=== PATIENT | female | born 1940 | race Caucasian/White ===

== ENCOUNTER → 2017-03-27 12:12 | Outpatient (CLI) | payer MEDICARE, MEDICAID, SELFPAY ==
--- NOTE | 2017-03-27 12:36 | XR_ITS ---
XR tibia fibula RT 2V CLINICAL INDICATION: Pain following injury with leg swelling ITS.REASON: previous trash can dropped on it ORDERING PHYSICIAN: Franci Vergara PATIENT AGE: 76 years COMPARISON: None FINDINGS: No acute fracture or dislocation. There are mild osteoarthritic changes of the medial compartment and patellofemoral joint. There is some nonspecific soft tissue calcification about the knee and the anterior distal pretibial area probably related to phleboliths. No lytic process. No soft tissue gas or radiopaque foreign body. IMPRESSION: No acute finding. Nonspecific soft tissue calcifications and mild osteoarthritis of the knee
== END ==
PROVIDERS: PCP Nurse Practitioner Family; Visit Provider Nurse Practitioner Family
DX: R52 Pain, unspecified (principal)
CPT/HCPCS: 73590

== ENCOUNTER 2017-04-16 17:04 | Emergency (ER) | payer MEDICARE, MEDICAID, SELFPAY ==
[2017-04-16 17:05] VITALS: BP 142/114; PULSE 88; RESP 18; TEMP 37.1; O2SAT 94; BMI 85.9
--- NOTE | 2017-04-16 17:30 | XR_ITS ---
XR shoulder RT min 2V HISTORY: Right shoulder pain ITS.REASON: stretcher ORDERING PHYSICIAN: Deirdre Lyles MD PATIENT AGE: 76 years COMPARISON: None FINDINGS: There has been prior ORIF of right humerus with a long bone plate present stabilizing an old mid shaft humeral fracture. There are osteoarthritic changes of the glenohumeral joint. No acute fracture or dislocation. Study is limited technically. IMPRESSION: 1. Osteoarthritic change of the AC joint. 2. Prior ORIF right mid shaft humeral fracture
[2017-04-16 17:41] LABS: Basophils % 0.1 % (0.1-2.0); Hematocrit 37.6 % (37.0-47.0); Hemoglobin 12.2 g/dL (12.2-16.2); Lymphocytes % 5.5 K/mm3 (10-50); Mean Corpuscular HGB Conc 32.6 g/dL (31.8-35.4); Mean Corpuscular Volume 79.8 fl (81-99); Mean Platelet Volume 7.3 fl (7.4-10.4); Monocytes # 1.2 K/mm3 (0.1-1.0); Monocytes % 6.1 % (1.7-9.3); Neutrophils # 16.7 K/mm3 (1.8-7.8); Neutrophils % 88.3 % (37.0-80.0); Platelet Count 180 K/mm3 (142-424); Red Blood Count 4.71 M/mm3 (4.20-5.40); Red Cell Distribution Width 14.1 % (11.5-17.5); White Blood Count 18.9 K/mm3 (4.8-10.8)
[2017-04-16 17:44] LABS: MANUAL DIFFERENTIAL MANUAL DIFFERENTIAL (MANUAL DIFF)
--- NOTE | 2017-04-16 17:50 | HMH.EDNVD ---
ED Disposition Clinical Impression: Right middle lobe pneumonia, Hypokalemia Disposition: Home, Self-Care Condition on Discharge: Good Instructions: DI for Diarrhea and Traveler's Diarrhea -- Adult, DI for Diarrhea and Traveler's Diarrhea -- Child, DI for Nausea -- Adult, DI for Nausea -- Child Additional Instructions: 1- reassurance. 2- finish abx in the Ed. 3- start z pack tomorrow. 4- follow up with Mor in am 5- return if needed. Prescriptions: Azithromycin [Zithromax 250mg tab] 250 mg PO DIRECTED #6 tab Referrals: Franci Vergara APRN [Primary Care Provider] - - Critical Care Critical Care Time: No Attestation: On 04/16/17, the high probability of a clinically significant, sudden or life threatening deterioration of the following system(s) required my full and direct attention, intervention and personal management. The time I documented below is in addition to time spent performing reported procedures but includes the following listed in this critical care notation. Medical Decision Making - Medical Records Medical records reviewed: Yes: I reviewed the patient's medical records. Vital Signs: 04/16/17 17:05 Temperature 98.8 F Temperature Source Oral Pulse Rate [Right Radial] 88 Respiratory Rate 18 Blood Pressure [Right Arm] 142/114 Blood Pressure Mean [Right Arm] 123 Blood Pressure Source [Right Arm] Automatic Cuff Blood Pressure Position [Right Arm] Supine 02 Sat by Pulse Oximetry 94 L Oxygen Delivery Method Room Air - Lab Data Lab results reviewed: Yes: I reviewed the patient's lab results. Lab Results 04/16/17 17:15: WBC 18.9 H, RBC 4.71, Hgb 12.2, Hct 37.6, MCV 79.8 L, MCH 26.0 L, MCHC 32.6, RDW 14.1, Plt Count 180, MPV 7.3 L, Neut % (Auto) 88.3 H, Lymph % (Auto) 5.5 L, [place] % (Auto) 6.1, Eos % (Auto) 0.0 L, Baso % (Auto) 0.1, Neut # (Auto) 16.7 H, Lymph # (Auto) 1.0, [place] # (Auto) 1.2 H, Eos # (Auto) 0.0, Baso # (Auto) 0.0, Total Counted 100, Neutrophils % (Manual) 88 H, Lymphocytes % (Manual) 7 L, Monocytes % (Manual) 5, Platelet Estimate Normal, Stomatocytes 1+ 04/16/17 17:15: Sodium 137, Potassium 3.1 L, Chloride 99, Carbon Dioxide 30, Anion Gap 11.1, BUN 19 H, Creatinine 1.05 H, Estimated Creat Clear 37, Estimated GFR 51 L, Est GFR ( Amer) 61, Glucose 131 H, Calcium 10.1, Total Bilirubin 0.6, AST 20, ALT 24, Alkaline Phosphatase 66, Total Creatine Kinase 114, CK-MB (CK-2) 1.0, CK-MB (CK-2) Rel Index 0.9, Troponin I < 0.02, Total Protein 7.5, Albumin 3.4, Globulin 4.1 H, Albumin/Globulin Ratio 0.8 L 04/16/17 18:30: Lactic Acid 0.9 04/16/17 18:30: Lipase 103 04/16/17 18:40: Urine Color Yellow, Urine Appearance Clear, Urine pH 7.0, Ur Specific [place] 1.015, Urine Protein Negative, Urine Glucose (UA) Negative, Urine Ketones Negative, Urine Blood Trace-i, Urine Nitrate Negative, Urine Bilirubin Negative, Urine Urobilinogen 0.2, Ur Leukocyte Esterase Negative, Urine RBC Occasional, Urine WBC None, Ur Squamous Epith Cells 3-5, Urine Bacteria Trace 04/16/17 19:15: Influenza Type A Ag Negative, Influenza Type B Ag Negative Result diagrams: 04/16/17 17:15 04/16/17 17:15 Orders (Tests/Meds): ED MEDICATIONS Generic Name Dose Route Start Last Admin Trade Name Freq PRN Reason Stop Dose Admin Ceftriaxone Sodium 1 gm/ 50 mls @ 100 mls/hr 04/16/17 19:15 04/16/17 19:21 Sodium Chloride IV 04/30/17 19:14 100 mls/hr Q24H JESICA Administration Azithromycin 500 mg/ Sodium 250 mls @ 250 mls/hr 04/16/17 19:15 04/16/17 20:07 Chloride IV 04/30/17 19:14 250 mls/hr Q24H JESICA Administration Protocol Discontinued Medications Generic Name Dose Route Start Last Admin Trade Name Freq PRN Reason Stop Dose Admin Metronidazole 100 mls @ 100 mls/hr 04/16/17 18:30 Flagyl 500mg/100ml Ivpb IV 04/16/17 19:29 ONCE ONE Protocol Potassium Chloride 20 meq 04/16/17 19:04 04/16/17 20:10 Klor-Con 20meq Tablet PO 04/16/17 19:05 20 meq
--- NOTE | 2017-04-16 17:53 | ED_ITS ---
ED Disposition Clinical Impression: Right middle lobe pneumonia, Hypokalemia Disposition: Home, Self-Care Condition on Discharge: Good Instructions: DI for Diarrhea and Traveler's Diarrhea -- Adult, DI for Diarrhea and Traveler's Diarrhea -- Child, DI for Nausea -- Adult, DI for Nausea -- Child Additional Instructions: 1- reassurance. 2- finish abx in the Ed. 3- start z pack tomorrow. 4- follow up with Mor in am 5- return if needed. Prescriptions: Azithromycin [Zithromax 250mg tab] 250 mg PO DIRECTED #6 tab Referrals: Franci Vergara APRN [Primary Care Provider] - - Critical Care Critical Care Time: No Attestation: On 04/16/17, the high probability of a clinically significant, sudden or life threatening deterioration of the following system(s) required my full and direct attention, intervention and personal management. The time I documented below is in addition to time spent performing reported procedures but includes the following listed in this critical care notation. Medical Decision Making - Medical Records Medical records reviewed: Yes: I reviewed the patient's medical records. Vital Signs: 04/16/17 17:05 Temperature 98.8 F Temperature Source Oral Pulse Rate [Right Radial] 88 Respiratory Rate 18 Blood Pressure [Right Arm] 142/114 Blood Pressure Mean [Right Arm] 123 Blood Pressure Source [Right Arm] Automatic Cuff Blood Pressure Position [Right Arm] Supine 02 Sat by Pulse Oximetry 94 L Oxygen Delivery Method Room Air - Lab Data Lab results reviewed: Yes: I reviewed the patient's lab results. Lab Results 04/16/17 17:15: WBC 18.9 H, RBC 4.71, Hgb 12.2, Hct 37.6, MCV 79.8 L, MCH 26.0 L , MCHC 32.6, RDW 14.1, Plt Count 180, MPV 7.3 L, Neut % (Auto) 88.3 H, Lymph % ( Auto) 5.5 L, [place] % (Auto) 6.1, Eos % (Auto) 0.0 L, Baso % (Auto) 0.1, Neut # ( Auto) 16.7 H, Lymph # (Auto) 1.0, [place] # (Auto) 1.2 H, Eos # (Auto) 0.0, Baso # (Auto) 0.0, Total Counted 100, Neutrophils % (Manual) 88 H, Lymphocytes % ( Manual) 7 L, Monocytes % (Manual) 5, Platelet Estimate Normal, Stomatocytes 1+ 04/16/17 17:15: Sodium 137, Potassium 3.1 L, Chloride 99, Carbon Dioxide 30, Anion Gap 11.1, BUN 19 H, Creatinine 1.05 H, Estimated Creat Clear 37, Estimated GFR 51 L, Est GFR ( Amer) 61, Glucose 131 H, Calcium 10.1, Total Bilirubin 0.6, AST 20, ALT 24, Alkaline Phosphatase 66, Total Creatine Kinase 114, CK-MB (CK-2) 1.0, CK-MB (CK-2) Rel Index 0.9, Troponin I < 0.02, Total Protein 7.5, Albumin 3.4, Globulin 4.1 H, Albumin/Globulin Ratio 0.8 L 04/16/17 18:30: Lactic Acid 0.9 04/16/17 18:30: Lipase 103 04/16/17 18:40: Urine Color Yellow, Urine Appearance Clear, Urine pH 7.0, Ur Specific [place] 1.015, Urine Protein Negative, Urine Glucose (UA) Negative, Urine Ketones Negative, Urine Blood Trace-i, Urine Nitrate Negative, Urine Bilirubin Negative, Urine Urobilinogen 0.2, Ur Leukocyte Esterase Negative, Urine RBC Occasional, Urine WBC None, Ur Squamous Epith Cells 3-5, Urine Bacteria Trace 04/16/17 19:15: Influenza Type A Ag Negative, Influenza Type B Ag Negative Result diagrams: 04/16/17 17:15 04/16/17 17:15 Orders (Tests/Meds): ED MEDICATIONS Generic Name Dose Route Start Last Admin Trade Name Freq PRN Reason Stop Dose Admin Ceftriaxone Sodium 1 gm/ 50 mls @ 100 mls/hr 04/16/17 19:15 04/16/17 19:21 Sodium Chloride IV 04/30/17 19:14 100 mls/hr Q24H JESICA Administration Az
--- NOTE | 2017-04-16 17:54 | CT_ITS ---
CT abdomen pelvis wo con CLINICAL INDICATION: ITS.REASON: vomiting and elevated wbcs ORDERING PHYSICIAN: Deirdre Lyles MD PATIENT AGE: 76 years COMPARISON: None TECHNIQUE: Axial images obtained with sagittal and coronal reformats. PROCEDURE: Oral Contrast: None IV Contrast: None . FINDINGS: There is consolidation in the right middle lobe consistent with pneumonia. There is some thickening in the proximal aspect of the right middle lobe bronchi possibly inflammatory. Follow-up recommended to confirm resolution. There are coronary artery calcifications. Small hiatal hernia noted. Prior cholecystectomy. No ductal dilatation. Liver has an unremarkable appearance. There is mild splenomegaly at 15 cm. The adrenal glands and pancreas have an unremarkable unenhanced CT appearance. No renal or ureteral calculi. Minimal stranding perinephric renal fat nonspecific. Unremarkable appendix. No evidence of appendicitis. There is diverticulosis of the sigmoid colon. No evidence of diverticulitis. No intestinal obstruction or free air Lumbar scoliosis convex left with degenerative disc disease. IMPRESSION: 1. Right middle lobe pneumonia with mild proximal bronchial thickening. Follow-up recommended to confirm resolution 2. Coronary artery disease. 3. Mild splenomegaly
--- NOTE | 2017-04-16 17:54 | XR_ITS ---
XR chest AP HISTORY: ITS.REASON: elevated wbcs ORDERING PHYSICIAN: Deirdre Lyles MD PATIENT AGE: 76 years COMPARISON: 08/03/2016 FINDINGS: The cardiomediastinal silhouette and pulmonary vascularity are within normal limits. The lungs are clear without infiltrates, suspicious nodules, or pleural effusions. Bone plate noted over the right humerus.. IMPRESSION: No acute finding
[2017-04-16 18:06] LABS: Alanine Aminotransferase 24 U/L (12-78); Albumin Level 3.4 gm/dL (3.4-5.0); Albumin/Globulin Ratio 0.8 (1.1-1.8); Alkaline Phosphatase 66 U/L (46-116); Anion Gap 11.1 mEq/L (5-15); Aspartate Amino Transferase 20 U/L (15-37); Bilirubin,Total 0.6 mg/dL (0.2-1.0); Blood Urea Nitrogen 19 mg/dL (7-18); CKMB Relative Index 0.9 U/L (0-4.0); Calcium 10.1 mg/dL (8.5-10.1); Carbon Dioxide 30 mmol/L (21.0-32.0); Chloride 99 mmol/L (98-107); Creatine Kinase 114 U/L (26-192); Creatinine Clearance Estimated 37 mL/min (0-300); Creatinine,Serum 1.05 mg/dL (0.55-1.02); Estimated Glomerular Filt Rate 51 ml/min (>60); GFR (African American) 61 ML/MIN (>60); Globulin 4.1 gm/dl (1.3-3.2); Glucose 131 mg/dL (74-106); Potassium 3.1 mmoL/L (3.5-5.1); Sodium 137 mmol/L (136-145); Total Protein,Serum 7.5 gm/dL (6.4-8.2); Troponin I < 0.02 ng/ml (0.00-0.06)
[2017-04-16 18:43] LABS: Lymphocytes % 7 % (10-50); Monocytes % 5 % (2-9); Neutrophils % 88 % (42-76); Total Cells Counted 100
[2017-04-16 18:44] LABS: Platelet Estimate Normal; Stomatocytes 1+
[2017-04-16 18:44] LABS: Microscopic, Urine URINE MICROSCOPIC (MICROSCOPIC)
[2017-04-16 18:51] LABS: Lipase 103 u/L (73-393)
[2017-04-16 18:53] LABS: Appearance,Urine CLEAR (Clear); Bilirubin,Urine Negative (Negative); Blood, Urine TRACE-I (Negative); Color,Urine YELLOW (Yellow); Glucose,Urine (UA) Negative (Negative); Ketones,Urine Negative (Negative); Leukocyte Esterase,Urine Negative (Negative); Nitrate,Urine Negative (Negative); Protein,Urine Negative (Negative); Specific Gravity, Urine 1.015 (1.005-1.030); Urobilinogen,Urine 0.2 EU/dl (0.2)
[2017-04-16 18:59] LABS: Lactic Acid 0.9 mmol/L (0.4-2.0)
[2017-04-16 19:07] LABS: Bacteria,Urine Trace /lpf; RBC,Urine Occasional #/hpf (0-3)
[2017-04-16 21:38] VITALS: BP 180/76; PULSE 86; RESP 20; TEMP 36.9
== END 2017-04-16 21:38 | disposition home or self-care (01) ==
PROVIDERS: Emergency Provider Emergency Medicine; Family Provider Emergency Medicine; PCP Nurse Practitioner Family
DX: J18.9 Pneumonia, unspecified organism (principal); E87.6 Hypokalemia; K21.9 Gastro-esophageal reflux disease without esophagitis; I25.10 Atherosclerotic heart disease of native coronary artery without angina pectoris; E78.5 Hyperlipidemia, unspecified; I10 Essential (primary) hypertension; J45.909 Unspecified asthma, uncomplicated; Z79.899 Other long term (current) drug therapy; Z88.0 Allergy status to penicillin; Z88.1 Allergy status to other antibiotic agents; Z88.6 Allergy status to analgesic agent
CPT/HCPCS: 36415; 71045; 73030; 74176; 80053; 81001; 82550; 82553; 83605; 83690; 84484; 85007; 85025; 87040; 87275; 87276; 93005; 96365; 96366; 96367; 99282; J0456

== ENCOUNTER → 2017-06-10 06:29 | Outpatient (CLI) | payer MEDICARE, MEDICAID, SELFPAY ==
--- NOTE | 2017-06-10 06:31 | CA_ITS ---
PROCEDURE: 2-D M-mode and color Doppler study INDICATIONS FOR THE TEST: Chest pain X COPDX Heart Murmur Tobacco Smoking Palpitations FatigueX Syncope Edema HypertensionXDiabetes Mellitus Rheumatic Fever SOB DOEXObesityXHyperlipidemia Family History HD Additional History PATIENT INFORMATION HEIGHT: 63 WEIGHT:199 GENDER: Female B/P:152/78 2-D/M-MODE INTERPRETATION: 2-D MEASUREMENTS OBSERVED VALUES IN CMS Right Ventricular Dimension (RVDd) 2.2 Interventricular Septum (Thickness)(IVsd) 1.0 Left Ventricular Internal Dimensions(LVIDd) 5.6 Left Ventricular Posterior Wall (Thickness)(LVPWd) 1.2 Aortic Root 3.2 Aortic Cusp Separation 2.0 Left Atrial Dimensions (LAD) 3.7 2D 1. Left atrium is qualitatively moderately enlarged, left ventricle is normal size, there is mild concentric left ventricular hypertrophy present, visually estimated ejection fraction 55% with no obvious regional wall motion abnormality. 2. The right atrium and right ventricle are mildly enlarged with normal contractility. 3. The aortic valve is minimally thickened and fibrosed. 4. The mitral and tricuspid valve leaflets are minimally thickened. 5. The pulmonic valve is poorly visualized. 6. No significant pericardial effusion noted. DOPPLER INTERROGATION: Doppler interrogation of the aortic, mitral and tricuspid presence of mild mitral and tricuspid regurgitation, calculated right ventricular systolic pressure is 60 mmHg consistent with moderate pulmonary hypertension, grade 1 diastolic dysfunction seen with tissue Doppler evidence of raised left atrial pressure. CONCLUSION: 1. Moderately enlarged left atrium, normal left ventricular size, mild concentric left ventricular hypertrophy, visually estimated ejection fraction 55% with no obvious regional wall motion abnormality, grade 1 diastolic dysfunction seen with tissue Doppler evidence of raised left atrial pressure. 2. Mildly enlarged right ventricle with normal contractility. 3. Mild mitral and tricuspid regurgitation, calculated right ventricular systolic pressure is 60 mmHg consistent with moderate pulmonary hypertension. 4. No significant pericardial effusion noted.
--- NOTE | 2017-06-10 06:31 | NM_ITS ---
CARDIOLITE SPECT MYOCARDIAL PERFUSION SCAN, REST AND STRESS: EXERCISE STRESS [facility] REVIEW QGS EF AND WALL MOTION EVALUATION: QPS - PERFUSION EVALUATION HISTORY: Chest pain, SOB, HTN DOSE: 10.16 mCi technetium 99m mibi intravenously at rest followed by 32.8 mCi technetium 99m mibi following the intravenous ministration of 0.4 mg of Lexiscan. Resting blood pressure is 176/86. Stress blood pressure 172/87. FINDINGS: Ejection fraction is calculated to be 76%. Stress images reveal decreased activity in the anterior wall while rest images reveal uniform myocardial activity. Gated images calculated ejection fraction of 76% with normal wall motion IMPRESSION: Reversible ischemia in the anterior wall with normal ejection fraction normal wall motion. This is a high risk abnormal stress test
--- NOTE | 2017-06-10 07:39 | HMH.ITSHM ---
AZITHROMYCIN GABAPENTIN TRAMADOL VENTOLIN OXYBUTNIN RANITIDINE HCTZ LEVOTHYROXIN ISOSORB SERTRALINE LISINOPRIL METOPROL
== END ==
PROVIDERS: Family Provider Emergency Medicine; PCP Nurse Practitioner Family; Visit Provider Internal Medicine
DX: I25.118 Atherosclerotic heart disease of native coronary artery with other forms of angina pectoris (principal)
CPT/HCPCS: 78452; 93017; 93306; A9502; J2785

== ENCOUNTER → 2017-06-11 15:47 | Outpatient (POV) | payer MEDICARE, MEDICAID, SELFPAY ==
--- NOTE | 2017-06-11 16:03 | XR_ITS ---
XR chest 2V HISTORY: ITS.REASON: PNEUMONIA ORDERING PHYSICIAN: Edmond Landers MD PATIENT AGE: 76 years COMPARISON: 04/16/2017 FINDINGS: The cardiomediastinal silhouette and pulmonary vascularity are within normal limits. The lungs are clear without infiltrates, suspicious nodules, or pleural effusions. Minimal atelectatic or fibrotic changes are present in the left lung base. There is a calcified granuloma in the right lower lobe. There are degenerative changes in the thoracic spine with mild wedging involving what appears to represent T12 similar to previous CT scan of 01/21/2017 with degenerative changes in the upper lumbar spine. Bone plate is present of the right proximal humerus IMPRESSION: No acute finding
== END ==
PROVIDERS: Family Provider Emergency Medicine; PCP Nurse Practitioner Family; Visit Provider Internal Medicine
DX: J18.9 Pneumonia, unspecified organism (principal)
CPT/HCPCS: 71046

== ENCOUNTER → 2017-07-03 16:23 | Outpatient (REF) | payer MEDICARE, MEDICAID, SELFPAY ==
[2017-07-03 20:54] LABS: Amphetamine/Metha Screen,Urine Negative ng/mL (<1000); Barbiturates Screen,Urine Negative ng/mL (<200); Benzodiazepines Screen,Urine Negative ng/mL (200); Cannabinoid Screen,Urine Negative ng/mL (<50); Cocaine Screen,Urine Negative ng/g (<300); Methadone Screen,Urine Negative ng/mL (<300); Opiate Screen,Urine Negative ng/mL (<300); Phencyclidine Screen,Urine Negative ng/mL (<25)
== END ==
LOC: LAB 16:23
PROVIDERS: Visit Provider Nurse Practitioner Family
DX: Z79.899 Other long term (current) drug therapy (principal); M54.9 Dorsalgia, unspecified
CPT/HCPCS: 80305

== ENCOUNTER → 2017-07-25 11:58 | Outpatient (CLI) | payer MEDICARE, MEDICAID, SELFPAY ==
[2017-07-25 13:19] LABS: Alanine Aminotransferase 20 U/L (12-78); Albumin Level 3.6 gm/dL (3.4-5.0); Alkaline Phosphatase 70 U/L (46-116); Anion Gap 11.8 mEq/L (5-15); Aspartate Amino Transferase 22 U/L (15-37); Bilirubin,Total 0.2 mg/dL (0.2-1.0); Blood Urea Nitrogen 34 mg/dL (7-18); Calcium 10.8 mg/dL (8.5-10.1); Carbon Dioxide 29 mmol/L (21.0-32.0); Chloride 101 mmol/L (98-107); Creatinine,Serum 1.23 mg/dL (0.55-1.02); Estimated Glomerular Filt Rate 42 ml/min (>60); GFR (African American) 51 ML/MIN (>60); Globulin 3.5 gm/dl (1.3-3.2); Glucose 86 mg/dL (74-106); Potassium 3.8 mmoL/L (3.5-5.1); Sodium 138 mmol/L (136-145); Total Protein,Serum 7.1 gm/dL (6.4-8.2)
[2017-07-26 20:14] LABS: Vitamin D 25 Hydroxy 42.1 ng/mL (30.0-100.0)
== END ==
PROVIDERS: Family Provider Emergency Medicine; PCP Nurse Practitioner Family; Visit Provider Nurse Practitioner Family
DX: I25.10 Atherosclerotic heart disease of native coronary artery without angina pectoris (principal); R53.83 Other fatigue
CPT/HCPCS: 36415; 80053; 82652

== ENCOUNTER → 2017-10-30 11:04 | Outpatient (REF) | payer MEDICARE, MEDICAID, SELFPAY ==
[2017-10-30 14:17] LABS: Amphetamine/Metha Screen,Urine Negative ng/mL (<1000); Barbiturates Screen,Urine Negative ng/mL (<200); Benzodiazepines Screen,Urine Negative ng/mL (<200); Cannabinoid Screen,Urine Negative ng/mL (<50); Cocaine Screen,Urine Negative ng/mL (<300); Methadone Screen,Urine Negative ng/mL (<300); Opiate Screen,Urine Negative ng/mL (<300); Phencyclidine Screen,Urine Negative ng/mL (<25)
== END ==
LOC: LAB 11:04
PROVIDERS: Visit Provider Nurse Practitioner Family
DX: M54.5 Low back pain (principal)
CPT/HCPCS: 80305

== ENCOUNTER → 2017-11-12 08:41 | Outpatient (CLI) | payer MEDICARE, MEDICAID, SELFPAY ==
--- NOTE | 2017-11-12 08:45 | MM_ITS ---
MM Dig screening mamm BI w/CAD ORDERING PHYSICIAN : Franci Vergara PATIENT AGE: 76 years GENDER: Female COMPARISON: Multiple previous studies including November 2016 & 2015 and September bilateral mammogram. Right mammogram May 2016 INDICATION: ITS.REASON: screening no hormones. No new complaints. Noncontributory family hx Previous benign excisional biopsy left &. Right breast:. Biopsy scar 6:00 right breast and 2:30 position left breast TECHNIQUE: Standard CC and MLO images were obtained. R2 CAD reviewed. Additional CC nipple profile and right nipple profile view FINDINGS: Minimal residual fibroglandular elements both breasts.. No new suspicious findings. No dominant mass nor suspicious calcifications. Prior films are very helpful and demonstrates stable moderate asymmetry of the remaining minimal heterogeneous. Residual fibroglandular elements. RIGHT BREAST:No significant new findings. Follow-up in one year Small area of minimal asymmetric density at the medial inferior right breast appear stable since last year and some other previous studies LEFT BREAST:. Stable. Follow-up in one year The heterogeneous pattern appears stable with no significant new findings IMPRESSION: Stable bilateral mammogram. No new areas of significant concern. Heterogeneous mild asymmetric breast bilaterally Follow-up in one year recommended BI-RADS Category: 2 Benign Finding(s) RECOMMENDED FOLLOW-UP: 1YR 1 YEAR FOLLOW-UP (A letter has been sent to the patient regarding results of the study.)
== END ==
PROVIDERS: Family Provider Emergency Medicine; PCP Nurse Practitioner Family; Visit Provider Nurse Practitioner Family
DX: Z12.31 Encounter for screening mammogram for malignant neoplasm of breast (principal)
CPT/HCPCS: 77067

== ENCOUNTER → 2017-12-18 10:33 | Outpatient (CLI) | payer MEDICARE, MEDICAID, SELFPAY ==
[2017-12-18 12:25] LABS: Anion Gap 10.7 mEq/L (5-15); Blood Urea Nitrogen 23 mg/dL (7-18); Calcium 10.2 mg/dL (8.5-10.1); Carbon Dioxide 31 mmol/L (21.0-32.0); Chloride 97 mmol/L (98-107); Creatinine,Serum 1.13 mg/dL (0.55-1.02); Estimated Glomerular Filt Rate 46 ml/min (>60); GFR (African American) 56 ML/MIN (>60); Glucose 89 mg/dL (74-106); Potassium 3.7 mmoL/L (3.5-5.1); Sodium 135 mmol/L (136-145)
== END ==
PROVIDERS: PCP Nurse Practitioner Family; Visit Provider Physician Assistant
DX: E78.2 Mixed hyperlipidemia (principal); E87.6 Hypokalemia; I11.9 Hypertensive heart disease without heart failure; I25.10 Atherosclerotic heart disease of native coronary artery without angina pectoris; J44.9 Chronic obstructive pulmonary disease, unspecified; R06.09 Other forms of dyspnea; R07.89 Other chest pain; R26.81 Unsteadiness on feet; Z74.09 Other reduced mobility
CPT/HCPCS: 36415; 80048

== ENCOUNTER → 2017-12-20 10:22 | Outpatient (REF) | payer MEDICARE, MEDICAID, SELFPAY ==
[2017-12-20 14:32] LABS: Amphetamine/Metha Screen,Urine Negative ng/mL (<1000); Barbiturates Screen,Urine Negative ng/mL (<200); Benzodiazepines Screen,Urine Positive ng/mL (<200); Cannabinoid Screen,Urine Negative ng/mL (<50); Cocaine Screen,Urine Negative ng/mL (<300); Methadone Screen,Urine Negative ng/mL (<300); Opiate Screen,Urine Negative ng/mL (<300); Phencyclidine Screen,Urine Negative ng/mL (<25)
[2017-12-20 14:53] LABS: Alanine Aminotransferase 20 U/L (12-78); Albumin Level 3.7 gm/dL (3.4-5.0); Albumin/Globulin Ratio 1.1 (1.1-1.8); Alkaline Phosphatase 73 U/L (46-116); Anion Gap 13.3 mEq/L (5-15); Aspartate Amino Transferase 20 U/L (15-37); Bilirubin,Total 0.3 mg/dL (0.2-1.0); Blood Urea Nitrogen 26 mg/dL (7-18); Calcium 10.3 mg/dL (8.5-10.1); Carbon Dioxide 28 mmol/L (21.0-32.0); Chloride 100 mmol/L (98-107); Chol/HDL Ratio 3.1 (1-3.5); Cholesterol 170 mg/dL (140-200); Creatinine,Serum 1.25 mg/dL (0.55-1.02); Estimated Glomerular Filt Rate 41 ml/min (>60); Free T4 (Free Thyroxine) 1.01 ng/dl (0.76-1.46); GFR (African American) 50 ML/MIN (>60); Globulin 3.3 gm/dl (1.3-3.2); Glucose 93 mg/dL (74-106); HDL Cholesterol 55 mg/dL (29-89); LDL Cholesterol 93 mg/dL (0-130); Potassium 4.3 mmoL/L (3.5-5.1); Sodium 137 mmol/L (136-145); Thyroid Stimulating Hormone 2.11 uIU/ml (0.358-3.740); Triglycerides 111 mg/dL (30-200); VLDL Cholesterol 22 mg/dL (0-40)
[2017-12-20 14:59] LABS: Basophils % 0.4 % (0.1-2.0); Eosinophils # 0.3 K/mm3 (0.0-0.4); Eosinophils % 4.4 % (0.1-12.0); Hematocrit 34.8 % (37.0-47.0); Hemoglobin 11.8 g/dL (12.2-16.2); Lymphocytes # 1.6 K/mm3 (0.7-4.5); Lymphocytes % 21.2 K/mm3 (10-50); Mean Corpuscular HGB Conc 33.7 g/dL (31.8-35.4); Mean Corpuscular Hemoglobin 27.7 pg (27.0-31.2); Mean Corpuscular Volume 82.2 fl (81-99); Mean Platelet Volume 7.7 fl (7.4-10.4); Monocytes # 0.6 K/mm3 (0.1-1.0); Monocytes % 7.7 % (1.7-9.3); Neutrophils # 4.9 K/mm3 (1.8-7.8); Neutrophils % 66.3 % (37.0-80.0); Platelet Count 243 K/mm3 (142-424); Red Blood Count 4.24 M/mm3 (4.20-5.40); Red Cell Distribution Width 14.2 % (11.5-17.5); White Blood Count 7.4 K/mm3 (4.8-10.8)
[2017-12-21 10:22] LABS: Vitamin D 25 Hydroxy 33.6 ng/mL (30.0-100.0)
== END ==
LOC: LAB 10:22
PROVIDERS: PCP Nurse Practitioner Family; Visit Provider Nurse Practitioner Family
DX: I10 Essential (primary) hypertension (principal); R53.83 Other fatigue; Z79.899 Other long term (current) drug therapy; E03.9 Hypothyroidism, unspecified
CPT/HCPCS: 80053; 80061; 80305; 82652; 84439; 84443; 85025

== ENCOUNTER → 2018-03-12 17:10 | Outpatient (CLI) | payer MEDICARE, MEDICAID, SELFPAY ==
--- NOTE | 2018-03-12 17:18 | XR_ITS ---
XR wrist RT min 3V HISTORY wrist pain ITS.REASON: pain ORDERING PHYSICIAN: Franci Vergara PATIENT AGE: 77 years Comparison: None FINDINGS: No fracture or dislocation. No lytic or blastic change. There is normal mineralization.. There are mild osteoarthritic changes of the first metacarpal carpal joint IMPRESSION: No acute finding. 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
--- NOTE | 2018-03-12 17:18 | XR_ITS ---
XR forearm RT 2V HISTORY: Right forearm and wrist pain ITS.REASON: pain ORDERING PHYSICIAN: Franci eVrgara PATIENT AGE: 77 years FINDINGS: No fracture or dislocation. Bone plate is present along the anterior aspect of the mid shaft of the humerus. IMPRESSION: Negative right forearm
== END ==
PROVIDERS: PCP Emergency Medicine; Visit Provider Nurse Practitioner Family
DX: M79.632 Pain in left forearm (principal)
CPT/HCPCS: 73090; 73110

== ENCOUNTER → 2018-05-26 09:39 | Outpatient (CLI) | payer MEDICARE, MEDICAID, SELFPAY ==
[2018-05-26 10:35] VITALS: PULSE 80; PULSE 87
== END ==
PROVIDERS: PCP Emergency Medicine; Visit Provider Internal Medicine
DX: R06.09 Other forms of dyspnea (principal)
CPT/HCPCS: 94060; 94640; 94727; 94729

== ENCOUNTER → 2018-06-10 14:50 | Outpatient (POV) | payer MEDICARE, MEDICAID, SELFPAY | PROVIDERS: Visit Provider Internal Medicine | DX: Z00.00 Encounter for general adult medical examination without abnormal findings (principal) ==

== ENCOUNTER → 2018-06-18 10:41 | Outpatient (CLI) | payer MEDICARE, MEDICAID, SELFPAY ==
--- NOTE | 2018-06-18 10:42 | FL_ITS ---
FL barium swallow modified: 06/18/2018 10:42 AM CLINICAL HISTORY: Dysphagia ORDERING PHYSICIAN: Franci Vergara APRN PATIENT AGE: 77 years Comparison: None TECHNIQUE: Patient administered varying consistencies of barium contrast, while viewed in lateral position under real-time fluoroscopy with cine recording. FLUOROSCOPY TIME: 2 minutes and 16 seconds The study was performed in conjunction with speech pathologist. Please see that report & recommendations. FINDINGS: Patient was given varying consistencies of barium. There was minimal penetration with thin liquids IMPRESSION: Minimal penetration with thin liquids otherwise Unremarkable modified barium swallow Please see speech pathologist report and recommendations.
--- NOTE | 2018-06-18 11:50 | HMH.SLMBS2 ---
Speech & Language Evaluation Speech/Language Mod Barium Swallow Start: 06/18/18 11:40 Freq: once Status: Complete Protocol: Document 06/18/18 11:40 MARCO AKYUNG (Rec: 06/18/18 11:50 COLLEEN [id number]) [facility] [place] Recommendations Diet Dietary Recommendations Mechanical Soft Ground Meats Thin Liquids Comment Thin liquids with head turn to left. Treatment/Strategies Strategy/Precaution Recommend Turn Head Left Referrals/Other Recommended Referrals ENT Consult Other Recommendations Ms. Corral reports sensation of food getting stuck in throat. Recommend follow up with ENT to assess pharengeal area. Mod Barium Swallow Impressions Summary and Impressions Oral Phase Impression Minimal Impairment Oral Phase Summary Only upper dentures. Pharyngeal Phase Impression Mild Impairment Pharyngeal Phase Summary Penetration with thin and nectar liquids without head turn strtategy. Speech/Language MBS Assessment/Goals/Plan Assessment Date of Evaluation: 06/18/18 Evaluation Type Initial Certification Assessment/Problems Pt. reports feeling of food getting stuck in thoat and getting strangled on liquids . Does Patient Qualify for Service No Qualify/Failure Comment Patient able to follow directions and comply with compensatory strategy to prevent aspiration and penetration with head turn to left. Pt. 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 Recommendations PHYSICIAN CERTIFICATION: The specified therapy services are required, authorized, and reviewed every 30 days. Diet Recommendations Dysphagia Mechanical Soft Liquid Type Recommendations Normal/Thin SL Swallow Guidelines High aspiration risk Dysphagia Swallow Precautions/Strategies Turn Head Left Plan Pt/Guardian verbally ack understanding Yes of dx/prognosis/goals Pt/Guardian verbally ack understanding Yes of/consent to tx prog G -code Required Yes G-CODES ST Current Status [id number] ST Current Status Modifier CI-At least 1% but less than 20% impaired, limited or restricted ST Goal Status [id number] ST Goal Status Modifier CI-At least 1% but less than 20% impaired, limited or
== END ==
PROVIDERS: PCP Nurse Practitioner Family; Visit Provider Nurse Practitioner Family
DX: R13.10 Dysphagia, unspecified (principal)
CPT/HCPCS: 70371; 92611

== ENCOUNTER → 2018-06-20 13:26 | Outpatient (CLI) | payer MEDICARE, MEDICAID, SELFPAY ==
[2018-06-20 13:44] LABS: Basophils % 0.8 % (0.1-2.0); Eosinophils # 0.4 K/mm3 (0.0-0.4); Eosinophils % 7.8 % (0.1-12.0); Hematocrit 35.7 % (37.0-47.0); Hemoglobin 11.8 g/dL (12.2-16.2); Lymphocytes # 1.3 K/mm3 (0.7-4.5); Mean Corpuscular HGB Conc 32.9 g/dL (31.8-35.4); Mean Corpuscular Hemoglobin 26.7 pg (27.0-31.2); Mean Corpuscular Volume 81.2 fl (81-99); Mean Platelet Volume 7.4 fl (7.4-10.4); Monocytes # 0.4 K/mm3 (0.1-1.0); Monocytes % 7.5 % (1.7-9.3); Neutrophils # 3.4 K/mm3 (1.8-7.8); Neutrophils % 61.1 % (37.0-80.0); Platelet Count 212 K/mm3 (142-424); White Blood Count 5.6 K/mm3 (4.8-10.8)
[2018-06-20 14:40] LABS: Alanine Aminotransferase 21 U/L (12-78); Albumin Level 3.7 gm/dL (3.4-5.0); Albumin/Globulin Ratio 1.2 (1.1-1.8); Alkaline Phosphatase 66 U/L (46-116); Aspartate Amino Transferase 19 U/L (15-37); Bilirubin,Total 0.2 mg/dL (0.2-1.0); Blood Urea Nitrogen 27 mg/dL (7-18); Calcium 10.1 mg/dL (8.5-10.1); Carbon Dioxide 29 mmol/L (21.0-32.0); Chloride 104 mmol/L (98-107); Chol/HDL Ratio 3.7 (1-3.5); Cholesterol 172 mg/dL (140-200); Creatinine,Serum 1.22 mg/dL (0.55-1.02); Estimated Glomerular Filt Rate 43 ml/min (>60); GFR (African American) 51 ML/MIN (>60); Globulin 3.1 gm/dl (1.3-3.2); Glucose 96 mg/dL (74-106); HDL Cholesterol 46 mg/dL (29-89); LDL Cholesterol 106 mg/dL (0-130); Sodium 139 mmol/L (136-145); T4 (Thyroxine) 8.8 ug/dl (4.7-13.3); Thyroid Stimulating Hormone 2.45 uIU/ml (0.358-3.740); Total Protein,Serum 6.8 gm/dL (6.4-8.2); Triglycerides 102 mg/dL (30-200); VLDL Cholesterol 20 mg/dL (0-40)
[2018-06-21 19:09] LABS: Vitamin D 25 Hydroxy 34.6 ng/mL (30.0-100.0)
== END ==
PROVIDERS: Visit Provider Nurse Practitioner Family
DX: I25.10 Atherosclerotic heart disease of native coronary artery without angina pectoris (principal); R53.1 Weakness; E66.9 Obesity, unspecified
CPT/HCPCS: 80053; 80061; 82652; 84436; 84443; 85025

== ENCOUNTER → 2018-06-24 12:04 | Outpatient (POV) | payer MEDICARE, MEDICAID, SELFPAY | PROVIDERS: Visit Provider Dermatology | DX: Z00.00 Encounter for general adult medical examination without abnormal findings (principal) ==

== ENCOUNTER → 2018-07-29 09:53 | Outpatient (CLI) | payer MEDICARE, MEDICAID, SELFPAY ==
--- NOTE | 2018-07-29 09:54 | CA_ITS ---
PROCEDURE: 2-D M-mode and color Doppler study INDICATIONS FOR THE TEST: Chest pain+ COPD+ Heart Murmur Tobacco SmokingEX Palpitations Fatigue+ Syncope Edema+ Hypertension+Diabetes Mellitus Rheumatic Fever SOB+PATEL+Obesity+Hyperlipidemia+ Family History HD Additional History CAD, GERD PATIENT INFORMATION HEIGHT: 63 WEIGHT: 198 GENDER: Female B/P: 119/51 2-D/M-MODE INTERPRETATION: 2-D MEASUREMENTS OBSERVED VALUES IN CMS Right Ventricular Dimension (RVDd) 2.7 Interventricular Septum (Thickness)(IVsd) 0.9 Left Ventricular Internal Dimensions(LVIDd) 5.1 Left Ventricular Posterior Wall (Thickness)(LVPWd) 0.9 Aortic Root 2.8 Aortic Cusp Separation 1.8 Left Atrial Dimensions (LAD) 3.6 2D 1. Left atrium is mildly enlarged, left ventricle is normal size, mild concentric left ventricular hypertrophy, visually estimated ejection fraction 55% with no regional wall motion abnormality. 2. The right atrium and right ventricle are mildly enlarged with normal contractility. 3. The aortic valve is thickened and calcified leaflet continue to display good mobility. 4. The mitral and tricuspid valve is minimally thickened and calcified. 5. The pulmonic valve is poorly present. 6. No significant pericardial effusion noted. DOPPLER INTERROGATION: Doppler interrogation of the aortic, mitral and tricuspid valvular presence of mild aortic, mild mitral and tricuspid regurgitation, tricuspid regurgitation jet velocity is inadequate for calculation of the right ventricular systolic pressure, grade 1 diastolic function seen with tissue Doppler evidence of raised left atrial pressure. CONCLUSION: 1. Mild biatrial enlargement, normal left ventricular size, mild concentric left ventricular hypertrophy, visually estimated ejection fraction 55% with no regional wall motion abnormality. Grade 1 diastolic dysfunction seen without tissue Doppler evidence of raised left atrial pressure. 2. Mildly enlarged right ventricle with normal contractility. 3. Mild aortic, mild mitral and tricuspid regurgitation. 4. No significant pericardial effusion noted.
== END ==
PROVIDERS: PCP Nurse Practitioner Family; Visit Provider Urology
DX: I25.10 Atherosclerotic heart disease of native coronary artery without angina pectoris (principal); R06.02 Shortness of breath
CPT/HCPCS: 93306

== ENCOUNTER 2018-08-08 11:02 | Emergency (ER) | payer MEDICARE, MEDICAID, SELFPAY ==
[2018-08-08] VITALS (8 sets, daily range): BP systolic 132–158; BP diastolic 45–89; PULSE 65–84; RESP 18; TEMP 36.6–36.7; O2SAT 91–99; BMI 35.2
--- NOTE | 2018-08-08 11:08 | XR_ITS ---
XR chest 2V HISTORY: ITS.REASON: chest pain ORDERING PHYSICIAN: Davonte Han MD PATIENT AGE: 77 years COMPARISON: PA and lateral chest 06/11/2017 FINDINGS: The cardiomediastinal silhouette and pulmonary vascularity are within normal limits. The lungs are clear without infiltrates, suspicious nodules, or pleural effusions. There is a stable partially calcified pulmonary nodule right lower lobe No acute bony abnormalities. There is orthopedic hardware right humeral neck partially visualized at the lateral edge of the [id number] IMPRESSION: Negative chest, no acute finding
--- NOTE | 2018-08-08 11:18 | HMH.EDGENADL ---
ED Disposition Clinical Impression: Dyspnea, Sensation of chest tightness Disposition: Home, Self-Care Condition on Discharge: Good Instructions: DI for Shortness of Breath Prescriptions: Furosemide [Lasix 20mg tab] 20 mg PO DAILY 30 Days #30 tab Referrals: Franci Vergara APRN [Primary Care Provider] - Time of Disposition: 14:42 - Critical Care Critical Care Time: No Attestation: On , the high probability of a clinically significant, sudden or life threatening deterioration of the following system(s) required my full and direct attention, intervention and personal management. The time I documented below is in addition to time spent performing reported procedures but includes the following listed in this critical care notation. Medical Decision Making - Medical Records Medical records reviewed: Yes: I reviewed the patient's medical records. - Rafa Inquiry Pt receiving controlled substance: No Rafa was queried for this patient: No Vital Signs: 08/08/18 11:03 08/08/18 11:07 08/08/18 11:48 Temperature 98.1 F 98.1 F 97.8 F Temperature Source Oral Oral Oral Pulse Rate [Left Radial] 84 80 Pulse Rate [Left] 79 Respiratory Rate 18 18 18 Blood Pressure [Left Arm] 144/89 H 158/78 H 143/50 H Blood Pressure Mean [Left Arm] 107 104 81 Blood Pressure Source [Left Arm] Automatic Cuff Automatic Cuff Blood Pressure Position [Left Arm] Sitting Supine Supine 02 Sat by Pulse Oximetry 97 98 96 Oxygen Delivery Method Room Air Room Air Room Air 08/08/18 12:41 08/08/18 13:45 08/08/18 14:19 Temperature Temperature Source Pulse Rate [Left Radial] 65 69 76 Pulse Rate [Left] Respiratory Rate 18 Blood Pressure [Left Arm] 132/46 L 136/67 144/69 H Blood Pressure Mean [Left Arm] 74 90 94 Blood Pressure Source [Left Arm] Automatic Cuff Blood Pressure Position [Left Arm] Supine 02 Sat by Pulse Oximetry 98 98 95 Oxygen Delivery Method Room Air - Lab Data Lab results reviewed: Yes: I reviewed the patient's lab results. Lab Results 08/08/18 11:11: WBC 6.0, RBC 4.33, Hgb 11.6 L, Hct 35.9 L, MCV 82.9, MCH 26.7 L, MCHC 32.2, RDW 14.3, Plt Count 196, MPV 7.7, Neut % (Auto) 61.5, Lymph % (Auto) 25.5, [place] % (Auto) 5.5, Eos % (Auto) 6.4, Baso % (Auto) 1.0, Neut # (Auto) 3.7, Lymph # (Auto) 1.5, [place] # (Auto) 0.3, Eos # (Auto) 0.4, Baso # (Auto) 0.1 08/08/18 11:11: Troponin I < 0.02 08/08/18 11:11: Sodium 139, Potassium 3.4 L, Chloride 102, Carbon Dioxide 26, Anion Gap 14.4, BUN 31 H, Creatinine 1.43 H, Estimated Creat Clear 45, Estimated GFR 35 L, Est GFR ( Amer) 43 L, Glucose 94, Calcium 10.1 08/08/18 11:11: B-Natriuretic Peptide 115 H Result diagrams: 08/08/18 11:11 08/08/18 11:11 General Adult HPI - General Stated complaint: chest pain x1 month Time Seen by Provider: 08/08/18 11:18 Mode of Arrival: Wheelchair Source of Information: Patient Limitations: No Limitations - History of Present Illness HPI narrative: one month of chest pressure, saw Dr. Montes less than two weeks ago. no changes to meds. relates to orthopnea. negative [facility] less than two years ago - Related Data Home Medications Medication Instructions Recorded Confirmed Cholecalciferol (Vitamin D3) 1,000 unit PO QDAY 04/16/17 08/08/18 [Vitamin D3 1,000 Unit Cap] meclizine 25 mg tablet 25 mg PO QDAY PRN tab 07/16/18 08/08/18 Previous Rx's Medication Instructions Recorded albuterol sulfate HFA 90 1 puff INHALATION Q4H #18 g 11/01/17 mcg/actuation aerosol inhaler lidocaine 5 % topical cream 1 applic TOPICAL ONCE #15 g 03/12/18 nystatin 100,000 unit/mL oral 1 ml PO TID 5 Days #15 ml 06/05/18 suspension sertraline 50 mg tablet 50 mg PO QDAY #90 tab 06/12/18 triamterene 37.5 1 cap PO QAM #90 cap 06/12/18 mg-hydrochlorothiazide 25 mg capsule aspirin 81 mg tablet,delayed 81 mg PO QDAY #90 tab 06/20/18 release furosemide 20 mg tablet 20 mg PO DAILY #90 tab 06/20/18 isosorbide mononitrate ER 3
[2018-08-08 11:21] LABS: Basophils # 0.1 K/mm3 (0-0.2); Eosinophils # 0.4 K/mm3 (0.0-0.4); Eosinophils % 6.4 % (0.1-12.0); Hematocrit 35.9 % (37.0-47.0); Hemoglobin 11.6 g/dL (12.2-16.2); Lymphocytes # 1.5 K/mm3 (0.7-4.5); Lymphocytes % 25.5 % (10-50); Mean Corpuscular HGB Conc 32.2 g/dL (31.8-35.4); Mean Corpuscular Hemoglobin 26.7 pg (27.0-31.2); Mean Corpuscular Volume 82.9 fl (81-99); Mean Platelet Volume 7.7 fl (7.4-10.4); Monocytes # 0.3 K/mm3 (0.1-1.0); Monocytes % 5.5 % (1.7-9.3); Neutrophils # 3.7 K/mm3 (1.8-7.8); Neutrophils % 61.5 % (37.0-80.0); Platelet Count 196 K/mm3 (142-424); Red Blood Count 4.33 M/mm3 (4.20-5.40); Red Cell Distribution Width 14.3 % (11.5-17.5)
--- NOTE | 2018-08-08 11:21 | ED_ITS ---
ED Disposition Clinical Impression: Dyspnea, Sensation of chest tightness Disposition: Home, Self-Care Condition on Discharge: Good Instructions: DI for Shortness of Breath Prescriptions: Furosemide [Lasix 20mg tab] 20 mg PO DAILY 30 Days #30 tab Referrals: Franci Vergara APRN [Primary Care Provider] - Time of Disposition: 14:42 - Critical Care Critical Care Time: No Attestation: On , the high probability of a clinically significant, sudden or life threatening deterioration of the following system(s) required my full and direct attention, intervention and personal management. The time I documented below is in addition to time spent performing reported procedures but includes the following listed in this critical care notation. Medical Decision Making - Medical Records Medical records reviewed: Yes: I reviewed the patient's medical records. - Rafa Inquiry Pt receiving controlled substance: No Rafa was queried for this patient: No Vital Signs: 08/08/18 11:03 08/08/18 11:07 08/08/18 11:48 Temperature 98.1 F 98.1 F 97.8 F Temperature Source Oral Oral Oral Pulse Rate [Left Radial] 84 80 Pulse Rate [Left] 79 Respiratory Rate 18 18 18 Blood Pressure [Left Arm] 144/89 H 158/78 H 143/50 H Blood Pressure Mean [Left Arm] 107 104 81 Blood Pressure Source [Left Arm] Automatic Cuff Automatic Cuff Blood Pressure Position [Left Arm] Sitting Supine Supine 02 Sat by Pulse Oximetry 97 98 96 Oxygen Delivery Method Room Air Room Air Room Air 08/08/18 12:41 08/08/18 13:45 08/08/18 14:19 Temperature Temperature Source Pulse Rate [Left Radial] 65 69 76 Pulse Rate [Left] Respiratory Rate 18 Blood Pressure [Left Arm] 132/46 L 136/67 144/69 H Blood Pressure Mean [Left Arm] 74 90 94 Blood Pressure Source [Left Arm] Automatic Cuff Blood Pressure Position [Left Arm] Supine 02 Sat by Pulse Oximetry 98 98 95 Oxygen Delivery Method Room Air - Lab Data Lab results reviewed: Yes: I reviewed the patient's lab results. Lab Results 08/08/18 11:11: WBC 6.0, RBC 4.33, Hgb 11.6 L, Hct 35.9 L, MCV 82.9, MCH 26.7 L, MCHC 32.2, RDW 14.3, Plt Count 196, MPV 7.7, Neut % (Auto) 61.5, Lymph % (Auto) 25.5, [place] % (Auto) 5.5, Eos % (Auto) 6.4, Baso % (Auto) 1.0, Neut # (Auto) 3.7, Lymph # (Auto) 1.5, [place] # (Auto) 0.3, Eos # (Auto) 0.4, Baso # (Auto) 0.1 08/08/18 11:11: Troponin I < 0.02 08/08/18 11:11: Sodium 139, Potassium 3.4 L, Chloride 102, Carbon Dioxide 26, Anion Gap 14.4, BUN 31 H, Creatinine 1.43 H, Estimated Creat Clear 45, Estimated GFR 35 L, Est GFR ( Amer) 43 L, Glucose 94, Calcium 10.1 08/08/18 11:11: B-Natriuretic Peptide 115 H Result diagrams: 08/08/18 11:11 08/08/18 11:11 General Adult HPI - General Stated complaint: chest pain x1 month Time Seen by Provider: 08/08/18 11:18 Mode of Arrival: Wheelchair Source of Information: Patient Limitations: No Limitations - History of Present Illness HPI narrative: one month of chest pressure, saw Dr. Montes less than two weeks ago. no changes to meds. relates to orthopnea. negative [facility] less than two years ago - Related Data Home Medications Medic
[2018-08-08 11:33] LABS: Anion Gap 14.4 mEq/L (5-15); Blood Urea Nitrogen 31 mg/dL (7-18); Calcium 10.1 mg/dL (8.5-10.1); Carbon Dioxide 26 mmol/L (21.0-32.0); Chloride 102 mmol/L (98-107); Creatinine Clearance Estimated 45 mL/min (50-200); Creatinine,Serum 1.43 mg/dL (0.55-1.02); Estimated Glomerular Filt Rate 35 ml/min (>60); GFR (African American) 43 ML/MIN (>60); Glucose 94 mg/dL (74-106); Potassium 3.4 mmoL/L (3.5-5.1); Sodium 139 mmol/L (136-145)
[2018-08-08 11:41] LABS: Troponin I < 0.02 ng/ml (0.00-0.06)
== END 2018-08-08 15:24 | disposition home or self-care (01) ==
PROVIDERS: Emergency Provider Emergency Medicine; PCP Nurse Practitioner Family
DX: R06.09 Other forms of dyspnea (principal); R07.89 Other chest pain; I10 Essential (primary) hypertension; I25.10 Atherosclerotic heart disease of native coronary artery without angina pectoris; K21.9 Gastro-esophageal reflux disease without esophagitis; E78.5 Hyperlipidemia, unspecified; Z87.891 Personal history of nicotine dependence; Z79.899 Other long term (current) drug therapy; Z88.0 Allergy status to penicillin; Z88.5 Allergy status to narcotic agent
CPT/HCPCS: 71046; 80048; 83880; 84484; 85025; 93005; 96374; 99284

== ENCOUNTER → 2018-08-26 10:55 | Outpatient (CLI) | payer MEDICARE, MEDICAID, SELFPAY ==
--- NOTE | 2018-08-26 | CT_ITS ---
CT chest wo con HISTORY: ITS.REASON: DYSPHONIA ORDERING PHYSICIAN: Stephanie Muir MD PATIENT AGE: 77 years COMPARISON: None Technique: Axial images obtained. Sagittal, and coronal reformatted images are also generated and reviewed. All CT scans at the facility use one or more dose reduction, viz: automated exposure control, ma/kV adjustment per patient size (including targeted exams where dose is matched to indication, i.e. head), or iterative reconstruction technique. FINDINGS: Airway structures are patent without pleural effusion or pneumothorax. There is a posterior linear strand of increased density in the posterior right upper lobe. There are small curvilinear stable densities also in the right lower lobe adjacent to the major fissure. There is a benign right lower lobe calcified granuloma. There is a 2 mm noncalcified nodule in the right middle lobe which is stable suggesting benign granuloma. There are aortic and coronary artery calcified plaques. Heart size is normal. There is a stable 2 cm ill-defined soft tissue density in the superior anterior mediastinum just anterior to the ascending aorta. Hilar areas are unremarkable. There is a partially visualized 2 cm hypodense left renal cortical lesion, not entirely visualized although possible cyst. There are clips in the gallbladder fossa. IMPRESSION: No acute process. Areas of mild scarring in the posterior right upper lobe and right lower lobe adjacent to the major fissure. No masses in the aortic/pulmonic window. Nonspecific soft tissue density adjacent to the anterior margin of the ascending aorta. This could be nonspecific focal fibrosis. This is probably not abnormal adenopathy. Nonspecific partially visualized left renal lesion, possible cyst.
--- NOTE | 2018-08-26 | CT_ITS ---
CT soft tissue neck wo con INDICATION: Dysphonia and cough. ORDERING PHYSICIAN: Stephanie Muir MD PATIENT AGE: 77 years COMPARISON: None TECHNIQUE: Axial images are obtained without contrast. Sagittal and coronal reformatted images are reviewed as well. All CT scans at the facility use one or more dose reduction, viz: automated exposure control, ma/kV adjustment per patient size (including targeted exams where dose is matched to indication, i.e. head), or iterative reconstruction technique. FINDINGS: Decelerate glands and oral cavity structures as well as palatine tonsils are normal. There is no abnormal adenopathy. Epiglottis is normal. Specifically the larynx is symmetric and normal. There is no secondary signs to suggest paralysis of the vocal cords. Some portions of the distal common carotid arteries are retropharyngeal in location and there are calcified plaques at the carotid bifurcation areas bilaterally. Airway structures are patent. There are several levels of facet hypertrophy throughout the cervical spine. There is severe chronic appearing degenerative disc disease at C6-7. IMPRESSION: No acute process. Laryngeal area appears unremarkable. Calcific atherosclerotic vascular disease. Degenerative changes in the cervical spine as discussed above.
[2018-08-26 11:19] LABS: Blood Urea Nitrogen 31 mg/dL (7-18); Creatinine,Serum 1.51 mg/dL (0.55-1.02); Estimated Glomerular Filt Rate 33 ml/min (>60); GFR (African American) 40 ML/MIN (>60)
== END ==
PROVIDERS: Visit Provider Otolaryngology
DX: R49.0 Dysphonia (principal); J38.01 Paralysis of vocal cords and larynx, unilateral
CPT/HCPCS: 36415; 70490; 71250; 82565; 84520

== ENCOUNTER → 2018-11-17 09:37 | Outpatient (CLI) | payer MEDICARE, MEDICAID, SELFPAY ==
--- NOTE | 2018-11-17 09:38 | MM_ITS ---
PROCEDURE: MM DIG SCREENING MAMM BI W/CAD Patient Age:78Y CLINICAL INDICATION: screening 78-year-old. No hormones but no new complaints. Previous bilateral benign breast biopsies-stereotactic and excisional biopsies have been performed in past COMPARISON: A a DMDXUR DIG MAMM-DX UNI-RT W/CAD from 05/10/2016 [facility]B DIG MAMM-SCREEN TATUM W/CAD from 11/06/2016 [facility] MM Dig screening mamm BI w/CAD from 11/12/2017 TECHNIQUE: Standard CC and MLO images were obtained. R2 CAD reviewed. Additional nipple profile CC views bilateral FINDINGS: Mild/Moderate residual fibroglandular elements. Stable minimal asymmetry with no new areas of significant concern. No dominant or suspicious mass either breast... No suspicious calcifications but scattered benign-appearing calcifications noted. Bilateral follow-up 1 year recommended IMPRESSION: Stable mammogram no significant change since previous studies Routine follow-up recommended BI-RAD Category: 1 Negative FOLLOW-UP: 1YR 1 Year Follow-up (A letter has been sent to the patient regarding results of the study.) Dictated by: Modesto Shah MD 11/17/2018 10:46 Electronically signed by Modesto Shah MD in [place] 11/17/2018 10:46
== END ==
PROVIDERS: PCP Nurse Practitioner Family; Visit Provider Nurse Practitioner Family
DX: Z12.31 Encounter for screening mammogram for malignant neoplasm of breast (principal)
CPT/HCPCS: 77067

== ENCOUNTER → 2018-12-03 13:31 | Outpatient (CLI) | payer MEDICARE, MEDICAID, SELFPAY ==
[2018-12-03 14:52] LABS: Basophils % 0.5 % (0.1-2.0); Eosinophils # 0.2 K/mm3 (0.0-0.4); Eosinophils % 2.9 % (0.1-12.0); Hematocrit 38.6 % (37.0-47.0); Hemoglobin 12.1 g/dL (12.2-16.2); Lymphocytes # 2.1 K/mm3 (0.7-4.5); Lymphocytes % 25.6 % (10-50); Mean Corpuscular HGB Conc 31.3 g/dL (31.8-35.4); Mean Corpuscular Hemoglobin 25.9 pg (27.0-31.2); Mean Corpuscular Volume 82.9 fl (81-99); Mean Platelet Volume 7.6 fl (7.4-10.4); Monocytes # 0.6 K/mm3 (0.1-1.0); Monocytes % 7.3 % (1.7-9.3); Neutrophils # 5.2 K/mm3 (1.8-7.8); Neutrophils % 63.7 % (37.0-80.0); Platelet Count 238 K/mm3 (142-424); Red Blood Count 4.66 M/mm3 (4.20-5.40); Red Cell Distribution Width 14.9 % (11.5-17.5); White Blood Count 8.1 K/mm3 (4.8-10.8)
[2018-12-03 15:30] LABS: Alanine Aminotransferase 18 U/L (12-78); Albumin Level 4.1 gm/dL (3.4-5.0); Albumin/Globulin Ratio 1.2 (1.1-1.8); Alkaline Phosphatase 69 U/L (46-116); Anion Gap 13.4 mEq/L (5-15); Aspartate Amino Transferase 27 U/L (15-37); Bilirubin,Total 0.3 mg/dL (0.2-1.0); Blood Urea Nitrogen 47 mg/dL (7-18); Calcium 9.6 mg/dL (8.5-10.1); Carbon Dioxide 28 mmol/L (21.0-32.0); Chloride 99 mmol/L (98-107); Cholesterol 182 mg/dL (140-200); Creatinine,Serum 1.62 mg/dL (0.55-1.02); Estimated Glomerular Filt Rate 31 ml/min (>60); GFR (African American) 37 ML/MIN (>60); Globulin 3.3 gm/dl (1.3-3.2); Glucose 74 mg/dL (74-106); HDL Cholesterol 60 mg/dL (29-89); LDL Cholesterol 103 mg/dL (0-130); Potassium 3.4 mmoL/L (3.5-5.1); Sodium 137 mmol/L (136-145); T4 (Thyroxine) 9.6 ug/dl (4.7-13.3); Thyroid Stimulating Hormone 1.44 uIU/ml (0.358-3.740); Total Protein,Serum 7.4 gm/dL (6.4-8.2); Triglycerides 95 mg/dL (30-200); VLDL Cholesterol 19 mg/dL (0-40)
[2018-12-05 17:11] LABS: Vitamin D 25 Hydroxy 38.5 ng/mL (30.0-100.0)
== END ==
PROVIDERS: Visit Provider Nurse Practitioner Family
DX: R06.00 Dyspnea, unspecified (principal); R53.83 Other fatigue; I11.9 Hypertensive heart disease without heart failure; R07.89 Other chest pain
CPT/HCPCS: 80053; 80061; 82652; 84436; 84443; 85025

== ENCOUNTER → 2019-02-09 16:24 | Outpatient (CLI) | payer MEDICARE, MEDICAID, SELFPAY ==
[2019-02-09 16:28] LABS: Microscopic, Urine URINE MICROSCOPIC (MICROSCOPIC)
[2019-02-09 16:45] LABS: Basophils % 0.5 % (0.1-2.0); Eosinophils # 0.1 K/mm3 (0.0-0.4); Eosinophils % 1.3 % (0.1-12.0); Hematocrit 37.4 % (37.0-47.0); Hemoglobin 11.9 g/dL (12.2-16.2); Lymphocytes # 1.8 K/mm3 (0.7-4.5); Lymphocytes % 18.6 % (10-50); Mean Corpuscular Hemoglobin 26.7 pg (27.0-31.2); Mean Corpuscular Volume 83.4 fl (81-99); Monocytes # 0.8 K/mm3 (0.1-1.0); Monocytes % 7.8 % (1.7-9.3); Neutrophils # 6.9 K/mm3 (1.8-7.8); Neutrophils % 71.9 % (37.0-80.0); Platelet Count 233 K/mm3 (142-424); Red Blood Count 4.48 M/mm3 (4.20-5.40); Red Cell Distribution Width 14.1 % (11.5-17.5); White Blood Count 9.6 K/mm3 (4.8-10.8)
[2019-02-09 17:05] LABS: Appearance,Urine CLEAR (Clear); Bilirubin,Urine Negative (Negative); Blood, Urine Negative (Negative); Color,Urine YELLOW (Yellow); Glucose,Urine (UA) Negative (Negative); Ketones,Urine Negative (Negative); Leukocyte Esterase,Urine Negative (Negative); Nitrate,Urine Negative (Negative); PH,Urine 6.5 (5.0-8.5); Protein,Urine Negative (Negative); Specific Gravity, Urine <= 1.005 (1.005-1.030); Urobilinogen,Urine 0.2 EU/dl (0.2)
[2019-02-09 17:16] LABS: Bacteria,Urine Trace /lpf; WBC,Urine Occasional #/hpf (0-3)
[2019-02-09 18:27] LABS: Creatinine,Urine Random 54 mg/dL (20-320); Total Protein,Urine Random 7.4 mg/dL (0.0-11.9)
[2019-02-09 19:11] LABS: Albumin Level 3.5 gm/dL (3.4-5.0); Anion Gap 12.3 mEq/L (5-15); Blood Urea Nitrogen 35 mg/dL (7-18); Carbon Dioxide 29 mmol/L (21.0-32.0); Chloride 101 mmol/L (98-107); Creatinine,Serum 1.44 mg/dL (0.55-1.02); Estimated Glomerular Filt Rate 35 ml/min (>60); GFR (African American) 42 ML/MIN (>60); Glucose 82 mg/dL (74-106); Phosphorous 2.4 mg/dL (2.4-4.9); Potassium 3.3 mmoL/L (3.5-5.1); Sodium 139 mmol/L (136-145)
[2019-02-11 15:30] LABS: Parathyroid Hormone Intact 126 pg/mL (15-65); Vitamin D 25 Hydroxy 34.8 ng/mL (30.0-100.0)
== END ==
PROVIDERS: Visit Provider Internal Medicine Nephrology
DX: N18.3 Chronic kidney disease, stage 3 (moderate) (principal)
CPT/HCPCS: 36415; 80069; 81001; 82570; 82652; 83970; 84155; 85025

== ENCOUNTER → 2019-02-18 12:59 | Outpatient (POV) | payer MEDICARE, MEDICAID, SELFPAY | PROVIDERS: Visit Provider Internal Medicine Nephrology | DX: Z00.00 Encounter for general adult medical examination without abnormal findings (principal) ==

== ENCOUNTER → 2019-04-08 13:43 | Outpatient (CLI) | payer MEDICARE, MEDICAID, SELFPAY ==
[2019-04-08 14:06] LABS: Alanine Aminotransferase 17 U/L (12-78); Albumin Level 3.6 gm/dL (3.4-5.0); Albumin/Globulin Ratio 1.2 (1.1-1.8); Alkaline Phosphatase 58 U/L (46-116); Anion Gap 10.9 mEq/L (5-15); Aspartate Amino Transferase 19 U/L (15-37); Bilirubin,Total 0.3 mg/dL (0.2-1.0); Blood Urea Nitrogen 24 mg/dL (7-18); Calcium 9.9 mg/dL (8.5-10.1); Carbon Dioxide 29 mmol/L (21.0-32.0); Chloride 106 mmol/L (98-107); Creatinine,Serum 1.21 mg/dL (0.55-1.02); Estimated Glomerular Filt Rate 43 ml/min (>60); GFR (African American) 52 ML/MIN (>60); Globulin 2.9 gm/dl (1.3-3.2); Glucose 90 mg/dL (74-106); Potassium 3.9 mmoL/L (3.5-5.1); Sodium 142 mmol/L (136-145); Total Protein,Serum 6.5 gm/dL (6.4-8.2)
[2019-04-08 14:51] LABS: Basophils # 0.1 K/mm3 (0-0.2); Basophils % 0.9 % (0.1-2.0); Eosinophils # 0.4 K/mm3 (0.0-0.4); Eosinophils % 7.1 % (0.1-12.0); Hematocrit 34.9 % (37.0-47.0); Hemoglobin 11.3 g/dL (12.2-16.2); Lymphocytes # 1.5 K/mm3 (0.7-4.5); Mean Corpuscular HGB Conc 32.2 g/dL (31.8-35.4); Mean Corpuscular Hemoglobin 26.3 pg (27.0-31.2); Mean Corpuscular Volume 81.5 fl (81-99); Mean Platelet Volume 8.1 fl (7.4-10.4); Monocytes # 0.4 K/mm3 (0.1-1.0); Monocytes % 7.2 % (1.7-9.3); Neutrophils # 3.7 K/mm3 (1.8-7.8); Neutrophils % 60.8 % (37.0-80.0); Platelet Count 205 K/mm3 (142-424); Red Blood Count 4.29 M/mm3 (4.20-5.40); Red Cell Distribution Width 14.1 % (11.5-17.5); White Blood Count 6.2 K/mm3 (4.8-10.8)
== END ==
PROVIDERS: Visit Provider Nurse Practitioner Family
DX: I10 Essential (primary) hypertension (principal); R06.00 Dyspnea, unspecified
CPT/HCPCS: 80053; 85025

== ENCOUNTER → 2019-08-28 10:48 | Outpatient (CLI) | payer MEDICARE, MEDICAID, SELFPAY ==
--- NOTE | 2019-08-28 10:52 | XR_ITS ---
PROCEDURE: XR DEXA AXIAL SKELETON CLINICAL HISTORY: POST MENOPAUSAL The at thet COMPARISON: No exams were available for comparison FINDINGS: The right hip BMD is 0.717 with a t-score of -1.2. The [place] BMD is 0.518 with a t-sore of -3.0. The Lumbar spine BMD is 0.956 with a t-score of -0.8. IMPRESSION: This patient is considered osteoporotic according to the World Health Organization criteria. Fracture risk is high. Treatment is advised. Based on these results of follow-up exam is recommended in 1 year Dictated by: Crow Cohen MD 08/31/2019 22:04 Electronically signed by Crow Cohen MD in [place] 09/01/2019 07:55
[2019-08-28 12:08] LABS: Albumin Level 3.8 g/dl (3.5-5.0); Chloride 100 mmol/L (98-107); Potassium 3.7 mmoL/L (3.5-5.1); Sodium 138 mmol/L (136-145)
[2019-08-28 12:10] LABS: Blood Urea Nitrogen 22 mg/dl (7-17); Estimated Glomerular Filt Rate 43 ml/min (>60); GFR (African American) 52 ML/MIN (>60)
[2019-08-28 12:11] LABS: Anion Gap 9.7 mEq/L (5-15); Carbon Dioxide 32 mmol/L (22.0-30.0); Glucose 96 mg/dl (74-100)
[2019-09-01 06:51] LABS: Osteocalcin 36.5 ng/mL (.)
[2019-09-01 06:52] LABS: Tandem-R Ostase 12.1 ug/L (.)
[2019-09-02 04:45] LABS: N-Telopeptide Cross-linked 38.9 nmol BCE/L (6.2-19.0)
== END ==
PROVIDERS: PCP Nurse Practitioner Family; Visit Provider Internal Medicine Nephrology
DX: Z00.00 Encounter for general adult medical examination without abnormal findings (principal); Z78.0 Asymptomatic menopausal state; M85.89 Other specified disorders of bone density and structure, multiple sites
CPT/HCPCS: 36415; 77080; 80069; 82523; 83937; 84080

== ENCOUNTER → 2019-10-01 17:01 | Outpatient (CLI) | payer MEDICARE, MEDICAID, SELFPAY ==
[2019-10-01 17:44] LABS: Basophils % 0.6 % (0.1-2.0); Eosinophils # 0.3 K/mm3 (0.0-0.4); Hematocrit 32.7 % (37.0-47.0); Hemoglobin 11.4 g/dL (12.2-16.2); Lymphocytes # 1.8 K/mm3 (0.7-4.5); Lymphocytes % 26.9 % (10-50); Mean Corpuscular Hemoglobin 27.6 pg (27.0-31.2); Mean Corpuscular Volume 78.8 fl (81-99); Monocytes # 0.4 K/mm3 (0.1-1.0); Monocytes % 6.5 % (1.7-9.3); Neutrophils % 60.9 % (37.0-80.0); Platelet Count 219 K/mm3 (142-424); Red Blood Count 4.15 M/mm3 (4.20-5.40); Red Cell Distribution Width 14.3 % (11.5-17.5); White Blood Count 6.6 K/mm3 (4.8-10.8)
[2019-10-01 18:03] LABS: Alanine Aminotransferase 15 U/L (12-78); Albumin/Globulin Ratio 1.4 (1.1-1.8); Alkaline Phosphatase 72 U/L (38-126); Aspartate Amino Transferase 34 U/L (14-36); Bilirubin,Total 0.3 mg/dl (0.2-1.3); Blood Urea Nitrogen 26 mg/dl (7-17); Calcium 9.6 mg/dl (8.4-10.2); Carbon Dioxide 27 mmol/L (22.0-30.0); Chloride 95 mmol/L (98-107); Estimated Glomerular Filt Rate 48 ml/min (>60); GFR (African American) 58 ML/MIN (>60); Globulin 2.8 g/dL (1.3-3.2); Glucose 92 mg/dl (74-100); HDL Cholesterol 59 mg/dl (40-60); Sodium 132 mmol/L (136-145); Total Protein,Serum 6.8 g/dl (6.3-8.2)
[2019-10-01 18:16] LABS: Direct LDL Cholesterol 98.89 mg/dL (100-129)
[2019-10-01 18:21] LABS: T4 (Thyroxine) 8.8 ug/dl (5.53-11.0)
[2019-10-01 18:34] LABS: Thyroid Stimulating Hormone 3.49 uIU/mL (0.465-4.68)
[2019-10-01 18:51] LABS: Chol/HDL Ratio 2.8 (1-3.5); Cholesterol 168 mg/dl (140-200); Triglycerides 111 mg/dl (30-150); VLDL Cholesterol 22 mg/dL (0-40)
== END ==
PROVIDERS: Visit Provider Nurse Practitioner Family
DX: J44.9 Chronic obstructive pulmonary disease, unspecified (principal); R06.00 Dyspnea, unspecified; R53.83 Other fatigue; R07.89 Other chest pain
CPT/HCPCS: 80053; 80061; 84436; 84443; 85025

== ENCOUNTER → 2019-10-09 15:17 | Outpatient (CLI) | payer MEDICARE, MEDICAID, SELFPAY ==
[2019-10-09 16:38] LABS: Chloride 98 mmol/L (98-107); Potassium 3.7 mmoL/L (3.5-5.1); Sodium 135 mmol/L (136-145)
[2019-10-09 16:41] LABS: Blood Urea Nitrogen 23 mg/dl (7-17); Estimated Glomerular Filt Rate 39 ml/min (>60); GFR (African American) 48 ML/MIN (>60)
[2019-10-09 16:42] LABS: Anion Gap 12.7 mEq/L (5-15); Carbon Dioxide 28 mmol/L (22.0-30.0); Glucose 92 mg/dl (74-100)
== END ==
PROVIDERS: Visit Provider Nurse Practitioner Family
DX: E87.1 Hypo-osmolality and hyponatremia (principal)
CPT/HCPCS: 36415; 80048

== ENCOUNTER 2019-11-04 18:08 | Emergency (ER) | payer MEDICARE, MEDICAID, SELFPAY ==
[2019-11-04 18:24] VITALS: BP 177/63; PULSE 75; RESP 20; TEMP 36.4; O2SAT 98; BMI 34.0
--- NOTE | 2019-11-04 18:26 | HMH.EDGENADL ---
ED Disposition Clinical Impression: Lightheadedness, Hypercalcemia Vomiting Qualifiers: Vomiting type: unspecified Vomiting Intractability: non-intractable Nausea presence: with nausea Qualified Code(s): R11.2 - Nausea with vomiting, unspecified Disposition: Home, Self-Care Condition on Discharge: Good Instructions: DI for Hypokalemia, DI for Hypercalcemia, DI for Nausea -- Adult, DI for Vomiting -- Adult, DI for Dizziness-Nonvertigo Additional Instructions: Follow-up with your primary care doctor for recheck of your potassium and calcium. Zofran as needed for nausea. Return to the emergency department for severe nausea or vomiting, abdominal pain or chest pain, severe dizziness or fainting. Prescriptions: Ondansetron [Zofran 4mg ODT] 4 mg PO TIDP PRN #6 tab.rapdis PRN Reason: Nausea And Vomiting Transmission Status: Received by [facility] Referrals: Franci Vergara APRN [Primary Care Provider] - - Critical Care Critical Care Time: No Attestation: On 11/04/19, the high probability of a clinically significant, sudden or life threatening deterioration of the following system(s) required my full and direct attention, intervention and personal management. The time I documented below is in addition to time spent performing reported procedures but includes the following listed in this critical care notation. Medical Decision Making - Medical Records Medical records reviewed: Yes: I reviewed the patient's medical records. - Rafa Inquiry Pt receiving controlled substance: No Vital Signs: 11/04/19 18:24 11/04/19 19:00 Temperature 97.5 F L Temperature Source Oral Pulse Rate [Right Radial] 75 78 Respiratory Rate 20 18 Blood Pressure [Right Arm] 177/63 H 164/69 H Blood Pressure Mean [Right Arm] 101 100 Blood Pressure Source [Right Arm] Automatic Cuff Blood Pressure Position [Right Arm] Supine 02 Sat by Pulse Oximetry 98 99 Oxygen Delivery Method Room Air Room Air - Lab Data Lab results reviewed: Yes: I reviewed the patient's lab results. Lab Results 11/04/19 18:25: Urine Color Yellow, Urine Appearance Clear, Urine pH 5.5, Ur Specific [place] 1.020, Urine Protein Negative, Urine Glucose (UA) Negative, Urine Ketones Negative, Urine Blood Negative, Urine Nitrate Negative, Urine Bilirubin Negative, Urine Urobilinogen 0.2, Ur Leukocyte Esterase Negative, Urine WBC Occasional, Ur Squamous Epith Cells Occasional, Urine Bacteria Trace 11/04/19 18:30: WBC 8.3, RBC 4.47, Hgb 12.1 L, Hct 35.9 L, MCV 80.3 L, MCH 27.0, MCHC 33.6, RDW 14.5, Plt Count 225, MPV 7.6, Neut % (Auto) 76.4, Lymph % (Auto) 14.6, [place] % (Auto) 5.2, Eos % (Auto) 3.1, Baso % (Auto) 0.6, Neut # (Auto) 6.4, Lymph # (Auto) 1.2, [place] # (Auto) 0.4, Eos # (Auto) 0.3, Baso # (Auto) 0.1 11/04/19 18:30: Sodium 139, Potassium 3.1 L, Chloride 100, Carbon Dioxide 27, Anion Gap 15.1 H, BUN 28 H, Creatinine 1.30 H, Estimated Creat Clear 47, Estimated GFR 39 L, Est GFR ( Amer) 48 L, Glucose 118 H, Calcium 11.0 H, Total Bilirubin 0.4, AST 37 H, ALT 18, Alkaline Phosphatase 53, Total Protein 7.6, Albumin 4.3, Globulin 3.3 H, Albumin/Globulin Ratio 1.3, Amylase 85, Lipase 248 11/04/19 18:30: Troponin I < 0.01 Result diagrams: 11/04/19 18:30 11/04/19 18:30 Orders (Tests/Meds): ED MEDICATIONS Discontinued Medications Generic Name Dose Route Start Last Admin Trade Name Igorq PRN Reason Stop Dose Admin Ondansetron HCl 4 mg 11/04/19 19:23 11/04/19 19:35 Zofran 4mg/2ml Vial IV 11/04/19 19:24 4 mg ONCE ONE Administration Potassium Chloride 40 meq 11/04/19 19:18 11/04/19 19:35 Klor-Con 20meq Tablet PO 11/04/19 19:19 40 meq ONCE ONE Administration Sodium Chloride 500 ml 11/04/19 19:26 11/04/19 19:35 Sod Chlor 0.9% 1000ml Bag IV 11/04/19 19:27 500 ml BOLUS ONE Administration ORDERS Category Date Time Status Troponin I Q3H Lab 11/04/19 21:45 Ordered Troponin I Q3H Lab 11/05/19 00:45 Ordered
[2019-11-04 18:34] LABS: Microscopic, Urine URINE MICROSCOPIC (MICROSCOPIC)
[2019-11-04 18:36] LABS: Appearance,Urine CLEAR (Clear); Bilirubin,Urine Negative (Negative); Blood, Urine Negative (Negative); Color,Urine YELLOW (Yellow); Glucose,Urine (UA) Negative (Negative); Ketones,Urine Negative (Negative); Leukocyte Esterase,Urine Negative (Negative); Nitrate,Urine Negative (Negative); PH,Urine 5.5 (5.0-8.5); Protein,Urine Negative (Negative); Urobilinogen,Urine 0.2 EU/dl (0.2)
[2019-11-04 18:40] LABS: Basophils # 0.1 K/mm3 (0-0.2); Basophils % 0.6 % (0.1-2.0); Eosinophils # 0.3 K/mm3 (0.0-0.4); Eosinophils % 3.1 % (0.1-12.0); Hematocrit 35.9 % (37.0-47.0); Hemoglobin 12.1 g/dL (12.2-16.2); Lymphocytes # 1.2 K/mm3 (0.7-4.5); Lymphocytes % 14.6 % (10-50); Mean Corpuscular HGB Conc 33.6 g/dL (31.8-35.4); Mean Corpuscular Volume 80.3 fl (81-99); Mean Platelet Volume 7.6 fl (7.4-10.4); Monocytes # 0.4 K/mm3 (0.1-1.0); Monocytes % 5.2 % (1.7-9.3); Neutrophils # 6.4 K/mm3 (1.8-7.8); Neutrophils % 76.4 % (37.0-80.0); Platelet Count 225 K/mm3 (142-424); Red Blood Count 4.47 M/mm3 (4.20-5.40); Red Cell Distribution Width 14.5 % (11.5-17.5); White Blood Count 8.3 K/mm3 (4.8-10.8)
[2019-11-04 18:46] LABS: Chloride 100 mmol/L (98-107)
[2019-11-04 18:47] LABS: Potassium 3.1 mmoL/L (3.5-5.1); Sodium 139 mmol/L (136-145)
[2019-11-04 18:50] LABS: Alanine Aminotransferase 18 U/L (12-78); Albumin Level 4.3 g/dl (3.5-5.0); Albumin/Globulin Ratio 1.3 (1.1-1.8); Alkaline Phosphatase 53 U/L (38-126); Amylase 85 U/L (30-110); Anion Gap 15.1 mEq/L (5-15); Aspartate Amino Transferase 37 U/L (14-36); Bilirubin,Total 0.4 mg/dl (0.2-1.3); Blood Urea Nitrogen 28 mg/dl (7-17); Carbon Dioxide 27 mmol/L (22.0-30.0); Creatinine Clearance Estimated 47 mL/min (50-200); Estimated Glomerular Filt Rate 39 ml/min (>60); GFR (African American) 48 ML/MIN (>60); Globulin 3.3 g/dL (1.3-3.2); Glucose 118 mg/dl (74-100); Lipase 248 U/L (23-300); Total Protein,Serum 7.6 g/dl (6.3-8.2)
--- NOTE | 2019-11-04 18:58 | ECG_ITS ---
APPROVED REPORT Exam: Resting ECG HR:72 bpm ECG Measurements Heart Rate 72 AXES OK 132 P 40 QRSd 102 QRS -35 QT 424 T 59 QTc 464 <Conclusion> Normal sinus rhythm Left axis deviation ST abnormality, possible digitalis effect Abnormal ECG Electronically signed by : Kishan Treviño, 11/06/2019 06:36:04
[2019-11-04 19:00] VITALS: BP 164/69; PULSE 78; RESP 18; O2SAT 99
[2019-11-04 19:13] LABS: Troponin I < 0.01 ng/ml (0.00-0.034)
[2019-11-04 19:25] LABS: Bacteria,Urine Trace /lpf; Squamous Epithelial Cell,Urine Occasional #/hpf (0-5); WBC,Urine Occasional #/hpf (0-3)
[2019-11-04 20:06] VITALS: BP 166/79; PULSE 68; RESP 18; TEMP 36.6; O2SAT 97
== END 2019-11-04 20:06 | disposition home or self-care (01) ==
PROVIDERS: Emergency Provider Emergency Medicine; PCP Nurse Practitioner Family
DX: R42 Dizziness and giddiness (principal); E83.52 Hypercalcemia; I10 Essential (primary) hypertension; J44.9 Chronic obstructive pulmonary disease, unspecified; K21.9 Gastro-esophageal reflux disease without esophagitis; I25.10 Atherosclerotic heart disease of native coronary artery without angina pectoris; E78.5 Hyperlipidemia, unspecified; Z79.899 Other long term (current) drug therapy; Z88.0 Allergy status to penicillin; Z88.1 Allergy status to other antibiotic agents; Z87.891 Personal history of nicotine dependence; Z90.49 Acquired absence of other specified parts of digestive tract; Z90.79 Acquired absence of other genital organ(s)
CPT/HCPCS: 80053; 81001; 82150; 83690; 84484; 85025; 93005; 96365; 96375; 99283; J2405

== ENCOUNTER → 2019-11-10 11:29 | Outpatient (CLI) | payer MEDICARE, MEDICAID, SELFPAY ==
[2019-11-10 14:01] LABS: Anion Gap 15.1 mEq/L (5-15); Blood Urea Nitrogen 32 mg/dl (7-17); Calcium 10.6 mg/dl (8.4-10.2); Carbon Dioxide 29 mmol/L (22.0-30.0); Chloride 96 mmol/L (98-107); Estimated Glomerular Filt Rate 39 ml/min (>60); GFR (African American) 48 ML/MIN (>60); Glucose 98 mg/dl (74-100); Potassium 4.1 mmoL/L (3.5-5.1); Sodium 136 mmol/L (136-145)
== END ==
PROVIDERS: Visit Provider Nurse Practitioner Family
DX: E78.5 Hyperlipidemia, unspecified (principal); I10 Essential (primary) hypertension; I11.9 Hypertensive heart disease without heart failure; I25.10 Atherosclerotic heart disease of native coronary artery without angina pectoris
CPT/HCPCS: 36415; 80048

== ENCOUNTER → 2019-11-12 23:00 | Outpatient (CLI) | payer MEDICARE, MEDICAID, SELFPAY ==
[2019-11-17 10:35] LABS: Occult Blood,Stool Negative (Negative)
== END ==
PROVIDERS: Visit Provider Nurse Practitioner Family
DX: R11.0 Nausea (principal)
CPT/HCPCS: 82272; G0328

== ENCOUNTER → 2019-11-13 10:07 | Outpatient (CLI) | payer MEDICARE, MEDICAID, SELFPAY ==
--- NOTE | 2019-11-13 10:08 | CA_ITS ---
APPROVED REPORT EXAM: Comprehensive 2D, Doppler, and color-flow Echocardiogram Hardware Engineering Manager: Sissy Pierre RT(R) Ht: 5 ft 3 in Wt: 191lbs BSA: 1.90 BP: 110/68 mmHg Indications: COPD, ex smoker, HTN, SOB, hyperlipidemia, CAD 2D Dimensions LVOT 1.70 cm (M/F) 1.5-2.5 M-Mode Dimensions RVDd 1.86 cm (0.9-2.6) LVDd 3.34 cm (3.5-5.7) LVDs 2.50 cm (3.5-5.7) IVSd 1.14 cm (0.6-1.1) PWd 0.99 cm (0.6-1.1) EF (Teich) 50.90% FS 25.10% EDV (Teich) 45.40 mL ESV (Teich) 22.30 mL LV Diastology E/A Ratio 0.86 Mitral Valve MV A Velocity 99.00 (40-130 cm/s) Left Ventricle Left atrium is mildly enlarged, left ventricle is normal size, visually estimated ejection fraction 55% with no regional wall motion abnormality. Grade 1 diastolic dysfunction seen without tissue Doppler evidence of raise left atrial pressure. Right Ventricle Right atrium and right ventricular normal size and contractility. Aortic Valve Aortic valve is thickened and calcified without aortic stenosis, there is mild aortic insufficiency. Mitral Valve Mitral valve has mild mitral annular calcification, leaflets are minimally thickened, there is no mitral stenosis, there is mild mitral regurgitation. Tricuspid Valve Tricuspid valve is grossly normal, there is mild tricuspid regurgitation. Tricuspid regurgitation jet velocity is inadequate for calculation of the right ventricular systolic pressure. Pulmonic Valve Pulmonic valve is poorly visualized. Great Vessels Aortic root is normal size. Pericardium No significant pericardial effusion noted. Conclusion 1. Mildly enlarged left atrium, normal left ventricular size, mild concentric left ventricular hypertrophy, visually estimated ejection fraction 55% with no regional wall motion abnormality, grade 1 diastolic dysfunction seen without tissue Doppler evidence of raise left atrial pressure. 2. Mild aortic, mild mitral and tricuspid regurgitation. 3. No significant pericardial effusion noted. Electronically signed by : Ochoa Davis, 11/13/2019 14:00:37
== END ==
PROVIDERS: PCP Nurse Practitioner Family; Visit Provider Nurse Practitioner Family
DX: E78.5 Hyperlipidemia, unspecified (principal); I11.9 Hypertensive heart disease without heart failure; I25.10 Atherosclerotic heart disease of native coronary artery without angina pectoris
CPT/HCPCS: 93306

== ENCOUNTER → 2019-11-16 13:54 | Outpatient (CLI) | payer MEDICARE, MEDICAID, SELFPAY | PROVIDERS: Visit Provider Nurse Practitioner Family | DX: R11.0 Nausea (principal) ==

== ENCOUNTER → 2019-11-20 08:50 | Outpatient (CLI) | payer MEDICARE, MEDICAID, SELFPAY ==
--- NOTE | 2019-11-20 08:51 | MM_ITS ---
PROCEDURE: MM DIG SCREENING MAMM BI W/CAD Referring Doctor: Franci Vergara Patient Age:79Y CLINICAL INDICATION: screening 79-year-old female with previous stereotactic biopsy both breast per patient history. COMPARISON: MG DIG MAMMO BILAT SCREENING from 06/04/2013 MG MAMMO SCREENING DIGITAL BILAT from 09/02/2014 MG DMSB DIG MAMM-SCREEN TATUM from 11/04/2015 MG [facility] DIG MAMM-DX UNI-RT W/CAD from 05/10/2016 MG DMSB DIG MAMM-SCREEN TATUM W/CAD from 11/06/2016 MG [facility] MM Dig screening mamm BI w/CAD from 11/12/2017 MG MM DIG SCREENING MAMM BI W/CAD from 11/17/2018 TECHNIQUE: Standard CC and MLO images were obtained. R2 CAD reviewed. Bilateral digital breast tomosynthesis included. Additional MLO view left breast included The FINDINGS: [id number] residual fibroglandular elements with mild asymmetry similar to multiple previous studies no new dominant or suspicious mass; with no new suspicious calcifications. Vascular calcifications and benign calcifications again noted most evident left breast The patient reports previous bilateral stereotactic biopsies but I do not see metallic marker clips from such. Right breast:. No new areas of significant concern. Small stable area 12 o'clock position appears to be fibroglandular elements-appearing unchanged since 2015, 2016 and 2017 mammograms. Also this area appears to dissipates on today's tomosynthesis view thus thick and be followed Left breast no new areas of significant concern Asymmetric areas of density at left breast appear stable since studies dating back to 2016 and 2014 IMPRESSION: Stable mammogram. Stable mild asymmetry No new areas of significant concern Routine follow-up recommended BI-RAD Category: 2 Benign Finding(s) FOLLOW-UP: 1YR 1 Year Follow-up (A letter has been sent to the patient regarding results of the study.) Dictated by: Modesto Shah MD 12/01/2019 11:11 Modesto Shah MD in [place] 12/01/2019 11:11
== END ==
PROVIDERS: PCP Nurse Practitioner Family; Visit Provider Nurse Practitioner Family
DX: Z12.31 Encounter for screening mammogram for malignant neoplasm of breast (principal)
CPT/HCPCS: 77063; 77067

== ENCOUNTER 2019-11-30 16:52 | Emergency (ER) | payer MEDICARE, MEDICAID, SELFPAY ==
[2019-11-30 16:53] VITALS: BP 175/77; PULSE 81; RESP 18; TEMP 37.1; O2SAT 91; BMI 34.9
--- NOTE | 2019-11-30 16:56 | HMH.EDGENADL ---
ED Disposition Clinical Impression: Shoulder pain, right Qualifiers: Chronicity: acute Qualified Code(s): M25.511 - Pain in right shoulder Disposition: Home, Self-Care Condition on Discharge: Good Instructions: DI for Shoulder Pain Additional Instructions: Follow-up with your primary care provider in 2 to 3 days for reevaluation. Prescriptions: methylPREDNISolone [Medrol] 4 mg PO DIRECTED #21 pack Prescription Printed - Critical Care Critical Care Time: No Attestation: On , the high probability of a clinically significant, sudden or life threatening deterioration of the following system(s) required my full and direct attention, intervention and personal management. The time I documented below is in addition to time spent performing reported procedures but includes the following listed in this critical care notation. Medical Decision Making - Medical Records Medical records reviewed: Yes: I reviewed the patient's medical records. - Rafa Inquiry Pt receiving controlled substance: No Vital Signs: 11/30/19 16:53 11/30/19 17:39 Temperature 98.7 F Temperature Source Oral Pulse Rate [Radial] 81 78 Respiratory Rate 18 Blood Pressure [Right Arm] 175/77 H 196/85 H Blood Pressure Mean [Right Arm] 109 122 Blood Pressure Source [Right Arm] Automatic Cuff Automatic Cuff Blood Pressure Position [Right Arm] Sitting Sitting 02 Sat by Pulse Oximetry 91 L 93 L Oxygen Delivery Method Room Air Room Air Orders (Tests/Meds): ED MEDICATIONS Discontinued Medications Generic Name Dose Route Start Last Admin Trade Name Freq PRN Reason Stop Dose Admin Ketorolac Tromethamine 60 mg 11/30/19 17:38 Toradol 60mg/2ml Vial IM 11/30/19 17:39 ONCE ONE ORDERS Category Date Time Status Shoulder XR right miminum 2 views [XR shoulder RT min Exams 11/30/19 17:12 Taken 2V] Stat - Radiology Data #1 Image(s): Shoulder Image Reviewed: Yes I reviewed the patient's radiology image No acute fracture or dislocation. Previous humerus ORIF appears intact with no hardware failure. Medical Decision Narrative: X-ray reveals no acute fracture or dislocation. Arthritis present. Previous ORIF of the humerus is intact. Patient is generally debilitated and I suspect arthritic pain given her history of similar in other locations of her body, primarily the neck. She is tender to palpation and tender with range of motion of the shoulder, but is afebrile with no deformity, erythema or warmth about the shoulder and I have low suspicion for septic arthritis. She does not exhibit signs consistent with ACS. Given Toradol injection here and discharged home to follow-up outpatient with primary care provider for further management. General Adult HPI - General Chief complaint: PAIN Stated complaint: Pain Time Seen by Provider: 11/30/19 16:56 Mode of Arrival: Ambulatory Source of Information: Medical Record Limitations: No Limitations - History of Present Illness HPI narrative: This is an 79-year-old female with a past medical history significant for hypertension, hyperlipidemia, coronary artery disease, COPD who presents to the emergency department for evaluation of right shoulder pain that radiates down around the right upper rib cage to the right breast. Pain is worse with movement to where she does not even want to brush her hair. She cannot take anti-inflammatory such as ibuprofen because of upset stomach, has been trying Tylenol with no relief of symptoms. 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 No fever, shortness of breath, falls, trauma or recent increases in muscle strain. - Related Data Home Medications Medication Instructions Recorded Confirmed meclizine 25 mg tablet 25 mg PO QDAY PRN tab 07/16/18 11/24/19 alendronate 70 mg tablet mg PO QWEEK tab 10/01/19 11/24/19 fluticas
--- NOTE | 2019-11-30 17:12 | XR_ITS ---
PROCEDURE: XR SHOULDER RT MIN 2V CLINICAL INDICATION: pain, arthritis COMPARISON: CR SHOULDCMRT XR shoulder RT min 2V from 04/16/2017 FINDINGS: There osteoarthritic changes at the acromioclavicular joint and glenohumeral joint. Bone plate is present at the proximal humerus. There is an old fracture of the proximal humerus. No acute glenohumeral abnormality. Other findings:None. IMPRESSION: Mild osteoarthritic changes of the AC joint and glenohumeral joint. Prior ORIF of the humerus, no acute finding Dictated by: Crow Cohen MD 11/30/2019 17:53 Crow Cohen MD in [place] 11/30/2019 17:53
[2019-11-30 17:39] VITALS: BP 196/85; PULSE 78; O2SAT 93
[2019-11-30 17:55] VITALS: BP 196/85; PULSE 73; RESP 17; TEMP 37.1; O2SAT 93
== END 2019-11-30 17:56 | disposition home or self-care (01) ==
PROVIDERS: Emergency Provider Emergency Medicine; PCP Nurse Practitioner Family
DX: M25.511 Pain in right shoulder (principal); I10 Essential (primary) hypertension; E78.5 Hyperlipidemia, unspecified; I25.10 Atherosclerotic heart disease of native coronary artery without angina pectoris; J44.9 Chronic obstructive pulmonary disease, unspecified; K21.9 Gastro-esophageal reflux disease without esophagitis; E03.9 Hypothyroidism, unspecified; Z79.899 Other long term (current) drug therapy; Z87.891 Personal history of nicotine dependence; Z88.0 Allergy status to penicillin; Z90.79 Acquired absence of other genital organ(s); Z90.49 Acquired absence of other specified parts of digestive tract
CPT/HCPCS: 73030; 96372; 99282

== ENCOUNTER 2019-12-11 14:15 | Emergency (ER) | payer MEDICARE, MEDICAID, SELFPAY ==
[2019-12-11 14:16] VITALS: BP 173/66; PULSE 92; RESP 20; TEMP 36.6; O2SAT 90; BMI 32.8
--- NOTE | 2019-12-11 14:31 | HMH.EDGENADL ---
ED Disposition Clinical Impression: Hypokalemia Osteoarthritis cervical spine Qualifiers: Spinal osteoarthritis complication: unspecified spinal osteoarthritis Qualified Code(s): M47.812 - Spondylosis without myelopathy or radiculopathy, cervical region Disposition: Home, Self-Care Condition on Discharge: Fair Instructions: DI for Neck Pain Additional Instructions: Potassium as prescribed. Medrol Dosepak as prescribed. Tylenol for pain. Follow-up in the office next week with Franci for recheck of your potassium and recheck of your neck. Prescriptions: Potassium Chloride [K-Tab ER 20 mEq] 20 meq PO DAILY #7 tab Transmission Status: Sent to [facility] methylPREDNISolone [Medrol 4mg tab] 4 mg PO DIRECTED #21 tab Transmission Status: Sent to [facility] Referrals: Franci Vergara APRN [Primary Care Provider] - - Critical Care Critical Care Time: No Attestation: On , the high probability of a clinically significant, sudden or life threatening deterioration of the following system(s) required my full and direct attention, intervention and personal management. The time I documented below is in addition to time spent performing reported procedures but includes the following listed in this critical care notation. Medical Decision Making - Medical Records Medical records reviewed: Yes: I reviewed the patient's medical records. - Arfa Inquiry Pt receiving controlled substance: No Vital Signs: 12/11/19 14:16 Temperature 98 F Temperature Source Oral Pulse Rate [Radial] 92 H Respiratory Rate 20 Blood Pressure [Right Arm] 173/66 H Blood Pressure Mean [Right Arm] 101 Blood Pressure Position [Right Arm] Sitting 02 Sat by Pulse Oximetry 90 L Oxygen Delivery Method Room Air - Lab Data Lab results reviewed: Yes: I reviewed the patient's lab results. Lab Results 12/11/19 14:49: Sodium 139, Potassium 2.9 L*, Chloride 101, Carbon Dioxide 30, Anion Gap 10.9, BUN 11, Creatinine 0.90, Estimated Creat Clear 60, Estimated GFR 60, Est GFR ( Amer) 73, Glucose 135 H, Calcium 10.1, Total Bilirubin 0.7, AST 30, ALT 15, Alkaline Phosphatase 63, Total Protein 7.6, Albumin 4.3, Globulin 3.3 H, Albumin/Globulin Ratio 1.3 12/11/19 15:39: WBC 10.3, RBC 4.38, Hgb 11.5 L, Hct 35.9 L, MCV 81.8, MCH 26.2 L, MCHC 32.0, RDW 14.4, Plt Count 219, MPV 7.1 L, Neut % (Auto) 84.5 H, Lymph % (Auto) 8.1 L, [place] % (Auto) 6.2, Eos % (Auto) 1.0, Baso % (Auto) 0.2, Neut # (Auto) 8.7 H, Lymph # (Auto) 0.8, [place] # (Auto) 0.6, Eos # (Auto) 0.1, Baso # (Auto) 0.0 Result diagrams: 12/11/19 15:39 12/11/19 14:49 Orders (Tests/Meds): ED MEDICATIONS Discontinued Medications Generic Name Dose Route Start Last Admin Trade Name Freq PRN Reason Stop Dose Admin Ketorolac Tromethamine 15 mg 12/11/19 15:28 12/11/19 15:34 Ketorolac 30mg/Ml Vial IV 12/11/19 15:29 15 mg ONCE ONE Administration Methylprednisolone Sodium Succinate 80 mg 12/11/19 15:28 12/11/19 15:33 Methylprednisolone Sod Succ 125mg Vial IV 12/11/19 15:29 80 mg ONCE ONE Administration Potassium Chloride 40 meq 12/11/19 15:28 12/11/19 15:34 Potassium Chloride 20meq Tab PO 12/11/19 15:29 40 meq ONCE ONE Administration - CT Data CT Scan: Head, C-Spine Time Received: 15:[address] Reviewed: Yes: I have viewed the radiologist's interpretation Findings Narrative: PROCEDURE: CT HEAD/BRAIN WO CON CLINICAL INDICATION: pain Right-sided pain COMPARISON: CT HDWO CT HEAD W/O CONTRAST from 01/09/2016 TECHNIQUE: Axial images obtained. All CT scans at the facility use one or more dose reduction, viz: automated exposure control, ma/kV adjustment per patient size (including targeted exams where dose is matched to indication, i.e. head), or iterative reconstruction technique. FINDINGS: No midline shift, mass effect, intracranial hemorrhage, hydrocephalus, or extra-axial fluid collection is evident. T
--- NOTE | 2019-12-11 14:33 | CT_ITS ---
PROCEDURE: CT HEAD/BRAIN WO CON CLINICAL INDICATION: pain Right-sided pain COMPARISON: CT HDWO CT HEAD W/O CONTRAST from 01/09/2016 TECHNIQUE: Axial images obtained. All CT scans at the facility use one or more dose reduction, viz: automated exposure control, ma/kV adjustment per patient size (including targeted exams where dose is matched to indication, i.e. head), or iterative reconstruction technique. FINDINGS: No midline shift, mass effect, intracranial hemorrhage, hydrocephalus, or extra-axial fluid collection is evident. There is generalized atrophy with hypoattenuation of the periventricular white matter consistent with microangiopathic changes. The calvarium has an unremarkable appearance. No mastoid effusion. No sinus air-fluid level. IMPRESSION: No acute intracranial finding Dictated by: Crow Cohen MD 12/11/2019 15:35 Crow Cohen MD in [facility] 12/11/2019 15:35
--- NOTE | 2019-12-11 14:34 | CT_ITS ---
PROCEDURE: CT CERVICAL SPINE WO CON CLINICAL INDICATION: pain Neck pain COMPARISON: CT NECKWO CT soft tissue neck wo con from 08/26/2018 TECHNIQUE: Axial images obtained with sagittal and coronal reformats. All CT scans at the facility use one or more dose reduction, viz: automated exposure control, ma/kV adjustment per patient size (including targeted exams where dose is matched to indication, i.e. head), or iterative reconstruction technique. Axial spiral CT scanning performed of the cervical spine beginning at the base of the skull and continuing to the upper T-spine. 3-D multiplanar reconstruction with 3-D manipulation of volumetric data set in image rendering was completed by the radiologist and/or technologist with the supervision of the radiologist on independent workstation. FINDINGS: There is normal alignment. No acute fracture or dislocation is evident. No lytic or blastic change. There is mild degenerative disc disease at C6-C7 with sclerosis of the endplates similar to the previous exam. The patient's head is rotated toward the left. There is cervical curvature convex left. Multilevel facet arthritic changes are present. There is mild foraminal narrowing on the left at C6-C7. There is some scarring noted in the right apex. IMPRESSION: Cervical curvature convex left with multilevel cervical spondylosis as detailed above. Dictated by: Crow Cohen MD 12/11/2019 15:51 Crow Cohen MD in [facility] 12/11/2019 15:51
[2019-12-11 15:08] LABS: Chloride 101 mmol/L (98-107); Sodium 139 mmol/L (136-145)
[2019-12-11 15:10] LABS: Alanine Aminotransferase 15 U/L (12-78); Aspartate Amino Transferase 30 U/L (14-36); Blood Urea Nitrogen 11 mg/dl (7-17); Creatinine Clearance Estimated 60 mL/min (50-200); Estimated Glomerular Filt Rate 60 ml/min (>60); GFR (African American) 73 ML/MIN (>60)
[2019-12-11 15:11] LABS: Albumin Level 4.3 g/dl (3.5-5.0); Albumin/Globulin Ratio 1.3 (1.1-1.8); Alkaline Phosphatase 63 U/L (38-126); Anion Gap 10.9 mEq/L (5-15); Bilirubin,Total 0.7 mg/dl (0.2-1.3); Calcium 10.1 mg/dl (8.4-10.2); Carbon Dioxide 30 mmol/L (22.0-30.0); Globulin 3.3 g/dL (1.3-3.2); Glucose 135 mg/dl (74-100); Total Protein,Serum 7.6 g/dl (6.3-8.2)
[2019-12-11 15:20] LABS: Potassium 2.9 mmoL/L (3.5-5.1)
[2019-12-11 15:44] LABS: Basophils % 0.2 % (0.1-2.0); Eosinophils # 0.1 K/mm3 (0.0-0.4); Hematocrit 35.9 % (37.0-47.0); Hemoglobin 11.5 g/dL (12.2-16.2); Lymphocytes # 0.8 K/mm3 (0.7-4.5); Lymphocytes % 8.1 % (10-50); Mean Corpuscular Hemoglobin 26.2 pg (27.0-31.2); Mean Corpuscular Volume 81.8 fl (81-99); Mean Platelet Volume 7.1 fl (7.4-10.4); Monocytes # 0.6 K/mm3 (0.1-1.0); Monocytes % 6.2 % (1.7-9.3); Neutrophils # 8.7 K/mm3 (1.8-7.8); Neutrophils % 84.5 % (37.0-80.0); Platelet Count 219 K/mm3 (142-424); Red Blood Count 4.38 M/mm3 (4.20-5.40); Red Cell Distribution Width 14.4 % (11.5-17.5); White Blood Count 10.3 K/mm3 (4.8-10.8)
[2019-12-11 16:33] VITALS: BP 120/65; PULSE 78; RESP 18; TEMP 36.6; O2SAT 98
== END 2019-12-11 16:35 | disposition home or self-care (01) ==
PROVIDERS: Emergency Provider Emergency Medicine; PCP Nurse Practitioner Family
DX: M47.812 Spondylosis without myelopathy or radiculopathy, cervical region (principal); E87.6 Hypokalemia; K21.9 Gastro-esophageal reflux disease without esophagitis; J44.9 Chronic obstructive pulmonary disease, unspecified; I25.10 Atherosclerotic heart disease of native coronary artery without angina pectoris; E78.5 Hyperlipidemia, unspecified; I10 Essential (primary) hypertension; Z87.891 Personal history of nicotine dependence; Z79.899 Other long term (current) drug therapy; Z88.0 Allergy status to penicillin; Z88.1 Allergy status to other antibiotic agents; Z90.49 Acquired absence of other specified parts of digestive tract; Z90.79 Acquired absence of other genital organ(s)
CPT/HCPCS: 70450; 72125; 80053; 85025; 96374; 96375; 99283

== ENCOUNTER → 2019-12-30 09:09 | Outpatient (CLI) | payer MEDICARE, MEDICAID, SELFPAY ==
[2019-12-30 10:08] LABS: Basophils % 0.7 % (0.1-2.0); Eosinophils # 0.3 K/mm3 (0.0-0.4); Eosinophils % 4.8 % (0.1-12.0); Hematocrit 35.7 % (37.0-47.0); Hemoglobin 11.5 g/dL (12.2-16.2); Lymphocytes # 1.2 K/mm3 (0.7-4.5); Lymphocytes % 18.3 % (10-50); Mean Corpuscular HGB Conc 32.1 g/dL (31.8-35.4); Mean Corpuscular Hemoglobin 25.8 pg (27.0-31.2); Mean Corpuscular Volume 80.3 fl (81-99); Mean Platelet Volume 7.5 fl (7.4-10.4); Monocytes # 0.5 K/mm3 (0.1-1.0); Monocytes % 7.3 % (1.7-9.3); Neutrophils # 4.4 K/mm3 (1.8-7.8); Neutrophils % 68.9 % (37.0-80.0); Platelet Count 178 K/mm3 (142-424); Red Blood Count 4.45 M/mm3 (4.20-5.40); Red Cell Distribution Width 14.7 % (11.5-17.5); White Blood Count 6.3 K/mm3 (4.8-10.8)
[2019-12-30 11:22] LABS: 25-OH Vitamin D, Total 33.9 ng/mL (30-100)
[2019-12-30 14:53] LABS: Chloride 104 mmol/L (98-107); Potassium 3.2 mmoL/L (3.5-5.1); Sodium 141 mmol/L (136-145)
[2019-12-30 14:54] LABS: Albumin Level 3.6 g/dl (3.5-5.0)
[2019-12-30 14:56] LABS: Anion Gap 10.2 mEq/L (5-15); Blood Urea Nitrogen 14 mg/dl (7-17); Carbon Dioxide 30 mmol/L (22.0-30.0); Estimated Glomerular Filt Rate 53 ml/min (>60); GFR (African American) 64 ML/MIN (>60)
[2019-12-30 14:57] LABS: Glucose 97 mg/dl (74-100); Phosphorous 2.7 mg/dl (2.5-4.5)
[2020-01-02 17:46] LABS: Tandem-R Ostase 10.3 ug/L (.)
== END ==
PROVIDERS: Visit Provider Internal Medicine Nephrology
DX: N18.30 Chronic kidney disease, stage 3 unspecified (principal)
CPT/HCPCS: 36415; 80069; 82306; 84080; 85025

== ENCOUNTER → 2020-01-04 09:08 | Outpatient (POV) | payer MEDICARE, MEDICAID, SELFPAY | PROVIDERS: Visit Provider Internal Medicine Nephrology | DX: Z00.00 Encounter for general adult medical examination without abnormal findings (principal) ==

== ENCOUNTER → 2020-01-11 09:54 | Outpatient (CLI) | payer MEDICARE, MEDICAID, SELFPAY ==
--- NOTE | 2020-01-11 10:06 | XR_ITS ---
PROCEDURE: XR SHOULDER RT MIN 2V CLINICAL INDICATION: Rt shoulder pain COMPARISON: CR SHOULDCMRT XR shoulder RT min 2V from 04/16/2017 CR XR SHOULDER RT MIN 2V from 11/30/2019 FINDINGS: No fracture or dislocation. No lytic or blastic change. There is normal mineralization. There are mild osteoarthritic changes of the AC joint and glenohumeral joint. A bone plate is present along the proximal humerus anteriorly. Other findings:None. IMPRESSION: Mild osteoarthritis Dictated by: Crow Cohen MD 01/11/2020 11:41 Crow Cohen MD in [facility] 01/11/2020 11:41
== END ==
PROVIDERS: PCP Nurse Practitioner Family; Visit Provider Orthopaedic Surgery
DX: M25.511 Pain in right shoulder (principal)
CPT/HCPCS: 73030

== ENCOUNTER → 2020-02-22 08:59 | Outpatient (CLI) | payer MEDICARE, MEDICAID, SELFPAY ==
--- NOTE | 2020-02-22 09:04 | XR_ITS ---
PROCEDURE: XR WRIST LT MIN 3V CLINICAL INDICATION: Lt wrist pain Left wrist pain and swelling COMPARISON: CR WRISTCMRT XR wrist RT min 3V from 03/12/2018 FINDINGS: There are osteoarthritic changes at 1st metacarpal-carpal joint. There is mild chondrocalcinosis of the triangular fibrocartilage. No acute fracture or dislocation. No lytic or blastic change. IMPRESSION: Mild osteoarthritis at the 1st metacarpal-carpal joint. Chondrocalcinosis of the triangular fibrocartilage Dictated by: Crow Cohen MD 02/22/2020 10:12 Crow Cohen MD in [facility] 02/22/2020 10:12
== END ==
PROVIDERS: PCP Nurse Practitioner Family; Visit Provider Orthopaedic Surgery
DX: M25.432 Effusion, left wrist (principal)
CPT/HCPCS: 73110

== ENCOUNTER 2020-02-22 09:58 | Outpatient (RCR) | payer MEDICARE, MEDICAID, SELFPAY | END 2020-02-22 10:47 | disposition home or self-care (01) | LOC: OT 09:58 | PROVIDERS: Visit Provider Orthopaedic Surgery | DX: S60.212A Contusion of left wrist, initial encounter (principal) | CPT/HCPCS: 97760 ==

== ENCOUNTER → 2020-03-30 10:16 | Outpatient (CLI) | payer MEDICARE, MEDICAID, SELFPAY ==
[2020-03-30 12:10] VITALS: PULSE 83; PULSE 88
== END ==
PROVIDERS: PCP Nurse Practitioner Family; Visit Provider Internal Medicine Pulmonary Disease
DX: R06.00 Dyspnea, unspecified (principal); I11.9 Hypertensive heart disease without heart failure
CPT/HCPCS: 94060; 94618; 94640; 94727; 94729

== ENCOUNTER → 2020-04-01 17:31 | Outpatient (CLI) | payer MEDICARE, MEDICAID, SELFPAY | PROVIDERS: Visit Provider Nurse Practitioner Family | DX: R35.0 Frequency of micturition (principal) | CPT/HCPCS: 87086; 87088; 87186 ==

== ENCOUNTER 2020-04-18 13:25 | Emergency (ER) | payer MEDICARE, MEDICAID, SELFPAY ==
--- NOTE | 2020-04-18 13:30 | HMH.EDPSYCH ---
ED Disposition Clinical Impression: Hallucinations Disposition: Home, Self-Care Condition on Discharge: Good Referrals: Franci Vergara APRN [Primary Care Provider] - 3 days Time of Disposition: 18:46 - Critical Care Critical Care Time: No Attestation: On 04/18/20, the high probability of a clinically significant, sudden or life threatening deterioration of the following system(s) required my full and direct attention, intervention and personal management. The time I documented below is in addition to time spent performing reported procedures but includes the following listed in this critical care notation. Medical Decision Making - Rafa Inquiry Pt receiving controlled substance: No Vital Signs: 04/18/20 13:41 04/18/20 14:44 04/18/20 15:00 Temperature 98.2 F Temperature Source Oral Pulse Rate [Left Radial] 78 78 87 Respiratory Rate 18 Blood Pressure [Left Arm] 162/76 H 174/94 H 168/84 H Blood Pressure Mean [Left Arm] 104 120 112 Blood Pressure Source [Left Arm] Automatic Cuff Automatic Cuff Blood Pressure Position [Left Arm] Sitting Sitting 02 Sat by Pulse Oximetry 98 96 96 Oxygen Delivery Method Room Air Room Air Room Air 04/18/20 18:30 Temperature Temperature Source Pulse Rate [Left Radial] 83 Respiratory Rate 18 Blood Pressure [Left Arm] 176/71 H Blood Pressure Mean [Left Arm] 106 Blood Pressure Source [Left Arm] Blood Pressure Position [Left Arm] 02 Sat by Pulse Oximetry 94 L Oxygen Delivery Method Room Air - Lab Data Lab results reviewed: Yes: I reviewed the patient's lab results. Lab Results 04/18/20 14:22: WBC 9.0, RBC 5.02, Hgb 12.5, Hct 38.6, MCV 77.0 L, MCH 24.9 L, MCHC 32.4, RDW 15.3, Plt Count 193, MPV 7.8, Neut % (Auto) 67.7, Lymph % (Auto) 24.1, [place] % (Auto) 5.9, Eos % (Auto) 1.7, Baso % (Auto) 0.6, Neut # (Auto) 6.1, Lymph # (Auto) 2.2, [place] # (Auto) 0.5, Eos # (Auto) 0.2, Baso # (Auto) 0.1 04/18/20 14:22: Sodium 137, Potassium 2.7 L*, Chloride 99, Carbon Dioxide 31 H, Anion Gap 9.7, BUN 15, Creatinine 1.40 H, Estimated Creat Clear 12, Estimated GFR 36 L, Est GFR ( Amer) 44 L, Glucose 103 H, Calcium 10.5 H, Total Bilirubin 0.4, AST 32, ALT 15, Alkaline Phosphatase 73, Total Protein 7.6, Albumin 4.2, Globulin 3.4 H, Albumin/Globulin Ratio 1.2, Salicylates < 1.0 L, Acetaminophen < 10 L 04/18/20 16:46: Urine Color Yellow, Urine Appearance Clear, Urine pH 7.0, Ur Specific [place] 1.020, Urine Protein Trace, Urine Glucose (UA) Negative, Urine Ketones Negative, Urine Blood Negative, Urine Nitrate Negative, Urine Bilirubin Negative, Urine Urobilinogen 0.2, Ur Leukocyte Esterase Trace, Urine WBC 3-5, Ur Squamous Epith Cells 5-10, Urine Bacteria 1+ 04/18/20 16:46: Urine Opiates Screen Negative, Urine Methadone Screen Negative, Ur Barbituates Screen Negative, Ur Phencyclidine Scrn Negative, Ur Amphetamines Screen Negative, U Benzodiazepines Scrn Negative, Urine Cocaine Screen Negative, U Marijuana (THC) Screen Negative Result diagrams: 04/18/20 14:22 04/18/20 14:22 Orders (Tests/Meds): ED MEDICATIONS Discontinued Medications Generic Name Dose Route Start Last Admin Trade Name Freq PRN Reason Stop Dose Admin Potassium Chloride 40 meq 04/18/20 16:06 04/18/20 17:35 Potassium Chloride 20meq/15ml Udc PO 04/18/20 16:07 Not Given ONCE ONE Potassium Chloride 40 meq 04/18/20 16:16 04/18/20 16:17 Potassium Chloride 20meq Tab PO 04/18/20 16:17 40 meq ONCE ONE Administration ORDERS Category Date Time Status CT head/brain wo con Stat Cat Scan 04/18/20 17:28 Taken - CT Data CT Scan: Head Time Received: 18:[address] Reviewed: Yes: I have reviewed the patient's CT results Preliminary Findings: Normal/NAD Medical Decision Narrative: 79yo F evaluated for hallucinations. Patient is in no acute distress on initial evaluation. CBC, CMP, urinalysis, CT of the head have been ordered. Patient is able to tell me the month, year, who her family is, h
[2020-04-18 13:41] VITALS: BP 162/76; PULSE 78; RESP 18; TEMP 36.8; O2SAT 98; BMI 46.2
[2020-04-18 14:44] VITALS: BP 174/94; PULSE 78; O2SAT 96
[2020-04-18 14:50] LABS: Chloride 99 mmol/L (98-107)
[2020-04-18 14:51] LABS: Sodium 137 mmol/L (136-145)
[2020-04-18 14:53] LABS: Blood Urea Nitrogen 15 mg/dl (7-17); Creatinine Clearance Estimated 12 mL/min (50-200); Estimated Glomerular Filt Rate 36 ml/min (>60); GFR (African American) 44 ML/MIN (>60)
[2020-04-18 14:54] LABS: Alanine Aminotransferase 15 U/L (12-78); Albumin Level 4.2 g/dl (3.5-5.0); Albumin/Globulin Ratio 1.2 (1.1-1.8); Alkaline Phosphatase 73 U/L (38-126); Anion Gap 9.7 mEq/L (5-15); Aspartate Amino Transferase 32 U/L (14-36); Bilirubin,Total 0.4 mg/dl (0.2-1.3); Calcium 10.5 mg/dl (8.4-10.2); Carbon Dioxide 31 mmol/L (22.0-30.0); Globulin 3.4 g/dL (1.3-3.2); Glucose 103 mg/dl (74-100); Total Protein,Serum 7.6 g/dl (6.3-8.2)
[2020-04-18 14:57] LABS: Acetaminophen < 10 ug/ml (10-30); Basophils # 0.1 K/mm3 (0-0.2); Basophils % 0.6 % (0.1-2.0); Eosinophils # 0.2 K/mm3 (0.0-0.4); Eosinophils % 1.7 % (0.1-12.0); Hematocrit 38.6 % (37.0-47.0); Hemoglobin 12.5 g/dL (12.2-16.2); Lymphocytes # 2.2 K/mm3 (0.7-4.5); Lymphocytes % 24.1 % (10-50); Mean Corpuscular HGB Conc 32.4 g/dL (31.8-35.4); Mean Corpuscular Hemoglobin 24.9 pg (27.0-31.2); Mean Platelet Volume 7.8 fl (7.4-10.4); Monocytes # 0.5 K/mm3 (0.1-1.0); Monocytes % 5.9 % (1.7-9.3); Neutrophils # 6.1 K/mm3 (1.8-7.8); Neutrophils % 67.7 % (37.0-80.0); Platelet Count 193 K/mm3 (142-424); Potassium 2.7 mmoL/L (3.5-5.1); Red Blood Count 5.02 M/mm3 (4.20-5.40); Red Cell Distribution Width 15.3 % (11.5-17.5); Salicylate < 1.0 mg/dL (2.0-20.0)
[2020-04-18 15:00] VITALS: BP 168/84; PULSE 87; O2SAT 96
[2020-04-18 16:54] LABS: Microscopic, Urine URINE MICROSCOPIC (MICROSCOPIC)
[2020-04-18 16:56] LABS: Appearance,Urine CLEAR (Clear); Bilirubin,Urine Negative (Negative); Blood, Urine Negative (Negative); Color,Urine YELLOW (Yellow); Glucose,Urine (UA) Negative (Negative); Ketones,Urine Negative (Negative); Leukocyte Esterase,Urine TRACE (Negative); Nitrate,Urine Negative (Negative); Protein,Urine TRACE (Negative); Urobilinogen,Urine 0.2 EU/dl (0.2)
[2020-04-18 17:07] LABS: Amphetamine/Metha Screen,Urine Negative ng/ml (<1000); Benzodiazepines Screen,Urine Negative ng/ml (<200)
[2020-04-18 17:08] LABS: Barbiturates Screen,Urine Negative ng/ml (<200); Cannabinoid Screen,Urine Negative ng/ml (<50)
[2020-04-18 17:09] LABS: Cocaine Screen,Urine Negative ng/ml (<300)
[2020-04-18 17:10] LABS: Methadone Screen,Urine Negative ng/ml (<300); Opiate Screen,Urine Negative ng/ml (<300)
[2020-04-18 17:11] LABS: Phencyclidine Screen,Urine Negative ng/ml (<25)
--- NOTE | 2020-04-18 17:15 | PC.NURSE ---
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
--- NOTE | 2020-04-18 17:28 | CT_ITS ---
PROCEDURE: CT HEAD/BRAIN WO CON CLINICAL INDICATION: ams COMPARISON: CT CT HEAD/BRAIN WO CON from 12/11/2019 TECHNIQUE: Axial images obtained. All CT scans at the facility use one or more dose reduction, viz: automated exposure control, ma/kV adjustment per patient size (including targeted exams where dose is matched to indication, i.e. head), or iterative reconstruction technique. FINDINGS: No midline shift, mass effect, intracranial hemorrhage, hydrocephalus, or extra-axial fluid collection is evident. The basilar cisterns are mildly prominent. The sylvian fissures and cortical sulci are prominent. There are diffuse periventricular hypodensities consistent with chronic ischemic white matter changes. The calvarium has an unremarkable appearance except for mild hyperostosis frontalis interna. No mastoid effusion. No sinus air-fluid level. IMPRESSION: Findings of moderate cortical atrophy unchanged from the previous study 12/11/2019, no acute intracranial pathology noted Dictated by: Dr. Orlando Whitten MD 04/19/2020 08:27 Dr. Orlando Whitten MD in [place] 04/19/2020 08:27
[2020-04-18 17:43] LABS: Bacteria,Urine 1+ /lpf
[2020-04-18 18:30] VITALS: BP 176/71; PULSE 83; RESP 18; O2SAT 94
[2020-04-18 18:59] VITALS: BP 117/85; PULSE 88; RESP 15; TEMP 36.6; O2SAT 98
== END 2020-04-18 19:02 | disposition home or self-care (01) ==
PROVIDERS: Emergency Provider Family Medicine; PCP Nurse Practitioner Family
DX: R44.1 Visual hallucinations (principal); F03.90 Unspecified dementia, unspecified severity, without behavioral disturbance, psychotic disturbance, mood disturbance, and anxiety; J44.9 Chronic obstructive pulmonary disease, unspecified; I25.10 Atherosclerotic heart disease of native coronary artery without angina pectoris; K21.9 Gastro-esophageal reflux disease without esophagitis; E78.5 Hyperlipidemia, unspecified; I10 Essential (primary) hypertension; E03.9 Hypothyroidism, unspecified; N28.9 Disorder of kidney and ureter, unspecified; Z87.891 Personal history of nicotine dependence; Z79.899 Other long term (current) drug therapy; Z88.0 Allergy status to penicillin; Z88.1 Allergy status to other antibiotic agents; Z88.5 Allergy status to narcotic agent
CPT/HCPCS: 70450; 80053; 80305; 80329; 81001; 85025; 99283

== ENCOUNTER → 2020-04-22 16:17 | Outpatient (CLI) | payer MEDICARE, MEDICAID, SELFPAY | PROVIDERS: Visit Provider Nurse Practitioner Family | DX: N28.9 Disorder of kidney and ureter, unspecified (principal); R44.3 Hallucinations, unspecified | CPT/HCPCS: 87086 ==

== ENCOUNTER → 2020-04-25 17:05 | Outpatient (CLI) | payer MEDICARE, MEDICAID, SELFPAY ==
[2020-04-25 19:14] LABS: Thyroid Stimulating Hormone 1.21 uIU/mL (0.465-4.68)
[2020-04-25 19:32] LABS: Vitamin B12 600 pg/mL (239-931)
[2020-04-25 19:54] LABS: Folate 8.29 ng/mL
== END ==
PROVIDERS: Visit Provider Specialist
DX: R41.3 Other amnesia (principal)
CPT/HCPCS: 36415; 82607; 82746; 84443

== ENCOUNTER → 2020-06-16 18:25 | Outpatient (CLI) | payer MEDICARE, MEDICAID, SELFPAY ==
[2020-06-16 18:45] LABS: Basophils % 0.6 % (0.1-2.0); Eosinophils # 0.2 K/mm3 (0.0-0.4); Eosinophils % 2.7 % (0.1-12.0); Hematocrit 37.7 % (37.0-47.0); Hemoglobin 12.1 g/dL (12.2-16.2); Lymphocytes # 1.7 K/mm3 (0.7-4.5); Lymphocytes % 23.8 % (10-50); Mean Corpuscular HGB Conc 32.1 g/dL (31.8-35.4); Mean Corpuscular Hemoglobin 25.5 pg (27.0-31.2); Mean Corpuscular Volume 79.6 fl (81-99); Mean Platelet Volume 7.6 fl (7.4-10.4); Monocytes # 0.5 K/mm3 (0.1-1.0); Monocytes % 6.7 % (1.7-9.3); Neutrophils # 4.6 K/mm3 (1.8-7.8); Neutrophils % 66.1 % (37.0-80.0); Platelet Count 219 K/mm3 (142-424); Red Blood Count 4.74 M/mm3 (4.20-5.40)
[2020-06-16 19:48] LABS: Chloride 103 mmol/L (98-107); Potassium 3.8 mmoL/L (3.5-5.1); Sodium 139 mmol/L (136-145)
[2020-06-16 19:50] LABS: Blood Urea Nitrogen 16 mg/dl (7-17); Estimated Glomerular Filt Rate 53 ml/min (>60); GFR (African American) 64 ML/MIN (>60)
[2020-06-16 19:51] LABS: Alanine Aminotransferase 12 U/L (12-78); Albumin/Globulin Ratio 1.5 (1.1-1.8); Alkaline Phosphatase 73 U/L (38-126); Aspartate Amino Transferase 28 U/L (14-36); Bilirubin,Total 0.4 mg/dl (0.2-1.3); Carbon Dioxide 29 mmol/L (22.0-30.0); Globulin 2.7 g/dL (1.3-3.2); Glucose 95 mg/dl (74-100); Total Protein,Serum 6.7 g/dl (6.3-8.2)
[2020-06-16 19:52] LABS: Calcium 10.6 mg/dl (8.4-10.2)
== END ==
PROVIDERS: Visit Provider Nurse Practitioner Family
DX: R44.3 Hallucinations, unspecified; R53.83 Other fatigue; E55.9 Vitamin D deficiency, unspecified
CPT/HCPCS: 80053; 82306; 85025

== ENCOUNTER 2020-10-04 09:57 | Outpatient (RCR) | payer MEDICARE, MEDICAID, SELFPAY ==
--- NOTE | 2020-10-04 11:14 | HMH.SLDYSPHA ---
Speech & Language Evaluation Speech/Language Dysphagia Evaluation Start: 10/04/20 11:03 Freq: ONCE Status: Active Protocol: Document 10/04/20 11:03 ZEE (Rec: 10/04/20 11:14 ZEE [id number]) Dysphagia Assess/Goals/Plan Assessment Date of Evaluation: 10/04/20 Evaluation Type Initial Certification Assessment/Problems Dysphagia Does Patient Qualify for Service Yes Qualify/Failure Comment Patient requires a modified barium swallow to rule out silent aspiration. Goals will be made based off those results. Recommendations PHYSICIAN CERTIFICATION: The specified therapy services are required, authorized, and reviewed every 30 days. Diet Recommendations Mechanical Soft Liquid Type Recommendations Normal/Thin Dysphagia Swallow Precautions/Strategies Sitting Upright (90 deg),Small Bites and Sips,Alternate Liquids/Solids Plan Pt/Guardian verbally ack understanding Yes of dx/prognosis/goals G -code Required No General Information General Current Food Consistancy Dysphagia Mechanical Soft, Ground Meats,Thin Liquids Dentition Upper Only Oxygen Status Room Air Facial Symmetry Symmetrical Patient Orientation Person,Place,Time Ability to Follow Directions Excellent Communication Ability No Impairment Dysphagia:Food Presentation Evaluation Food Type Pureed,Mechanical Soft,Regular ,Liquid,Pudding Normal/Thin Liquid Response Clears throat Dysphagia Evaluation Regular Food Difficulty chewing,Unable to Behavior Response form bolus Dysphagia Evaluation Summary Staci Corral, an 79 year old female, was sent to Speech Therapy for dysphagia. She reports food and drinks goes down so far then rolls around . She reports that she had a hole in one of the tubes in the past. She has lost 60 lbs and her dentures no longer fit . She was given the following consistencies: thins via straw and open cup, pudding, pureed , mechanical soft, and regular . She did exhibit throat clearing with initial bolus of thin liquids via straw and
== END 2020-10-04 09:59 | disposition home or self-care (01) ==
LOC: ST 09:57
PROVIDERS: PCP Nurse Practitioner Family; Visit Provider Nurse Practitioner Family
DX: R13.10 Dysphagia, unspecified (principal)
CPT/HCPCS: 92610

== ENCOUNTER → 2020-10-31 10:45 | Outpatient (CLI) | payer MEDICARE, MEDICAID, SELFPAY ==
--- NOTE | 2020-10-31 10:45 | FL_ITS ---
PROCEDURE: FL BARIUM SWALLOW MODIFIED CLINICAL INDICATION: dysphagia COMPARISON: No exams were available for comparison TECHNIQUE: Patient administered varying consistencies of barium contrast, while viewed in lateral position under real-time fluoroscopy with cine recording. FLUOROSCOPY TIME:3 minutes and 9 seconds The study was performed in conjunction with speech pathologist. Please see that report & recommendations. FINDINGS: Patient was given varying consistencies of barium. There was some difficulty in bolus formation. No aspiration or penetration is evident. No significant residual. IMPRESSION: Some difficulty in bolus formation otherwise negative modified barium swallow. Please see speech pathologist report and recommendations. Dictated by: Crow Cohen MD 11/01/2020 17:52 Crow Cohen MD in [place] 11/01/2020 17:52
--- NOTE | 2020-10-31 11:51 | HMH.SLMBS2 ---
Speech & Language Evaluation Speech/Language Mod Barium Swallow Start: 10/31/20 11:43 Freq: once Status: Complete Protocol: Document 10/31/20 11:43 ZEE (Rec: 10/31/20 11:51 ZEE [id number]) General Information General Current Food Consistancy Regular,Thin Liquids Dentition Upper Only Oxygen Status Room Air Facial Symmetry Symmetrical Patient Orientation Person,Place Ability to Follow Directions Excellent Communication Ability No Impairment MBS Recommendations Diet Dietary Recommendations Dysphagia Mechanical Soft, Ground Meats,Thin Liquids Treatment/Strategies Strategy/Precaution Recommend Sitting Upright (90 deg),Small Bites and Sips,Alternate Liquids/Solids Referrals/Other Recommended Referrals GI Consult Mod Barium Swallow Impressions Summary and Impressions Oral Phase Impression Minimal Impairment Oral Phase Summary Ms. Corral was given the following consistencies: thins via straw and open cup, pudding, pureed, mechanical soft, regular, and pill with thin wash. She did exhibit minimal impairments with regular characterized by diffiuclty masticating regular consistency due to lack of dentition and ill fitting dentures. Pharyngeal Phase Impression Mild Impairment Pharyngeal Phase Summary Ms. Corral did exhibit penetration into the laryngeal vestibule with thin liquids via straw and open cup. She did have a natural partial chin tuck when drinking thin liquids. It is recommended that she have a GI consult to determine cause of slowing of bolus resulting in esophageal residue with pudding, pureed, mechanical soft, and regular consistencies. Speech/Language MBS Assessment/Goals/Plan Assessment Date of Evaluation: 10/31/20 Evaluation Type Initial Certification Assessment/Problems Dysphagia Does Patient Qualify for Service Yes Qualify/Failure Comment Ms. Corral would benefit from speech therapy to address the penetration int
== END ==
PROVIDERS: PCP Nurse Practitioner Family; Visit Provider Nurse Practitioner Family
DX: R13.10 Dysphagia, unspecified (principal)
CPT/HCPCS: 70371; 92611

== ENCOUNTER 2020-11-09 15:20 | Emergency (ER) | payer MEDICARE, MEDICAID, SELFPAY ==
[2020-11-09 15:21] VITALS: BP 127/79; PULSE 79; RESP 18; TEMP 36.8; O2SAT 97; BMI 28.9
--- NOTE | 2020-11-09 15:27 | HMH.EDFALL ---
ED Disposition Clinical Impression: Hypokalemia Contusion of forehead Qualifiers: Encounter type: initial encounter Qualified Code(s): S00.83XA - Contusion of other part of head, initial encounter Traumatic hematoma of lower back Qualifiers: Encounter type: initial encounter Qualified Code(s): S30.0XXA - Contusion of lower back and pelvis, initial encounter Disposition: Home, Self-Care Condition on Discharge: Fair Instructions: How to Prevent Falls, DI for Hypokalemia Additional Instructions: Please follow-up with your primary care doctor in the next few days to have your potassium checked again. If it is low again, you need to talk to your doctor about figuring out why your potassium keeps dropping. Return to the emergency department immediately if you feel weak or worse in any way. Referrals: Annabelle Cannon PA [Primary Care Provider] - - Critical Care Critical Care Time: No Attestation: On , the high probability of a clinically significant, sudden or life threatening deterioration of the following system(s) required my full and direct attention, intervention and personal management. The time I documented below is in addition to time spent performing reported procedures but includes the following listed in this critical care notation. Medical Decision Making - Medical Records Medical records reviewed: Yes: I reviewed the patient's medical records. - Rafa Inquiry Pt receiving controlled substance: No Vital Signs: 11/09/20 15:21 Temperature 98.3 F Temperature Source Oral Pulse Rate [Right Radial] 79 Respiratory Rate 18 Blood Pressure [Right Arm] 127/79 Blood Pressure Mean [Right Arm] 95 Blood Pressure Source [Right Arm] Automatic Cuff Blood Pressure Position [Right Arm] Sitting 02 Sat by Pulse Oximetry 97 Oxygen Delivery Method Room Air - Lab Data Lab Results 11/09/20 15:33: Urine Color Yellow, Urine Appearance Clear, Urine pH 6.5, Ur Specific [place] 1.010, Urine Protein Negative, Urine Glucose (UA) Negative, Urine Ketones Negative, Urine Blood Trace-i, Urine Nitrate Positive, Urine Bilirubin Negative, Urine Urobilinogen 0.2, Ur Leukocyte Esterase 2+ A, Urine RBC Occasional, Urine WBC 3-5, Ur Squamous Epith Cells None, Urine Bacteria None 11/09/20 16:45: WBC 7.9, RBC 4.34, Hgb 11.5 L, Hct 34.9 L, MCV 80.5 L, MCH 26.6 L, MCHC 33.0, RDW 15.5, Plt Count 240, MPV 8.3, Neut % (Auto) 64.3, Lymph % (Auto) 27.5, [place] % (Auto) 5.6, Eos % (Auto) 2.1, Baso % (Auto) 0.5, Neut # (Auto) 5.1, Lymph # (Auto) 2.2, [place] # (Auto) 0.4, Eos # (Auto) 0.2, Baso # (Auto) 0.0 11/09/20 16:45: Sodium 138, Potassium 2.6 L*, Chloride 104, Carbon Dioxide 25, BUN 13, Creatinine 1.00, Estimated Creat Clear 44, Estimated GFR 53 L, Est GFR ( Amer) 64, Glucose 84, Calcium 9.6, Total Bilirubin 0.3, AST 43 H, ALT 22, Alkaline Phosphatase 75, Total Protein 6.8, Albumin 3.6, Globulin 3.2, Albumin/Globulin Ratio 1.1 Result diagrams: 11/09/20 16:45 11/09/20 16:45 Orders (Tests/Meds): ED MEDICATIONS Discontinued Medications Generic Name Dose Route Start Last Admin Trade Name Freq PRN Reason Stop Dose Admin Potassium Chloride 60 meq 11/09/20 17:06 11/09/20 17:09 Potassium Chloride 20meq Tab PO 11/09/20 17:07 60 meq ONCE ONE Administration ORDERS Category Date Time Status Comprehensive Metabolic Panel Stat Lab 11/09/20 16:45 Results Urine Culture Stat Micro 11/09/20 15:33 Received - CT Data CT Scan: Head Time Received: 16:[address] Reviewed: Yes: I have viewed the radiologist's interpretation Medical Decision Narrative: Work-up in the emergency department today did not reveal any serious injuries. However, the patient's work-up for causes of fall revealed that the patient is hypokalemic with a potassium of 2.6. She was given oral potassium supplements in the emergency department and will be discharged home with instructions to follow-up with her primary care physician to work-up the c
--- NOTE | 2020-11-09 15:31 | CT_ITS ---
PROCEDURE: CT HEAD/BRAIN WO CON CLINICAL INDICATION: head injury COMPARISON: CT CT HEAD/BRAIN WO CON from 04/18/2020 TECHNIQUE: Axial images obtained. All CT scans at the facility use one or more dose reduction, viz: automated exposure control, ma/kV adjustment per patient size (including targeted exams where dose is matched to indication, i.e. head), or iterative reconstruction technique. FINDINGS: No midline shift, mass effect, intracranial hemorrhage, hydrocephalus, or extra-axial fluid collection is evident. There is generalized atrophy with hypoattenuation of the periventricular white matter consistent with microangiopathic changes. The calvarium has an unremarkable appearance. No mastoid effusion. No sinus air-fluid level. IMPRESSION: No acute intracranial finding Dictated by: Crow Cohen MD 11/09/2020 16:22 Crow Cohen MD in [place] 11/09/2020 16:22
[2020-11-09 15:42] LABS: Microscopic, Urine URINE MICROSCOPIC (MICROSCOPIC)
[2020-11-09 15:46] LABS: Appearance,Urine CLEAR (Clear); Bilirubin,Urine Negative (Negative); Blood, Urine TRACE-I (Negative); Color,Urine YELLOW (Yellow); Glucose,Urine (UA) Negative (Negative); Ketones,Urine Negative (Negative); Leukocyte Esterase,Urine 2+ (Negative); Nitrate,Urine POSITIVE (Negative); PH,Urine 6.5 (5.0-8.5); Protein,Urine Negative (Negative); Urobilinogen,Urine 0.2 EU/dl (0.2)
--- NOTE | 2020-11-09 15:47 | PC.NURSE ---
Notified Rad of CT
[2020-11-09 15:56] LABS: RBC,Urine Occasional #/hpf (0-3)
--- NOTE | 2020-11-09 16:17 | PC.NURSE ---
Pt returned to ED
[2020-11-09 16:59] LABS: Basophils % 0.5 % (0.1-2.0); Eosinophils # 0.2 K/mm3 (0.0-0.4); Eosinophils % 2.1 % (0.1-12.0); Hematocrit 34.9 % (37.0-47.0); Hemoglobin 11.5 g/dL (12.2-16.2); Lymphocytes # 2.2 K/mm3 (0.7-4.5); Lymphocytes % 27.5 % (10-50); Mean Corpuscular Hemoglobin 26.6 pg (27.0-31.2); Mean Corpuscular Volume 80.5 fl (81-99); Mean Platelet Volume 8.3 fl (7.4-10.4); Monocytes # 0.4 K/mm3 (0.1-1.0); Monocytes % 5.6 % (1.7-9.3); Neutrophils # 5.1 K/mm3 (1.8-7.8); Neutrophils % 64.3 % (37.0-80.0); Platelet Count 240 K/mm3 (142-424); Red Blood Count 4.34 M/mm3 (4.20-5.40); Red Cell Distribution Width 15.5 % (11.5-17.5); White Blood Count 7.9 K/mm3 (4.8-10.8)
[2020-11-09 17:01] LABS: Chloride 104 mmol/L (98-107); Sodium 138 mmol/L (136-145)
[2020-11-09 17:03] LABS: Blood Urea Nitrogen 13 mg/dl (7-17); Creatinine Clearance Estimated 44 mL/min (50-200); Estimated Glomerular Filt Rate 53 ml/min (>60); GFR (African American) 64 ML/MIN (>60)
[2020-11-09 17:04] LABS: Alanine Aminotransferase 22 U/L (12-78); Albumin Level 3.6 g/dl (3.5-5.0); Albumin/Globulin Ratio 1.1 (1.1-1.8); Alkaline Phosphatase 75 U/L (38-126); Aspartate Amino Transferase 43 U/L (14-36); Bilirubin,Total 0.3 mg/dl (0.2-1.3); Calcium 9.6 mg/dl (8.4-10.2); Carbon Dioxide 25 mmol/L (22.0-30.0); Globulin 3.2 g/dL (1.3-3.2); Glucose 84 mg/dl (74-100); Potassium 2.6 mmoL/L (3.5-5.1); Total Protein,Serum 6.8 g/dl (6.3-8.2)
[2020-11-09 17:18] LABS: Anion Gap 11.6 mEq/L (5-15)
[2020-11-09 17:52] VITALS: BP 129/76; PULSE 83; RESP 18; TEMP 36.9; O2SAT 97
== END 2020-11-09 17:55 | disposition home or self-care (01) ==
PROVIDERS: Emergency Provider Emergency Medicine; PCP Physician Assistant
DX: S00.83XA Contusion of other part of head, initial encounter (principal); S30.0XXA Contusion of lower back and pelvis, initial encounter; W01.0XXA Fall on same level from slipping, tripping and stumbling without subsequent striking against object, initial encounter; Y92.019 Unspecified place in single-family (private) house as the place of occurrence of the external cause; I25.10 Atherosclerotic heart disease of native coronary artery without angina pectoris; I10 Essential (primary) hypertension; E78.5 Hyperlipidemia, unspecified; K21.9 Gastro-esophageal reflux disease without esophagitis; J44.9 Chronic obstructive pulmonary disease, unspecified; Z87.891 Personal history of nicotine dependence; Z79.899 Other long term (current) drug therapy
CPT/HCPCS: 70450; 80053; 81001; 85025; 87086; 87088; 87186; 99282

== ENCOUNTER → 2020-11-16 14:02 | Outpatient (CLI) | payer MEDICARE, MEDICAID, SELFPAY | PROVIDERS: Visit Provider Nurse Practitioner Family | DX: N28.9 Disorder of kidney and ureter, unspecified (principal); R42 Dizziness and giddiness | CPT/HCPCS: 87086; 87088; 87186 ==

== ENCOUNTER → 2020-11-21 09:30 | Outpatient (CLI) | payer MEDICARE, MEDICAID, SELFPAY ==
--- NOTE | 2020-11-21 09:31 | MM_ITS ---
PROCEDURE: MM DIG SCREENING MAMM BI W/CAD Digital Breast Tomosynthesis Included CLINICAL INDICATION: screening The exam was performed with the patient in wheelchair, positioning was very limited. There have been previous biopsies on each breast for benign disease. COMPARISON: MG SCBI MM Dig screening mamm BI w/CAD from 11/12/2017 MG MM DIG SCREENING MAMM BI W/CAD from 11/17/2018 MG MM DIG SCREENING MAMM BI W/CAD from 11/20/2019 TECHNIQUE: Standard CC and MLO images and 3D Tomosynthesis was obtained. R2 CAD reviewed. FINDINGS: Moderate scattered fibroglandular densities are seen throughout both breast. Moderate arterial calcification noted bilaterally. There are scattered benign-appearing microcalcifications in each breast. CAD markings were reviewed in the all appear to be secondary to arterial calcification. Density central portion right breast best seen on the CC projection. This was present previously but may have increased in size slightly. Recommend the patient return for spot compression views and ultrasound if this proves to be a true lesion. There are no suspicious microcalcifications. IMPRESSION: Moderate breast density with possible developing asymmetric density right breast BI-RAD Category: 0 Need Additional Imaging Evaluation FOLLOW-UP: IMM Immediate Follow-up Recommended (A letter has been sent to the patient regarding results of the study.) Dictated by: Dr. Orlando Whitten MD 12/08/2020 07:58 Dr. Orlando Whitten MD in [place] 12/08/2020 07:58
== END ==
PROVIDERS: PCP Nurse Practitioner Family; Visit Provider Nurse Practitioner Family
DX: Z12.31 Encounter for screening mammogram for malignant neoplasm of breast (principal)
CPT/HCPCS: 77063; 77067

== ENCOUNTER → 2020-12-27 13:36 | Outpatient (CLI) | payer MEDICARE, MEDICAID, SELFPAY ==
--- NOTE | 2020-12-27 13:37 | US_ITS ---
PROCEDURE: MM DIG MAMM DX UNILAT RT CAD Digital Breast Tomosynthesis Included The CLINICAL INDICATION: abn mamm COMPARISON: MG DMSB DIG MAMM-SCREEN TATUM from 11/04/2015 MG DMSB DIG MAMM-SCREEN TATUM W/CAD from 11/06/2016 MG SCBI MM Dig screening mamm BI w/CAD from 11/12/2017 MG MM DIG SCREENING MAMM BI W/CAD from 11/17/2018 MG MM DIG SCREENING MAMM BI W/CAD from 11/20/2019 MG MM DIG SCREENING MAMM BI W/CAD from 11/21/2020 US US BREAST RT COMPLETE from 12/27/2020 TECHNIQUE: Standard CC and MLO images and 3D Tomosynthesis was obtained. R2 CAD reviewed. FINDINGS: Asymmetric density in the right paracentral aspect of the right breast best seen on the CC view does appear to compress out at least partially. Probably not significantly changed compared to multiple previous exams not readily identified on the MLO view. Right breast ultrasound: At 12 o'clock near the nipple there is a 5 x 2 x 4 mm hypoechoic area possibly due to a complicated cyst and may correspond to the area of mammographic abnormality. This is wider than tall and well-circumscribed. No other significant anomalies are evident. IMPRESSION: Asymmetric density lateral paracentral aspect of the right breast may correspond to a complicated cyst probably benign. Recommend six-month mammographic and sonographic follow-up. BI-RAD Category: 3 Probably Benign Finding Short Term Follow-Up FOLLOW-UP: 6M 6 Month Follow-up (A letter has been sent to the patient regarding results of the study.) 5 Dictated by: Crow Cohen MD 01/05/2021 13:02 Crow Cohen MD in [place] 01/05/2021 13:02
== END ==
PROVIDERS: PCP Nurse Practitioner Family; Visit Provider Nurse Practitioner Family
DX: R92.8 Other abnormal and inconclusive findings on diagnostic imaging of breast (principal)
CPT/HCPCS: 76641; 77061; 77065; G0279

== ENCOUNTER 2020-12-27 14:53 | Emergency (ER) | payer MEDICARE, MEDICAID, SELFPAY ==
[2020-12-27 14:54] VITALS: BP 109/62; PULSE 83; RESP 20; TEMP 36.3; O2SAT 99; BMI 26.9
--- NOTE | 2020-12-27 15:36 | XR_ITS ---
PROCEDURE INFORMATION: Exam: XR Right Hand Exam date and time: 12/27/2020 3:36 PM Age: 80 years old Clinical indication: Injury or trauma; Fall; Blunt trauma (contusions or hematomas); Hand; Right; Injury date: 12/27/20 TECHNIQUE: Imaging protocol: XR Right hand. Views: 3 or more views. COMPARISON: CR HANDR3 HAND-RT 3 VIEWS* 09/07/2015 5:01 PM FINDINGS: Bones/joints: Osteopenia. Bones appear diffusely demineralized. No definite fracture or dislocation. Arthritis at the 1st carpal-metacarpal joint at the base of thumb has significantly progressed compared with 09/07/2015, with joint narrowing, periarticular spurs and sclerosis. Milder arthritic changes of the interphalangeal joint of the thumb and interphalangeal joints of the other digits. No lytic lesions or erosive changes. Possible faint chondrocalcinosis within the triangular fibrocartilage disc suggested on series 1, though not well seen on the other images. Soft tissues: Soft tissue swelling, prominent along the dorsum of the wrist and hand. No radiopaque foreign bodies. IMPRESSION: 1. No definite fracture or dislocation. 2. Osteopenia, slightly limiting the study. 3. Arthritic changes as above; arthritis has significantly progressed in the base of thumb compared with 09/07/2015. 4. Soft tissue swelling, correlate for sprain or contusion.
--- NOTE | 2020-12-27 15:36 | XR_ITS ---
PROCEDURE INFORMATION: Exam: XR Right Wrist Exam date and time: 12/27/2020 3:36 PM Age: 80 years old Clinical indication: Injury or trauma; Fall; Blunt trauma (contusions or hematomas); Wrist; Right TECHNIQUE: Imaging protocol: XR Right wrist. Views: 3 or more views. COMPARISON: CR WRISTCMRT XR wrist RT min 3V 03/12/2018 5:19 PM FINDINGS: Bones/joints: Osteopenia, bones appear diffusely demineralized. No definite fracture or dislocation. A chronic deformity of the distal pole of the scaphoid bone, unchanged compared with 03/12/2018. Prominent arthritis at the base of thumb at the 1st carpal-metacarpal joint, with periarticular spurs, sclerosis and joint narrowing which has worsened in the interval. Milder arthritis in the 1st MCP joint and IP joint of the thumb. Oblique series 1 shows possible faint chondrocalcinosis in the triangular fibrocartilage disc. No lytic lesions or erosive changes. Soft tissues: Prominent soft tissue swelling at the dorsum of wrist.No radiopaque foreign bodies seen. IMPRESSION: 1. No definite fracture or dislocation. 2. Osteopenia, slightly limiting the study. 3. Degenerative/arthritic changes as detailed above, greatest at the 1st carpal-metacarpal joint. 4. Prominent soft tissue swelling at the dorsum of the wrist, correlate for sprain or contusion.
--- NOTE | 2020-12-27 15:45 | HMH.EDUTC ---
[facility] [place] Disposition Clinical Impression: Hand contusion Qualifiers: Encounter type: initial encounter Laterality: right Qualified Code(s): S60.221A - Contusion of right hand, initial encounter Wrist sprain Qualifiers: Encounter type: initial encounter Laterality: right Qualified Code(s): S63.501A - Unspecified sprain of right wrist, initial encounter URI (upper respiratory infection) Qualifiers: URI type: unspecified URI Qualified Code(s): J06.9 - Acute upper respiratory infection, unspecified Disposition: Home, Self-Care Condition on Discharge: Good Instructions: Sinusitis, DI for Sinusitis, How To Perform RICE (Rest, Ice, Compress, Elevate) Additional Instructions: *RICE, Rest the extremity, Ice 15-20 minutes 3-4 times daily, Compress- wear the brad wrap as discussed as much as possible to help reduce swelling and pain, Elevate the extremity when at rest *Brad wrap is for support and help control swelling, use it except in the shower. Be sure that is not to tight but not to loose either *Elevate when resting *Ibuprofen every 6-8 hours as needed for pain an inflammation. If need something more can take Tylenol in between doses of Ibuprofen to help Immediately follow up with your family doctor for new or worsening of symptoms, or no noticeable improvement over the next 3-5 days Take antibiotic as prescribed Prescriptions: Azithromycin [Z-Yrn 250mg Tab] 250 mg PO DIRECTED #6 tab Transmission Status: Received by [facility] Referrals: Franci Vergara APRN [Primary Care Provider] - As needed Time of Disposition: 16:29 Medical Decision Making - Rafa Inquiry Pt receiving controlled substance: No Rafa was queried for this patient: No Vital Signs: 12/27/20 14:54 12/27/20 16:46 Temperature 97.3 F L 97.3 F L Temperature Source Oral Pulse Rate 83 Pulse Rate [Left Radial] 83 Respiratory Rate 20 20 Blood Pressure 109/62 L Blood Pressure [Right Arm] 109/62 L Blood Pressure Mean [Right Arm] 77 Blood Pressure Source [Right Arm] Automatic Cuff Blood Pressure Position [Right Arm] Sitting 02 Sat by Pulse Oximetry 99 Oxygen Delivery Method Room Air Room Air - Radiology Data #1 Image(s): Hand Image Reviewed: Yes I reviewed the patient's radiology image w/the ED provider Preliminary Findings: No Fracture Seen #2 Image(s): Wrist Image Reviewed: Yes I reviewed the patient's radiology image w/the ED provider Preliminary Findings: No Fracture Seen Medical Decision Narrative: Daughter states she has taken azithromycin in the past without any complications or reactions medication discussed with pharmacy [facility] [place] HPI - General Stated complaint: right hand pain Time Seen by Provider: 12/27/20 15:45 Mode of Arrival: Ambulatory Source of Information: Patient Limitations: No Limitations Description of Symptoms (Recalled from Triage Doc. by RN): c/o right hand by getting up 2 days ago HEENT Symptoms (Recalled from RN notes): No Resp Symptoms (Recalled from RN notes): No Skin Symptoms (Recalled from RN notes): No MS Symptoms (Recalled from RN notes): Yes Functional Status (Recalled from RN notes): na - History of Present Illness Provider Complaint: Patient states that she was getting up from chair about 2 days ago when she hurt her right hand States that since she has been having pain, swelling and bruising to her hand and wrist and pain when she moves it so today she came in to get it checked States that she has also been having sore throat and sinus pressure for over a week and wanted to get that checked too - Related Data Home Medications Medication Instructions Recorded Confirmed lovastatin 20 mg tablet 20 mg PO DAILY tab 08/30/20 12/01/20 metoprolol succinate 25 mg 25 mg PO DAILY 08/30/20 12/01/20 tablet,extended release 24 hr oxybutynin chloride 5 mg tablet 5 mg PO DAILY tab 08/30/20 12/01/20 quetiapine 25 mg tablet mg PO BID tab 09/21/20 12/01/20 melatonin 3 mg capsule See R
[2020-12-27 16:46] VITALS: BP 109/62; PULSE 83; RESP 20; TEMP 36.3; O2SAT 99
== END 2020-12-27 16:49 | disposition home or self-care (01) ==
PROVIDERS: Emergency Provider Nurse Practitioner; PCP Nurse Practitioner Family
DX: S60.221A Contusion of right hand, initial encounter (principal); S63.501A Unspecified sprain of right wrist, initial encounter; R92.8 Other abnormal and inconclusive findings on diagnostic imaging of breast; X50.0XXA Overexertion from strenuous movement or load, initial encounter; Y92.019 Unspecified place in single-family (private) house as the place of occurrence of the external cause; J06.9 Acute upper respiratory infection, unspecified; I25.10 Atherosclerotic heart disease of native coronary artery without angina pectoris; K21.9 Gastro-esophageal reflux disease without esophagitis; E78.5 Hyperlipidemia, unspecified; I10 Essential (primary) hypertension; Z87.891 Personal history of nicotine dependence
CPT/HCPCS: G0463; 73110; 73130; 76641; 77061; 77065; 99202; G0279

== ENCOUNTER 2021-02-07 11:19 | Emergency (ER) | payer MEDICARE, MEDICAID, SELFPAY ==
--- NOTE | 2021-02-07 11:50 | XR_ITS ---
PROCEDURE: XR SHOULDER RT MIN 2V XR humerus right minimum two views CLINICAL INDICATION: PAIN COMPARISON: CR SHOULDCMRT XR shoulder RT min 2V from 04/16/2017 CR XR SHOULDER RT MIN 2V from 11/30/2019 CR XR SHOULDER RT MIN 2V from 01/11/2020 CR XR HUMERUS RT from 02/07/2021 FINDINGS: No fracture or dislocation. No lytic or blastic change. There is normal mineralization. There are osteoarthritic changes at the acromioclavicular joint and glenohumeral joint. Bone plate is present along the proximal to distal aspect of the right humerus stabilizing an old humeral fracture in the proximal to mid 1/3 of the humerus. No acute fracture or dislocation is evident. No acute finding. Other findings:None. IMPRESSION: S/p ORIF old proximal humeral shaft fracture. No acute finding. Dictated by: Crow Cohen MD 02/07/2021 12:32 Crow Cohen MD in [place] 02/07/2021 12:32
--- NOTE | 2021-02-07 12:05 | XR_ITS ---
PROCEDURE: XR HAND RT MIN 3V CLINICAL INDICATION: PAIN COMPARISON: CR HANDR3 HAND-RT 3 VIEWS from 09/07/2015 CR XR HAND RT MIN 3V from 12/27/2020 FINDINGS: No fracture or dislocation. No lytic or blastic change. There is normal mineralization. Mild osteoarthritic changes are present at the 1st carpal metacarpal junction and the 1st PIP joint and radiocarpal joint. Other findings:None. IMPRESSION: Mild osteoarthritis otherwise negative Dictated by: Crow Cohen MD 02/07/2021 12:33 Crow Cohen MD in [place] 02/07/2021 12:33
[2021-02-07 12:38] VITALS: BP 139/63; PULSE 72; RESP 19; TEMP 36.8; O2SAT 98; BMI 25.7
--- NOTE | 2021-02-07 12:55 | HMH.EDUTC ---
[facility] [place] Disposition Clinical Impression: Muscle pain Disposition: Home, Self-Care Condition on Discharge: Good Instructions: DI for Muscle Spasm Additional Instructions: *Ibuprofen alvina 6 hours with meal as needed for pain/inflammation if uou can take Ibuprofen *Not additional anti-inflammatory like motrin, aleve, advil with the above amount of ibuprofen. You can still take Tylenol every 4 hours as needed if you need something else for pain *Ice 20 minutes every 2 hours for the first 48 hours after the initial injury followed by moist heat every 20 minutes 3-4 times a day to affected area Over the counter Muscle rubs like Biofreeze or Bengay may help with muscle tightness *Keep this area active, no movement leads to more stiffness, However take it easy and avoid heavy lifting pushing or pulling *Follow up with you family doctor if no improvement for further treatment Return if needed Straight to ER if any life threatening symptoms Referrals: Franci Vergara APRN [Primary Care Provider] - As needed Time of Disposition: 13:05 Medical Decision Making - Rafa Inquiry Pt receiving controlled substance: No Rafa was queried for this patient: No Vital Signs: 02/07/21 12:38 02/07/21 13:05 Temperature 98.3 F 98.3 F Temperature Source Oral Pulse Rate 72 Pulse Rate [Left] 72 Respiratory Rate 19 19 Blood Pressure 139/63 Blood Pressure [Right Arm] 139/63 Blood Pressure Mean [Right Arm] 88 02 Sat by Pulse Oximetry 98 - Radiology Data #1 Image(s): Shoulder Image Reviewed: Yes I have reviewed radiologist's interpretation S/p ORIF old proximal humeral shaft fracture. No acute finding. #2 Image(s): Humerus Image Reviewed: Yes I have reviewed radiologist's interpretation IMPRESSION: S/p ORIF old proximal humeral shaft fracture. No acute finding. #3 Image(s): Hand Image Reviewed: Yes I have reviewed radiologist's interpretation Mild osteoarthritis otherwise negative [facility] [place] HPI - General Stated complaint: rt shoulder pain Time Seen by Provider: 02/07/21 12:55 Mode of Arrival: Ambulatory Source of Information: Patient Limitations: No Limitations Description of Symptoms (Recalled from Triage Doc. by RN): pt c/o R should, R hand and neck pain x4 days. no injury HEENT Symptoms (Recalled from RN notes): No Resp Symptoms (Recalled from RN notes): No Skin Symptoms (Recalled from RN notes): No MS Symptoms (Recalled from RN notes): Yes (R shoulder/hand and neck pain) Functional Status (Recalled from RN notes): wnl - History of Present Illness Provider Complaint: Patient states that she was trying to move herself over in the chair and thinks she pulled something States that she has been having pain in her right shoulder area and right hand for 4 days States that feels tight like her muscle is sore States that today she was still having pain an hurt certain ways she turns her head so they brought her in Denies known injury and denies falling - Related Data Home Medications Medication Instructions Recorded Confirmed metoprolol succinate 25 mg 25 mg PO DAILY 08/30/20 02/07/21 tablet,extended release 24 hr oxybutynin chloride 5 mg tablet 5 mg PO DAILY tab 08/30/20 02/07/21 melatonin 3 mg capsule See Rx Instructions PO HS PRN 10/24/20 02/07/21 Previous Rx's Medication Instructions Recorded polyethylene glycol 3350 17 gram 17 g PO QDAY PRN #120 each 12/03/18 oral powder packet meclizine 25 mg tablet 25 mg PO QDAY PRN #14 tab 01/22/20 aspirin 81 mg tablet,delayed 81 mg PO QDAY #90 tab 07/14/20 release ipratropium 0.5 mg-albuterol 3 mg 3 ml INHALATION Q6H PRN #90 ml 08/08/20 (2.5 mg base)/3 mL nebulization soln isosorbide mononitrate 30 mg See Rx Instructions .ROUTE 09/08/20 tablet,extended release 24 hr .COMPLEX #90 tab levothyroxine 75 mcg tablet 75 mcg PO DAILY #90 tab 12/06/20 sertraline 50 mg tablet See Rx Instructions .ROUTE 12/19/20 .COMPLEX #90 tab risperidone 0.2
[2021-02-07 13:05] VITALS: BP 139/63; PULSE 72; RESP 19; TEMP 36.8
== END 2021-02-07 13:14 | disposition home or self-care (01) ==
PROVIDERS: Emergency Provider Nurse Practitioner; PCP Nurse Practitioner Family
DX: M79.18 Myalgia, other site (principal); M25.511 Pain in right shoulder; M79.641 Pain in right hand; M54.2 Cervicalgia; J44.9 Chronic obstructive pulmonary disease, unspecified; I25.10 Atherosclerotic heart disease of native coronary artery without angina pectoris; K21.9 Gastro-esophageal reflux disease without esophagitis; Z87.891 Personal history of nicotine dependence; Z88.0 Allergy status to penicillin; Z88.1 Allergy status to other antibiotic agents; Z88.5 Allergy status to narcotic agent
CPT/HCPCS: G0463; 73030; 73060; 73130; 99202

== ENCOUNTER → 2021-02-27 13:43 | Outpatient (CLI) | payer MEDICARE, MEDICAID, SELFPAY | PROVIDERS: Visit Provider Nurse Practitioner Family | DX: N39.0 Urinary tract infection, site not specified (principal); B96.20 Unspecified Escherichia coli [E. coli] as the cause of diseases classified elsewhere; B96.1 Klebsiella pneumoniae [K. pneumoniae] as the cause of diseases classified elsewhere | CPT/HCPCS: 87086; 87088; 87186 ==

== ENCOUNTER → 2021-03-21 10:13 | Outpatient (CLI) | payer MEDICARE, MEDICAID, SELFPAY ==
--- NOTE | 2021-03-21 10:15 | CA_ITS ---
APPROVED REPORT EXAM: Comprehensive 2D, Doppler, and color-flow Echocardiogram Master Esthetician: DANYELLE Canales, RVS Ht: 4 ft 10 in Wt: 127lbs BSA: 1.50 BP: 150/67 mmHg Indications: CAD, Diastolic dysfunction, CAD, Afib, SOA, COPD, HTN, HLD 2D Dimensions Aortic Root 2.92 cm LA Volume 58.80 mL Left Atrium 3.24 cm LA Volume Index 39.20 mL/m2 (M/F) 16-34 LVOT 1.75 cm (M/F) 1.5-2.5 M-Mode Dimensions RVDd 3.01 cm (0.9-2.6) LA Diam 3.62 cm (1.9-4.0) LVDd 4.33 cm (3.5-5.7) Ao Diam 3.01 cm (2.0-3.7) LVDs 2.33 cm (3.5-5.7) IVSd 1.22 cm (0.6-1.1) PWd 1.00 cm (0.6-1.1) EF (Teich) 77.80% EPSs 0.43 cm FS 46.20% EDV (Teich) 84.40 mL TAPSE 1.64 (<1.7) ESV (Teich) 18.70 mL LV Diastology E Decel Time 257.00 (160-240 msec) E/A Ratio 0.90 MED E' 6.50 (< 7 cm/sec) MED A' 8.70 cm/s E'/MED E' Ratio 10.29 (>14) LAT E' 8.40 (<10 cm/sec) LAT A' 6.80 cm/s E/LAT E' Ratio 7.96 (>14) Aortic Valve LVOT Max 101.00 (70-110 cm/s) LVOT VTI 21.05 cm AoV Peak Matthew. 114.00 (50-130 cm/s) AI PHT 571.00 ms AO Peak GR. 5.20 mmHg AO Mean GR. 2.60 (<5 mmHg) AO VTI 22.86 (18-25 cm) TENA (VTI) 2.21 (2.5-4.5 cm2) Mitral Valve MV A Velocity 74.00 (40-130 cm/s) E/A Ratio 0.90 MV Decel. Time 257.00 (160-240 ms) Pulmonary Valve PV Peak Velocity 86.00 (50-150 cm/s) Tricuspid Valve TR P. Velocity 248.00 cm/s RAP Estimate 10.00 mmHg RVSP 34.60 mmHg Left Ventricle Left atrium is mildly enlarged, left ventricle is normal size, mild concentric left ventricular hypertrophy, visually estimated ejection fraction of 55% with no regional wall motion abnormality, diastolic parameters are inconclusive. Right Ventricle Right atrium and right ventricle are mildly enlarged with normal contractility. Aortic Valve Aortic valve is minimally thickened and calcified without Doppler evidence of aortic stenosis or aortic insufficiency. Mitral Valve Mitral valve leaflets are minimally thickened, there is mild mitral regurgitation Tricuspid Valve Tricuspid valve grossly normal, there is mild tricuspid regurgitation, tricuspid regurgitation jet velocity is inadequate for calculation of the right ventricular systolic pressure. Pulmonic Valve Pulmonic valve is poorly visualized. Great Vessels Aortic root is normal size. Inferior vena cava is poorly visualized. Pericardium No significant pericardial effusion noted. Conclusion 1. Mild biatrial enlargement, normal left ventricular size, mild concentric left ventricular hypertrophy, visually estimated ejection fraction 55% with no regional wall motion abnormality, diastolic parameters are inconclusive. 2. Mildly enlarged right ventricle with normal contractility. 3. Mild mitral and tricuspid regurgitation. 4. No significant pericardial effusion noted. 5. Inferior vena cava is poorly visualized. Electronically signed by : Ochoa Davis MD 03/21/2021 19:55:17
== END ==
PROVIDERS: PCP Nurse Practitioner Family; Visit Provider Urology
DX: E78.5 Hyperlipidemia, unspecified (principal); F03.90 Unspecified dementia, unspecified severity, without behavioral disturbance, psychotic disturbance, mood disturbance, and anxiety; I11.9 Hypertensive heart disease without heart failure; I25.10 Atherosclerotic heart disease of native coronary artery without angina pectoris; J44.9 Chronic obstructive pulmonary disease, unspecified; R42 Dizziness and giddiness; Z74.09 Other reduced mobility
CPT/HCPCS: 93306

== ENCOUNTER → 2021-04-14 17:07 | Outpatient (CLI) | payer MEDICARE, MEDICAID, SELFPAY ==
[2021-04-14 13:29] LABS: Basophils % 0.4 % (0.1-2.0); Eosinophils # 0.1 K/mm3 (0.0-0.4); Hematocrit 31.4 % (37.0-47.0); Hemoglobin 10.2 g/dL (12.2-16.2); Lymphocytes # 1.2 K/mm3 (0.7-4.5); Lymphocytes % 14.8 % (10-50); Mean Corpuscular HGB Conc 32.3 g/dL (31.8-35.4); Mean Corpuscular Hemoglobin 26.7 pg (27.0-31.2); Mean Corpuscular Volume 82.6 fl (81-99); Mean Platelet Volume 7.9 fl (7.4-10.4); Monocytes # 0.4 K/mm3 (0.1-1.0); Monocytes % 4.6 % (1.7-9.3); Neutrophils # 6.4 K/mm3 (1.8-7.8); Neutrophils % 79.1 % (37.0-80.0); Platelet Count 245 K/mm3 (142-424); Red Cell Distribution Width 15.3 % (11.5-17.5); White Blood Count 8.1 K/mm3 (4.8-10.8)
[2021-04-14 14:16] LABS: Alanine Aminotransferase 15 U/L (12-78); Albumin Level 2.6 g/dl (3.5-5.0); Albumin/Globulin Ratio 0.9 (1.1-1.8); Alkaline Phosphatase 94 U/L (38-126); Anion Gap 8.3 mEq/L (5-15); Aspartate Amino Transferase 27 U/L (14-36); Bilirubin,Total 0.5 mg/dl (0.2-1.3); Blood Urea Nitrogen 15 mg/dl (7-17); Calcium 7.7 mg/dl (8.4-10.2); Carbon Dioxide 29 mmol/L (22.0-30.0); Chloride 101 mmol/L (98-107); Chol/HDL Ratio 2.5 (1-3.5); Cholesterol 91 mg/dl (140-200); Estimated Glomerular Filt Rate 60 ml/min (>60); GFR (African American) 73 ML/MIN (>60); Globulin 2.8 g/dL (1.3-3.2); Glucose 85 mg/dl (74-100); HDL Cholesterol 37 mg/dl (40-60); Sodium 136 mmol/L (136-145); Total Protein,Serum 5.4 g/dl (6.3-8.2); Triglycerides 89 mg/dl (30-150); VLDL Cholesterol 18 mg/dL (0-40)
[2021-04-14 14:27] LABS: Direct LDL Cholesterol 40.95 mg/dL (100-129)
[2021-04-14 14:33] LABS: T4 (Thyroxine) 6.9 ug/dl (5.53-11.0)
[2021-04-14 14:47] LABS: Thyroid Stimulating Hormone 9.68 uIU/mL (0.465-4.68)
[2021-04-14 14:57] LABS: Potassium 2.3 mmoL/L (3.5-5.1)
== END ==
PROVIDERS: Visit Provider Nurse Practitioner Family
DX: S00.83XA Contusion of other part of head, initial encounter (principal); M79.10 Myalgia, unspecified site; I25.10 Atherosclerotic heart disease of native coronary artery without angina pectoris; I11.9 Hypertensive heart disease without heart failure; J44.9 Chronic obstructive pulmonary disease, unspecified
CPT/HCPCS: 80053; 80061; 84436; 84443; 85025

== ENCOUNTER 2021-04-17 18:37 | Emergency (ER) | payer MEDICARE, MEDICAID, SELFPAY ==
[2021-04-17 19:15] VITALS: BP 115/72; PULSE 62; RESP 19; TEMP 36.6; O2SAT 98; BMI 24.4
--- NOTE | 2021-04-17 19:49 | HMH.EDUTC ---
[facility] [place] Clinical Impression: Skin tear Disposition: Home, Self-Care Condition on Discharge: Good Instructions: DI for Laceration Repair-Skin Glue, Azithromycin Additional Instructions: Do not scrub area and allow dermabond to wear off Watch for signs of infection such as redness, drainage warmth and if seen follow up with your Family Doctor immediately Return if needed Taken antibiotics as prescribed Prescriptions: Azithromycin [Z-Yrn 250mg Tab] 250 mg PO DIRECTED #6 tab Transmission Status: Pending to [facility] Referrals: Franci Vergara APRN [Primary Care Provider] - As needed Time of Disposition: 20:23 Medical Decision Making - Rafa Inquiry Pt receiving controlled substance: No Rafa was queried for this patient: No Vital Signs: 04/17/21 19:15 Temperature 97.8 F Temperature Source Oral Pulse Rate [Right Brachial] 62 Respiratory Rate 19 Blood Pressure [Right Arm] 115/72 Blood Pressure Mean [Right Arm] 86 Blood Pressure Source [Right Arm] Automatic Cuff Blood Pressure Position [Right Arm] Sitting 02 Sat by Pulse Oximetry 98 Oxygen Delivery Method Room Air Medical Decision Narrative: skin tear on right forearm cleaned well and skin place back and secured in place with dermabond patient allergic to PCN and cephaloporins but family States that she can take azithromcyin without complication Medication discussed with pharmacy [facility] [place] HPI - General Stated complaint: skin torn on R arm Time Seen by Provider: 04/17/21 19:50 Mode of Arrival: Ambulatory Source of Information: Relative Limitations: No Limitations Description of Symptoms (Recalled from Triage Doc. by RN): FAMILY REPORTS SKIN TEAR TO RIGHT FOREARM THAT OCCURED TODAY DURING TRANSFER FROM CHAIR HEENT Symptoms (Recalled from RN notes): No Resp Symptoms (Recalled from RN notes): No Skin Symptoms (Recalled from RN notes): Yes MS Symptoms (Recalled from RN notes): No Functional Status (Recalled from RN notes): WNL - History of Present Illness Provider Complaint: Daughter states that they was helping patient up in the chair when her right forearm rubbed against the side of her chair and caused skin tear to her right forearm States that they was unable to to get it to stop bleeding and thought it may need to be closed - Related Data Home Medications Medication Instructions Recorded Confirmed metoprolol succinate 25 mg 25 mg PO DAILY 08/30/20 04/14/21 tablet,extended release 24 hr oxybutynin chloride 5 mg tablet 5 mg PO DAILY tab 08/30/20 04/14/21 melatonin 3 mg capsule See Rx Instructions PO HS PRN 10/24/20 04/14/21 Previous Rx's Medication Instructions Recorded polyethylene glycol 3350 17 gram 17 g PO QDAY PRN #120 each 12/03/18 oral powder packet meclizine 25 mg tablet 25 mg PO QDAY PRN #14 tab 01/22/20 aspirin 81 mg tablet,delayed 81 mg PO QDAY #90 tab 07/14/20 release ipratropium 0.5 mg-albuterol 3 mg 3 ml INHALATION Q6H PRN #90 ml 08/08/20 (2.5 mg base)/3 mL nebulization soln albuterol sulfate 90 mcg/actuation 1 puff INHALATION Q4H #18 g 01/03/21 aerosol inhaler budesonide-formoterol HFA 160 2 puff INHALATION BID #10.2 g 01/03/21 mcg-4.5 mcg/actuation aerosol inhaler lovastatin 20 mg tablet See Rx Instructions .ROUTE 01/30/21 .COMPLEX #90 tab omeprazole 20 mg capsule,delayed See Rx Instructions .ROUTE 03/08/21 release .COMPLEX #30 cap isosorbide mononitrate 30 mg See Rx Instructions .ROUTE 03/27/21 tablet,extended release 24 hr .COMPLEX #90 tab sertraline 50 mg tablet See Rx Instructions .ROUTE 03/27/21 .COMPLEX #90 tab risperidone 0.5 mg tablet 0.5 mg PO BID #60 tab 03/30/21 potassium chloride 20 mEq 20 meq PO DAILY #14 tab 04/14/21 tablet,extended release(part/cryst) tramadol 50 mg tablet 50 mg PO BID PRN #60 tab 04/14/21 Azithromycin [Z-Yrn 250mg Tab] 250 mg PO DIRECTED #6 tab 04/17/21 levothyroxine 88 mcg tablet 88 mcg PO DAILY #30 tab 04/17/21 Allergies Aller
[2021-04-17 20:28] VITALS: BP 115/72; PULSE 62; RESP 19; TEMP 36.6; O2SAT 98
== END 2021-04-17 20:29 | disposition home or self-care (01) ==
PROVIDERS: Emergency Provider Nurse Practitioner; PCP Nurse Practitioner Family
DX: S51.811A Laceration without foreign body of right forearm, initial encounter (principal); W22.03XA Walked into furniture, initial encounter; Y92.129 Unspecified place in nursing home as the place of occurrence of the external cause; J44.9 Chronic obstructive pulmonary disease, unspecified; I25.10 Atherosclerotic heart disease of native coronary artery without angina pectoris; E03.9 Hypothyroidism, unspecified; I10 Essential (primary) hypertension; E78.5 Hyperlipidemia, unspecified; K21.9 Gastro-esophageal reflux disease without esophagitis; Z87.891 Personal history of nicotine dependence
CPT/HCPCS: 12001; G0463; 99202

== ENCOUNTER → 2021-04-24 16:00 | Outpatient (CLI) | payer MEDICARE, MEDICAID, SELFPAY ==
[2021-04-24 19:52] LABS: Potassium 2.5 mmoL/L (3.5-5.1)
== END ==
PROVIDERS: Visit Provider Nurse Practitioner Family
DX: Z86.39 Personal history of other endocrine, nutritional and metabolic disease (principal)
CPT/HCPCS: 84132

== ENCOUNTER → 2021-05-11 14:00 | Outpatient (CLI) | payer MEDICARE, MEDICAID, SELFPAY ==
--- NOTE | 2021-05-11 14:01 | CT_ITS ---
FINAL REPORT TECHNIQUE: Axial images were obtained from the lung apex to the mid abdomen by computed tomography. Coronal reformatted images were obtained. This study was performed with techniques to keep radiation doses as low as reasonably achievable, (ALARA). Individualized dose reduction techniques using automated exposure control or adjustment of mA and/or kV according to the patient''s size were employed. CLINICAL HISTORY: coughing up blood COMPARISON: August 26, 2018 FINDINGS: There is no axillary adenopathy. There is no hilar or mediastinal adenopathy. Heart size is normal. There are moderate coronary artery calcifications. There is a small pericardial effusion. There are small bilateral pleural effusions greatest on the left. Limited images of the upper abdomen reveals postoperative changes from cholecystectomy. There is mild biliary ductal dilatation which is likely due to post cholecystectomy change. There are 2 low-attenuation masses in the kidneys which cannot be accurately characterized without contrast but could represent cysts. On the lung window images there is mild emphysema. There is mild scarring. There is a stable 2 mm right upper lobe nodule seen on image 23. There several calcified granulomas in the right lung. There is left lung base atelectasis. There is a wedge-shaped opacity in the right lung apex which is slightly larger measuring 13 mm and was previously measured at 10 mm. The bone window images demonstrate postoperative changes in the right humerus. IMPRESSION: Worsening focal opacity at the posterior right lung apex of uncertain etiology. Could be further evaluated with follow-up chest CT in 3 months or possibly PET-CT. Small bilateral pleural effusions. Mild left lung base atelectasis. Reviewed, Interpreted and Dictated by Matt Sanchez III, MD Transcribed by Hannah Motta Authenticated by Matt Sanchez III, MD on 05/11/2021 03:22:[address] [facility]
== END ==
PROVIDERS: PCP Nurse Practitioner Family; Visit Provider Nurse Practitioner Family
DX: R04.2 Hemoptysis (principal)
CPT/HCPCS: 71250

== ENCOUNTER → 2021-07-10 13:37 | Outpatient (CLI) | payer MEDICARE, MEDICAID, SELFPAY ==
--- NOTE | 2021-07-10 13:37 | MM_ITS ---
PROCEDURE INFORMATION: Exam: US Right Breast, Complete MG Right Diagnostic Breast Tomosynthesis Exam date and time: 07/10/2021 2:21 PM Age: 80 years old Clinical indication: Six-month follow-up for probably benign asymmetry in the right breast felt to correspond to a 0.5 cm complicated cyst at 12 o'clock, from 12/27/2020. TECHNIQUE: Imaging protocol: Complete ultrasound of all four quadrants of the Right breast and the retroareolar regions, including ultrasound of the axilla when performed. Right Diagnostic tomosynthesis and 2D mammography including computer-aided detection (CAD) when performed. Unilateral or bilateral exam. COMPARISON: 1. MG MM DIG MAMM DX UNILAT RT CAD 12/27/2020 2:00 PM 2. US BREAST RT COMPLETE 12/27/2020 2:16 PM 3. MG MM DIG SCREENING MAMM BI W/CAD 11/21/2020 9:34 AM 4. MG MM DIG SCREENING MAMM BI W/CAD 11/20/2019 9:28 AM 5. MG MM DIG SCREENING MAMM BI W/CAD 11/17/2018 10:10 AM FINDINGS: MAMMOGRAPHY: Limited spot compression in the central right breast, shows stable minimal asymmetry along the nipple line in the anterior 3rd and scattered punctate calcifications. No suspicious asymmetry, mass, architectural distortion. No suspicious calcifications. ULTRASOUND: Right sonography, all 4 quadrants, retroareolar and axilla, demonstrates, at 12 o'clock, near the nipple, an at oval hypoechoic mass, likely mildly complicated cyst measuring 0.5 by 0.5 x 0.2 cm, which measured 0.5 x 0.2 x 0.4 cm on 12/27/2020. No other cystic or solid masses demonstrated. Sonographically unremarkable right axillary lymph node. IMPRESSION: Stable mammographic appearance in the retroareolar region and stable 0.5 cm probable mildly complicated cyst at 12 o'clock, since 12/27/2020. Suggest continued six-month follow-up with targeted right breast ultrasound, when the patient returns for bilateral mammogram in December 2021, unless otherwise clinically indicated. ASSESSMENT: BI-RADS Category 3: Probably benign
== END ==
PROVIDERS: PCP Nurse Practitioner Family; Visit Provider Nurse Practitioner Family
DX: R92.8 Other abnormal and inconclusive findings on diagnostic imaging of breast (principal)
CPT/HCPCS: 76641; 77061; 77065; G0279

== ENCOUNTER → 2021-08-15 16:15 | Outpatient (CLI) | payer MEDICARE, MEDICAID, SELFPAY | PROVIDERS: Visit Provider Urology | DX: N39.0 Urinary tract infection, site not specified (principal); B96.20 Unspecified Escherichia coli [E. coli] as the cause of diseases classified elsewhere | CPT/HCPCS: 87086; 87088; 87186 ==

== ENCOUNTER → 2021-08-28 11:53 | Outpatient (CLI) | payer MEDICARE, MEDICAID, SELFPAY ==
--- NOTE | 2021-08-28 | CA_ITS ---
APPROVED REPORT Exam: Pharmacologic Technologist: Sirena Thorne Ht: 4 ft 10 in Wt: 110 lbs BSA: 1.41 m2 HR: 77 bpm BP: 169/80 mmHg Medical History Medications: Omeprazole,,,,, Levothyroxine,,,,, Metoprolol,,,,, Lovastatin,,,,, Asa,,,,, Duoneb,,,,, SyMBICORT,,,,, Albuterol,,,,, Tramadol,,,,, MiraLAX,,,,, Meclizine,,,,, MeLATONIN,,,,, Stress Test Details Test: LEXISCAN HR Resting HR: 72 bpm Max Heart Rate (APMHR): 138.950808 bpm Max HR Achieved: 111 bpm Target HR (85% APMHR): 117.126439 bpm % of APMHR: 80.43 Recovery HR: 95 bpm BP Resting BP: 169.0/80.0 mmHg Max BP: 180.0/89.0 mmHg Recovery BP: 172.0/80.0 mmHg ECG Resting ECG: Normal sinus rhythm Clinical Exercise duration: 04:06 min Highest Stage Achieved: Exercise capacity: 1.0 METs Stress ECG Conclusion Symptoms: Shortness of air, chest pain, nausea Arrhythmias/Ectopy: Occasional PAC ST-T Changes: <1.5 mm Test Summary REST . . . . . . . Sitting REST 09:58 . . 72 . 169/ 80 . . Stage 1 01:00 . . 91 . . . . Stage 2 01:00 . . 111 . 142/ 81 . . Stage 3 01:00 . . 109 . 166/ 85 . . Stage 4 01:00 . . 107 . 172/ 84 . . Stage 4 01:06 . . 106 . 172/ 84 . Stop exercise at 04:06 RECOVERY 01:00 . . 108 . . . . RECOVERY 02:00 . . 100 . 180/ 89 . . RECOVERY 02:36 . . 95 . 172/ 80 . . Electronically signed by : Ochoa Davis MD 08/28/2021 17:19:41
--- NOTE | 2021-08-28 11:54 | NM_ITS ---
APPROVED REPORT Exam: Nuclear Stress Test Indication: short of breath..fatigue Patient Location: Outpatient Stress Tech: Sirena HEREDIA Tech:Rayne Bourne BRAYANTalia RT(R)(N) Ht: 4 ft 10 in Wt: 110 lbs Bra Size: 44c HR: 72 bpm BP: 169/80 mmHg BSA: 1.41 m2 TID: 1.09 BMI: 22.9 History: short of breath..fatigue Procedure: Patient received a 0.4 mg of intravenous Lexiscan, resting heart rate 72 bpm, resting blood pressure 169/80 mmHg, with Lexiscan maximum heart rate achived was 111 bpm which is Less than 85 % of the maximum predicted heart rate and blood pressure was 180/89 mmHg. With Lexiscan, patient denied any complaint of chest pain. patient is unable to lay on her belly for the prone images Electrocardiogram Resting electrocardiogram shows sinus rhythm, with Lexiscan less than 1.[address] segment depression noted from the baseline EKG. The EKG portion of the Lexiscan is nondiagnostic. Cardiac Stress and Resting SPECT Images: Cardiac Stress and Resting SPECT images were obtained using technetium 99m Myoview 29.6 mCi stress and 10.23 mCi at rest. Gated SPECT for analysis of segmental wall motion and calculation of the ejection fraction also done. Cardiac stress and rest SPECT images show mild fixed defect in the inferior wall with normal contractility on gated SPECT is likely secondary to soft tissue attenuation, no reversible ischemia seen, computer derived ejection fraction is 54% with no regional wall motion abnormality, right ventricle is normal size and contractility. Conclusion: 1. The EKG portion of the Lexiscan is nondiagnostic. 2. No scintigraphic evidence of reversible ischemia seen, computer derived ejection fraction 54% with no regional wall motion abnormality, right ventricle is normal size and contractility. 3. Likely normal Lexiscan Myoview study. Electronically signed by : Ochoa Davis MD 08/28/2021 17:29:47
--- NOTE | 2021-08-28 12:57 | CA_ITS ---
FINAL REPORT TECHNIQUE: Color Doppler, duplex Doppler and dalton scale sonography of the bilateral neck arterial vasculature was performed. Velocities were measured in the carotid arteries. Stenosis evaluation based on the validated velocity criteria. CLINICAL HISTORY: carotid artery stenosis FINDINGS: The peak systolic velocity of the right common carotid artery is 47 cm/s. The peak systolic velocity of the right internal carotid artery is 57 cm/s and end diastolic velocity 17 cm/s. A mild amount of plaque is present. The right external carotid artery is patent. The right vertebral artery is patent with antegrade flow. The peak systolic velocity of the left common carotid artery is 55 cm/s. The peak systolic velocity of the left internal carotid artery is 51 cm/s and end diastolic velocity 12 cm/s. A mild amount of plaque is present. The left external carotid artery is patent.The left vertebral artery is patent with antegrade flow. IMPRESSION: Less than 50% bilateral carotid stenoses. Bilateral patent vertebral arteries with antegrade flow. If indicated, CTA or MRA could further evaluate. Reviewed, Interpreted and Dictated by Matt Sanchez III, MD Transcribed by Catia Morales Authenticated and [facility]
--- NOTE | 2021-08-28 14:01 | HMH.ITSHM ---
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 []TRAMADOL SERTRALINE RISPERIDONE POTASSIUM OXYBUTYNIN OMEPRAZOLE METOPROLOL MELATONIN MECLIZINE LOVASTATIN LEVOTHYROXINE ISOSORBIDE IPRATROPIUM BUDESONIDE ASA ALBUTEROL
== END ==
PROVIDERS: PCP Family Medicine; Visit Provider Nurse Practitioner Family
DX: E78.2 Mixed hyperlipidemia (principal); I11.9 Hypertensive heart disease without heart failure; I25.10 Atherosclerotic heart disease of native coronary artery without angina pectoris; I65.23 Occlusion and stenosis of bilateral carotid arteries; J44.9 Chronic obstructive pulmonary disease, unspecified; R06.09 Other forms of dyspnea; R07.89 Other chest pain; R42 Dizziness and giddiness; Z74.09 Other reduced mobility
CPT/HCPCS: 78452; 93017; 93880; A9502; J2785

== ENCOUNTER → 2021-09-20 09:52 | Outpatient (CLI) | payer MEDICARE, MEDICAID, SELFPAY ==
--- NOTE | 2021-09-20 09:58 | XR_ITS ---
FINAL REPORT CLINICAL HISTORY: left chest wall abnormality COMPARISON: CT of the chest dated May 11, 2021 FINDINGS: TWO-VIEW CHEST Two views of the chest were obtained. The heart size and pulmonary vascularity are within normal limits. The mediastinum is normal. No acute pulmonary abnormality is identified. There is a small left pleural effusion or pleural thickening. There is no pneumothorax. There are postoperative changes of the right humerus. IMPRESSION: No active cardiopulmonary disease. Reviewed, Interpreted and Dictated by Matt Sanchez III, MD Transcribed by Hannah Motta Authenticated and [facility]
== END ==
PROVIDERS: PCP Family Medicine; Visit Provider Family Medicine
DX: R21 Rash and other nonspecific skin eruption (principal)
CPT/HCPCS: 71046

== ENCOUNTER 2021-09-25 16:45 | Outpatient (RCR) | payer MEDICARE, MEDICAID, SELFPAY ==
--- NOTE | 2021-09-25 17:32 | HMH.PTOPWND ---
Rehab Outpt Wound Evaluation Rehab OP Wound Evaluation Start: 09/25/21 17:18 Freq: Status: Active Protocol: Document 09/25/21 17:18 PWIDALIA (Rec: 09/25/21 17:31 PWIDALIA [id number]) Electronically Signed By Silverio Bailey, BETHEL 09/25/21 17:18 Subjective/History History History This is the initial Physical Therapy wound evaluation for Xuan Croral. Pt is an 80 y/ o female referred to wound clinic for pressure ulcer on sacrum/coccyx. Pt's daughter reports sore has been there for months, and they have been treating it at home. Pt is feeble and frail and does not ambulate at home much. Pt is mostly sitting during the day and is incontinent. Subjective Subjective Therapist encourage as much pressure relieving as possible , and giving significant education to pt and daughter in ways to assist w/ pressure relief. Wound Eval Wound Sacrum Wound Type Pressure Ulcer Is This a Chronic Wound Yes Wound Staging Stage I Query Text:Stage I - Unbroken, red skin, no blanching. Stage II - Skin broken, superficial skin loss involving epidermis alone or also dermis. Partial loss of skin layers. Stage III - Pressure area involves epidermis, dermis and subcutaneous tissue, full thickness skin loss. Stage IV - Pressure area involves epidermis, subcutaneous tissue, bone and other supportive tissue. Full thickness skin loss with extensive destruction of underlying tissue and structures. Wound Length (cm) 3.0 Wound Width (cm) 2.0 Wound Bed Appearance Beefy Red Wound Margins Description Indistinct Surrounding Tissue Appearance [place],Bright Red Primary Dressing Absorbant Pad Comment [facility] for padding Dressing Change Date 09/25/21 Wound Problems/Impairments Impairments Problems/Impairmments Impaired Walking,Wound Care Needs Prognosis Rehab Potential Poor Comment Poor due to pt's decreased mobility and mostly seated posisionin
== END 2021-09-25 16:50 | disposition home or self-care (01) ==
LOC: PT 16:45
PROVIDERS: PCP Family Medicine; Visit Provider Family Medicine
DX: L89.151 Pressure ulcer of sacral region, stage 1 (principal)
CPT/HCPCS: 97162

== ENCOUNTER 2021-10-18 16:30 | Outpatient (RCR) | payer MEDICARE, MEDICAID, SELFPAY | END 2021-10-18 16:35 | disposition home or self-care (01) | LOC: PT 16:30 | PROVIDERS: PCP Family Medicine; Visit Provider Student in an Organized Health Care Education/Training Program | DX: R42 Dizziness and giddiness (principal) | CPT/HCPCS: 97110; 97112; 97163; 97164; 97530 ==

== ENCOUNTER → 2021-11-09 18:05 | Outpatient (CLI) | payer MEDICARE, MEDICAID, SELFPAY ==
[2021-11-09 17:03] LABS: Basophils % 0.9 % (0.1-2.0); Eosinophils # 0.1 K/mm3 (0.0-0.4); Eosinophils % 2.8 % (0.1-12.0); Hematocrit 34.3 % (37.0-47.0); Hemoglobin 11.3 g/dL (12.2-16.2); Lymphocytes # 1.6 K/mm3 (0.7-4.5); Mean Corpuscular Hemoglobin 30.6 pg (27.0-31.2); Mean Corpuscular Volume 92.5 fl (81-99); Mean Platelet Volume 8.9 fl (7.4-10.4); Monocytes # 0.3 K/mm3 (0.1-1.0); Neutrophils # 2.8 K/mm3 (1.8-7.8); Neutrophils % 57.4 % (37.0-80.0); Platelet Count 156 K/mm3 (142-424); Red Cell Distribution Width 14.4 % (11.5-17.5); White Blood Count 4.8 K/mm3 (4.8-10.8)
[2021-11-09 17:34] LABS: Alanine Aminotransferase 16 U/L (12-78); Albumin Level 3.2 g/dl (3.5-5.0); Albumin/Globulin Ratio 1.2 (1.1-1.8); Alkaline Phosphatase 69 U/L (38-126); Anion Gap 6.2 mEq/L (5-15); Aspartate Amino Transferase 28 U/L (14-36); Blood Urea Nitrogen 15 mg/dl (7-17); Calcium 9.4 mg/dl (8.4-10.2); Carbon Dioxide 29 mmol/L (22.0-30.0); Chloride 110 mmol/L (98-107); Estimated Glomerular Filt Rate 60 ml/min (>60); GFR (African American) 73 ML/MIN (>60); Globulin 2.7 g/dL (1.3-3.2); Glucose 76 mg/dl (74-100); Potassium 4.2 mmoL/L (3.5-5.1); Sodium 141 mmol/L (136-145); Total Protein,Serum 5.9 g/dl (6.3-8.2)
[2021-11-09 17:35] LABS: Bilirubin,Total < 0.1 mg/dl (0.2-1.3)
[2021-11-09 18:05] LABS: Thyroid Stimulating Hormone 0.94 uIU/mL (0.465-4.68)
== END ==
PROVIDERS: PCP Family Medicine; Visit Provider Family Medicine
DX: E83.52 Hypercalcemia (principal); R06.09 Other forms of dyspnea; J44.9 Chronic obstructive pulmonary disease, unspecified
CPT/HCPCS: 80053; 84443; 85025

== ENCOUNTER → 2021-12-04 09:51 | Outpatient (CLI) | payer MEDICARE, MEDICAID, SELFPAY ==
--- NOTE | 2021-12-04 09:51 | MM_ITS ---
PROCEDURE INFORMATION: Exam: MG Bilateral Screening 3D Mammography Exam date and time: 12/04/2021 10:09 AM Age: 81 years old Clinical indication: Screening examination TECHNIQUE: Imaging protocol: Bilateral Screening tomosynthesis and 2D mammography including computer-aided detection (CAD) when performed. COMPARISON: 1. MG MM DIG MAMM DX UNILAT RT CAD 07/10/2021 1:48 PM 2. MG MM DIG MAMM DX UNILAT RT CAD 12/27/2020 2:00 PM FINDINGS: MAMMOGRAPHY: Breast composition: There are scattered areas of fibroglandular density. Mass: None. Architectural distortion: None. Calcifications: No suspicious calcifications. Asymmetric density: None. Skin thickening: None. Axillary adenopathy: None. IMPRESSION: No mammographic evidence of malignancy. Annual screening is recommended unless otherwise clinically indicated. ASSESSMENT: BI-RADS Category 1: Negative
== END ==
PROVIDERS: PCP Family Medicine; Visit Provider Family Medicine
DX: Z12.31 Encounter for screening mammogram for malignant neoplasm of breast (principal)
CPT/HCPCS: 77063; 77067

== ENCOUNTER 2021-12-19 16:00 | Outpatient (RCR) | payer MEDICARE, MEDICAID, SELFPAY | END 2021-12-19 16:05 | disposition home or self-care (01) | LOC: PT 16:00 | PROVIDERS: PCP Family Medicine; Visit Provider Family Medicine | DX: S81.801A Unspecified open wound, right lower leg, initial encounter (principal) | CPT/HCPCS: 97162; 97597 ==

== ENCOUNTER 2022-01-10 14:01 | Emergency (ER) | payer MEDICARE, MEDICAID, SELFPAY ==
--- NOTE | 2022-01-10 15:02 | EXP.UTC ---
Discharge Plan Disposition Patient Disposition: Home, Self-Care Condition: Good Prescriptions Prescriptions: No Action melatonin 3 mg capsule See Rx Instructions PO HS PRN Rx Instructions: 10MG PO at bedtime nightly PRN; aspirin 81 mg tablet,delayed release (DR/EC) 81 mg PO QDAY Qty: 90 0RF albuterol sulfate 90 mcg/actuation HFA aerosol inhaler 1 puff INHALATION Q4H Qty: 18 2RF budesonide-formoterol [Symbicort] 160-4.5 mcg/actuation HFA aerosol inhaler 2 puff INHALATION BID 90 Days Qty: 10.2 3RF acetaminophen-codeine 300-30 mg tablet 1 tab PO TID PRN (Reason: pain) Qty: 90 3RF clotrimazole [Lotrimin AF (clotrimazole)] 1 % cream 1 applic TP BID 28 Days Qty: 45 0RF sertraline 50 mg tablet See Rx Instructions .ROUTE .COMPLEX Qty: 90 1RF Dose Instruction: TAKE 1 TABLET BY MOUTH EVERY DAY Rx Instructions: TAKE 1 TABLET BY MOUTH EVERY DAY risperidone [Risperdal] 0.5 mg tablet 0.5 mg PO BID 90 Days Qty: 180 0RF omeprazole 20 mg capsule,delayed release(DR/EC) See Rx Instructions .ROUTE .COMPLEX Qty: 30 1RF Dose Instruction: TAKE 1 CAPSULE BY MOUTH EVERY DAY Rx Instructions: TAKE 1 CAPSULE BY MOUTH EVERY DAY polyethylene glycol 3350 [Miralax] 17 gram powder in packet 17 g PO QDAY PRN (Reason: constipation) Qty: 120 0RF oxybutynin chloride 5 mg tablet 5 mg PO DAILY ipratropium-albuterol 0.5 mg-3 mg(2.5 mg base)/3 mL solution for nebulization 3 ml INHALATION Q6H PRN (Reason: shortness of breath or wheezing) Qty: 90 6RF potassium chloride 20 mEq tablet,ER particles/crystals 20 meq PO DAILY Qty: 14 0RF celecoxib 200 mg capsule 200 mg PO DAILY meclizine 25 mg tablet 25 mg PO QDAY PRN (Reason: vertigo) Qty: 14 0RF lovastatin 20 mg tablet See Rx Instructions .ROUTE .COMPLEX Qty: 90 1RF Dose Instruction: TAKE 1 TABLET BY MOUTH DAILY Rx Instructions: TAKE 1 TABLET BY MOUTH DAILY metoprolol tartrate 50 mg tablet 50 mg PO BID Qty: 60 5RF isosorbide mononitrate 30 mg tablet extended release 24 hr See Rx Instructions .ROUTE .COMPLEX Qty: 90 2RF Dose Instruction: TAKE 1 TABLET BY MOUTH DAILY Rx Instructions: TAKE 1 TABLET BY MOUTH DAILY levothyroxine 88 mcg tablet See Rx Instructions .ROUTE .COMPLEX Qty: 30 10RF Dose Instruction: TAKE 1 TABLET BY MOUTH ONCE DAILY Rx Instructions: TAKE 1 TABLET BY MOUTH ONCE DAILY mupirocin 2 % ointment 1 applic topical TID Qty: 22 0RF Referrals Follow up/Referrals: Jose R Reinoso MD [Primary Care Provider] - See instructions Activity Restrictions/Add. Instructions Additional Instructions/Restrictions: Rest the extremity, Wear the praful wrap for compression, Elevate the extremity as tolerated while you are resting. Follow up with your physician tomorrow as scheduled. Follow up with your regular doctor. GO TO THE ER FOR ANY WORSENING SYMPTOMS Clinical Impressions Clinical Impression: Effusion of left knee, Left knee pain Instructions Patient Instructions: DI for Knee Effusion Discharge ED Provider: Edmond Vasquez [facility] General Stated complaint: LT knee inflammation no accident Time Seen by Provider: 01/10/22 15:02 History of Present Illness Provider Complaint: She comes in today for left knee swelling and pain. She states that she is unable to walk on her left leg due to her knee pain. She denies any injury. She has an appointment with orthopedics tomorrow for the knee, but she came in today to see if there was anything that could be done to help her pain. Related Data Home Medications Medication Instructions Recorded Confirmed oxybutynin chloride 5 mg tablet 5 mg PO DAILY 08/30/20 01/04/22 melatonin 3 mg capsule See Rx Instructions PO HS PRN 10/24/20 01/04/22 celecoxib 200 mg capsule 200 mg PO DAILY 08/30/21 01/04/22 Previous Rx's Medication Instructions Recorded polyethylene
--- NOTE | 2022-01-10 15:07 | XR_ITS ---
FINAL REPORT CLINICAL HISTORY: Pt hit Lt knee x days ago, swelling w pain @ medial epicondyle FINDINGS: LEFT KNEE Two views of the left knee were obtained. There is no acute fracture or dislocation. There are advanced changes of osteoarthritis at the lateral compartment joint space. There are osteophytes at the lateral joint margin and prominent osteophytes along the undersurface of the patella. A large joint effusion is seen. IMPRESSION: No acute bony abnormality. Findings consistent with advanced osteoarthritis in the lateral compartment and patellofemoral joint. Reviewed, Interpreted and Dictated by Fabrizio Garcia MD Transcribed by Hannah Motta Authenticated and [facility]
[2022-01-10 15:15] VITALS: BP 198/80; PULSE 82; RESP 18; TEMP 37; O2SAT 95; BMI 25.4
[2022-01-10 16:26] VITALS: BP 172/74; PULSE 82; RESP 18; TEMP 37
== END 2022-01-10 16:44 | disposition home or self-care (01) ==
PROVIDERS: Emergency Provider Nurse Practitioner Family; PCP Family Medicine
DX: M25.562 Pain in left knee (principal); M25.462 Effusion, left knee
CPT/HCPCS: 73562; 99212; G0463

== ENCOUNTER 2022-07-01 03:00 | Emergency (ER) | payer MEDICARE, MEDICAID, SELFPAY ==
[2022-07-01 03:01] VITALS: BP 210/100; PULSE 70; RESP 20; TEMP 36.6; O2SAT 96; BMI 26.7
--- NOTE | 2022-07-01 03:22 | HMH.EDGENADL ---
Discharge Plan Disposition Patient Disposition: Home, Self-Care Condition: Good Chief Complaint: Headache Prescriptions Prescriptions: No Action melatonin 3 mg capsule See Rx Instructions PO HS PRN Rx Instructions: 10MG PO at bedtime nightly PRN; clotrimazole [Lotrimin AF (clotrimazole)] 1 % cream 1 applic TP BID 28 Days Qty: 45 0RF metoprolol tartrate 50 mg tablet 50 mg PO BID Qty: 60 5RF omeprazole 20 mg capsule,delayed release(DR/EC) See Rx Instructions .ROUTE .COMPLEX Qty: 90 1RF Dose Instruction: TAKE 1 CAPSULE BY MOUTH EVERY DAY Rx Instructions: TAKE 1 CAPSULE BY MOUTH EVERY DAY risperidone [Risperdal] 0.5 mg tablet 0.5 mg PO BID 90 Days Qty: 180 0RF polyethylene glycol 3350 [Miralax] 17 gram powder in packet 17 g PO QDAY PRN (Reason: constipation) Qty: 120 0RF potassium chloride 20 mEq tablet,ER particles/crystals 20 meq PO DAILY Qty: 14 0RF albuterol sulfate 90 mcg/actuation HFA aerosol inhaler 2 inh inhalation Q6H PRN (Reason: shortness of breath or wheezing) 90 Days Qty: 8.5 1RF budesonide-formoterol [Symbicort] 160-4.5 mcg/actuation HFA aerosol inhaler 2 puff INHALATION BID 90 Days Qty: 10.2 3RF ipratropium-albuterol 0.5 mg-3 mg(2.5 mg base)/3 mL solution for nebulization 3 ml INHALATION Q6H PRN (Reason: shortness of breath or wheezing) Qty: 90 6RF acetaminophen-codeine 300-30 mg tablet 1 tab PO TID PRN (Reason: pain) Qty: 90 3RF aspirin 81 mg tablet,delayed release (DR/EC) 81 mg PO QDAY Qty: 90 0RF celecoxib 200 mg capsule 200 mg PO DAILY Qty: 90 3RF isosorbide mononitrate 30 mg tablet extended release 24 hr See Rx Instructions .ROUTE .COMPLEX Qty: 90 2RF Dose Instruction: TAKE 1 TABLET BY MOUTH DAILY Rx Instructions: TAKE 1 TABLET BY MOUTH DAILY levothyroxine 88 mcg tablet See Rx Instructions .ROUTE .COMPLEX Qty: 90 3RF Dose Instruction: TAKE 1 TABLET BY MOUTH ONCE DAILY Rx Instructions: TAKE 1 TABLET BY MOUTH ONCE DAILY lovastatin 20 mg tablet See Rx Instructions .ROUTE .COMPLEX Qty: 90 1RF Dose Instruction: TAKE 1 TABLET BY MOUTH DAILY Rx Instructions: TAKE 1 TABLET BY MOUTH DAILY oxybutynin chloride 5 mg tablet 5 mg PO DAILY Qty: 90 3RF sertraline 50 mg tablet See Rx Instructions .ROUTE .COMPLEX Qty: 90 1RF Dose Instruction: TAKE 1 TABLET BY MOUTH EVERY DAY Rx Instructions: TAKE 1 TABLET BY MOUTH EVERY DAY meclizine 25 mg tablet 25 mg PO QDAY PRN (Reason: vertigo) Qty: 14 0RF mupirocin 2 % ointment 1 applic topical TID Qty: 22 0RF Referrals Follow up/Referrals: Jose R Reinoso MD [Primary Care Provider] - See instructions Clinical Impressions Clinical Impression: Hypertensive urgency Discharge ED Provider: Pedro Fischer General Adult HPI General Chief complaint: Headache Stated complaint: Fluxuating BP; headache Time Seen by Provider: 07/01/22 03:02 Mode of Arrival: Ambulatory Source of Information: Patient and Relative Limitations: No Limitations History of Present Illness HPI narrative: 81yo F presents to the ER with complaint of fluctuating blood pressures, headache, nausea and vomiting. Denies chest pain or shortness of breath. Denies history of heart attack or stroke. Takes baby aspirin today. 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 No recent illness or fever. No pain at this time Related Data Home Medications Medication Instructions Recorded Confirmed melatonin 3 mg capsule See Rx Instructions PO HS PRN 10/24/20 05/03/22 Previous Rx's Medication Instructions Recorded polyethylene glycol 3350 17 gram 17 g PO QDAY PRN constipation #120 12/03/18 oral powder packet (Miralax) ea meclizine 25 mg tablet 25 mg PO QDAY PRN vertigo #14 tabs 01/22/20 potassium chloride 20 mEq 20 meq PO DAILY #14 tabs 04/14/21 tablet,extended release
--- NOTE | 2022-07-01 03:25 | ECG_ITS ---
APPROVED REPORT Exam: Resting ECG HR:68 bpm ECG Measurements Heart Rate 68 AXES AL 185 P 60 QRSd 104 QRS -45 QT 409 T 56 QTc 426 Conclusion SINUS RHYTHM LEFT ANTERIOR FASCICULAR BLOCK [QRS AXIS <= -45, QR IN I, RS IN II] ABNORMAL ECG UNCONFIRMED REPORT Electronically signed by : Kishan Treviño MD 07/01/2022 13:32:00
--- NOTE | 2022-07-01 03:25 | XR_ITS ---
PROCEDURE INFORMATION: Exam: XR Chest Exam date and time: 07/01/2022 3:47 AM Age: 81 years old Clinical indication: Other: HTN; Additional info: HTN urgency TECHNIQUE: Imaging protocol: Radiologic exam of the chest. Views: 1 view. COMPARISON: CR XR CHEST 2V 09/20/2021 10:00 AM FINDINGS: Lungs: Lungs are hyperinflated. Right-sided granuloma is present. Pleural spaces: Unremarkable. No pleural effusion. No pneumothorax. Heart/Mediastinum: The heart is borderline enlarged. Bones/joints: Unremarkable. IMPRESSION: Stable COPD and mild cardiomegaly.
--- NOTE | 2022-07-01 03:25 | PC.NURSE ---
Dr. Fischer at [facility]
[2022-07-01 03:31] VITALS: BP 226/97; PULSE 67; RESP 12; O2SAT 95
--- NOTE | 2022-07-01 03:32 | PC.NURSE ---
[facility] at for CXR
[2022-07-01 03:33] LABS: Chloride 103 mmol/L (98-107); Sodium 140 mmol/L (136-145)
[2022-07-01 03:34] LABS: Potassium 3.4 mmoL/L (3.5-5.1)
[2022-07-01 03:36] LABS: Alanine Aminotransferase 16 U/L (12-78); Albumin Level 3.9 g/dl (3.5-5.0); Albumin/Globulin Ratio 1.2 (1.1-1.8); Alkaline Phosphatase 72 U/L (38-126); Anion Gap 10.4 mEq/L (5-15); Aspartate Amino Transferase 30 U/L (14-36); Bilirubin,Total 0.2 mg/dl (0.2-1.3); Blood Urea Nitrogen 16 mg/dl (7-17); Carbon Dioxide 30 mmol/L (22.0-30.0); Estimated Glomerular Filt Rate 60 ml/min (>60); GFR (African American) 72 ML/MIN (>60); Globulin 3.2 g/dL (1.3-3.2); Total Protein,Serum 7.1 g/dl (6.3-8.2)
[2022-07-01 03:37] LABS: Basophils % 0.4 % (0.1-2.0); Calcium 9.8 mg/dl (8.4-10.2); Eosinophils # 0.2 K/mm3 (0.0-0.4); Eosinophils % 2.3 % (0.1-12.0); Glucose 111 mg/dl (74-100); Hematocrit 33.2 % (37.0-47.0); Hemoglobin 10.5 g/dL (12.2-16.2); Lymphocytes # 1.4 K/mm3 (0.7-4.5); Lymphocytes % 22.5 % (10-50); Mean Corpuscular HGB Conc 31.6 g/dL (31.8-35.4); Mean Corpuscular Hemoglobin 22.9 pg (27.0-31.2); Mean Corpuscular Volume 72.7 fl (81-99); Mean Platelet Volume 7.7 fl (7.4-10.4); Monocytes # 0.4 K/mm3 (0.1-1.0); Monocytes % 6.3 % (1.7-9.3); Neutrophils # 4.4 K/mm3 (1.8-7.8); Neutrophils % 68.5 % (37.0-80.0); Platelet Count 155 K/mm3 (142-424); Red Blood Count 4.56 M/mm3 (4.20-5.40); Red Cell Distribution Width 17.1 % (11.5-17.5); White Blood Count 6.4 K/mm3 (4.8-10.8)
[2022-07-01 03:50] LABS: Troponin I < 0.01 ng/ml (0.00-0.034)
[2022-07-01 04:00] VITALS: BP 221/91; PULSE 66; RESP 16; O2SAT 97
--- NOTE | 2022-07-01 04:02 | PC.NURSE ---
Pt ambulatory to restroom with use of walker and 2 person assist. Urine sample collected.
[2022-07-01 04:23] VITALS: BP 187/100; PULSE 78; O2SAT 96
[2022-07-01 04:30] VITALS: BP 179/78; PULSE 78; O2SAT 97
[2022-07-01 05:05] VITALS: BP 179/78; PULSE 75; RESP 19; TEMP 36.6; O2SAT 98
== END 2022-07-01 05:07 | disposition home or self-care (01) ==
PROVIDERS: Emergency Provider Family Medicine; PCP Family Medicine
DX: I16.0 Hypertensive urgency (principal)
CPT/HCPCS: 71045; 80053; 84484; 85025; 93005; 99285

== ENCOUNTER 2022-11-13 13:14 | Observation (INO) | payer MEDICARE, MEDICAID, SELFPAY ==
[2022-11-13] VITALS (13 sets, daily range): BP systolic 118–153; BP diastolic 54–88; PULSE 79–116; RESP 18–22; TEMP 36.6–38.7; O2SAT 92–97; BMI 27.1
--- NOTE | 2022-11-13 13:16 | PC.NURSE ---
Dr. Perez at [facility] for patient eval
--- NOTE | 2022-11-13 13:18 | ECG_ITS ---
APPROVED REPORT Exam: Resting ECG HR:106 bpm ECG Measurements Heart Rate 106 AXES NE 203 P 69 QRSd 92 QRS -68 QT 324 T 72 QTc 386 Conclusion SINUS TACHYCARDIA WITH OCCASIONAL SUPRAVENTRICULAR PREMATURE COMPLEXES PATTERN CONSISTENT WITH PULMONARY DISEASE LEFT ANTERIOR FASCICULAR BLOCK [QRS AXIS <= -45, QR IN I, RS IN II] MODERATE ST DEPRESSION [0.05+ mV ST DEPRESSION] ABNORMAL ECG UNCONFIRMED REPORT Electronically signed by : Kishan Treviño MD 11/16/2022 16:13:10
--- NOTE | 2022-11-13 13:18 | XR_ITS ---
FINAL REPORT CLINICAL HISTORY: cough COMPARISON: 09/20/2021 FINDINGS: The heart size is normal. The mediastinum is normal. There is a left base opacity present that may represent either atelectasis or pneumonia. There are no pleural effusions. There is no pneumothorax. The patient has undergone surgery on the right humerus with a plate and orthopedic screws present, otherwise there is no osseous abnormality. IMPRESSION: Left base opacity that may represent either atelectasis or pneumonia. Reviewed, Interpreted and Dictated by Matt Sanchez III, MD Transcribed by Crystal Menchaca Authenticated and [facility]
--- NOTE | 2022-11-13 13:33 | PC.NURSE ---
Changed pt brief and placed fouzia with medical student assistance ,call light at bs
[2022-11-13 13:35] LABS: Appearance,Urine CLEAR (Clear); Bilirubin,Urine Negative (Negative); Blood, Urine Negative (Negative); Color,Urine YELLOW (Yellow); Glucose,Urine (UA) Negative (Negative); Ketones,Urine Negative (Negative); Leukocyte Esterase,Urine TRACE (Negative); Microscopic, Urine URINE MICROSCOPIC (MICROSCOPIC); Nitrate,Urine Negative (Negative); Protein,Urine TRACE (Negative); Specific Gravity, Urine 1.025 (1.005-1.030); Urobilinogen,Urine 0.2 EU/dl (0.2)
--- NOTE | 2022-11-13 13:36 | PC.NURSE ---
FAMILY AT BEDSIDE
--- NOTE | 2022-11-13 13:37 | HMH.EDGENADL ---
Discharge Plan Disposition Patient Disposition: Admitted Chief Complaint: Altered Mental Status Prescriptions Prescriptions: No Action melatonin 3 mg capsule See Rx Instructions PO HS PRN Rx Instructions: 10MG PO at bedtime nightly PRN; metoprolol tartrate 50 mg tablet 50 mg PO BID Qty: 60 5RF budesonide 0.25 mg/2 mL suspension for nebulization 0.25 mg inhalation BID 90 Days Qty: 360 3RF formoterol fumarate [Perforomist] 20 mcg/2 mL solution for nebulization 2 ml inhalation BID 90 Days Qty: 180 3RF risperidone [Risperdal] 1 mg tablet 1 mg PO BID Qty: 60 2RF albuterol sulfate 90 mcg/actuation HFA aerosol inhaler 2 inh inhalation Q6H PRN (Reason: shortness of breath or wheezing) 90 Days Qty: 8.5 1RF ipratropium-albuterol 0.5 mg-3 mg(2.5 mg base)/3 mL solution for nebulization 3 ml INHALATION Q6H PRN (Reason: shortness of breath or wheezing) Qty: 90 6RF meclizine 25 mg tablet 25 mg PO QDAY PRN (Reason: vertigo) Qty: 14 0RF levothyroxine 88 mcg tablet See Rx Instructions .ROUTE .COMPLEX Qty: 90 1RF Rx Instructions: TAKE 1 TABLET BY MOUTH ONCE DAILY lovastatin 20 mg tablet See Rx Instructions .ROUTE .COMPLEX Qty: 90 1RF Dose Instruction: TAKE 1 TABLET BY MOUTH DAILY Rx Instructions: TAKE 1 TABLET BY MOUTH DAILY oxybutynin chloride 10 mg tablet extended release 24hr 10 mg PO DAILY Qty: 90 1RF sertraline 50 mg tablet See Rx Instructions .ROUTE .COMPLEX Qty: 90 1RF Rx Instructions: TAKE 1 TABLET BY MOUTH EVERY DAY acetaminophen-codeine 300-30 mg tablet 1 tab PO TID PRN (Reason: pain) Qty: 90 3RF celecoxib 200 mg capsule 200 mg PO DAILY isosorbide mononitrate 30 mg tablet extended release 24 hr See Rx Instructions .ROUTE .COMPLEX Rx Instructions: TAKE 1 TABLET BY MOUTH DAILY aspirin 81 mg tablet,delayed release (DR/EC) 81 mg PO QDAY omeprazole 20 mg capsule,delayed release(DR/EC) See Rx Instructions .ROUTE .COMPLEX Rx Instructions: TAKE 1 CAPSULE BY MOUTH EVERY DAY Referrals Follow up/Referrals: Provider,Referral, MD [Referring] - See instructions Clinical Impressions Clinical Impression: Sepsis, Acute UTI, Pneumonia Discharge ED Provider: Corinne Campo General Adult HPI General Chief complaint: Altered Mental Status Stated complaint: weakness Time Seen by Provider: 11/13/22 13:18 History of Present Illness HPI narrative: Patient is a 81-year-old female with past medical history of CVA, coronary artery disease, CKD, COPD, unsteady gait with impaired mobility, hypertension who presents emergency department for evaluation of not acting right . History is obtained by patient, EMS, family. Family states that patient has had an acute decline in her mobility today. She is slow to turn around with a shuffling gait. She normally gets around with a walker with a shuffling gait however this is worse than normal. When asked during the interview if patient has abnormal pupils at baseline and the family states that that is her baseline. Patient denies headache, chest pain, abdominal pain states I feel fine . Patient states she has dysuria. When asking the family to further qualify how patient is not herself they are unable to. They are concerned maybe she has a urinary tract infection. They state that she has recently been prescribed a course of steroids and azithromycin for cough. Per chart review with neurology note patient carries a diagnosis of dementia. No other acute complaints at this time. Related Data Home Medications Medication Instructions Recorded Confirmed melatonin 3 mg capsule See Rx Instructions PO HS PRN 10/24/20 11/06/22 aspirin 81 mg tablet,delayed 81 mg PO QDAY Heart disease 07/01/22 11/06/22 release celecoxib 200 mg capsule 200 mg PO DAILY . 07/01/22 11/06/22 isosorbide mononitrate 30 mg See Rx Instructions .Route 07/01/22 11/06/22 tablet,extended
[2022-11-13 13:38] LABS: Basophils % 0.3 % (0.1-2.0); Eosinophils # 0.1 K/mm3 (0.0-0.4); Eosinophils % 0.9 % (0.1-12.0); Hematocrit 33.4 % (37.0-47.0); Hemoglobin 10.6 g/dL (12.2-16.2); Lymphocytes # 0.9 K/mm3 (0.7-4.5); Lymphocytes % 7.7 % (10-50); Mean Corpuscular HGB Conc 31.7 g/dL (31.8-35.4); Mean Corpuscular Hemoglobin 23.9 pg (27.0-31.2); Mean Corpuscular Volume 75.3 fl (81-99); Mean Platelet Volume 7.8 fl (7.4-10.4); Monocytes # 0.7 K/mm3 (0.1-1.0); Monocytes % 5.9 % (1.7-9.3); Neutrophils # 9.9 K/mm3 (1.8-7.8); Neutrophils % 85.2 % (37.0-80.0); Platelet Count 179 K/mm3 (142-424); Red Blood Count 4.44 M/mm3 (4.20-5.40); Red Cell Distribution Width 16.5 % (11.5-17.5); White Blood Count 11.6 K/mm3 (4.8-10.8)
[2022-11-13 13:39] LABS: MANUAL DIFFERENTIAL MANUAL DIFFERENTIAL (MANUAL DIFF)
[2022-11-13 13:44] LABS: Chloride 106 mmol/L (98-107); Sodium 139 mmol/L (136-145)
[2022-11-13 13:47] LABS: Alanine Aminotransferase 20 U/L (12-78); Albumin Level 3.5 g/dl (3.5-5.0); Albumin/Globulin Ratio 1.2 (1.1-1.8); Alkaline Phosphatase 80 U/L (38-126); Aspartate Amino Transferase 26 U/L (14-36); Bilirubin,Total 0.3 mg/dl (0.2-1.3); Blood Urea Nitrogen 18 mg/dl (7-17); Calcium 9.4 mg/dl (8.4-10.2); Carbon Dioxide 25 mmol/L (22.0-30.0); Estimated Glomerular Filt Rate 47 ml/min (>60); GFR (African American) 57 ML/MIN (>60); Globulin 2.9 g/dL (1.3-3.2); Glucose 112 mg/dl (74-100); Total Protein,Serum 6.4 g/dl (6.3-8.2)
[2022-11-13 13:48] LABS: Magnesium 1.6 mg/dl (1.6-2.3)
--- NOTE | 2022-11-13 13:49 | PC.NURSE ---
Pt given oral care. Family at BS. Call light within reach, no other needs at this time
[2022-11-13 13:54] LABS: Bacteria,Urine 2+ /lpf; RBC,Urine Occasional #/hpf (0-3); WBC,Urine 20-50 #/hpf (0-3)
[2022-11-13 14:00] LABS: Lymphocytes % 10 % (10-50); Monocytes % 5 % (2-9); Neutrophils % 79 % (42-76); Total Cells Counted 100
[2022-11-13 14:02] LABS: Microcytosis 1+; Platelet Estimate Normal; RBC Morphology Normal
--- NOTE | 2022-11-13 14:33 | PC.NURSE ---
pt sleeping in bed,call light at bs
--- NOTE | 2022-11-13 15:34 | PC.NURSE ---
pt given bedpan
--- NOTE | 2022-11-13 15:37 | PC.NURSE ---
SMALL VOID PER BEDPAN
--- NOTE | 2022-11-13 16:06 | PC.NURSE ---
ER MD Campo speaking with Dr. Hong
--- NOTE | 2022-11-13 16:08 | PC.NURSE ---
notified care management of admission
--- NOTE | 2022-11-13 16:47 | PC.NURSE ---
REPORT GIVEN TO CHELO KRUEGER AT THIS TIME
--- NOTE | 2022-11-13 18:11 | EXP.HP ---
History of Present Illness *Admission Date: 11/13/22 *Reason for visit:: Weakness, cough *History of present illness: Ms. Corral is an 81-year-old female with history of CVA, CAD, CKD, COPD, dementia with hallucinations. She presented to the ER because of weakness and fatigue. Patient brought in by EMS. She lives at home with a full-time caregiver. Is dependent on others for all of her ADLs. Family states that she has had acute decline in her mobility with increasing fatigue and weakness. They states she has had cough and congestion for the past week. Several family members had similar symptoms. Denies any sue fever, nausea, vomiting, diarrhea. Complaining of chest soreness from her coughing. She is very slow to respond and family is answering questions on interview due to global weakness. States she just feels weak. Also states I feel fine . Denies any dysuria, abdominal pain. Work-up in the ER positive for leukocytosis of 11.6. Chest imaging with possible left lower lobe atelectasis versus pneumonia. Recently treated as an outpatient by her PCP with steroids and a Z-Yrn for cough. Did not get any better. Creatinine above baseline. Urinalysis abnormal with significant leuk urea and bacteria. Medicine consulted for admission for weakness, UTI, possible pneumonia. On arrival to the floor, history obtained from granddaughter and daughter who are at bedside. Patient has no desire to eat. Is quite fatigued. Family concerned given her decline over the past 24 hours. Discussed CODE STATUS and CPR, patient states she does not want to be resuscitated and family at bedside agree. Patient will be made DNR [facility] Disclaimer: The information contained in this section may have been updated after the patient was seen, as this information can be updated by other users. Medical History Abnormal computerized axial tomography of chest Asthma CAD (coronary artery disease) Carotid artery stenosis Chest pain Chronic back pain greater than 3 months duration Chronic knee pain COPD (chronic obstructive pulmonary disease) Dizziness Dyspnea on exertion Fatigue HHD (hypertensive heart disease) Hip pain, bilateral HLD (hyperlipidemia) Incontinence Mild persistent asthma Mobility impaired Multiple pulmonary nodules SOB (shortness of breath) Unsteady gait Surgical History History of breast biopsy History of eye surgery History of hysterectomy History of surgery on upper extremity Family History Diabetes Asthma Social History Smoking Status: Unknown if ever smoked alcohol intake: never substance use type: denies use current occupational status: disabled Travel in the last 8 weeks: None household members: family housing: house number of children: 8 caffeine: Yes Review of Systems Review of Systems Review of systems (narrative): 14 point review of systems performed, pertinent positives and negatives as per HPI Meds Home Medications and Allergies Home Medications Medication Instructions Recorded Confirmed Type meclizine 25 mg tablet 25 mg PO QDAY PRN vertigo #14 tabs 01/22/20 11/06/22 Rx melatonin 3 mg capsule See Rx Instructions PO HS PRN 10/24/20 11/06/22 History albuterol sulfate 90 mcg/actuation 2 inh inhalation Q6H PRN shortness 04/17/22 11/06/22 Rx aerosol inhaler of breath or wheezing 90 days #8.5 grams ipratropium 0.5 mg-albuterol 3 mg 3 ml inhalation Q6H PRN shortness 04/17/22 11/06/22 Rx (2.5 mg base)/3 mL nebulization of breath or wheezing #90 mL soln metoprolol tartrate 50 mg tablet 50 mg PO BID #60 tabs 05/03/22 11/06/22 Rx aspirin 81 mg tablet,delayed 81 mg PO QDAY Heart disease 07/01/22 11/06/22 History release celecoxib 200 mg capsule 200 mg PO DAILY . 07/01/22 11/06/22 Histo
[2022-11-13 18:46] LABS: Troponin I < 0.01 ng/ml (0.00-0.034)
[2022-11-13 18:53] LABS: Influenza A, PCR Not Detected (NotDetected); Influenza B, PCR Not Detected (NotDetected)
[2022-11-13 20:16] LABS: Coronavirus 19, PCR Detected (NotDetected)
[2022-11-14] VITALS (9 sets, daily range): BP systolic 145–159; BP diastolic 69–92; PULSE 73–110; RESP 16–18; TEMP 36.6–37.2; O2SAT 90–100; BMI 26.8
--- NOTE | 2022-11-14 06:15 | PC.NURSE ---
RESPIRATORY CARE NOTE: TOOK PT SPUTUM CUP. INSTRUCTED HER TO COUGH SPUTUM INTO CUP IF SHE COUGHS ANYTHING UP.
--- NOTE | 2022-11-14 06:40 | PC.NURSE ---
Pt rested well this shift. Pt alert, oriented to self. Only able to tell me her name. Pts caregiver at bedside t/o the night. no complaints. Purewick in place. pt used bsc once this shift. Pt placed back on 1L NC to maintain o2 sats >90%.
[2022-11-14 06:54] LABS: Basophils % 0.1 % (0.1-2.0); Eosinophils # 0.1 K/mm3 (0.0-0.4); Hematocrit 29.3 % (37.0-47.0); Monocytes # 0.6 K/mm3 (0.1-1.0); Platelet Count 157 K/mm3 (142-424)
[2022-11-14 07:00] LABS: Eosinophils % 1.2 % (0.1-12.0); Hemoglobin 9.1 g/dL (12.2-16.2); Lymphocytes # 1.8 K/mm3 (0.7-4.5); Lymphocytes % 15.8 % (10-50); Mean Corpuscular HGB Conc 31.1 g/dL (31.8-35.4); Mean Corpuscular Hemoglobin 23.7 pg (27.0-31.2); Mean Corpuscular Volume 76.4 fl (81-99); Mean Platelet Volume 7.6 fl (7.4-10.4); Monocytes % 5.6 % (1.7-9.3); Neutrophils # 8.8 K/mm3 (1.8-7.8); Neutrophils % 77.3 % (37.0-80.0); Red Blood Count 3.83 M/mm3 (4.20-5.40); Red Cell Distribution Width 16.8 % (11.5-17.5); White Blood Count 11.4 K/mm3 (4.8-10.8)
[2022-11-14 07:02] LABS: Alanine Aminotransferase 13 U/L (12-78); Albumin Level 2.7 g/dl (3.5-5.0); Albumin/Globulin Ratio 1.1 (1.1-1.8); Alkaline Phosphatase 66 U/L (38-126); Aspartate Amino Transferase 18 U/L (14-36); Blood Urea Nitrogen 16 mg/dl (7-17); Calcium 8.9 mg/dl (8.4-10.2); Carbon Dioxide 25 mmol/L (22.0-30.0); Chloride 110 mmol/L (98-107); Creatinine Clearance Estimated 46 mL/min (50-200); Estimated Glomerular Filt Rate 53 ml/min (>60); GFR (African American) 64 ML/MIN (>60); Globulin 2.5 g/dL (1.3-3.2); Glucose 90 mg/dl (74-100); Magnesium 1.6 mg/dl (1.6-2.3); Sodium 141 mmol/L (136-145); Total Protein,Serum 5.2 g/dl (6.3-8.2)
[2022-11-14 07:08] LABS: Bilirubin,Total 0.1 mg/dl (0.2-1.3)
--- NOTE | 2022-11-14 07:56 | HMH.PHAINT1 ---
Pharmacy Intervention Comments: Medication history complete. Medications verified with fill history and list from 11/06 office visit. - Valencia Agosto, PharmD Candidate 2023
--- NOTE | 2022-11-14 10:04 | CT_ITS ---
FINAL REPORT TECHNIQUE: Axial images were obtained from the lung apex to the mid abdomen by computed tomography. Coronal reformatted images were obtained. This study was performed with techniques to keep radiation doses as low as reasonably achievable, (ALARA). Individualized dose reduction techniques using automated exposure control or adjustment of mA and/or kV according to the patient''s size were employed. CLINICAL HISTORY: RUL Mass, please compare to CT chest 05/11/2021 COMPARISON: 05/11/2021 FINDINGS: There is no axillary adenopathy. There is no hilar or mediastinal adenopathy. Heart size is normal. There is no pericardial or pleural effusion. There is a 13 mm focal opacity in the posterior right lung apex which is stable compared to the prior study. There is mild emphysema and mild scarring. There are small pleural effusions. Left lower lobe atelectasis is noted. Limited images of the upper abdomen demonstrate a 26 mm mass in the upper pole the left kidney, previously measured 18 mm. Postcholecystectomy. IMPRESSION: Stable 13 mm focal opacity posterior right lung apex. Interval increase in size of left renal mass. Recommend renal mass protocol CT. Reviewed, Interpreted and Dictated by Matt Sanchez III, MD Transcribed by Vandana Roman Authenticated and [facility]
--- NOTE | 2022-11-14 10:10 | HMH.OTEV ---
OT Inpatient Evaluation Rehab OT IP Evaluation Start: 11/13/22 18:36 Freq: ONCE Status: Active Protocol: Document 11/14/22 10:04 [facility] (Rec: 11/14/22 10:10 [facility] [id number]) Rehab OT IP Assessment Subjective History Pt oriented x 3 on arrival. Pt agreeable to engage in therapy evaluation. Pt's daugther present and supportive. Pt was admitted on 11/13/22 due to COVID, PNA, and UTI. Ms. Corral is an 81- year-old female with history of CVA, CAD, CKD, COPD, dementia with hallucinations. She presented to the ER because of weakness and fatigue. Patient brought in by EMS. She lives at home with a full-time caregiver. Is dependent on others for all of her ADLs. Family states that she has had acute decline in her mobility with increasing fatigue and weakness. They states she has had cough and congestion for the past week. Normally pt's daughter and granddaughter live with her. She does require assistance with all ADLs. SHe is dependent upon family for completion of all IADLs. Pt normally uses a rolling walker during functional transfers. Subjective I will need some help. Objective Patient Orientation Person,Place,Birthday Upper Extremity Gross ROM Min Limitation <25% Shoulder ROM Limitations Muscle Weakness Elbow ROM Limitations Muscle Weakness Wrist Limitations of Range of Motion Muscle Weakness Bed Mobility bed mobility-scooting,bed mobility - supine/sit,bed mobility - rolling Assist Level Minimal x 2 (25% assist) Transfer Training Sit/Stand/Step Transfer,Sit/ Stand/Pivot Transfer Assist Level Moderate x 2 (50% assist) Chair Transfer Ability Moderate x 2 (50% assist) Chair Transfer Technique Stand Pivot Rehab OT IP prob,goals,plan Problems Date of Evaluation: 11/14/22 OT IP
--- NOTE | 2022-11-14 11:09 | HMH.PTEV ---
Physical Therapy Evaluation Rehab PT IP Evaluation Start: 11/13/22 18:36 Freq: ONCE Status: Active Protocol: Document 11/14/22 11:02 [facility] (Rec: 11/14/22 11:09 [facility] [id number]) Subjective/History History History 81 yowf adm to [facility] with PNA, sepsis, and UTI. She has hx of CVA, CAD, CKD, COPD, dementia with hallucinations. Found to be COVID+ on adm. She reports she lives with her daughter who assists her with ADLs, she uses a cane for ambulation, and has 2-3 steps to enter the home. Subjective Subjective Pt reports feeling weak this am, but agrees to mobility assessment. New diagnosis of cancer in past 12 No months? Rehab PT IP Eval Objective Appearance Patient Behavior Appropriate Patient Orientation Person,Place,Time Difficulty following instructions none Speech Pattern Clear Ambulation Patient Able to Ambulate No Balance Ability to Arise Able, uses arms to help Sitting Balance Leans or slides in chair Standing Balance Steady, wide stance Dynamic Sitting Balance Ability Fair Dynamic Standing Balance Ability Poor Transfers Bed Transfer Ability Moderate x 1 (50% assist) Chair Transfer Ability Minimal x 2 (25% assist) Sit to Stand Bed Transfer Ability Minimal x 2 (25% assist) Sit to Stand Chair Transfer Ability Minimal x 2 (25% assist) Rehab PT IP prob,goals,plan Problems Date of Evaluation: 11/14/22 PT IP Problems Bed Mobility,Transfers,Gait Rehab Potential Rehab Potential Good Plan PT Intervention Plan Bed Mobility,Transfers,Gait, Therapeutic Exercise PT Plan Frequency Daily Duration LOS Discharge Goals Bed Transfer Ability Minimal x 1 (25% assist) Sit to Stand Chair Transfer Ability Minimal x 1 (25% assist) Ambulation Assistive Device Rolling Walker Ambulation Distance (feet) 10 Discharge Plan PT Discharge Plan Pt is currently most appropriate for rehab placement once medically stable for d/c. Without skilled intervention, she will be at increased risk for falls, injury, debility, wounds, and . G -code Required
--- NOTE | 2022-11-14 15:28 | EXP.PN ---
Subjective *Date: 11/14/22 *Time: 15:28 Interval history: The patient is seen and examined today. I am accompanied by nursing staff. Nursing staff report that she remains afebrile with stable vital signs and saturating appropriately on room air. I have reviewed, discussed and personally interpreted her labs this morning including a CBC with a white blood cell count 11.4, hemoglobin 9.1, microcytosis ease and platelet count 157. Her electrolytes are normal BUN 16 and her creatinine is 1.0. A chest x-ray identifies concerns with left lower lobe infiltrate but a CT of the chest identifies left lower lobe atelectasis with no opacity in that area and emphysema. Her right upper lobe opacity is stable at 13 mm. The scan continued through her kidneys and it picked up a left upper pole kidney mass previously measuring 18 mm and now measuring 26 mm. She participated with physical therapy this morning and used a rolling walker to go 10 feet. Exam Data for Last 24 hours Vital signs and Labs for Last 24 Hours: Temp Pulse Resp BP Pulse Ox O2 Del Method O2 Flow Rate 98.1 F 77 16 154/82 H 98 Room Air 1 11/14/22 11:25 11/14/22 13:33 11/14/22 11:25 11/14/22 11:25 11/14/22 11:25 11/14/22 14:45 11/14/22 11:25 Laboratory Results - last 24 hr 11/13/22 13:27: Troponin I < 0.01 11/13/22 13:50: SARS-CoV-2 (PCR) Detected A, Influenza A Untype (PCR) Not detected, Influenza Type B (PCR) Not detected 11/14/22 06:30: WBC 11.4 H, RBC 3.83 L, Hgb 9.1 L D, Hct 29.3 L, MCV 76.4 L, MCH 23.7 L, MCHC 31.1 L, RDW 16.8, Plt Count 157, MPV 7.6, Neut % (Auto) 77.3, Lymph % (Auto) 15.8, [place] % (Auto) 5.6, Eos % (Auto) 1.2, Baso % (Auto) 0.1, Neut # (Auto) 8.8 H, Lymph # (Auto) 1.8, [place] # (Auto) 0.6, Eos # (Auto) 0.1, Baso # (Auto) 0.0, Sodium 141, Potassium 4.0, Chloride 110 H, Carbon Dioxide 25, Anion Gap 10.0, BUN 16, Creatinine 1.00, Estimated Creat Clear 46, Estimated GFR 53 L, Est GFR ( Amer) 64, Glucose 90, Calcium 8.9, Magnesium 1.6, Total Bilirubin 0.1 L, AST 18 D, ALT 13 D, Alkaline Phosphatase 66, Total Protein 5.2 L, Albumin 2.7 L D, Globulin 2.5, Albumin/Globulin Ratio 1.1 I & O for Last 24 hours: Intake & Output 11/11/22 11/12/22 11/13/22 11/14/22 23:59 23:59 23:59 23:59 Intake Total 240 / 240 Output Total Balance - 240 / 240 Weight 69.4 kg 68.748 kg Microbiology Reports for the Last 24 Hours: Microbiology 11/14/22 10:00 Sputum - Expectorated Sputum Gram Stain - Final 11/13/22 13:25 Urine,Clean Catch Urine Culture - Preliminary Constitutional Constitutional: no acute distress and cooperative Comments: Elderly *Routine HEENT Exam Head: Present normocephalic Comments: Diminished hearing capacity *Routine Respiratory Exam Respiratory: Present rhonchi, normal respiratory effort and symmetric chest movement *Routine Cardiovascular Exam Cardiovascular: Present RRR *Routine Extremities Exam Extremities: Present full ROM and pulses intact *Routine Skin Exam Skin: Present dry and warm *Routine Neurological Exam Neurological: Present alert and moving all extremities Routine Psychiatric Exam Psychiatric: Present normal affect and cooperative Assessment and Plan *Assessment and plan (1) Pneumonia: Status: Acute Qualifiers: Laterality: left Lung location: lower lobe of lung Pneumonia type: due to unspecified organism Qualified Code(s): J18.9 - Pneumonia, unspecified organism Category: Medical Code(s): J18.9 - Pneumonia, unspecified organism (2) Acute UTI: Status: Acute Category: Medical Code(s): N39.0 - Urinary tract infection, site not specified (3) Coronary artery disease: Status: Acute Qualifiers: Coronary Disease-Associated Artery/Lesion type: telida artery [place] vs. transplanted heart: telida heart Associated angina: without angina Qualified Code(s): I25.10 - Atherosclerotic heart disease of telida
--- NOTE | 2022-11-14 16:38 | PC.NURSE ---
PT IS A&OX1. HAS TOLERATED RA WELL SPUTUM COLLECTED THIS MORNING. DOES HAVE PRODUCTIVE COUGH. HAS BEEN UP TO CHAIR MAJORITY OF SHIFT, X2 ASSIST. FAMILY HAS REMAINED AT BEDSIDE T/O SHIFT. PT HAS HAD NO NEEDS OR C/O THUS FAR. PURE WICK IN PLACE DRAINING DARK YELLOW URINE. VSS.
--- NOTE | 2022-11-14 23:56 | PC.NURSE ---
lab reported results of aerobic blood culture, gram positive cocci in clusters, name and verified, [employer] notified, no new orders at this time
[2022-11-15] VITALS (7 sets, daily range): BP systolic 155–177; BP diastolic 78–94; PULSE 80–130; RESP 18; TEMP 36.8–37.4; O2SAT 94–100; BMI 27.8
--- NOTE | 2022-11-15 00:50 | PC.NURSE ---
Spoke with dionisio with pharmacy for vanc consult
[2022-11-15 07:10] LABS: Basophils % 0.3 % (0.1-2.0); Eosinophils # 0.1 K/mm3 (0.0-0.4); Eosinophils % 1.1 % (0.1-12.0); Hematocrit 28.9 % (37.0-47.0); Hemoglobin 9.1 g/dL (12.2-16.2); Lymphocytes # 1.3 K/mm3 (0.7-4.5); Lymphocytes % 13.6 % (10-50); Mean Corpuscular HGB Conc 31.6 g/dL (31.8-35.4); Mean Platelet Volume 7.7 fl (7.4-10.4); Monocytes # 0.6 K/mm3 (0.1-1.0); Monocytes % 5.7 % (1.7-9.3); Neutrophils # 7.8 K/mm3 (1.8-7.8); Neutrophils % 79.3 % (37.0-80.0); Platelet Count 176 K/mm3 (142-424); Red Blood Count 3.81 M/mm3 (4.20-5.40); Red Cell Distribution Width 16.9 % (11.5-17.5); White Blood Count 9.8 K/mm3 (4.8-10.8)
--- NOTE | 2022-11-15 08:09 | EXP.PHA.CONS ---
Pharmacy Consult Date: 11/15/22 Time: 08:09 Referring provider: DR. HOLLAND Reason for Consult:: VANCOMYCIN DOSING Allergies Allergy/AdvReac Type Severity Reaction Status Date / Time cefuroxime [CEFUROXIME] Allergy Mild NA Verified 11/06/22 11:31 Cephalosporins Allergy Mild Unknown Verified 11/14/22 07:37 allergy reaction levofloxacin [From LEVAQUIN] Allergy Mild I-RASH Verified 11/06/22 11:31 penicillin G [PENICILLIN G] Allergy Mild NA Verified 11/06/22 11:31 Quinolones [QUINOLONES] Allergy Mild NA Verified 11/06/22 11:31 cephalexin [From KEFLEX] AdvReac Mild NA-NAUSEA Verified 11/06/22 11:31 ciprofloxacin [From CIPRO] AdvReac Mild NA-NAUSEA Verified 11/06/22 11:31 morphine [MORPHINE] AdvReac Mild NA-NAUSEA Verified 11/06/22 11:31 Home Medications Medication Instructions Recorded Confirmed Type meclizine 25 mg tablet 25 mg PO QDAY PRN vertigo #14 tabs 01/22/20 11/14/22 Rx melatonin 3 mg capsule 3 mg PO HS PRN Sleep 10/24/20 11/14/22 History albuterol sulfate 90 mcg/actuation 2 inh inhalation Q6H PRN shortness 04/17/22 11/14/22 Rx aerosol inhaler of breath or wheezing 90 days #8.5 grams ipratropium 0.5 mg-albuterol 3 mg 3 ml inhalation Q6H PRN shortness 04/17/22 11/14/22 Rx (2.5 mg base)/3 mL nebulization of breath or wheezing #90 mL soln aspirin 81 mg tablet,delayed 81 mg PO QDAY Heart disease 07/01/22 11/14/22 History release celecoxib 200 mg capsule 200 mg PO DAILY Pain 07/01/22 11/14/22 History isosorbide mononitrate 30 mg 30 mg PO DAILY Chest Pain 07/01/22 11/14/22 History tablet,extended release 24 hr omeprazole 20 mg capsule,delayed 20 mg PO DAILY gerd 07/01/22 11/14/22 History release oxybutynin chloride 10 mg 10 mg PO DAILY overactive bladder 08/23/22 11/14/22 Rx tablet,extended release 24 hr #90 tabs formoterol fumarate 20 mcg/2 mL 2 ml inhalation BID 90 days #180 mL 10/16/22 11/14/22 Rx solution for nebulization (Perforomist) acetaminophen 300 mg-codeine 30 mg 1 tab PO TID PRN pain #90 tabs 10/18/22 11/14/22 Rx tablet budesonide 0.25 mg/2 mL suspension 0.25 mg inhalation BID Copd 11/14/22 11/14/22 History for nebulization levothyroxine 88 mcg tablet 88 mcg PO DAILY Thyroid 11/14/22 11/14/22 History lovastatin 20 mg tablet 20 mg PO DAILY Cholesterol 11/14/22 11/14/22 History metoprolol tartrate 50 mg tablet 50 mg PO BID High Blood Pressure 11/14/22 11/14/22 History risperidone 1 mg tablet 1 mg PO BID Mood 11/14/22 11/14/22 History sertraline 50 mg tablet 50 mg PO DAILY Mood 11/14/22 11/14/22 History New Prescriptions to Start Prescriptions: Height: 1.6 m Weight: 71.356 kg Laboratory Results:: Laboratory Results - last 24 hr 11/15/22 06:32: WBC 9.8, RBC 3.81 L, Hgb 9.1 L, Hct 28.9 L, MCV 76.0 L, MCH 24.0 L, MCHC 31.6 L, RDW 16.9, Plt Count 176, MPV 7.7, Neut % (Auto) 79.3, Lymph % (Auto) 13.6, [place] % (Auto) 5.7, Eos % (Auto) 1.1, Baso % (Auto) 0.3, Neut # (Auto) 7.8, Lymph # (Auto) 1.3, [place] # (Auto) 0.6, Eos # (Auto) 0.1, Baso # (Auto) 0.0 Medical History: Medical History (Updated 11/14/22 @ 15:40 by Jimy Holland MD) Abnormal computerized axial tomography of chest Asthma CAD (coronary artery disease) Carotid artery stenosis Chest pain Chronic back pain greater than 3 months duration Chronic knee pain COPD (chronic obstructive pulmonary disease) Dizziness Dyspnea on exertion Fatigue HHD (hypertensive heart disease) Hip pain, bilateral HLD (hyperlipidemia) Incontinence Mild persistent asthma Mobility impaired Multiple pulmonary nodules SOB (shortness of breath) Unsteady gait Assessment and Plan Assessment and plan all Dx Assessment and Plan for all problems:: Pharmacokinetic dosing service Objective: Patient: Floor: Age: 81 yo Serum creatinine: 1.00 mg/dL Height: 63.0 Inches Weight (kg): 71.4 Assessment: IBW (kg): 52.40
[2022-11-15 09:07] LABS: Iron 20 ug/dL (37-170)
[2022-11-15 09:23] LABS: Total Iron Binding Capacity 363 ug/dL (265-497)
[2022-11-15 09:40] LABS: Procalcitonin 0.218 ng/mL (0.0-2.0)
--- NOTE | 2022-11-15 13:59 | EXP.DC.SUM ---
General Admission date:: 11/13/22 Discharge date: 11/15/22 HPI HPI HPI: Ms. Corral is an 81-year-old female with history of CVA, CAD, CKD, COPD, dementia with hallucinations. She presented to the ER because of weakness and fatigue. Patient brought in by EMS. She lives at home with a full-time caregiver. Is dependent on others for all of her ADLs. Family states that she has had acute decline in her mobility with increasing fatigue and weakness. They states she has had cough and congestion for the past week. Several family members had similar symptoms. Denies any sue fever, nausea, vomiting, diarrhea. Complaining of chest soreness from her coughing. She is very slow to respond and family is answering questions on interview due to global weakness. States she just feels weak. Also states I feel fine . Denies any dysuria, abdominal pain. Work-up in the ER positive for leukocytosis of 11.6. Chest imaging with possible left lower lobe atelectasis versus pneumonia. Recently treated as an outpatient by her PCP with steroids and a Z-Yrn for cough. Did not get any better. Creatinine above baseline. Urinalysis abnormal with significant leuk urea and bacteria. Medicine consulted for admission for weakness, UTI, possible pneumonia. On arrival to the floor, history obtained from granddaughter and daughter who are at bedside. Patient has no desire to eat. Is quite fatigued. Family concerned given her decline over the past 24 hours. Discussed CODE STATUS and CPR, patient states she does not want to be resuscitated and family at bedside agree. Patient will be made DNR Hospital Course Hospital Course Hospital Course: The patient was admitted to the telemetry unit with oxygen supplementation. Imaging was acquired and labs and inflammatory markers were trended. Problems addressed as follows: Left lower lobe pneumonia Chronic hypoxic respiratory failure Pulse oximetry monitoring Oxygen therapy to maintain appropriate oxygen saturations Currently oxygenating appropriately on room air Chest x-ray with concerns of left lower lobe opacity CT chest identifies left lower lobe atelectasis with emphysema and stable right upper lobe 13 mm opacity Blood cultures no growth to date Sputum cultures gram-negative rods Priscilla/Ruth Ann inhalation therapy ICS therapy IV ceftriaxone transition to Omnicef 300 mg p.o. twice daily on discharge for 10 days Doxycycline 100 mg p.o. twice daily continued on discharge for 10 days COVID-positive status (11/13/2022) Not requiring oxygen supplementation Routine pulse oximetry monitoring CT chest reviewed with atelectasis and emphysema Trending labs and inflammatory markers Contact and droplet precautions per CDC guidelines Coronary artery disease Antiplatelet therapy Statin therapy Beta-arely therapy Long-acting nitrate therapy Hypothyroidism Levothyroxine replacement therapy Chronic dementia with delirium Antipsychotic therapy SSRI therapy Routine nursing interaction PT/OT evaluations noted Family declined transition to SNF Left upper pole renal mass CT reviewed with increasing size from 18 mm to 26 mm Outpatient follow-up with urology The patient identified improvement and inquired about discharge. Her daughter was at bedside on day of discharge and we discussed her presenting dyspnea, CT scan of chest findings including left upper pole renal mass and outpatient urology follow-up recommendation. We discussed physical therapy findings and recommendations and daughter requested the patient be discharged home with family. They declined SNF transition of care. She will be discharged on antibiotic therapy with PCP follow-up. Her sputum cultures are identifying gram-negative rods with sensitivities pending. She will continue with her home inhalation therapy. We discussed contact and droplet precautions per CDC guidelines for COVID-positive findings. I spent 35 minutes in [id number] time with the patientmaryann
--- NOTE | 2022-11-15 14:03 | SW/DCPLANNER ---
Addendum entered by Naomy Goodman 11/16/22 12:42: Per Lon w/ [facility] services will begin today. Original Note: I spoke w/ patient and her daughter regarding plans once medically stable for discharge. PT/OT evaluated patient and recommended SNF level of care. Patient/family are adamant that patient return home w/ home health services. Daughter stated that she lives w/ patient along w/ her granddaughter and they would prefer her return home. Patient also prefers to return home. I discussed the importance of placement for PT and patient stated that she would like to have home health services. Patient has used [facility] in the past and would prefer to use this agency again. Patient information/order will be faxed to [facility] today. The plan plan for this patient is to discharge home today.
--- NOTE | 2022-11-15 14:43 | PC.NURSE ---
PT FAMILY STATES THAT PT HAS HAD CEFDINIR BEFORE WITH NO ADVERSE REACTIONS NOTED.
--- NOTE | 2022-11-16 13:19 | CARE MANAGER ---
Spoke with patient's daughter related to patient's hospital discharge. She states she is weak. Home health is there evaluating right now. They picked up her medication and are aware of follow up appointment. Deny any questions or concerns. CHELO Pandey
--- NOTE | 2022-11-19 14:49 | PC.NURSE ---
reviewed pts positive urine culture. pt currently on appropriate medications
== END 2022-11-15 14:50 | disposition home health service (06) ==
LOC: ER 15:31 → 2ND 16:37
PROVIDERS: Emergency Medicine; Family Medicine; Admitting Provider Internal Medicine Adolescent Medicine; Emergency Provider Emergency Medicine; PCP Nurse Practitioner Family; Visit Provider Internal Medicine Adolescent Medicine
DX: J18.9 Pneumonia, unspecified organism (principal); N39.0 Urinary tract infection, site not specified; I25.10 Atherosclerotic heart disease of native coronary artery without angina pectoris; J44.9 Chronic obstructive pulmonary disease, unspecified; E78.2 Mixed hyperlipidemia; Z74.09 Other reduced mobility; F03.B18 Unspecified dementia, moderate, with other behavioral disturbance; E03.9 Hypothyroidism, unspecified; Z79.899 Other long term (current) drug therapy; N18.9 Chronic kidney disease, unspecified; I10 Essential (primary) hypertension; J96.11 Chronic respiratory failure with hypoxia; Z99.81 Dependence on supplemental oxygen; Z79.02 Long term (current) use of antithrombotics/antiplatelets
CPT/HCPCS: 36415; 71045; 71250; 80053; 81001; 83540; 83550; 83735; 84145; 84484; 85007; 85025; 87040; 87070; 87077; 87086; 87088; 87186; 87205; 87636; 93005; 94640; 94760; 94761; 97110; 97116; 97163; 97167; 97530; 99285; G0378; J0131; J0456; J0696; J3370

== ENCOUNTER 2022-12-07 20:05 | Emergency (ER) | payer MEDICARE, MEDICAID, SELFPAY ==
[2022-12-07 20:03] VITALS: BP 195/96; PULSE 76; RESP 20; TEMP 37.1; O2SAT 96
[2022-12-07 20:05] VITALS: RESP 20; O2SAT 97; BMI 35.4
[2022-12-07 20:26] LABS: MANUAL DIFFERENTIAL MANUAL DIFFERENTIAL (MANUAL DIFF)
[2022-12-07 20:28] LABS: Basophils % 0.5 % (0.1-2.0); Eosinophils # 0.1 K/mm3 (0.0-0.4); Eosinophils % 1.5 % (0.1-12.0); Hematocrit 33.8 % (37.0-47.0); Hemoglobin 10.5 g/dL (12.2-16.2); Lymphocytes # 1.6 K/mm3 (0.7-4.5); Lymphocytes % 25.6 % (10-50); Mean Corpuscular HGB Conc 31.1 g/dL (31.8-35.4); Mean Corpuscular Hemoglobin 24.7 pg (27.0-31.2); Mean Corpuscular Volume 79.2 fl (81-99); Mean Platelet Volume 8.1 fl (7.4-10.4); Monocytes # 0.4 K/mm3 (0.1-1.0); Monocytes % 7.2 % (1.7-9.3); Neutrophils % 65.2 % (37.0-80.0); Platelet Count 145 K/mm3 (142-424); Red Blood Count 4.26 M/mm3 (4.20-5.40); Red Cell Distribution Width 18.1 % (11.5-17.5); White Blood Count 6.1 K/mm3 (4.8-10.8)
[2022-12-07 20:40] LABS: Alanine Aminotransferase 22 U/L (12-78); Albumin Level 2.8 g/dl (3.5-5.0); Albumin/Globulin Ratio 0.9 (1.1-1.8); Alkaline Phosphatase 101 U/L (38-126); Anion Gap 3.9 mEq/L (5-15); Aspartate Amino Transferase 33 U/L (14-36); Bilirubin,Total 0.1 mg/dl (0.2-1.3); Blood Urea Nitrogen 9 mg/dl (7-17); Calcium 9.4 mg/dl (8.4-10.2); Carbon Dioxide 29 mmol/L (22.0-30.0); Chloride 109 mmol/L (98-107); Creatinine Clearance Estimated 55 mL/min (50-200); Estimated Glomerular Filt Rate 47 ml/min (>60); GFR (African American) 57 ML/MIN (>60); Globulin 3.2 g/dL (1.3-3.2); Glucose 108 mg/dl (74-100); Sodium 139 mmol/L (136-145)
[2022-12-07 20:41] LABS: Potassium 2.9 mmoL/L (3.5-5.1)
--- NOTE | 2022-12-07 20:42 | PC.NURSE ---
reported to Dr. Pugh Potassium 2.9
--- NOTE | 2022-12-07 20:42 | PC.NURSE ---
Critical lab called by lab and reported to ER MD Pugh and Miesha Jin
[2022-12-07 20:43] LABS: Lymphocytes % 23 % (10-50); Monocytes % 1 % (2-9); Neutrophils % 76 % (42-76); Platelet Estimate Slight Decrease; RBC Morphology Normal; Total Cells Counted 100
--- NOTE | 2022-12-07 21:25 | PC.NURSE ---
moved patient from hallway bed to room 4
--- NOTE | 2022-12-07 21:28 | PC.NURSE ---
in room at bedside at this time
--- NOTE | 2022-12-07 21:34 | CT_ITS ---
PROCEDURE INFORMATION: Exam: CTA Head With Contrast, Arteriography Exam date and time: 12/07/2022 10:05 PM Age: 82 years old Clinical indication: Pain; Headache; Additional info: Vomiting, GR, HTN TECHNIQUE: Imaging protocol: Computed tomographic angiography of the head with contrast. Exam focused on the arteries. 3D rendering (Not supervised by radiologist): MIP and/or 3D reconstructed images were created by the technologist. Radiation optimization: All CT scans at this facility use at least one of these dose optimization techniques: automated exposure control; mA and/or kV adjustment per patient size (includes targeted exams where dose is matched to clinical indication); or iterative reconstruction. Contrast material: ISOVUE; Contrast volume: 100 ml; Contrast route: INTRAVENOUS (IV); REPORTING DATA: Count of CT and Cardiac NM exams in prior 12 months: This patient has received [address] and 0 known cardiac nuclear medicine studies in the 12 months prior to the current study. COMPARISON: CT HEAD/BRAIN WO CON 12/07/2022 9:56 PM FINDINGS: ANTERIOR CIRCULATION: Right internal carotid artery: Intracranial segment is patent with no significant stenosis. No aneurysm. Right middle cerebral artery: No occlusion or significant stenosis. No aneurysm. Right anterior cerebral artery: No occlusion or significant stenosis. No aneurysm. Left internal carotid artery: Intracranial segment is patent with no significant stenosis. No aneurysm. Left middle cerebral artery: No occlusion or significant stenosis. No aneurysm. Left anterior cerebral artery: No occlusion or significant stenosis. No aneurysm. POSTERIOR CIRCULATION: Right vertebral artery: No occlusion or significant stenosis. No aneurysm. Left vertebral artery: No occlusion or significant stenosis. No aneurysm. Basilar artery: No occlusion or significant stenosis. No aneurysm. Right posterior cerebral artery: No occlusion or significant stenosis. No aneurysm. Left posterior cerebral artery: No occlusion or significant stenosis. No aneurysm. Right posterior communicating artery: Patent right PCOM vessel Brain: No definite mass, mass effect, or midline shift. Cerebral ventricles: No ventriculomegaly. Bones/joints: Unremarkable. No acute fracture. Soft tissues: Unremarkable. IMPRESSION: 1. No evidence for large vessel occlusion. 2. Conventional arterial anatomy of the [id number] vessels. 3. There was a analysis performed using [email or web address] for suspected LV of the left posterior cerebral artery but this vessel appears patent on axial and coronal images.
--- NOTE | 2022-12-07 21:34 | CT_ITS ---
PROCEDURE INFORMATION: Exam: CTA Neck With Contrast Exam date and time: 12/07/2022 10:05 PM Age: 82 years old Clinical indication: Pain; Headache; Additional info: Vomiting, GR, HTN, RT side head ache TECHNIQUE: Imaging protocol: Computed tomographic angiography of the neck with contrast. 3D rendering (Not supervised by radiologist): MIP and/or 3D reconstructed images were created by the technologist. Radiation optimization: All CT scans at this facility use at least one of these dose optimization techniques: automated exposure control; mA and/or kV adjustment per patient size (includes targeted exams where dose is matched to clinical indication); or iterative reconstruction. Contrast material: ISOVUE 370; Contrast volume: 100 ml; Contrast route: INTRAVENOUS (IV); REPORTING DATA: Count of CT and Cardiac NM exams in prior 12 months: This patient has received [address] and 0 known cardiac nuclear medicine studies in the 12 months prior to the current study. COMPARISON: CT HEAD/BRAIN WO CON 12/07/2022 9:56 PM FINDINGS: Right common carotid artery: No stenosis. No dissection or occlusion. Right internal carotid artery: No stenosis of the extracranial segment. No dissection or occlusion. Right external carotid artery: No occlusion or stenosis of the origin. Left common carotid artery: No stenosis. No dissection or occlusion. Left internal carotid artery: No stenosis of the extracranial segment. No dissection or occlusion. Left external carotid artery: No occlusion or stenosis of the origin. Right vertebral artery: No stenosis. No dissection or occlusion. Left vertebral artery: No stenosis. No dissection or occlusion. Aorta: Mild calcific atherosclerosis of the aortic arch. There is mild dilation of the ascending aorta. Soft tissues: Normal. No significant soft tissue swelling. Bones/joints: Screw plate fixation of right humeral fracture. Other findings: Mild calcific atherosclerosis of the carotid bifurcations without hemodynamically significant stenosis. IMPRESSION: 1. Conventional arterial anatomy of the neck vessels. No evidence for occlusion, stenosis or dissection. 2. There is mild calcific atherosclerosis of the carotid bifurcations without hemodynamically significant stenosis. REFERENCES: NASCET CRITERIA. The degree of stenosis in the cervical segment of the internal carotid artery is based on NASCET criteria. Normal is no stenosis. Mild is less than 50% stenosis. Moderate is 50-69% stenosis. Severe is 70% to 99% stenosis. Total occlusion is no detectable patent lumen.
--- NOTE | 2022-12-07 21:34 | CT_ITS ---
PROCEDURE INFORMATION: Exam: CT Head Without Contrast Exam date and time: 12/07/2022 9:56 PM Age: 82 years old Clinical indication: Pain; Headache not specified; Additional info: Vomiting, GR, HTN TECHNIQUE: Imaging protocol: Computed tomography of the head without contrast. Radiation optimization: All CT scans at this facility use at least one of these dose optimization techniques: automated exposure control; mA and/or kV adjustment per patient size (includes targeted exams where dose is matched to clinical indication); or iterative reconstruction. REPORTING DATA: Count of CT and Cardiac NM exams in prior 12 months: This patient has received [address] and 0 known cardiac nuclear medicine studies in the 12 months prior to the current study. COMPARISON: CT HEAD/BRAIN WO CON 11/09/2020 4:06 PM FINDINGS: Brain: No evidence for intracranial hemorrhage, mass lesions or acute stroke. Intracranial vascular calcifications. Mild small vessel ischemic change in the periventricular white matter. Cerebral ventricles: No ventriculomegaly. Pituitary gland and sella: Negative Paranasal sinuses: Visualized sinuses are unremarkable. No fluid levels. Mastoid air cells: Visualized mastoid air cells are well aerated. Orbital cavities: Bilateral cataracts extractions. Parotid and submandibular glands: Negative Bones/joints: Unremarkable. No acute fracture. Soft tissues: Unremarkable. Vasculature: Negative. Other findings: Mild generalized atrophy. IMPRESSION: 1. No evidence for intracranial hemorrhage, mass lesions or acute stroke. 2. Intracranial vascular calcifications. 3. Mild generalized atrophy. 4. Mild small vessel ischemic change in the periventricular white matter.
--- NOTE | 2022-12-07 21:35 | XR_ITS ---
PROCEDURE INFORMATION: Exam: XR Chest Exam date and time: 12/07/2022 10:37 PM Age: 82 years old Clinical indication: Shortness of breath; Additional info: Nausea, vomiting, HTN TECHNIQUE: Imaging protocol: Radiologic exam of the chest. Views: 1 view. COMPARISON: CT CHEST WO CON 11/14/2022 10:37 AM FINDINGS: Lungs: Unremarkable. No consolidation. Pleural spaces: Unremarkable. No pleural effusion. No pneumothorax. Heart/Mediastinum: Unremarkable. No cardiomegaly. Bones/joints: Screw plate fixation right humerus.. IMPRESSION: No acute findings.
[2022-12-07 21:57] LABS: Magnesium 1.6 mg/dl (1.6-2.3)
[2022-12-07 22:18] LABS: Troponin I < 0.01 ng/ml (0.00-0.034)
[2022-12-07 22:32] VITALS: BP 155/95; PULSE 86; RESP 17; O2SAT 94
--- NOTE | 2022-12-07 22:37 | ECG_ITS ---
APPROVED REPORT Exam: Resting ECG HR:80 bpm ECG Measurements Heart Rate 80 AXES QRSd 106 QRS -44 QT 303 T 73 QTc 339 Conclusion ATRIAL FLUTTER/TACHYCARDIA LEFT AXIS DEVIATION [QRS AXIS < -30] NONSPECIFIC ST & T-WAVE ABNORMALITY ABNORMAL ECG UNCONFIRMED REPORT Electronically signed by : Kishan Treviño MD 12/08/2022 07:53:57
[2022-12-07 22:46] LABS: Microscopic, Urine URINE MICROSCOPIC (MICROSCOPIC)
[2022-12-07 22:49] LABS: Appearance,Urine CLEAR (Clear); Bilirubin,Urine Negative (Negative); Blood, Urine Negative (Negative); Color,Urine YELLOW (Yellow); Glucose,Urine (UA) Negative (Negative); Ketones,Urine Negative (Negative); Leukocyte Esterase,Urine TRACE (Negative); Nitrate,Urine Negative (Negative); Protein,Urine Negative (Negative); Specific Gravity, Urine <= 1.005 (1.005-1.030); Urobilinogen,Urine 0.2 EU/dl (0.2)
[2022-12-07 23:22] LABS: WBC,Urine Occasional #/hpf (0-3)
--- NOTE | 2022-12-07 23:37 | PC.NURSE ---
made round nothing needed at this time
[2022-12-07 23:57] LABS: Troponin I 0.02 ng/ml (0.00-0.034)
--- NOTE | 2022-12-08 00:06 | PC.NURSE ---
pt is ready for re eval
[2022-12-08 00:53] VITALS: BP 193/80; PULSE 73; RESP 20; TEMP 36.7; O2SAT 94
--- NOTE | 2022-12-08 01:06 | HMH.EDGENADL ---
Discharge Plan Disposition Patient Disposition: Home, Self-Care Condition: Good Prescriptions Prescriptions: No Action melatonin 3 mg capsule 3 mg PO HS PRN (Reason: Sleep) Rx Instructions: 10MG PO at bedtime nightly PRN; albuterol sulfate 90 mcg/actuation HFA aerosol inhaler 2 inh inhalation Q6H PRN (Reason: shortness of breath or wheezing) 90 Days Qty: 8.5 1RF meclizine 25 mg tablet 25 mg PO QDAY PRN (Reason: vertigo) Qty: 14 0RF oxybutynin chloride 10 mg tablet extended release 24hr 10 mg PO DAILY Qty: 90 1RF acetaminophen-codeine 300-30 mg tablet 1 tab PO TID PRN (Reason: pain) Qty: 90 3RF metoprolol tartrate 50 mg tablet See Rx Instructions .ROUTE .COMPLEX Qty: 180 1RF Dose Instruction: TAKE 1 TABLET BY MOUTH TWICE A DAY Rx Instructions: TAKE 1 TABLET BY MOUTH TWICE A DAY omeprazole 20 mg capsule,delayed release(DR/EC) See Rx Instructions .ROUTE .COMPLEX Qty: 90 0RF Dose Instruction: TAKE 1 CAPSULE BY MOUTH EVERY DAY Rx Instructions: TAKE 1 CAPSULE BY MOUTH EVERY DAY isosorbide mononitrate 30 mg tablet extended release 24 hr See Rx Instructions .ROUTE .COMPLEX Qty: 90 1RF Dose Instruction: TAKE 1 TABLET BY MOUTH DAILY Rx Instructions: TAKE 1 TABLET BY MOUTH DAILY ipratropium-albuterol 0.5 mg-3 mg(2.5 mg base)/3 mL solution for nebulization 3 ml INHALATION Q6H PRN (Reason: shortness of breath or wheezing) Qty: 90 6RF budesonide 0.5 mg/2 mL suspension for nebulization 0.5 mg inhalation Q12H Qty: 180 3RF celecoxib 200 mg capsule 200 mg PO DAILY aspirin 81 mg tablet,delayed release (DR/EC) 81 mg PO QDAY formoterol fumarate 20 mcg/2 mL solution for nebulization 2 ml inhalation BID levothyroxine 88 mcg tablet 88 mcg PO DAILY budesonide 0.25 mg/2 mL suspension for nebulization 0.25 mg inhalation BID lovastatin 20 mg tablet 20 mg PO DAILY sertraline 50 mg tablet 50 mg PO DAILY risperidone 1 mg tablet 1 mg PO BID Referrals Follow up/Referrals: Dash Alvarez APRN [Primary Care Provider] - See instructions Clinical Impressions Clinical Impression: Hypertension Qualifiers: Hypertension type: unspecified Qualified Code(s): I10 - Essential (primary) hypertension Stand Alone Forms Stand Alone Forms: Transfer Record - ED Instructions Patient Instructions: DI for Diarrhea and Traveler's Diarrhea -- Adult, DI for Diarrhea and Traveler's Diarrhea -- Child, DI for Nausea -- Adult, DI for Nausea -- Child Discharge ED Provider: Sam Pugh Adult HPI General Chief complaint: Nausea/Vomiting/Diarrhea Stated complaint: hypertention Time Seen by Provider: 12/07/22 21:21 Mode of Arrival: EMS Source of Information: Patient and EMS Limitations: No Limitations Description of Symptoms (Recalled from ER Triage Doc. by RN): EMS states patients family called after patient vomitted 2-3 times today, no other symptoms. En route patients blood pressure was elevated but per family she took medication today but unsure of what it was. Upon arrival to ER patient is alert, confused, and lathergic in apperance. Answers questions, and responds to name appropriately, patient denies any allevating factors and denies any pain. states shejust vomited once. History of Present Illness HPI narrative: Patient presents after 1 episode of emesis today, seemingly unprovoked, patient reports taking her blood pressure after this episode and it was reportedly elevated in comparison to baseline, denies any pain at this time, denies any nausea, does have history of stroke with chronic right-sided deficits. Denies any sick contacts or fevers or chills or urinary symptoms. No previous therapies. Has not had similar symptoms before. No syncope or presyncope. No prodromal symptoms. No abdominal pain or chest pain. No headache. Related Data Home Medications Medication Instructions Recorded
== END 2022-12-08 00:55 | disposition home or self-care (01) ==
PROVIDERS: Emergency Provider Emergency Medicine; PCP Nurse Practitioner Family
DX: E87.6 Hypokalemia (principal); I10 Essential (primary) hypertension; R94.31 Abnormal electrocardiogram [ECG] [EKG]; R11.2 Nausea with vomiting, unspecified; J44.9 Chronic obstructive pulmonary disease, unspecified; I25.10 Atherosclerotic heart disease of native coronary artery without angina pectoris; I11.9 Hypertensive heart disease without heart failure; E87.5 Hyperkalemia
CPT/HCPCS: 70450; 70496; 70498; 71045; 80053; 81001; 83735; 84484; 85007; 85014; 85018; 85048; 85049; 93005; 96360; 99285; Q9967

== ENCOUNTER → 2022-12-18 08:57 | Outpatient (CLI) | payer MEDICARE, MEDICAID, SELFPAY ==
--- NOTE | 2022-12-18 08:58 | CT_ITS ---
FINAL REPORT TECHNIQUE: Axial CT images were performed through the abdomen and pelvis before after the administration of IV contrast. Coronal reformatted images were submitted. This study was performed with techniques to keep radiation doses as low as reasonably achievable (ALARA). CLINICAL HISTORY: Left Renal Mass COMPARISON: April 2017 FINDINGS: Lung Bases: There is mild bibasilar atelectasis. There is interval improvement in right middle lobe opacity. A small hiatal hernia is present. Liver: No focal lesion. Gallbladder: There has been cholecystectomy. Spleen: No suspicious focal lesion. Pancreas: Grossly unremarkable. Adrenals: Mild adrenal gland enlargement is likely hyperplasia or adenomatous. Kidneys: No stone. No hydronephrosis. There is a 26 mm mass in the upper pole of the left kidney that does not enhance consistent with a cyst. There are several other small bilateral renal cysts. GI: No evidence of bowel obstruction. The appendix is normal. There is sigmoid diverticulosis. Mesentery & Retroperitoneum: Unremarkable. Vasculature: Patent portal veins. Bladder: Bladder wall thickening is likely inflammatory. Reproductive structures: There has been hysterectomy Musculoskeletal: No soft tissue mass. There is degenerative change and levoscoliosis of the spine. IMPRESSION: Bilateral renal masses consistent with cysts. Likely inflammatory bladder wall thickening. Reviewed, Interpreted and Dictated by Matt Sanchez III, MD Transcribed by Jose Grullon Authenticated and . [facility]
== END ==
PROVIDERS: PCP Nurse Practitioner Family; Visit Provider Nurse Practitioner Family
DX: N28.89 Other specified disorders of kidney and ureter (principal)
CPT/HCPCS: 74178; Q9967

== ENCOUNTER 2023-04-11 20:24 | Outpatient (CLI) | payer MEDICARE, MEDICAID, SELFPAY ==
[2023-04-11 20:56] LABS: Basophils % 0.2 % (0.1-2.0); Eosinophils # 0.2 K/mm3 (0.0-0.4); Eosinophils % 3.9 % (0.1-12.0); Hematocrit 29.8 % (37.0-47.0); Hemoglobin 9.8 g/dL (12.2-16.2); Lymphocytes # 1.3 K/mm3 (0.7-4.5); Lymphocytes % 23.1 % (10-50); Mean Corpuscular Hemoglobin 25.8 pg (27.0-31.2); Mean Platelet Volume 9.2 fl (7.4-10.4); Monocytes # 0.5 K/mm3 (0.1-1.0); Monocytes % 7.8 % (1.7-9.3); Neutrophils # 3.8 K/mm3 (1.8-7.8); Platelet Count 115 K/mm3 (142-424); Red Blood Count 3.82 M/mm3 (4.20-5.40); Red Cell Distribution Width 15.7 % (11.5-17.5); White Blood Count 5.8 K/mm3 (4.8-10.8)
[2023-04-11 20:57] LABS: Alanine Aminotransferase 13 U/L (12-78); Albumin Level 3.1 g/dl (3.5-5.0); Albumin/Globulin Ratio 1.2 (1.1-1.8); Alkaline Phosphatase 77 U/L (38-126); Anion Gap 7.7 mEq/L (5-15); Aspartate Amino Transferase 23 U/L (14-36); Bilirubin,Total 0.2 mg/dl (0.2-1.3); Blood Urea Nitrogen 17 mg/dl (7-17); Calcium 9.1 mg/dl (8.4-10.2); Carbon Dioxide 30 mmol/L (22.0-30.0); Chloride 103 mmol/L (98-107); Chol/HDL Ratio 3.2 (1-3.5); Cholesterol 147 mg/dl (140-200); Estimated Glomerular Filt Rate 53 ml/min (>60); GFR (African American) 64 ML/MIN (>60); Globulin 2.6 g/dL (1.3-3.2); Glucose 98 mg/dl (74-100); HDL Cholesterol 46 mg/dl (40-60); Potassium 3.7 mmoL/L (3.5-5.1); Sodium 137 mmol/L (136-145); Total Protein,Serum 5.7 g/dl (6.3-8.2); Triglycerides 90 mg/dl (30-150); VLDL Cholesterol 18 mg/dL (0-40)
[2023-04-11 21:08] LABS: Direct LDL Cholesterol 71.06 mg/dL (100-129)
[2023-04-11 21:18] LABS: 25-OH Vitamin D, Total < 12.8 ng/mL (30-100)
[2023-04-11 21:28] LABS: Thyroid Stimulating Hormone 1.43 uIU/mL (0.465-4.68)
== END 2023-04-11 23:59 ==
PROVIDERS: PCP Nurse Practitioner Family; Visit Provider Nurse Practitioner Family
DX: E03.9 Hypothyroidism, unspecified (principal); E78.5 Hyperlipidemia, unspecified; R53.83 Other fatigue; E55.9 Vitamin D deficiency, unspecified; Z68.25 Body mass index [BMI] 25.0-25.9, adult
CPT/HCPCS: 80053; 80061; 82306; 84443; 85025

== ENCOUNTER 2023-05-09 10:30 | Outpatient (CLI) | payer MEDICARE, MEDICAID, SELFPAY ==
--- NOTE | 2023-05-09 10:41 | XR_ITS ---
FINAL REPORT CLINICAL HISTORY: LT KNEE PAIN COMPARISON: None FINDINGS: LEFT KNEE: 4 views of the left knee obtained. There is no acute fracture or dislocation. There is moderate to severe degenerative change. There is lateral and patellofemoral joint space narrowing. There is no soft tissue abnormality. IMPRESSION: Moderate to severe degenerative change without acute bony abnormality. Reviewed, Interpreted and Dictated by Matt Sanchez III, MD Transcribed by Vandana Roman Authenticated and [facility]
== END 2023-05-09 23:59 ==
LOC: RAD 10:32
PROVIDERS: PCP Family Medicine; Visit Provider Physician Assistant
DX: M25.562 Pain in left knee (principal)
CPT/HCPCS: 73564

== ENCOUNTER 2023-08-14 15:05 | Emergency (ER) | payer MEDICARE, MEDICAID, SELFPAY ==
[2023-08-14] VITALS (13 sets, daily range): BP systolic 119–180; BP diastolic 65–88; PULSE 74–85; RESP 16–20; TEMP 36.6; O2SAT 94–98; BMI 33.2
--- NOTE | 2023-08-14 15:32 | XR_ITS ---
FINAL REPORT CLINICAL HISTORY: PAIN, NO KNOWN INJURY FINDINGS: Left hip Two views were obtained. There is a presumed subacute fracture of the greater trochanter. Mild degenerative changes are present. IMPRESSION: Presumed subacute fracture of the greater trochanter. CT could further evaluate. Reviewed, Interpreted and Dictated by Matt Sanchez III, MD Transcribed by Jessie Koehler Authenticated and [facility]
--- NOTE | 2023-08-14 15:47 | ED_ITS ---
Discharge Plan Disposition Patient Disposition: Home, Self-Care Prescriptions Prescriptions: New ondansetron 4 mg tablet,disintegrating 4 mg PO Q6H PRN (Reason: nausea and vomiting) Qty: 10 0RF cefdinir 300 mg capsule 300 mg PO BID 7 Days Qty: 14 0RF No Action sertraline 50 mg tablet 50 mg PO DAILY 30 Days Qty: 90 2RF risperidone [Risperdal] 3 mg tablet See Rx Instructions PO BID Qty: 90 1RF Rx Instructions: take 1/2 tablet (1.5mg) orally twice a day; omeprazole 20 mg capsule,delayed release(DR/EC) See Rx Instructions .ROUTE .COMPLEX Qty: 90 2RF Dose Instruction: TAKE 1 CAPSULE BY MOUTH EVERY DAY Rx Instructions: TAKE 1 CAPSULE BY MOUTH EVERY DAY metoprolol succinate [Toprol XL] 50 mg tablet extended release 24 hr 50 mg PO DAILY Qty: 30 5RF levothyroxine 88 mcg tablet 88 mcg PO DAILY 30 Days Qty: 90 2RF isosorbide mononitrate 30 mg tablet extended release 24 hr See Rx Instructions .ROUTE .COMPLEX Qty: 90 1RF Dose Instruction: TAKE 1 TABLET BY MOUTH DAILY Rx Instructions: TAKE 1 TABLET BY MOUTH DAILY naproxen 500 mg tablet 500 mg PO BID PRN (Reason: pain) Qty: 60 1RF aspirin 81 mg tablet,delayed release (DR/EC) 81 mg PO QDAY celecoxib 200 mg capsule 200 mg PO DAILY Patient Comments: TAKE 1 CAPSULE 1 TIME EACH DAY FOR PAIN ipratropium-albuterol 0.5 mg-3 mg(2.5 mg base)/3 mL solution for nebulization 3 ml INHALATION DAILY oxybutynin chloride 5 mg Tablet Extended Release 24hr 5 mg PO DAILY budesonide 0.5 mg/2 mL suspension for nebulization 2 mg inhalation DAILY formoterol fumarate 20 mcg/2 mL solution for nebulization 2 ml INHALATION DAILY cholecalciferol (vitamin D3) [Vitamin D3] 50 mcg (2,000 unit) tablet 50 mcg PO DAILY Referrals Follow up/Referrals: Dash Alvarez APRN [Primary Care Provider] - See instructions Activity Restrictions/Add. Instructions Additional Instructions/Restrictions: Call your family doctor to establish care for this visit to the emergency department and schedule follow-up within 48 hours to ensure improvement. If you have any worsening of your condition or any other concerning signs or symptoms, return to the emergency department or your primary care doctor for further evaluation. Talk to family doctor about repeating labs to make sure your potassium is okay. Antibiotic sent to the pharmacy of choice, take this twice daily for 7 days. Clinical Impressions Clinical Impression: Acute hypokalemia, Nausea, Weakness, Acute UTI, Closed fracture of greater trochanter of left femur Instructions Patient Instructions: DI for Hypokalemia Discharge ED Provider: Micky Ray [facility] [place] HPI General Chief complaint: PAIN Stated complaint: LT hip pain Mode of Arrival: Ambulatory Source of Information: Patient Limitations: No Limitations Time Seen by Provider: 08/14/23 15:22 Description of Symptoms (Recalled from Triage Doc. by RN): PATIENT C/O LEFT HIP PAIN THAT STARTED ON SATURDAY. NO KNOWN INJURY HEENT Symptoms (Recalled from RN notes): No Resp Symptoms (Recalled from RN notes): No Skin Symptoms (Recalled from RN notes): No MS Symptoms (Recalled from RN notes): Yes Functional Status (Recalled from RN notes): WNL History of Present Illness Provider Complaint: Pt reports that she has had significant left hip pain since Saturday. She was taking Celebrex and they stopped that and started her on Naproxen recently. She has been unable to put pressure on her left leg due to the pain. Related Data Home Medications Medication Instructions Recorded Confirmed aspirin 81 mg tablet,delayed 81 mg PO QDAY Heart disease 07/01/22 08/14/23 release budesonide 0.5 mg/2 mL suspension 2 mg inhalation DAILY 08/14/23 08/14/23 for nebulization celecoxib 200 mg capsule 200 mg PO DAILY 08/14/23 08/14/23 cholecalciferol (vitamin D3) 50 50 mcg PO DAILY 08/14/23 08/14/23 mcg (2,000 unit) tablet (Vitamin D3) formoterol fumarate 20 mcg/2 mL 2 ml inhalation DAILY 08/14/23 08/14/23 solution for nebulization ipratropium 0.5 mg-albuterol 3 mg 3 ml inhalation DAILY 08/14/23 08/14/23 (2.5 mg base)/3 mL nebulization soln oxybutynin chloride 5 mg 5 mg PO DAILY 08/14/23 08/14/23 tablet,extended release 24 hr Previous Rx's Medication Instructions Recorded isosorbide mononitrate 30 mg See Rx Instructions .Route 07/09/23 tablet,extended release 24 hr .COMPLEX #90 tabs levothyroxine 88 mcg tablet 88 mcg PO DAILY Thyroid 30 days 07/09/23 #90 tabs metoprolol succinate 50 mg 50 mg PO DAILY #30 tabs 07/09/23 tablet,extended release 24 hr (Toprol XL) omeprazole 20 mg capsule,delayed See Rx Instructions .Route 07/09/23 release .COMPLEX #90 caps risperidone 3 mg tablet (Risperdal) See Rx Instructions PO BID #90 tabs 07/09/23 sertraline 50 mg tablet 50 mg PO DAILY Mood 30 days #90 07/09/23 tabs naproxen 500 mg tablet 500 mg PO BID PRN pain #60 tabs 08/05/23 cefdinir 300 mg capsule 300 mg PO BID 7 days #14 caps 08/14/23 ondansetron 4 mg disintegrating 4 mg PO Q6H PRN nausea and 08/14/23 tablet vomiting #10 tabs Allergies Allergy/AdvReac Type Severity Reaction Status Date / Time cefuroxime [CEFUROXIME] Allergy Mild NA Verified 07/09/23 09:39 Cephalosporins Allergy Mild Unknown Verified 07/09/23 09:39 allergy reaction levofloxacin [From LEVAQUIN] Allergy Mild I-RASH Verified 07/09/23 09:39 penicillin G [PENICILLIN G] Allergy Mild NA Verified 07/09/23 09:39 Quinolones [QUINOLONES] Allergy Mild NA Verified 07/09/23 09:39 cephalexin [From KEFLEX] AdvReac Mild NA-NAUSEA Verified 07/09/23 09:39 ciprofloxacin [From CIPRO] AdvReac Mild NA-NAUSEA Verified 07/09/23 09:39 morphine [MORPHINE] AdvReac Mild NA-NAUSEA Verified 07/09/23 09:39 Worker's Comp Is this a Worker's Comp case?: No [facility] Disclaimer: The information contained in this section may have been updated after the patient was seen, as this information can be updated by other users. Medical History Abnormal computerized axial tomography of chest Mild persistent asthma Apparently she is only on nebulizers at this point. She is not using any of her MDIs. They are following with pulmonary as I understand. Incontinence Multiple pulmonary nodules Asthma Dyspnea on exertion Carotid artery stenosis Chest pain Dizziness Fatigue Chronic knee pain Chronic back pain greater than 3 months duration SOB (shortness of breath) Hip pain, bilateral COPD (chronic obstructive pulmonary disease) See above, they are following with pulmonary as described. Mobility impaired Unsteady gait HLD (hyperlipidemia) HHD (hypertensive heart disease) CAD (coronary artery disease) Surgical History History of eye surgery History of breast biopsy History of surgery on upper extremity History of hysterectomy Family History Other Asthma Diabetes Social History Smoking Status: Never smoker alcohol intake: never substance use type: denies use current occupational status: disabled Travel in the last 8 weeks: None household members: family housing: house number of children: 8 caffeine: Yes ROS Obtained: Yes All systems reviewed & no additional complaints except as documented Constitutional Constitutional: Reports system reviewed and no additional complaints, except as documented Eyes Eyes: Reports system reviewed and no additional complaints, except as documented ENT Ears, Nose, Mouth, and Throat: Reports system reviewed and no additional complaints, except as documented Cardiovascular Cardiovascular: Reports system reviewed and no additional complaints, except as documented Respiratory Respiratory: Reports system reviewed and no additional complaints, except as documented Gastrointestinal Gastrointestingal: Reports system reviewed and no additional complaints, except as documented Genitourinary Female Genitourinary: Reports system reviewed and no additional complaints, except as documented Musculoskeletal Musculoskeletal: Reports system reviewed and no additional complaints, except as documented, Reports abnormal gait, Reports arthralgias, Reports joint stiffness, Reports limited range of motion and Reports radiating pain into limb Integumentary/Breasts Skin/Breast: Reports system reviewed and no additional complaints, except as documented Comments: multiple bruising on bilateral arms. Neurologic Neurologic: Reports system reviewed and no additional complaints, except as documented and Reports abnormal gait Endocrine Endocrine: Reports system reviewed and no additional complaints, except as documented Hematologic/Lymphatic Henatologic/Lymphatic: Reports system reviewed and no additional complaints, except as documented Allergic/Immunologic Allergic/Immunologic: Reports system reviewed and no additional complaints, except as documented Physical Exam General General appearance: alert and in no apparent distress Head Head exam: atraumatic and normocephalic Eye Eye exam: Present normal appearance ENT ENT exam: Present normal exam Neck Neck exam: Present normal inspection Chest Chest inspection: Present normal inspection and symmetric chest wall rise Respiratory Respiratory exam: Present normal lung sounds bilaterally Cardiovascular Cardiovascular exam: Present regular rate and normal rhythm Abdominal Exam Abdominal exam: Present soft and normal bowel sounds Extremities Exam Extremities exam: Present tenderness Expanded Lower Extremity Exam Left: Hip/Pelvis exam: Present tenderness, pain on hip/pelvis palpation and hip pain on leg movement Upper leg exam: Present tenderness Knee exam: Present normal inspection Lower leg exam: Present normal inspection Ankle exam: Present normal inspection Foot/toe exam: Present normal inspection Neurovascular/Tendon exam: Present normal capillary refill Gait: unable to bear weight Back Exam Back exam: Present normal inspection Neurological Exam Neurological exam: Present alert and oriented X3 Psychiatric Psychiatric exam: Present normal affect and normal mood Skin Skin exam: Present warm, dry and intact Lymphatic Lymphatic Findings: no adenopathy Medical Decision Making Rafa Inquiry Pt receiving controlled substance: No Rafa was queried for this patient: No Vital Signs: 08/14/23 15:20 Temperature 97.9 F Temperature Source Oral Pulse Rate [Left Brachial] 85 Respiratory Rate 20 Blood Pressure [Left Arm] 119/88 Blood Pressure Mean [Left Arm] 98 Blood Pressure Source [Left Arm] Automatic Cuff Blood Pressure Position [Left Arm] Sitting 02 Sat by Pulse Oximetry 97 Oxygen Delivery Method Room Air Lab Data 08/14/23 18:32 08/14/23 18:32 Orders (Tests/Meds): ORDERS Category Date Time Status Hip XR left minimum 2 views [XR hip LT 2-3V w/pelvis] Exams 08/14/23 15:32 Taken Stat Medical Decision Narrative: Pt transferred to ER for further evaluation.
--- NOTE | 2023-08-14 17:44 | CT_ITS ---
PROCEDURE INFORMATION: Exam: CT Pelvis Without Contrast; Skeletal Exam date and time: 08/14/2023 6:09 PM Age: 82 years old Clinical indication: Pain; Other: Through left prox femur - eval for occult FX TECHNIQUE: Imaging protocol: Computed tomography of the pelvis without contrast. Exam focused on the skeleton. Radiation optimization: All CT scans at this facility use at least one of these dose optimization techniques: automated exposure control; mA and/or kV adjustment per patient size (includes targeted exams where dose is matched to clinical indication); or iterative reconstruction. COMPARISON: No relevant prior studies available. FINDINGS: Gallbladder and bile ducts: Gallbladder is absent. Kidneys and ureters: Low attenuation renal lesions measuring up to 1.8 cm in diameter are incompletely characterized, but are likely cysts. No followup imaging is warranted. Intestine: Mild sigmoid diverticulosis without diverticulitis. Appendix: Unremarkable appendix. Vasculature: The arteries demonstrate moderate atherosclerotic disease. Reproductive: Status post hysterectomy. Urinary bladder: Gas in the urinary bladder. Urinary bladder wall thickening. Bones/joints: Mildly comminuted and displaced left femoral greater trochanteric fracture. The lumbar spine demonstrates mild degenerative changes at multiple levels. Soft tissues: Tiny fat containing umbilical hernia. IMPRESSION: 1. Mildly comminuted and displaced left femoral greater trochanteric fracture. 2. Gas in the urinary bladder. Urinary bladder wall thickening. Please correlate for evidence of infection versus recent catheterization. COMMENTS: Consistent with the [employer]'s Incidental Findings Committee white paper (J Am Barbara Radiol 2018): Any incidental renal lesion less than 1 cm or classified as too small to characterize, or any incidental cystic renal lesion characterized as simple-appearing, is likely benign. No follow-up imaging is recommended for these lesions per consensus recommendations based on imaging criteria.
[2023-08-14 18:39] LABS: Basophils % 0.4 % (0.1-2.0); Eosinophils # 0.1 K/mm3 (0.0-0.4); Eosinophils % 0.6 % (0.1-12.0); Hemoglobin 9.7 g/dL (12.2-16.2); Lymphocytes # 1.2 K/mm3 (0.7-4.5); Lymphocytes % 14.5 % (10-50); Mean Corpuscular HGB Conc 31.4 g/dL (31.8-35.4); Mean Corpuscular Hemoglobin 23.9 pg (27.0-31.2); Mean Corpuscular Volume 75.9 fl (81-99); Mean Platelet Volume 8.3 fl (7.4-10.4); Monocytes # 0.6 K/mm3 (0.1-1.0); Monocytes % 6.6 % (1.7-9.3); Neutrophils # 6.5 K/mm3 (1.8-7.8); Neutrophils % 77.9 % (37.0-80.0); Platelet Count 145 K/mm3 (142-424); Red Blood Count 4.09 M/mm3 (4.20-5.40); Red Cell Distribution Width 16.5 % (11.5-17.5); White Blood Count 8.3 K/mm3 (4.8-10.8)
[2023-08-14 18:53] LABS: Activated Partial Thrombo Time 25.9 seconds (22.8-30.6); Alanine Aminotransferase 14 U/L (12-78); Albumin Level 3.2 g/dl (3.5-5.0); Alkaline Phosphatase 83 U/L (38-126); Anion Gap 9.3 mEq/L (5-15); Aspartate Amino Transferase 19 U/L (14-36); Bilirubin,Total 0.6 mg/dl (0.2-1.3); Blood Urea Nitrogen 20 mg/dl (7-17); Carbon Dioxide 30 mmol/L (22.0-30.0); Chloride 100 mmol/L (98-107); Creatinine Clearance Estimated 40 mL/min (50-200); Estimated Glomerular Filt Rate 43 ml/min (>60); GFR (African American) 52 ML/MIN (>60); Globulin 3.1 g/dL (1.3-3.2); Glucose 102 mg/dl (74-100); Prothrombin Time 11.8 seconds (10.1-12.5); Sodium 137 mmol/L (136-145); Total Protein,Serum 6.3 g/dl (6.3-8.2)
[2023-08-14 18:54] LABS: Potassium 2.3 mmoL/L (3.5-5.1)
--- NOTE | 2023-08-14 18:54 | PC.NURSE ---
reported critical lab to [facility] Oconnor
--- NOTE | 2023-08-14 19:04 | HMH.EDGENADL ---
Discharge Plan Disposition Patient Disposition: Home, Self-Care Prescriptions Prescriptions: New ondansetron 4 mg tablet,disintegrating 4 mg PO Q6H PRN (Reason: nausea and vomiting) Qty: 10 0RF cefdinir 300 mg capsule 300 mg PO BID 7 Days Qty: 14 0RF No Action sertraline 50 mg tablet 50 mg PO DAILY 30 Days Qty: 90 2RF risperidone [Risperdal] 3 mg tablet See Rx Instructions PO BID Qty: 90 1RF Rx Instructions: take 1/2 tablet (1.5mg) orally twice a day; omeprazole 20 mg capsule,delayed release(DR/EC) See Rx Instructions .ROUTE .COMPLEX Qty: 90 2RF Dose Instruction: TAKE 1 CAPSULE BY MOUTH EVERY DAY Rx Instructions: TAKE 1 CAPSULE BY MOUTH EVERY DAY metoprolol succinate [Toprol XL] 50 mg tablet extended release 24 hr 50 mg PO DAILY Qty: 30 5RF levothyroxine 88 mcg tablet 88 mcg PO DAILY 30 Days Qty: 90 2RF isosorbide mononitrate 30 mg tablet extended release 24 hr See Rx Instructions .ROUTE .COMPLEX Qty: 90 1RF Dose Instruction: TAKE 1 TABLET BY MOUTH DAILY Rx Instructions: TAKE 1 TABLET BY MOUTH DAILY naproxen 500 mg tablet 500 mg PO BID PRN (Reason: pain) Qty: 60 1RF aspirin 81 mg tablet,delayed release (DR/EC) 81 mg PO QDAY celecoxib 200 mg capsule 200 mg PO DAILY Patient Comments: TAKE 1 CAPSULE 1 TIME EACH DAY FOR PAIN ipratropium-albuterol 0.5 mg-3 mg(2.5 mg base)/3 mL solution for nebulization 3 ml INHALATION DAILY oxybutynin chloride 5 mg Tablet Extended Release 24hr 5 mg PO DAILY budesonide 0.5 mg/2 mL suspension for nebulization 2 mg inhalation DAILY formoterol fumarate 20 mcg/2 mL solution for nebulization 2 ml INHALATION DAILY cholecalciferol (vitamin D3) [Vitamin D3] 50 mcg (2,000 unit) tablet 50 mcg PO DAILY Referrals Follow up/Referrals: Dash Alvarez APRN [Primary Care Provider] - See instructions Activity Restrictions/Add. Instructions Additional Instructions/Restrictions: Call your family doctor to establish care for this visit to the emergency department and schedule follow-up within 48 hours to ensure improvement. If you have any worsening of your condition or any other concerning signs or symptoms, return to the emergency department or your primary care doctor for further evaluation. Talk to family doctor about repeating labs to make sure your potassium is okay. Antibiotic sent to the pharmacy of choice, take this twice daily for 7 days. Clinical Impressions Clinical Impression: Acute hypokalemia, Nausea, Weakness, Acute UTI, Closed fracture of greater trochanter of left femur Discharge ED Provider: Micky Ray General Adult HPI General Chief complaint: PAIN Stated complaint: LT hip pain Time Seen by Provider: 08/14/23 15:22 Mode of Arrival: Wheelchair Source of Information: Patient and Relative Limitations: dementia Description of Symptoms (Recalled from ER Triage Doc. by RN): per family on 08/10 they were helping the pt to a bedside comode. the pt states when she sat down she felt a pop in her L hip. pt reports her pain is severe and aches in nature. pt took 500mg alieve this am without any relief. pt is able to carry on a conversation but is alert to self only due to dementia. family states that the pts last injury was two months ago when she fell. History of Present Illness HPI narrative: Please note that above description of symptoms, in this electronic medical record under categorization of recalled from ER triage doctor by RN are reflective of an initial nursing assessment, however, is not reflective of my full history and physical exam that was personally taken and clarified. Consequentially, this preceding description of symptoms, which may include the patient's categorized chief complaint in the EMR, do not reflect my personal clinical impression, and the ultimate description of history of present illness and patient stated complaints should be deferred to this section of the note. Unless stated otherwise or congruent with this section of the note, additional signs, symptoms, or incongruence should be interpreted as inaccurate with my clinical impression. Related Data Home Medications Medication Instructions Recorded Confirmed aspirin 81 mg tablet,delayed 81 mg PO QDAY Heart disease 07/01/22 08/14/23 release budesonide 0.5 mg/2 mL suspension 2 mg inhalation DAILY 08/14/23 08/14/23 for nebulization celecoxib 200 mg capsule 200 mg PO DAILY 08/14/23 08/14/23 cholecalciferol (vitamin D3) 50 50 mcg PO DAILY 08/14/23 08/14/23 mcg (2,000 unit) tablet (Vitamin D3) formoterol fumarate 20 mcg/2 mL 2 ml inhalation DAILY 08/14/23 08/14/23 solution for nebulization ipratropium 0.5 mg-albuterol 3 mg 3 ml inhalation DAILY 08/14/23 08/14/23 (2.5 mg base)/3 mL nebulization soln oxybutynin chloride 5 mg 5 mg PO DAILY 08/14/23 08/14/23 tablet,extended release 24 hr Previous Rx's Medication Instructions Recorded isosorbide mononitrate 30 mg See Rx Instructions .Route 07/09/23 tablet,extended release 24 hr .COMPLEX #90 tabs levothyroxine 88 mcg tablet 88 mcg PO DAILY Thyroid 30 days 07/09/23 #90 tabs metoprolol succinate 50 mg 50 mg PO DAILY #30 tabs 07/09/23 tablet,extended release 24 hr (Toprol XL) omeprazole 20 mg capsule,delayed See Rx Instructions .Route 07/09/23 release .COMPLEX #90 caps risperidone 3 mg tablet (Risperdal) See Rx Instructions PO BID #90 tabs 07/09/23 sertraline 50 mg tablet 50 mg PO DAILY Mood 30 days #90 07/09/23 tabs naproxen 500 mg tablet 500 mg PO BID PRN pain #60 tabs 08/05/23 cefdinir 300 mg capsule 300 mg PO BID 7 days #14 caps 08/14/23 ondansetron 4 mg disintegrating 4 mg PO Q6H PRN nausea and 08/14/23 tablet vomiting #10 tabs Allergies Allergy/AdvReac Type Severity Reaction Status Date / Time cefuroxime [CEFUROXIME] Allergy Mild NA Verified 07/09/23 09:39 Cephalosporins Allergy Mild Unknown Verified 07/09/23 09:39 allergy reaction levofloxacin [From LEVAQUIN] Allergy Mild I-RASH Verified 07/09/23 09:39 penicillin G [PENICILLIN G] Allergy Mild NA Verified 07/09/23 09:39 Quinolones [QUINOLONES] Allergy Mild NA Verified 07/09/23 09:39 cephalexin [From KEFLEX] AdvReac Mild NA-NAUSEA Verified 07/09/23 09:39 ciprofloxacin [From CIPRO] AdvReac Mild NA-NAUSEA Verified 07/09/23 09:39 morphine [MORPHINE] AdvReac Mild NA-NAUSEA Verified 07/09/23 09:39 [facility] Disclaimer: The information contained in this section may have been updated after the patient was seen, as this information can be updated by other users. Medical History Abnormal computerized axial tomography of chest Mild persistent asthma Apparently she is only on nebulizers at this point. She is not using any of her MDIs. They are following with pulmonary as I understand. Incontinence Multiple pulmonary nodules Asthma Dyspnea on exertion Carotid artery stenosis Chest pain Dizziness Fatigue Chronic knee pain Chronic back pain greater than 3 months duration SOB (shortness of breath) Hip pain, bilateral COPD (chronic obstructive pulmonary disease) See above, they are following with pulmonary as described. Mobility impaired Unsteady gait HLD (hyperlipidemia) HHD (hypertensive heart disease) CAD (coronary artery disease) Surgical History History of eye surgery History of breast biopsy History of surgery on upper extremity History of hysterectomy Family History Other Asthma Diabetes Social History Smoking Status: Never smoker alcohol intake: never substance use type: denies use current occupational status: disabled Travel in the last 8 weeks: None household members: family housing: house number of children: 8 caffeine: Yes ROS Obtained: Yes All systems reviewed & no additional complaints except as documented Physical Exam General General appearance: alert, in no apparent distress and obese Head Head exam: atraumatic and normocephalic Eye Eye exam: Present normal appearance, PERRL and EOMI ENT ENT exam: Present mucous membranes dry Neck Neck exam: Present normal inspection, full ROM and trachea midline Respiratory Respiratory exam: Present normal lung sounds bilaterally; Absent respiratory distress, wheezes, stridor, accessory muscle use or prolonged expiratory phase Cardiovascular Cardiovascular exam: Present regular rate and normal rhythm Abdominal Exam Abdominal exam: Present soft; Absent distention, tenderness, guarding, rebound or rigidity Extremities Exam Extremities exam: Present tenderness (Laterally over the greater trochanter); Absent edema Neurological Exam Neurological exam: Present alert, oriented X3, CN II-XII intact and normal gait; Absent motor sensory deficit Skin Skin exam: Present warm and dry; Absent diaphoresis or erythema Medical Decision Making Medical Records Medical records reviewed: Yes I reviewed the patient's medical records. Rafa Inquiry Pt receiving controlled substance: No Rafa was queried for this patient: No Vital Signs: 08/14/23 15:20 08/14/23 17:39 08/14/23 18:30 Temperature 97.9 F Temperature Source Oral Pulse Rate Pulse Rate [Left Brachial] 85 85 Respiratory Rate 20 18 Blood Pressure 156/74 H Blood Pressure [Left Arm] 119/88 147/69 H Blood Pressure Mean 99 Blood Pressure Mean [Left Arm] 98 95 Blood Pressure Source [Left Arm] Automatic Cuff Blood Pressure Position [Left Arm] Sitting 02 Sat by Pulse Oximetry 97 98 Oxygen Delivery Method Room Air Room Air 08/14/23 19:01 08/14/23 19:30 08/14/23 20:01 Temperature Temperature Source Pulse Rate Pulse Rate [Left Brachial] Respiratory Rate Blood Pressure 166/74 H 162/73 H 180/88 H Blood Pressure [Left Arm] Blood Pressure Mean 102 102 110 Blood Pressure Mean [Left Arm] Blood Pressure Source [Left Arm] Blood Pressure Position [Left Arm] 02 Sat by Pulse Oximetry Oxygen Delivery Method 08/14/23 20:31 08/14/23 21:00 08/14/23 21:30 Temperature Temperature Source Pulse Rate Pulse Rate [Left Brachial] Respiratory Rate Blood Pressure 158/73 H 149/74 H 164/74 H Blood Pressure [Left Arm] Blood Pressure Mean 101 95 85 Blood Pressure Mean [Left Arm] Blood Pressure Source [Left Arm] Blood Pressure Position [Left Arm] 02 Sat by Pulse Oximetry Oxygen Delivery Method 08/14/23 22:00 08/14/23 22:31 Temperature Temperature Source Pulse Rate 80 Pulse Rate [Left Brachial] Respiratory Rate Blood Pressure 161/65 H 166/77 H Blood Pressure [Left Arm] Blood Pressure Mean 97 Blood Pressure Mean [Left Arm] Blood Pressure Source [Left Arm] Blood Pressure Position [Left Arm] 02 Sat by Pulse Oximetry 95 Oxygen Delivery Method Lab Data Lab Results 08/14/23 18:32: WBC 8.3, RBC 4.09 L, Hgb 9.7 L, Hct 31.0 L, MCV 75.9 L, MCH 23.9 L, MCHC 31.4 L, RDW 16.5, Plt Count 145, MPV 8.3, Neut % (Auto) 77.9, Lymph % (Auto) 14.5, [place] % (Auto) 6.6, Eos % (Auto) 0.6, Baso % (Auto) 0.4, Neut # (Auto) 6.5, Lymph # (Auto) 1.2, [place] # (Auto) 0.6, Eos # (Auto) 0.1, Baso # (Auto) 0.0, PT 11.8, INR 1.10, APTT 25.9, Sodium 137, Potassium 2.3 L*, Chloride 100, Carbon Dioxide 30, Anion Gap 9.3, BUN 20 H, Creatinine 1.20 H, Estimated Creat Clear 40, Estimated GFR 43 L, Est GFR ( Amer) 52 L, Glucose 102 H, Calcium 9.0, Total Bilirubin 0.6, AST 19, ALT 14, Alkaline Phosphatase 83, Total Protein 6.3, Albumin 3.2 L, Globulin 3.1, Albumin/Globulin Ratio 1.0 L 08/14/23 19:32: Urine Color Yellow, Urine Appearance Clear, Urine pH 6.5, Ur Specific [place] <= 1.005, Urine Protein Trace, Urine Glucose (UA) Negative, Urine Ketones Negative, Urine Blood 3+, Urine Nitrate Negative, Urine Bilirubin Negative, Urine Urobilinogen 0.2, Ur Leukocyte Esterase 2+ A, Urine RBC 10-20, Urine WBC 10-20, Ur Squamous Epith Cells Occasional, Urine Bacteria Trace 08/14/23 18:32 08/14/23 18:32 Orders (Tests/Meds): ED MEDICATIONS Generic Name Dose Route Start Last Admin Trade Name Freq PRN Reason Stop Dose Admin Potassium Chloride/Water 100 mls @ 50 mls/hr 08/14/23 19:04 08/14/23 23:31 Potassium Chloride 20meq/100ml Ivpb IV 08/15/23 01:03 50 mls/hr Q2H JESICA Administration Sodium Chloride 1,000 mls @ 25 mls/hr 08/14/23 19:45 08/14/23 19:41 Sod Chlor 0.9% 1000ml Bag IV 09/13/23 19:44 25 mls/hr .Q25H JESICA Administration Discontinued Medications Generic Name Dose Route Start Last Admin Trade Name Freq PRN Reason Stop Dose Admin Ceftriaxone Sodium 1 gm/ 50 mls @ 100 mls/hr 08/14/23 19:58 Sodium Chloride IV 08/14/23 20:27 ONCE ONE Ondansetron HCl 4 mg 08/14/23 19:58 08/14/23 23:34 Ondansetron 4mg/2ml Vial IV 08/14/23 19:59 4 mg ONCE ONE Administration ORDERS Category Date Time Status CT bony pelvis Stat Cat Scan 08/14/23 17:44 Completed Hip XR left minimum 2 views [XR hip LT 2-3V w/pelvis] Exams 08/14/23 15:32 Completed Stat CBC w/Auto Diff [Complete Blood Count Auto Diff] Stat Lab 08/14/23 18:32 Completed CMP [Comprehensive Metabolic Panel] Stat Lab 08/14/23 18:32 Completed PT INR [Prothrombin Time INR] Stat Lab 08/14/23 18:32 Completed PTT [Activated Partial Thrombo Time] Stat Lab 08/14/23 18:32 Completed UA [Urinalysis and Microscopic] Stat Lab 08/14/23 19:32 Completed Urine Culture Stat Micro 08/14/23 19:32 Received Medical Decision Narrative: 82-year-old female history of hypertension, hyperlipidemia, COPD not on home, dementia, presenting with left hip pain. Patient states that she was with her family and family here to corroborate the story, that she was sitting down on the commode without the family, felt a pop in the left aspect of her left hip. Immediately painful. Able to bear weight, but painful, primarily when turning. No bowel or bladder dysfunction, no back pain, no numbness, tingling, or weakness. Was seen in the urgent care just for arrival, had concern for hip fracture, so sent to the ED. Further conversation reveals that patient has been unable to do anything for herself at home, but there are 2 family members during the night and 3 during the day but lived with her and able to help around the house, as well as help her perform ADLs. Not significantly more weak than usual, just pain and limited ambulation. History was obtained via conversation with patient and family. On arrival, patient hemodynamically stable, alert, oriented x4, appropriate, GCS 15, moving all extremities spontaneously, pupils equal and reactive to light. Full physical exam performed and significant for chronically ill-appearing woman who is in no acute distress. Abdomen soft, nontender, nondistended. Her back is nontender. Left hip is tender laterally, no outward signs of injury. No groin tenderness. Range of motion not tender on passive or active range of motion. Differential includes fracture, sprain, strain, metabolic abnormality, UTI, among others. Patient was given fluids, potassium for symptomatic management and correction of underlying abnormalities. Workup independently interpreted and significant for Nonactionable CBC. Coags negative. Potassium significantly low at 2.3, patient also has LOURDES with BUN 20 and creatinine 1.2 up from normal baseline. Otherwise unremarkable hematologic workup. Urinalysis was concerning for UTI. CT imaging independently interpreted and patient has isolated greater trochanteric fracture of the left hip. No occult fracture. Orthopedics was consulted and case was discussed at length, patient to be seen outpatient for this, nonoperative. In-depth discussion was had with family and patient regarding admission given numerous underlying comorbidities, both acutely and chronically, as well as subacute greater trochanteric fracture and difficulty ambulating at home. Both patient and family opting for home-going after antibiotics, IV potassium, and IV fluids after thorough discussion of risks and benefits. Patient was placed in observation beginning at 7 PM in order to give potassium, serial exams and determine need for admission versus home-going. The patient was provided serial exams, cardiac monitoring while awaiting results. Independent interpretation of results demonstrated UTI and hypokalemia as above, these were repleted. On reevaluation, patient resting comfortably, tolerated well. At this time, I feel patient is appropriate for discharge home. Total observation time 6 hours. Because patient at baseline without signs or symptoms of clinical decompensation, deemed appropriate for discharge. Results were relayed to patient who voiced understanding and were agreeable to outpatient management and follow up. I discussed my clinical impression with patient and answered all questions. At this time, the evidence for any other entities in the differential is insufficient to warrant any further testing or ED observation. This was explained as well. Advisory was given that persistent or worsening symptoms require further evaluation. I confirmed the understanding of this discussion. Chief Customer Officer disclaimer Much of this encounter note is an electronic site safety coordinator spoken language to printed text. Electronic site safety coordinator of the spoken language may permit errors. Although I have reviewed the note, some errors may still exist. Critical Care Critical Care Time Critical Care Time: No
[2023-08-14] MEDS: KCl 20mEq/100ml 100 ML 50 MEQ IV ×3 (19:40→23:31)
[2023-08-14] MEDS: 0.9 % SODIUM CHLORIDE 1000ML 1,000 ML 25 ML IV (19:41)
--- NOTE | 2023-08-14 19:48 | PC.NURSE ---
I rounded on the pt, no new complaints at this time. pt resting with her eyes closed.
[2023-08-14 19:49] LABS: Microscopic, Urine URINE MICROSCOPIC (MICROSCOPIC)
[2023-08-14 19:50] LABS: Appearance,Urine CLEAR (Clear); Bilirubin,Urine Negative (Negative); Blood, Urine 3+ (Negative); Color,Urine YELLOW (Yellow); Glucose,Urine (UA) Negative (Negative); Ketones,Urine Negative (Negative); Leukocyte Esterase,Urine 2+ (Negative); Nitrate,Urine Negative (Negative); PH,Urine 6.5 (5.0-8.5); Protein,Urine TRACE (Negative); Specific Gravity, Urine <= 1.005 (1.005-1.030); Urobilinogen,Urine 0.2 EU/dl (0.2)
--- NOTE | 2023-08-14 20:02 | PC.NURSE ---
pt had an episode of urinary incontinence. pt changed and put in a dry brief. pt denies any new complaints at this time. I took her a warm blanket. she is now resting with her eyes closed.
[2023-08-14 20:07] LABS: Bacteria,Urine Trace /lpf; Squamous Epithelial Cell,Urine Occasional #/hpf (0-5)
--- NOTE | 2023-08-14 20:59 | PC.NURSE ---
I rounded on the pt. pt denies any new complaints at this time. no needs voiced. vss.
--- NOTE | 2023-08-14 21:15 | PC.NURSE ---
I rounded on the pt. she is resting with her eyes closed. family members bedside. IV KCL still infusing.
[2023-08-14] MEDS: ONDANSETRON 4MG/2ML VIAL 4 MG IV (23:34)
--- NOTE | 2023-08-14 23:44 | PC.NURSE ---
Care taken over from Nidia RN
[2023-08-15 00:01] VITALS: BP 161/70; PULSE 75; O2SAT 95
[2023-08-15 00:31] VITALS: BP 152/81; PULSE 85; O2SAT 95
[2023-08-15] MEDS: CEFTRIAXONE 1 GM 1 GM in 0.9 % SODIUM CHLORIDE 50 ML IV (01:27)
[2023-08-15 02:09] VITALS: BP 153/74; PULSE 63; RESP 16; TEMP 36.6; O2SAT 94
--- NOTE | 2023-08-15 08:33 | PC.NURSE ---
discussed urine culture with , pt dc with cefdinir, NTD
--- NOTE | 2023-08-18 10:34 | PC.NURSE ---
URINE CULTURE DISCUSSED WITH DR BALDWIN, NO MEDICATION CHANGES.
== END 2023-08-15 02:09 | disposition home or self-care (01) ==
LOC: UTC 16:26 → ER 17:09
PROVIDERS: Emergency Provider Emergency Medicine; PCP Nurse Practitioner Family
DX: E87.6 Hypokalemia (principal); S72.112A Displaced fracture of greater trochanter of left femur, initial encounter for closed fracture; N39.0 Urinary tract infection, site not specified; B96.29 Other Escherichia coli [E. coli] as the cause of diseases classified elsewhere; M25.552 Pain in left hip; R11.0 Nausea; R53.1 Weakness; F03.90 Unspecified dementia, unspecified severity, without behavioral disturbance, psychotic disturbance, mood disturbance, and anxiety; I11.9 Hypertensive heart disease without heart failure; I25.10 Atherosclerotic heart disease of native coronary artery without angina pectoris; E78.5 Hyperlipidemia, unspecified; E03.9 Hypothyroidism, unspecified; J44.9 Chronic obstructive pulmonary disease, unspecified; I65.29 Occlusion and stenosis of unspecified carotid artery; W07.XXXA Fall from chair, initial encounter
CPT/HCPCS: 72192; 73502; 80053; 81001; 85025; 85610; 85730; 87086; 87088; 87186; 96365; 96366; 96375; 99285; J0696; J2405

== ENCOUNTER 2023-08-21 10:15 | Outpatient (CLI) | payer MEDICARE, MEDICAID, SELFPAY ==
[2023-08-21 18:42] LABS: Anion Gap 8.5 mEq/L (5-15); Blood Urea Nitrogen 12 mg/dl (7-17); Calcium 9.7 mg/dl (8.4-10.2); Carbon Dioxide 28 mmol/L (22.0-30.0); Chloride 104 mmol/L (98-107); Estimated Glomerular Filt Rate 53 ml/min (>60); GFR (African American) 64 ML/MIN (>60); Glucose 90 mg/dl (74-100); Sodium 138 mmol/L (136-145)
[2023-08-21 19:00] LABS: Potassium 2.5 mmoL/L (3.5-5.1)
== END 2023-08-21 23:59 | disposition home or self-care (01) ==
LOC: LAB.DROPOF 08-22 10:15
PROVIDERS: PCP Nurse Practitioner Family; Visit Provider Nurse Practitioner Family
DX: R53.1 Weakness (principal)
CPT/HCPCS: 80048

== ENCOUNTER 2023-08-21 20:21 | Observation (INO) | payer MEDICARE, MEDICAID, SELFPAY ==
[2023-08-21] VITALS (7 sets, daily range): BP systolic 128–133; BP diastolic 54–69; PULSE 71–86; RESP 16–26; TEMP 36.6–36.7; O2SAT 94–96; BMI 33.2; BMI 31.9
--- NOTE | 2023-08-21 20:23 | ED_ITS ---
<Statement entered by Venu Kessler MD - 08/21/23 23:33> I was consulted by the SHARON, and we discussed the complexity of the problems being addressed. I approved the treatment and management plan for this patient's care in the emergency department, thus performing a substantive portion of the medical decision making. Venu Kessler MD, JOHNATHON, FACEP Discharge Plan Disposition Patient Disposition: Admitted Condition: Fair Clinical Impressions Clinical Impression: Hypokalemia, Asthenia Discharge ED Provider: Venu Kessler General Adult HPI General Chief complaint: Weakness Stated complaint: Phy ref low potassium 2.5 Time Seen by Provider: 08/21/23 20:23 History of Present Illness HPI narrative: Patient presents to the emergency department for evaluation of hypokalemia. Patient was seen in this ER on the noted to have a significantly low potassium along with urinary tract infection. She treated the urinary tract infection however she was sent to her PCP for close follow-up. Laboratory work done today showed a potassium that was still significantly low at 2.5. His she was requested to come to the ER by her PCP. Patient states her only complaint is feeling very weak. She denies chest pain tingling shortness of breath fever chills hemoptysis hematochezia melena nausea vomit diarrhea. Related Data Home Medications Medication Instructions Recorded Confirmed aspirin 81 mg tablet,delayed 81 mg PO QDAY Heart disease 07/01/22 08/21/23 release budesonide 0.5 mg/2 mL suspension 2 mg inhalation DAILY 08/14/23 08/21/23 for nebulization cholecalciferol (vitamin D3) 50 50 mcg PO DAILY 08/14/23 08/21/23 mcg (2,000 unit) tablet (Vitamin D3) formoterol fumarate 20 mcg/2 mL 2 ml inhalation DAILY 08/14/23 08/21/23 solution for nebulization ipratropium 0.5 mg-albuterol 3 mg 3 ml inhalation DAILY 08/14/23 08/21/23 (2.5 mg base)/3 mL nebulization soln lovastatin 20 mg tablet mg PO 08/21/23 08/21/23 melatonin 3 mg tablet mg PO 08/21/23 08/21/23 Previous Rx's Medication Instructions Recorded isosorbide mononitrate 30 mg See Rx Instructions .Route 07/09/23 tablet,extended release 24 hr .COMPLEX #90 tabs levothyroxine 88 mcg tablet 88 mcg PO DAILY Thyroid 30 days 07/09/23 #90 tabs metoprolol succinate 50 mg 50 mg PO DAILY #30 tabs 07/09/23 tablet,extended release 24 hr (Toprol XL) omeprazole 20 mg capsule,delayed See Rx Instructions .Route 07/09/23 release .COMPLEX #90 caps risperidone 3 mg tablet (Risperdal) See Rx Instructions PO BID #90 tabs 07/09/23 sertraline 50 mg tablet 50 mg PO DAILY Mood 30 days #90 07/09/23 tabs naproxen 500 mg tablet 500 mg PO BID PRN pain #60 tabs 08/05/23 cefdinir 300 mg capsule 300 mg PO BID 7 days #14 caps 08/14/23 ondansetron 4 mg disintegrating 4 mg PO Q6H PRN nausea and 08/14/23 tablet vomiting #10 tabs Allergies Allergy/AdvReac Type Severity Reaction Status Date / Time cefuroxime [CEFUROXIME] Allergy Mild NA Verified 08/21/23 10:12 Cephalosporins Allergy Mild Unknown Verified 08/21/23 10:12 allergy reaction levofloxacin [From LEVAQUIN] Allergy Mild I-RASH Verified 08/21/23 10:12 penicillin G [PENICILLIN G] Allergy Mild NA Verified 08/21/23 10:12 Quinolones [QUINOLONES] Allergy Mild NA Verified 08/21/23 10:12 cephalexin [From KEFLEX] AdvReac Mild NA-NAUSEA Verified 08/21/23 10:12 ciprofloxacin [From CIPRO] AdvReac Mild NA-NAUSEA Verified 08/21/23 10:12 morphine [MORPHINE] AdvReac Mild NA-NAUSEA Verified 08/21/23 10:12 PFSH PFSH Disclaimer: The information contained in this section may have been updated after the patient was seen, as this information can be updated by other users. Medical History Abnormal computerized axial tomography of chest Mild persistent asthma Apparently she is only on nebulizers at this point. She is not using any of her MDIs. They are following with pulmonary as I understand. Incontinence Multiple pulmonary nodules Asthma Dyspnea on exertion Carotid artery stenosis Chest pain Dizziness Fatigue Chronic knee pain Chronic back pain greater than 3 months duration SOB (shortness of breath) Hip pain, bilateral COPD (chronic obstructive pulmonary disease) See above, they are following with pulmonary as described. Mobility impaired Unsteady gait HLD (hyperlipidemia) HHD (hypertensive heart disease) CAD (coronary artery disease) Surgical History History of eye surgery History of breast biopsy History of surgery on upper extremity History of hysterectomy Family History Other Asthma Diabetes Social History Smoking Status: Former smoker tobacco type: cigarettes alcohol intake: never substance use type: denies use current occupational status: disabled Travel in the last 8 weeks: None household members: family housing: house number of children: 8 caffeine: Yes ROS Obtained: Yes Systems reviewed as appropriate & no additional complaints except as documented Physical Exam General General appearance: alert and in no apparent distress ENT ENT exam: Present other (Patient has severe presbycusis) Respiratory Respiratory exam: Present normal lung sounds bilaterally Cardiovascular Cardiovascular exam: Present regular rate and normal rhythm; Absent normal heart sounds Neurological Exam Neurological exam: Present alert and oriented X3 Medical Decision Making Medical Records Medical records reviewed: Yes I reviewed the patient's medical records. Rafa Inquiry Pt receiving controlled substance: No Vital Signs: 08/21/23 20:22 08/21/23 20:50 Temperature 97.9 F Temperature Source Oral Pulse Rate 82 Pulse Rate [Right Radial] 83 Respiratory Rate 25 H 16 Blood Pressure 128/54 L Blood Pressure [Right Arm] 128/54 L Blood Pressure Mean [Right Arm] 78 Blood Pressure Source Automatic Cuff Blood Pressure Source [Right Arm] Automatic Cuff Blood Pressure Position Supine Blood Pressure Position [Right Arm] Sitting 02 Sat by Pulse Oximetry 94 L 95 Oxygen Delivery Method Room Air Room Air Lab Data Lab results reviewed: Yes I reviewed the patient's lab results. Lab Results 08/21/23 20:40: Sodium 138, Potassium 2.4 L*, Chloride 107, Carbon Dioxide 26, Anion Gap 7.4, BUN 12, Creatinine 1.20 H, Estimated Creat Clear 40, Estimated GFR 43 L, Est GFR ( Amer) 52 L, Glucose 109 H D, Calcium 9.4, Magnesium 1.4 L 08/21/23 20:40 Orders (Tests/Meds): ED MEDICATIONS Generic Name Dose Route Start Last Admin Trade Name Fremelba PRN Reason Stop Dose Admin Potassium Chloride/Water 100 mls @ 50 mls/hr 08/21/23 20:30 08/21/23 20:52 Potassium Chloride 20meq/100ml Ivpb IV 08/22/23 02:29 50 mls/hr Q2H JESICA Administration Discontinued Medications Generic Name Dose Route Start Last Admin Trade Name Freq PRN Reason Stop Dose Admin Potassium Chloride 60 meq 08/21/23 20:27 08/21/23 20:52 Potassium Chloride 20meq Tab PO 08/21/23 20:28 60 meq ONCE ONE Administration Sodium Chloride 500 ml 08/21/23 20:51 08/21/23 20:52 Sodium Chloride 0.9% 500ml Bag IV 08/21/23 20:52 500 ml ONCE ONE Administration ORDERS Category Date Time Status BMP [Basic Metabolic Panel] Stat Lab 08/21/23 20:40 Completed Magnesium Stat Lab 08/21/23 20:40 Completed Medical Decision Narrative: In summary patient is a 82-year-old female who presents to the emergency department for evaluation of weakness and abnormal lab results. Patient is hemodynamically stable upon arrival, afebrile. Physical exam is remarkable for global muscle weakness but no focal neurologic deficits. Patient has 4 out of 5 clinical appeals auditor strength 4 out of 5 lower extremity strength she is however [place] Coma Score 15. Twelve-lead EKG appears to be atrial fibrillation on the bedside monitor at a controlled rate. Differential diagnosis includes hypokalemia, electrolyte imbalance, therapeutic misadventure etc. I suspect that patient's nebulizer use at home is contributing somewhat as she is not on a diuretic. She has nebulizing 2-3 times a day however. Initial workup will be conducted with repeating her hematologic labs twelve-lead EKG. Initial interventions include crystalloid infusion p.o. and IV potassium replacement. Initial workup reviewed by me and her potassium is actually 2.4 now. Given this I had an interactive discussion with the patient about the need for IV repletion and at least initially best to getting the source of her hypokalemia. Patient agreed to admission. And then I had an interactive discussion with hospital medicine who is agreed for admission for further evaluation and care. Critical Care Critical Care Time Critical Care Time: No
--- NOTE | 2023-08-21 20:48 | PC.NURSE ---
Allergy and Fall Risk braclet placed on pt. Pt had skin tear on right elbow that was bleeding, gauze and coban to area
--- NOTE | 2023-08-21 20:49 | ECG_ITS ---
APPROVED REPORT Exam: Resting ECG HR:72 bpm ECG Measurements Heart Rate 72 AXES QRSd 104 QRS -52 QT 407 T -17 QTc 432 Conclusion ATRIAL FIBRILLATION PATTERN CONSISTENT WITH PULMONARY DISEASE LEFT ANTERIOR FASCICULAR BLOCK [QRS AXIS <= -45, QR IN I, RS IN II] MODERATE VOLTAGE CRITERIA FOR LVH, CONSIDER NORMAL VARIANT [MEETS CRITERIA IN ONE OF: R(aVL), S(V1), R(V5), R(V5/V6)+S(V1)] ST DEPRESSION, CONSIDER SUBENDOCARDIAL INJURY [0.1+ mV ST DEPRESSION] ABNORMAL ECG UNCONFIRMED REPORT Electronically signed by : Edmond Kessler, 08/21/2023 23:37:23
[2023-08-21] MEDS: KCl 20mEq/100ml 100 ML 50 MEQ IV ×2 (20:52→22:52)
[2023-08-21] MEDS: POTASSIUM CHLORIDE 20MEQ TAB 60 MEQ PO (20:52)
[2023-08-21] MEDS: SODIUM CHLORIDE 0.9% 500ML BAG 500 ML IV (20:52)
[2023-08-21 20:56] LABS: Chloride 107 mmol/L (98-107); Sodium 138 mmol/L (136-145)
--- NOTE | 2023-08-21 20:58 | PC.NURSE ---
patient given pillow
[2023-08-21 20:59] LABS: Anion Gap 7.4 mEq/L (5-15); Blood Urea Nitrogen 12 mg/dl (7-17); Calcium 9.4 mg/dl (8.4-10.2); Carbon Dioxide 26 mmol/L (22.0-30.0); Creatinine Clearance Estimated 40 mL/min (50-200); Estimated Glomerular Filt Rate 43 ml/min (>60); GFR (African American) 52 ML/MIN (>60); Glucose 109 mg/dl (74-100); Magnesium 1.4 mg/dl (1.6-2.3)
[2023-08-21 21:01] LABS: Potassium 2.4 mmoL/L (3.5-5.1)
--- NOTE | 2023-08-21 21:30 | PC.NURSE ---
Report called to Scarlett WHITNEY on the floor. Pt. to be admitted to [facility].
--- NOTE | 2023-08-21 21:38 | PC.NURSE ---
2125 RECEIVED REPORT FROM HIEU Morataya RN/ED NURSE. PATIENT IS AN 82 YO FEMALE WITH HYPOKALEMIA AND WEAKNESS. WILL TRANSFER BY STRETCHER.
--- NOTE | 2023-08-21 21:46 | P.HP_ITS ---
History of Present Illness *Admission Date: 08/21/23 *Reason for visit:: weakness *History of present illness: This is A 82-year-old female with extensive medical history including but not limited to hypertension, hyperlipidemia, COPD not on home, dementia. Initially patient was seen at the urgent care on August 13 for left hip pain. Patient was found to have a left trochanter fracture, therefore referred to the ED for evaluation. Here in this hospital was diagnosed with nonsurgical left second toe fracture and LOURDES with electrolyte depletion, and UTI. Patient was offered for admission and declined at the moment. Will discharge home with cefdinir. Today during her follow-up with her PCP, potassium was low, patient was complaining of increased weakness. New lab work was obtained and hypokalemia was confirmed. Admitted for inpatient management. [facility] Disclaimer: The information contained in this section may have been updated after the patient was seen, as this information can be updated by other users. Medical History Abnormal computerized axial tomography of chest Mild persistent asthma Apparently she is only on nebulizers at this point. She is not using any of her MDIs. They are following with pulmonary as I understand. Incontinence Multiple pulmonary nodules Asthma Dyspnea on exertion Carotid artery stenosis Chest pain Dizziness Fatigue Chronic knee pain Chronic back pain greater than 3 months duration SOB (shortness of breath) Hip pain, bilateral COPD (chronic obstructive pulmonary disease) See above, they are following with pulmonary as described. Mobility impaired Unsteady gait HLD (hyperlipidemia) HHD (hypertensive heart disease) CAD (coronary artery disease) Surgical History History of eye surgery History of breast biopsy History of surgery on upper extremity History of hysterectomy Family History Other Asthma Diabetes Social History (Updated 08/21/23 @ 22:39 by Fya Juárez RN) Smoking Status: Former smoker tobacco type: cigarettes alcohol intake: never substance use type: denies use current occupational status: disabled Travel in the last 8 weeks: None household members: family housing: house number of children: 8 caffeine: Yes Review of Systems Review of Systems Review of systems:: pertinent systems reviewed and negative unless documented below Meds Home Medications and Allergies Home Medications Medication Instructions Recorded Confirmed Type aspirin 81 mg tablet,delayed 81 mg PO DAILY 07/01/22 08/22/23 History release levothyroxine 88 mcg tablet 88 mcg PO DAILY Thyroid 30 days 07/09/23 08/21/23 Rx #90 tabs metoprolol succinate 50 mg 50 mg PO DAILY #30 tabs 07/09/23 08/21/23 Rx tablet,extended release 24 hr (Toprol XL) sertraline 50 mg tablet 50 mg PO DAILY Mood 30 days #90 07/09/23 08/21/23 Rx tabs naproxen 500 mg tablet 500 mg PO BID PRN pain #60 tabs 08/05/23 08/21/23 Rx budesonide 0.5 mg/2 mL suspension 2 mg inhalation BID 08/14/23 08/22/23 History for nebulization cholecalciferol (vitamin D3) 50 50 mcg PO DAILY 08/14/23 08/21/23 History mcg (2,000 unit) tablet (Vitamin D3) formoterol fumarate 20 mcg/2 mL 2 ml inhalation QID 08/14/23 08/22/23 History solution for nebulization ipratropium 0.5 mg-albuterol 3 mg 3 ml inhalation Q6HP PRN Shortness 08/14/23 08/22/23 History (2.5 mg base)/3 mL nebulization Of Breath soln lovastatin 20 mg tablet 20 mg PO HS 08/21/23 08/22/23 History melatonin 3 mg tablet 3 mg PO HS 08/21/23 08/21/23 History cholecalciferol (vitamin D3) 1,250 1,250 mcg PO WEEKLY 08/22/23 08/22/23 History mcg (50,000 unit) capsule isosorbide mononitrate 30 mg 30 mg PO DAILY 08/22/23 08/22/23 History tablet,extended release 24 hr omeprazole 20 mg capsule,delayed 20 mg PO DAILY 08/22/23 08/22/23 History release risperidone 3 mg tablet 3 mg PO HS 08/22/23 08/22/23 History New Prescriptions to Start Prescriptions: Allergies Allergy/AdvReac Type Severity Reaction Status Date / Time cefuroxime [CEFUROXIME] Allergy Mild NA Verified 08/21/23 10:12 Cephalosporins Allergy Mild Unknown Verified 08/21/23 10:12 allergy reaction levofloxacin [From LEVAQUIN] Allergy Mild I-RASH Verified 08/21/23 10:12 penicillin G [PENICILLIN G] Allergy Mild NA Verified 08/21/23 10:12 Quinolones [QUINOLONES] Allergy Mild NA Verified 08/21/23 10:12 cephalexin [From KEFLEX] AdvReac Mild NA-NAUSEA Verified 08/21/23 10:12 ciprofloxacin [From CIPRO] AdvReac Mild NA-NAUSEA Verified 08/21/23 10:12 morphine [MORPHINE] AdvReac Mild NA-NAUSEA Verified 08/21/23 10:12 Exam Data for Last 24 hours Vital signs and Labs for Last 24 Hours: Temp Pulse Resp BP Pulse Ox O2 Del Method 97.9 F 78 26 H 133/69 95 Room Air 08/21/23 21:32 08/21/23 21:32 08/21/23 21:32 08/21/23 21:32 08/21/23 21:30 08/21/23 21:32 Laboratory Results - last 24 hr 08/21/23 20:40: Sodium 138, Potassium 2.4 L*, Chloride 107, Carbon Dioxide 26, Anion Gap 7.4, BUN 12, Creatinine 1.20 H, Estimated Creat Clear 40, Estimated GFR 43 L, Est GFR ( Amer) 52 L, Glucose 109 H D, Calcium 9.4, Magnesium 1.4 L Temp Pulse Resp BP Pulse Ox O2 Del Method 101.6 F H 80 18 142/71 H 97 Room Air 11/13/22 17:58 11/13/22 17:58 11/13/22 17:58 11/13/22 17:58 11/13/22 17:30 11/13/22 17:30 Laboratory Results - last 24 hr 11/13/22 13:25: Urine Color Yellow, Urine Appearance Clear, Urine pH 6.0, Ur Specific [place] 1.025, Urine Protein Trace, Urine Glucose (UA) Negative, Urine Ketones Negative, Urine Blood Negative, Urine Nitrate Negative, Urine Bilirubin Negative, Urine Urobilinogen 0.2, Ur Leukocyte Esterase Trace, Urine RBC Occasional, Urine WBC 20-50, Ur Squamous Epith Cells 3-5, Urine Bacteria 2+ 11/13/22 13:27: WBC 11.6 H, RBC 4.44, Hgb 10.6 L, Hct 33.4 L, MCV 75.3 L, MCH 23.9 L, MCHC 31.7 L, RDW 16.5, Plt Count 179, MPV 7.8, Neut % (Auto) 85.2 H, Lymph % (Auto) 7.7 L, [place] % (Auto) 5.9, Eos % (Auto) 0.9, Baso % (Auto) 0.3, Neut # (Auto) 9.9 H, Lymph # (Auto) 0.9, [place] # (Auto) 0.7, Eos # (Auto) 0.1, Baso # (Auto) 0.0, Total Counted 100, Neutrophils % (Manual) 79 H, Band N eutrophils % 3.0, Lymphocytes % (Manual) 10, Atypical Lymphs % 2.0, Monocytes % (Manual) 5, Metamyelocytes % 1.0, Platelet Estimate Normal, RBC Morphology Normal, Microcytosis 1+, Sodium 139, Potassium 4.0, Chloride 106, Carbon Dioxide 25, Anion Gap 12.0, BUN 18 H, Creatinine 1.10 H, Estimated GFR 47 L, Est GFR ( Amer) 57 L, Glucose 112 H, Calcium 9.4, Magnesium 1.6, Total Bilirubin 0.3, AST 26, ALT 20, Alkaline Phosphatase 80, Total Protein 6.4, Albumin 3.5, Globulin 2.9, Albumin/Globulin Ratio 1.2 I & O for Last 24 hours: Intake & Output 08/18/23 08/19/23 08/20/23 08/21/23 23:59 23:59 23:59 23:59 Weight 72.121 kg Intake & Output 11/10/22 11/11/22 11/12/22 11/13/22 23:59 23:59 23:59 23:59 Weight 69.4 kg Constitutional Constitutional: no acute distress, chronically ill appearing and somnolent Comments: Frail in appearance *Routine HEENT Exam Head: Present normocephalic Eye: Present EOMI and PERRL ENT: Present mucous membranes moist Comments: Bitemporal wasting, loss of periorbital fat. *Routine Neck Exam Neck: Present supple; Absent lymphadenopathy *Routine Respiratory Exam Respiratory: Present crackles (Left base) and normal respiratory effort; Absent rhonchi or wheezes *Routine Cardiovascular Exam Cardiovascular: Present RRR *Routine Abdominal Exam Abdominal: Present soft and normoactive bowel sounds; Absent tenderness *Routine Rectal Exam Rectal:: deferred *Routine Genitalia Exam Genitalia:: deferred *Routine Extremities Exam Extremities: Absent cyanosis, clubbing or edema Comments: Sarcopenia *Routine Skin Exam Skin: Present warm; Absent rash *Routine Neurological Exam Neurological: Present alert and moving all extremities; Absent altered mental status Comments: Oriented to self H&P: Result Imaging and Cardiology EKG: Status: image reviewed by me, Preliminary report and final report CT scan - pelvis: Status: image reviewed by me, Preliminary report and final report Assessment and Plan *Assessment and plan (1) Hypokalemia: Status: Acute Category: Medical Code(s): E87.6 - Hypokalemia (2) Asthenia: Status: Acute Category: Medical Code(s): R53.1 - Weakness (3) Acute UTI: Status: Acute Category: Medical Code(s): N39.0 - Urinary tract infection, site not specified (4) Closed fracture of greater trochanter of left femur: Status: Acute Qualifiers: Encounter type: subsequent encounter Fracture alignment: displaced Fracture healing: with routine healing Qualified Code(s): S72.112D - Displaced fracture of greater trochanter of left femur, subsequent encounter for closed fracture with routine healing Category: Medical Code(s): S72.112A - Displaced fracture of greater trochanter of left femur, initial encounter for closed fracture (5) Hypertension: Status: Acute Qualifiers: Hypertension type: unspecified Qualified Code(s): I10 - Essential (primary) hypertension Category: Medical Code(s): I10 - Essential (primary) hypertension (6) COPD (chronic obstructive pulmonary disease): Status: Chronic Qualifiers: COPD type: unspecified COPD Qualified Code(s): J44.9 - Chronic obstructive pulmonary disease, unspecified Category: Medical Code(s): J44.9 - Chronic obstructive pulmonary disease, unspecified (7) CAD (coronary artery disease): Status: Chronic Qualifiers: Associated angina: with other forms of angina Coronary Disease- Associated Artery/Lesion type: [place] artery [place] vs. transplanted heart: [place] heart Qualified Code(s): I25.118 - Atherosclerotic heart disease of [place] coronary artery with other forms of angina pectoris Category: Medical Code(s): I25.10 - Atherosclerotic heart disease of [place] coronary artery without angina pectoris (8) Dementia: Status: Acute Qualifiers: Dementia behavioral or psychological symptom: with other behavioral disturbance Dementia severity: moderate Dementia type: unspecified type Qualified Code(s): F03.B18 - Unspecified dementia, moderate, with other behavioral disturbance Category: Medical Code(s): F03.90 - Unspecified dementia, unspecified severity, without behavioral disturbance, psychotic disturbance, mood disturbance, and anxiety Plan 82-year-old female with extensive medical history including but not limited to hypertension, hyperlipidemia, COPD not on home, dementia came today to ED por persistent hypokalemia. Initial ED workup, confirm electrolyte depletion. The rest of the labs are nonactionable. Check concerning EKG was obtained. Due to failure for outpatient therapy, and other comorbidities, ED requested admission for inpatient management. Discussion on finding with main. We agreed for it. Plan as follow: -Hyperkalemia, hypomagnesemia Generalized weakness Ongoing urinary tract nutrition positive to E. coli Admit patient for inpatient management. Electrolyte replacement ongoing. Continue as per protocol Continuous cardiac telemetry Urine culture reviewed positive for E. coli. Patient initially was on cefdinir at home. Switch to Macrobid 4 times daily due to allergy history and based on sensitivity Repeat labs in the morning. Watch for electrolyte imbalance CBC daily anemia probably related to chronic kidneys disease -Present closed mildly displaced left greater trochanter fracture: Pain management PT/OT to eval and treat. Orthopedic consulted on 08/13. Likely nonsurgical. -Hypertension: Continue monitor Resume meds. COPD CAD and dementia: Condition reviewed. Resume home nebulizer regimen Medication review okay to continue. On aspirin and statin Lovenox for DVT prophylaxis. On Protonix Full code Rounded on patient after nurse practitioner. Personally examined and interviewed patient. Agree with exam findings and care plan as documented.
--- NOTE | 2023-08-21 22:04 | PC.NURSE ---
pt arrived to floor via stretcher @[phone]
[2023-08-21] MEDS: 0.9 % SODIUM CHLORIDE 1000ML 1,000 ML 50 ML IV (22:52)
[2023-08-22] VITALS (13 sets, daily range): BP systolic 119–195; BP diastolic 88–116; PULSE 77–90; RESP 16–18; TEMP 36.4–36.9; O2SAT 96–97; BMI 32.4
[2023-08-22] MEDS: KCl 20mEq/100ml 100 ML 50 MEQ IV (00:48)
--- NOTE | 2023-08-22 02:51 | PC.NURSE ---
triston rizzo APRN notified re elevated BP. No new orders at this time.
[2023-08-22] MEDS: MAGNESIUM SULFATE IN WATER 2 GM/50 ML PIGGYBACK IV (03:09)
--- NOTE | 2023-08-22 05:15 | PC.NURSE ---
PATIENT RECEIVED 3 RUNS OF POTASSIUM AND 1 RUN OF MAGNESIUN, IVFs: NORMAL SALINE INFUSING AT 50ML/HR/PUMP. ORIENTED TO SELF AND PLACE. HAS BRUISING ON EXTREMITIES. GROINS AND ABDOMINAL FOLDS EXCORIATED AND RED. PERIAREA RED. HEEL PROTECTORS PLACED ON BILAT HEELS DUE TO REDDISH SOFT HEELS. DAUGHTER AT SIDE.
[2023-08-22] MEDS: IPRATROPIUM/ALBUTEROL 3 ML NEB IH ×4 (06:50→23:30)
[2023-08-22] MEDS: BUDESONIDE 0.5MG/2ML NEB 2 MG IH (06:50)
[2023-08-22 07:13] LABS: Chloride 111 mmol/L (98-107); Potassium 3.5 mmoL/L (3.5-5.1); Sodium 140 mmol/L (136-145)
[2023-08-22 07:16] LABS: Alanine Aminotransferase 12 U/L (12-78); Albumin Level 2.8 g/dl (3.5-5.0); Alkaline Phosphatase 80 U/L (38-126); Anion Gap 7.5 mEq/L (5-15); Aspartate Amino Transferase 24 U/L (14-36); Bilirubin,Total 0.3 mg/dl (0.2-1.3); Blood Urea Nitrogen 10 mg/dl (7-17); Calcium 9.1 mg/dl (8.4-10.2); Carbon Dioxide 25 mmol/L (22.0-30.0); Creatinine Clearance Estimated 46 mL/min (50-200); Estimated Glomerular Filt Rate 53 ml/min (>60); GFR (African American) 64 ML/MIN (>60); Globulin 2.7 g/dL (1.3-3.2); Glucose 84 mg/dl (74-100); Total Protein,Serum 5.5 g/dl (6.3-8.2)
[2023-08-22 07:17] LABS: Magnesium 2.3 mg/dl (1.6-2.3)
[2023-08-22 07:24] LABS: Basophils % 0.7 % (0.1-2.0); Eosinophils # 0.2 K/mm3 (0.0-0.4); Hematocrit 27.1 % (37.0-47.0); Hemoglobin 8.4 g/dL (12.2-16.2); Lymphocytes # 1.2 K/mm3 (0.7-4.5); Lymphocytes % 23.5 % (10-50); Mean Corpuscular HGB Conc 30.8 g/dL (31.8-35.4); Mean Corpuscular Volume 77.9 fl (81-99); Monocytes # 0.3 K/mm3 (0.1-1.0); Monocytes % 5.7 % (1.7-9.3); Neutrophils # 3.4 K/mm3 (1.8-7.8); Neutrophils % 67.1 % (37.0-80.0); Platelet Count 170 K/mm3 (142-424); Red Blood Count 3.48 M/mm3 (4.20-5.40); Red Cell Distribution Width 17.1 % (11.5-17.5); White Blood Count 5.1 K/mm3 (4.8-10.8)
--- NOTE | 2023-08-22 07:29 | P.CONPHA_ITS ---
Pharmacy Intervention Comments: [facility]
--- NOTE | 2023-08-22 07:29 | HMH.PHAINT1 ---
Pharmacy Intervention Comments: [facility]
[2023-08-22 08:28] LABS: Iron 44 ug/dL (37-170)
[2023-08-22 08:37] LABS: Total Iron Binding Capacity 252 ug/dL (265-497)
[2023-08-22] MEDS: CHOLECALCIFEROL 1,000 UNITS (25MCG) TABLET 50 MCG PO (10:16)
[2023-08-22] MEDS: ENOXAPARIN 40MG/0.4ML SYRINGE 40 MG SQ (10:16)
[2023-08-22] MEDS: ASPIRIN EC 81MG TABLET 81 MG PO (10:16)
[2023-08-22] MEDS: IRON SUCROSE COMPLEX 200 MG in 0.9 % SODIUM CHLORIDE 100 ML 220 MG IV (10:16)
[2023-08-22] MEDS: risperiDONE 1MG TABLET 1.5 MG PO ×2 (10:17→20:43)
[2023-08-22] MEDS: SERTRALINE 50MG TABLET 50 MG PO (10:17)
[2023-08-22] MEDS: NITROFURANTOIN 100MG CAPSULE 100 MG PO ×3 (10:17→20:43)
[2023-08-22] MEDS: PANTOPRAZOLE 40MG TABLET 40 MG PO (10:18)
[2023-08-22] MEDS: METOPROLOL SUCCINATE XL 50MG TABLET 50 MG PO (10:18)
[2023-08-22] MEDS: ISOSORBIDE MONO 30MG TAB.ER.24H 30 MG PO (10:18)
[2023-08-22] MEDS: LEVOTHYROXINE 88MCG (0.088MG) TAB 88 MCG PO (10:18)
--- NOTE | 2023-08-22 10:30 | HMH.PTEV ---
Physical Therapy Evaluation Rehab PT IP Evaluation Start: 08/22/23 02:18 Freq: ONCE Status: Active Protocol: Document 08/22/23 10:26 CAROLINE (Rec: 08/22/23 10:30 CAROLINE [email or web address]) Subjective/History History History Per H&P: This is A 82-year- old female with extensive medical history including but not limited to hypertension, hyperlipidemia, COPD not on home, dementia. Initially patient was seen at the urgent care on August 13 for left hip pain. Patient was found to have a left trochanter fracture, therefore referred to the ED for evaluation. Here in this hospital was diagnosed with nonsurgical left second toe fracture and LOURDES with electrolyte depletion , and UTI. Patient was offered for admission and declined at the moment. Will discharge home with cefdinir. Today during her follow-up with her PCP, potassium was low, patient was complaining of increased weakness. Subjective Subjective PLOF per pt and pt's daughter report: Lives with family in a single story home with a few MAURO. Pt required some assistance with ADLs and ambulation using RW and cane. Not driving prior to admission . New diagnosis of cancer in past 12 No months? Rehab PT IP Eval Objective Appearance Patient Behavior Appropriate Patient Orientation Person Difficulty following instructions none Speech Pattern Clear Ambulation Patient Able to Ambulate No Balance Ability to Arise Unable Sitting Balance Leans or slides in chair Transfers Bed Transfer Ability Moderate x 2 (50% assist) Rehab PT IP prob,goals,plan Problems Date of Evaluation: 08/22/23 PT IP Problems Bed Mobility,Transfers,Gait, Balance,Safety Rehab Potential Rehab Potential Good Plan PT Intervention Plan Bed Mobility,Transfers,Gait, Balance,Safety,Therapeutic Exercise Other Intervention Plan 1-2 times PT Plan Frequency Daily Duration LOS Discharge Goals Bed Transfer Ability Moderate x 1 (50% assist) Sit to Stand Chair Transfer Ability Moderate x 2 (50% assist) Discharge Plan PT Discharge Plan Initial physical therapy evaluation performed. Patient presents below baseline at this time in functional mobility, transfers, and strength. Pt not safe to return home at this time d/t current level of functional mobility. PT recommending short-term rehabilitation stay upon d/c from [facility]. Pt would benefit from skilled PT while at [facility] to prevent further functional decline and maximize safety with mobility. Eval Complexity Eval Charge Codes 87235 - Moderate Complexity PHYSICIAN CERTIFICATION: I certify the specified therapy services for Xuan Ellis are required, authorized, and reviewed every 30 days.
--- NOTE | 2023-08-22 10:54 | HMH.OTEV ---
OT Inpatient Evaluation Rehab OT IP Evaluation Start: 08/22/23 02:18 Freq: ONCE Status: Active Protocol: Document 08/22/23 10:48 [facility] (Rec: 08/22/23 10:54 [facility] [id number]) Rehab OT IP Assessment Subjective History Pt oriented x 2 on arrival. Pt agreeable to engage in therapy evaluation. Pt's daughter present and provides all information about prior level of functioning. Pt admitted admitted on 08/21/23 due to weakness. History and physical: This is A 82-year-old female with extensive medical history including but not limited to hypertension, hyperlipidemia, COPD not on home, dementia. Initially patient was seen at the urgent care on August 13 for left hip pain. Patient was found to have a left trochanter fracture, therefore referred to the ED for evaluation. Here in this hospital was diagnosed with nonsurgical left second toe fracture and LOURDES with electrolyte depletion, and UTI . Patient was offered for admission and declined at the moment. Will discharge home with cefdinir. Today during her follow-up with her PCP, potassium was low, patient was complaining of increased weakness. New lab work was obtained and hypokalemia was confirmed. Admitted for inpatient management. Subjective I can try. Prior to being in the hospital , pt lived with her daughter and granddaughter. According to daughter, pt required assistance with all ADLs such as dressing, bathing, and food set up. Pt was dependent upon family for completion of all IADLs. She was able to transfer short distances independently using rolling walker. Objective Patient Orientation Person,Birthday Right Upper Extremity Gross ROM Min Limitation <25% Left Upper Extremity Gross ROM Min Limitation <25% Shoulder ROM Limitations Muscle Weakness Elbow ROM Limitations Muscle Weakness Wrist Limitations of Range of Motion Muscle Weakness Bed Mobility bed mobility-scooting,bed mobility - supine/sit Assist Level Maximum x 2 (75% assist) Rehab OT IP prob,goals,plan Problems Date of Evaluation: 08/22/23 OT IP Problems Bed Mobility,Transfers,Balance ,Self care,Safety Rehab Potential Rehab Potential Good Equipment Needs Assistive Devices Rolling / Wheeled Walker Plan OT intervention Plan Bed Mobility,Transfers,Balance ,Self care,Safety,Therapeutic Exercise OT Plan Frequency Daily Duration LOS Discharge Goals Bed Mobility Ability Assistance x1 Sit to Stand Chair Transfer Ability Maximum x 1 (75% assist) Chair Transfer Ability Maximum x 1 (75% assist) Chair Transfer Technique Stand Step Pivot Chair Transfer Assistive Devices Rolling Walker Feeding Ability Assist with Tray Set Up Lower Body Dressing Ability Maximum Assistance Upper Body Dressing Ability Minimal Assistance Bathing Ability Maximum Assistance Performing Toilet Hygiene Ability Maximum Assistance Overall Commode/Toilet Transfer Ability Moderate Assistance,Maximum Assistance Commode/Toilet Transfer Technique Sit to/from Ambulatory Commode/Toilet Transfer Assistive Raised Toilet Seat,Grab Bars Devices Oral Care Assist Minimal Assistance Decrease in Endurance Yes Discharge Plan OT Discharge Plan Pt will continue to be seen at [facility] for skilled OT services. At this time, pt would benefit most from short term rehab at SNF following discharge. Continued skilled therapy is important in order for patient to improve strength, safety, endurance, ADL independence, and functional transfers to reach PLOF. Eval Complexity Eval Charge Codes 29603 - Moderate Complexity PHYSICIAN CERTIFICATION: I certify the specified therapy services for Xuan Corral are required, authorized, and reviewed every 30 days.
--- NOTE | 2023-08-22 13:00 | EXP.ACUTE.PN ---
Subjective *Date: 08/22/23 *Time: 18:13 Interval history: Patient appears at baseline level of orientation. Oriented to self today. Disoriented to place and time. Daughter at bedside provides additional information and history. Patient denies any shortness of breath or chest pain. No nausea or vomiting. On room air. Afebrile. Medical Exam Vital signs and Labs for Last 24 Hours: Vital Signs Temp Pulse Pulse Resp BP BP Pulse Ox 08/22/23 11:58 97.8 F 90 16 156/116 H 96 08/22/23 10:31 08/22/23 08:19 08/22/23 08:00 80 08/22/23 07:54 97.8 F 89 16 119/98 H 97 08/22/23 06:35 08/22/23 05:00 08/22/23 04:25 80 08/22/23 03:00 08/22/23 02:49 176/103 H 08/22/23 01:00 08/22/23 00:00 97.6 F 83 18 195/99 H 97 08/22/23 00:00 77 08/21/23 23:00 08/21/23 23:00 80 08/21/23 23:00 96 08/21/23 22:33 98.1 F 71 23 133/69 96 08/21/23 21:32 97.9 F 78 26 H 133/69 08/21/23 21:30 78 21 133/69 95 08/21/23 21:00 86 23 133/65 96 08/21/23 20:50 82 16 128/54 L 95 08/21/23 20:22 97.9 F 83 25 H 128/54 L 94 L O2 Del Method 08/22/23 11:58 Room Air 08/22/23 10:31 Room Air 08/22/23 08:19 Room Air 08/22/23 08:00 08/22/23 07:54 Room Air 08/22/23 06:35 Room Air 08/22/23 05:00 Room Air 08/22/23 04:25 08/22/23 03:00 Room Air 08/22/23 02:49 08/22/23 01:00 Room Air 08/22/23 00:00 Room Air 08/22/23 00:00 08/21/23 23:00 Room Air 08/21/23 23:00 06/19/24 23:00 Room Air 08/21/23 22:33 Room Air 08/21/23 21:32 Room Air 08/21/23 21:30 08/21/23 21:00 08/21/23 20:50 Room Air 08/21/23 20:22 Room Air Intake and Output 08/21/23 08/22/23 08/22/23 23:59 07:59 15:59 Intake Total 642 / 742 100 / 742 Output Total 0 / 0 Balance 0 / 100 642 / 742 100 / 742 Intake: Intake, Oral Amount 0 / 0 Intake, Total IV Amount 642 / 742 100 / 742 0.9 % Sodium Chloride 1000ML 1, 392 / 392 000 ml @ 50 mls/hr IV .Q20H [facility] Rx#:[id number] Iron Sucrose Complex 200 mg In 100 / 100 0.9 % Sodium Chloride 100 ml @ 220 mls/hr IV ONCE ONE Rx#: [id number] KCl 20mEq/100ml 100 ml @ 50 mls 200 / 200 /hr IV Q2H [facility] Rx#:[id number] Magnesium Sulfate in Water 2 gm 50 / 50 In 50 ml @ 50 mls/hr IV ONCE ONE Rx#:[id number] Output: Output, Urine Amount 0 / 0 Other: Number of Unmeasured Voids 1 Number of Bowel Movements 1 Weight 68.974 kg 70.052 kg Patient Weight 08/22/23 23:59 Weight 70.052 kg Laboratory Results - last 24 hr 08/21/23 20:40: Sodium 138, Potassium 2.4 L*, Chloride 107, Carbon Dioxide 26, Anion Gap 7.4, BUN 12, Creatinine 1.20 H, Estimated Creat Clear 40, Estimated GFR 43 L, Est GFR ( Amer) 52 L, Glucose 109 H D, Calcium 9.4, Magnesium 1.4 L 08/22/23 05:53: WBC 5.1, RBC 3.48 L, Hgb 8.4 L, Hct 27.1 L, MCV 77.9 L, MCH 24.0 L, MCHC 30.8 L, RDW 17.1, Plt Count 170, MPV 8.0, Neut % (Auto) 67.1, Lymph % (Auto) 23.5, Dickinson % (Auto) 5.7, Eos % (Auto) 3.0, Baso % (Auto) 0.7, Neut # (Auto) 3.4, Lymph # (Auto) 1.2, Dickinson # (Auto) 0.3, Eos # (Auto) 0.2, Baso # (Auto) 0.0, Sodium 140, Potassium 3.5 D, Chloride 111 H, Carbon Dioxide 25, Anion Gap 7.5, BUN 10, Creatinine 1.00, Estimated Creat Clear 46, Estimated GFR 53 L, Est GFR ( Amer) 64 D, Glucose 84 D, Calcium 9.1, Magnesium 2.3 D, Iron 44, TIBC 252 L, Iron Saturation 17.88709, Ferritin 26.0, Total Bilirubin 0.3, AST 24, ALT 12, Alkaline Phosphatase 80, Total Protein 5.5 L, Albumin 2.8 L, Globulin 2.7, Albumin/Globulin Ratio 1.0 L I & O for Labs for Last 24 Hours: Intake & Output 08/19/23 08/20/23 08/21/23 08/22/23 23:59 23:59 23:59 23:59 Intake Total 742 / 742 Output Total 0 / 0 Balance 0 / 100 742 / 742 Weight 68.974 kg 70.052 kg Constitutional: Present no acute distress, obese, chronically ill appearing and cooperative Head: Present atraumatic and normocephalic ENT: Present normal exam Comment:: Rhythmic movement of tongue and mouth, tremor of mandible Respiratory: Present normal respiratory effort; Absent rhonchi, wheezes or crackles Cardiac: Present Reg Rate and Rhythm GI: Present soft and normal bowel sounds; Absent distention or tenderness Extremities: Present normal inspection, full ROM and edema (Trace in lower extremities); Absent tenderness Skin: Present intact; Absent erythema Neuro: Present Grossly Intact, alert, awake and moves all extremities Comment:: Oriented to self, tremor in bilateral hands and jaw suspicious for Parkinson's; globally weak Assessment and Plan *Assessment and plan (1) Acute UTI: Status: Acute Category: Medical Code(s): N39.0 - Urinary tract infection, site not specified (2) Hypokalemia: Status: Acute Category: Medical Code(s): E87.6 - Hypokalemia (3) Dementia: Status: Acute Qualifiers: Dementia behavioral or psychological symptom: with other behavioral disturbance Dementia severity: moderate Dementia type: unspecified type Qualified Code(s): F03.B18 - Unspecified dementia, moderate, with other behavioral disturbance Category: Medical Code(s): F03.90 - Unspecified dementia, unspecified severity, without behavioral disturbance, psychotic disturbance, mood disturbance, and anxiety (4) Asthenia: Status: Acute Category: Medical Code(s): R53.1 - Weakness (5) Closed fracture of greater trochanter of left femur: Status: Acute Qualifiers: Encounter type: subsequent encounter Fracture alignment: displaced Fracture healing: with routine healing Qualified Code(s): S72.112D - Displaced fracture of greater trochanter of left femur, subsequent encounter for closed fracture with routine healing Category: Medical Code(s): S72.112A - Displaced fracture of greater trochanter of left femur, initial encounter for closed fracture (6) Hypertension: Status: Acute Qualifiers: Hypertension type: unspecified Qualified Code(s): I10 - Essential (primary) hypertension Category: Medical Code(s): I10 - Essential (primary) hypertension (7) COPD (chronic obstructive pulmonary disease): Status: Chronic Qualifiers: COPD type: unspecified COPD Qualified Code(s): J44.9 - Chronic obstructive pulmonary disease, unspecified Category: Medical Code(s): J44.9 - Chronic obstructive pulmonary disease, unspecified (8) CAD (coronary artery disease): Status: Chronic Qualifiers: Associated angina: with other forms of angina Coronary Disease-Associated Artery/Lesion type: [place] artery [place] vs. transplanted heart: [place] heart Qualified Code(s): I25.118 - Atherosclerotic heart disease of [place] coronary artery with other forms of angina pectoris Category: Medical Code(s): I25.10 - Atherosclerotic heart disease of [place] coronary artery without angina pectoris Plan 82-year-old female with extensive medical history including but not limited to hypertension, hyperlipidemia, COPD not on home, dementia came today to ED por persistent hypokalemia. Initial ED workup, confirm electrolyte depletion. The rest of the labs are nonactionable. Check concerning EKG was obtained. Due to failure for outpatient therapy, and other comorbidities, ED requested admission for inpatient management. Patient to medicine for further management. Showing some improvement this morning. Therapy evaluated, needs placement. Discussed goals of care with family, want to take her home. Anticipate stability for medical discharge in the next 24 hours. Problems addressed as follows: Progressive weakness Hypokalemia, hypomagnesemia Ongoing urinary tract infection positive to E. coli - Improvement in labs this morning. Magnesium 2.3, potassium 3.5. White cell count normal at 5.1. - I have ordered repeat CBC, CMP, magnesium for the morning. - Continuous cardiac telemetry - Urine culture reviewed positive for E. coli. Patient initially was on cefdinir at home. Continue Macrobid 2 times daily due to allergy history and based on sensitivity Anemia: History of iron deficiency, iron studies show low levels today. Administered 1 dose Venofer 200 mg x 1 Hemoglobin 8.4, 9.7 on admission. No active signs of bleeding -Present closed mildly displaced left greater trochanter fracture: Pain management, Ortho consulted last visit, recommended medical management Impacts her ability to ambulate. Evaluated by therapy, recommend skilled therapy and rehab placement. Family and patient declined placement. She has help at home, they will take her home at discharge. Case management assisting with home health referral Hypertension: Isosorbide mononitrate 30 mg daily, continue metoprolol succinate 50 mg daily, Hypothyroid: Continue home levothyroxine 88 mcg daily COPD: Continue Pulmicort twice daily with DuoNebs every 6 hours scheduled dementia: Continue Zoloft and Risperdal per home regimen Lovenox for DVT prophylaxis. On Protonix Full code Regular diet Evaluated by therapy, recommend skilled placement. Family declines at this time. See goals of care note for more details. Plan to discharge home with family. Concerned about patient's continued progression of her dementia, symptoms suspicious for Parkinson's, would be a good hospice candidate pending on patient and family's goals of care moving forward. High risk for readmission and further decompensation. Necessitating significant assistance for mobility and with ADLs. High fall risk. Currently has nonoperative left trochanteric fracture which will continue to limit her mobility.
--- NOTE | 2023-08-22 15:58 | CARE MANAGER ---
Addendum entered by Yany Bailey RN 08/23/23 16:45: [facility] could not accept, but [facility] did. Addendum entered by Yany Bailey RN 08/23/23 15:51: [facility] and [facility] do not see patients in [facility]. Family/patient is agreeable to whatever agency can take her via phone. Information sent to [facility]. CHELO Pandey Original Note: Per PT/OT patient would benefit from STR, but can safely return home if she has 24 hour care. Patient's daughter at bedside is agreeable to HH services and signed patient choice for [facility] or [facility]. Patient will likely discharge home in the morning with HH.
--- NOTE | 2023-08-22 17:26 | PC.NURSE ---
Pt. is aox2 with some confusion, 90's on RA, turn every two hours, purewick in place, 20g L AC with NS @ 50 ML/HR.
--- NOTE | 2023-08-22 17:39 | EXP.EVENT.NO ---
Advance care planning note: Active diagnosis: Dementia, progressive decline, nonoperative left trochanteric fracture, falls, electrolyte disturbances, suspected Parkinson's The patient's active diagnoses are of sufficient risk that focused discussion on advanced care planning is indicated in order to allow the patient to thoughtfully consider personal goals of care; and, if situations arise that prevent the ability to personally give input, to ensure appropriate representation of their personal desires through documentation or informed surrogate decision makers. Discussion: Persons present and participating in discussion: Patient and daughter Discussion: Discussed patient's progressive decline. High risk for repeated falls. Asked if family has had any goals of care discussions. They have not at this time. They are adamant they want to care for her at home. Patient has been mobile using walker and wheelchair up until recently when she fell and broke her left trochanter. Requiring significant assistance at home. Feeds herself. Daughter feels patient is exceptionally mobile and independent. Expressed concern for patient's true mobility and functional status. I am concerned the daughter does not have a good understanding of patient's true abilities. Patient appears to have progressing dementia and Parkinson's-like symptoms with tremor. Necessitating two-person assist to get out of bed with therapy. Encouraged family to have continued discussions about goals of care as patient's condition is at high risk of declining. Expressed understanding. Daughter to discuss with her brothers. Time spent: Total time spent [id number] in education and discussion directly related to advance care planninmin Edmond Hong 08/22/2023 12:30-12:55
[2023-08-22] MEDS: BUDESONIDE 0.5MG/2ML NEB 0.5 MG IH (18:33)
[2023-08-22] MEDS: MELATONIN 5MG TABLET 5 MG PO (20:43)
[2023-08-22] MEDS: PRAVASTATIN 20MG TAB 20 MG PO (20:43)
[2023-08-23] VITALS (7 sets, daily range): BP systolic 158–163; BP diastolic 62–79; PULSE 70–100; RESP 16–28; TEMP 36.5–36.7; O2SAT 90–98; BMI 31.6
[2023-08-23] MEDS: 0.9 % SODIUM CHLORIDE 1000ML 1,000 ML 50 ML IV (00:18)
[2023-08-23] MEDS: LEVOTHYROXINE 88MCG (0.088MG) TAB 88 MCG PO (06:10)
[2023-08-23] MEDS: IPRATROPIUM/ALBUTEROL 3 ML NEB IH ×2 (06:30→11:07)
[2023-08-23] MEDS: BUDESONIDE 0.5MG/2ML NEB 0.5 MG IH (06:30)
[2023-08-23 07:27] LABS: Basophils # 0.1 K/mm3 (0-0.2); Basophils % 1.4 % (0.1-2.0); Eosinophils # 0.1 K/mm3 (0.0-0.4); Eosinophils % 2.2 % (0.1-12.0); Hematocrit 28.3 % (37.0-47.0); Hemoglobin 8.7 g/dL (12.2-16.2); Lymphocytes # 0.6 K/mm3 (0.7-4.5); Lymphocytes % 13.8 % (10-50); Mean Corpuscular HGB Conc 30.6 g/dL (31.8-35.4); Mean Corpuscular Hemoglobin 24.7 pg (27.0-31.2); Mean Corpuscular Volume 80.9 fl (81-99); Mean Platelet Volume 8.8 fl (7.4-10.4); Monocytes # 0.3 K/mm3 (0.1-1.0); Monocytes % 6.5 % (1.7-9.3); Neutrophils # 3.1 K/mm3 (1.8-7.8); Neutrophils % 76.1 % (37.0-80.0); Platelet Count 110 K/mm3 (142-424); Red Cell Distribution Width 16.8 % (11.5-17.5)
[2023-08-23 07:44] LABS: Chloride 102 mmol/L (98-107); Sodium 135 mmol/L (136-145)
[2023-08-23 07:47] LABS: Alanine Aminotransferase 16 U/L (12-78); Alkaline Phosphatase 87 U/L (38-126); Anion Gap 6.8 mEq/L (5-15); Aspartate Amino Transferase 29 U/L (14-36); Bilirubin,Total 0.4 mg/dl (0.2-1.3); Blood Urea Nitrogen 7 mg/dl (7-17); Carbon Dioxide 29 mmol/L (22.0-30.0); Creatinine Clearance Estimated 45 mL/min (50-200); Estimated Glomerular Filt Rate 68 ml/min (>60); GFR (African American) 83 ML/MIN (>60)
[2023-08-23 07:48] LABS: Globulin 2.9 g/dL (1.3-3.2); Glucose 111 mg/dl (74-100); Magnesium 1.6 mg/dl (1.6-2.3); Total Protein,Serum 5.9 g/dl (6.3-8.2)
[2023-08-23 08:06] LABS: Potassium 2.8 mmoL/L (3.5-5.1)
--- NOTE | 2023-08-23 08:11 | EXP.DC.SUM ---
General Admission date:: 08/21/23 Discharge date: 08/23/23 HPI HPI HPI: This is A 82-year-old female with extensive medical history including but not limited to hypertension, hyperlipidemia, COPD not on home, dementia. Initially patient was seen at the urgent care on August 13 for left hip pain. Patient was found to have a left trochanter fracture, therefore referred to the ED for evaluation. Here in this hospital was diagnosed with nonsurgical left second toe fracture and LOURDES with electrolyte depletion, and UTI. Patient was offered for admission and declined at the moment. Will discharge home with cefdinir. Today during her follow-up with her PCP, potassium was low, patient was complaining of increased weakness. New lab work was obtained and hypokalemia was confirmed. Admitted for inpatient management. Hospital Course Hospital Course Hospital Course: 82-year-old female with extensive medical history including but not limited to hypertension, hyperlipidemia, COPD not on home, dementia came today to ED por persistent hypokalemia. Initial ED workup, confirm electrolyte depletion. The rest of the labs are nonactionable. Check concerning EKG was obtained. Due to failure for outpatient therapy, and other comorbidities, ED requested admission for inpatient management. Patient admitted to medicine for further management. Showed improvement in her electrolytes with replacement. Will continue replacement at time of discharge. Had multiple discussions with family in regard to goals of care. Family understands that she is getting more weak and progressing. They do not want her to chcf. They are prepared to take her home, open to hospice if her condition persists with decline. Stable to discharge with home health today. Problems addressed as follows: Progressive weakness Hypokalemia, hypomagnesemia Ongoing urinary tract infection positive to E. coli -Patient presented with low potassium in the mid 2 range. Magnesium is also low. Supplement provided both orally and IV. Patient responded well with improvement in potassium and normalization of magnesium. Serial labs showed continued fluctuation, but her levels were improving by day of discharge. Potassium at 3 with continued supplementation on day of discharge. Of note, patient also found to have UTI. Culture positive for E. coli. Transitioned to Macrobid based on sensitivity profile and allergy history. Will complete course of Macrobid at discharge. Stable to discharge in the care of family. Counseled on electrolyte disturbances likely being related to poor nutritional intake and progressive decline of patient. Have strong concern that patient's condition is terminal. She has dementia, tremors concerning for Parkinson's, is becoming essentially bedbound. Given her advanced age and progressing declining conditions, strong concern she will need hospice in the coming weeks. Family had goals of care discussions and want to take her home, they are not interested in rehab or skilled therapy for continued monitoring and treatment. Anemia: History of iron deficiency, iron studies show low levels. Administered 1 dose Venofer 200 mg x 1. Hemoglobin 8.7 on day of discharge. No active signs of bleeding. -Present closed mildly displaced left greater trochanter fracture: Pain management, Ortho consulted last visit, recommended medical management. Impacts her ability to ambulate. Evaluated by therapy, recommend skilled therapy and rehab placement. Family and patient declined placement. She has help at home, they will take her home at discharge. Case management assisting with home health referral Hypertension: Isosorbide mononitrate 30 mg daily, continue metoprolol succinate 50 mg daily, Hypothyroid: Continue home levothyroxine 88 mcg daily COPD: Continue Pulmicort twice daily with DuoNebs every 6 hours scheduled dementia: Continue Zoloft and Risperdal per home regimen Total time spent on discharge 35 minutes in counseling, documentation, chart review, and direct care with patient. Exam Data for Last 24 hours Vital signs and Labs for Last 24 Hours: Temp Pulse Resp BP Pulse Ox O2 Del Method 97.7 F 85 16 163/75 H 98 Room Air 08/23/23 04:00 08/23/23 06:31 08/23/23 04:00 08/23/23 04:00 08/23/23 06:31 08/23/23 06:49 Laboratory Results - last 24 hr 08/22/23 05:53: Iron 44, TIBC 252 L, Iron Saturation 17.58378, Ferritin 26.0 08/23/23 05:40: WBC 4.0 L, RBC 3.50 L, Hgb 8.7 L, Hct 28.3 L, MCV 80.9 L, MCH 24.7 L, MCHC 30.6 L, RDW 16.8, Plt Count 110 L D, MPV 8.8, Neut % (Auto) 76.1, Lymph % (Auto) 13.8, Casey % (Auto) 6.5, Eos % (Auto) 2.2, Baso % (Auto) 1.4, Neut # (Auto) 3.1, Lymph # (Auto) 0.6 L, Casey # (Auto) 0.3, Eos # (Auto) 0.1, Baso # (Auto) 0.1 08/23/23 07:18: Sodium 135 L, Potassium 2.8 L*, Chloride 102, Carbon Dioxide 29, Anion Gap 6.8, BUN 7 D, Creatinine 0.80, Estimated Creat Clear 45, Estimated GFR 68, Est GFR ( Amer) 83 D, Glucose 111 H, Calcium 9.0, Magnesium 1.6 D, Total Bilirubin 0.4, AST 29, ALT 16 D, Alkaline Phosphatase 87, Total Protein 5.9 L, Albumin 3.0 L, Globulin 2.9, Albumin/Globulin Ratio 1.0 L I & O for Last 24 hours: Intake & Output 08/20/23 08/21/23 08/22/23 08/23/23 23:59 23:59 23:59 23:59 Intake Total 1362 / 1862 500 / 500 Output Total 0 / 0 900 / 900 1300 / 1300 Balance 0 / 100 462 / 962 -800 / -800 Weight 68.974 kg 70.052 kg 68.294 kg Constitutional Constitutional: no acute distress, obese, chronically ill appearing and cooperative Comments: Elderly *Routine HEENT Exam Head: Present normocephalic Eye: Present EOMI and PERRL ENT: Present mucous membranes moist Comments: Diminished hearing capacity *Routine Respiratory Exam Respiratory: Present normal respiratory effort and symmetric chest movement; Absent rhonchi *Routine Cardiovascular Exam Cardiovascular: Present RRR *Routine Abdominal Exam Abdominal: Present soft and normoactive bowel sounds *Routine Rectal Exam Patient deferred: visual exam *Routine Exam Patient deferred: external exam *Routine Extremities Exam Extremities: Present pulses intact; Absent cyanosis or clubbing Comments: Extensive ecchymoses on bilateral upper arms, small bruises on anterior shins *Routine Skin Exam Skin: Present intact, dry and warm Comments: Skin very thin *Routine Neurological Exam Neurological: Present alert, moving all extremities and tremors Routine Psychiatric Exam Psychiatric: Present normal affect and cooperative Results Data Completed and Pending Labs on day of discharge: Labs from last 24 hours 08/23/23 08/23/23 08/22/23 07:18 05:40 05:53 WBC 4.0 L RBC 3.50 L Hgb 8.7 L Hct 28.3 L MCV 80.9 L MCH 24.7 L MCHC 30.6 L RDW 16.8 Plt Count 110 L D MPV 8.8 Neut % (Auto) 76.1 Lymph % (Auto) 13.8 Casey % (Auto) 6.5 Eos % (Auto) 2.2 Baso % (Auto) 1.4 Neut # (Auto) 3.1 Lymph # (Auto) 0.6 L Casey # (Auto) 0.3 Eos # (Auto) 0.1 Baso # (Auto) 0.1 Sodium 135 L Potassium 2.8 L* Chloride 102 Carbon Dioxide 29 Anion Gap 6.8 BUN 7 D Creatinine 0.80 Estimated Creat Clear 45 Estimated GFR 68 Est GFR ( Amer) 83 D Glucose 111 H Calcium 9.0 Magnesium 1.6 D Iron 44 TIBC 252 L Iron Saturation 17.35423 Ferritin 26.0 Total Bilirubin 0.4 AST 29 ALT 16 D Alkaline Phosphatase 87 Total Protein 5.9 L Albumin 3.0 L Globulin 2.9 Albumin/Globulin Ratio 1.0 L DS: Diagnosis Discharge Diagnosis (1) Acute UTI: Status: Acute Code(s): N39.0 - Urinary tract infection, site not specified (2) Hypokalemia: Status: Acute Code(s): E87.6 - Hypokalemia (3) Dementia: Status: Acute Code(s): F03.90 - Unspecified dementia, unspecified severity, without behavioral disturbance, psychotic disturbance, mood disturbance, and anxiety Qualifiers: Dementia behavioral or psychological symptom: with other behavioral disturbance Dementia severity: moderate Dementia type: unspecified type Qualified Code(s): F03.B18 - Unspecified dementia, moderate, with other behavioral disturbance (4) Asthenia: Status: Acute Code(s): R53.1 - Weakness (5) Closed fracture of greater trochanter of left femur: Status: Acute Code(s): S72.112A - Displaced fracture of greater trochanter of left femur, initial encounter for closed fracture Qualifiers: Encounter type: subsequent encounter Fracture alignment: displaced Fracture healing: with routine healing Qualified Code(s): S72.112D - Displaced fracture of greater trochanter of left femur, subsequent encounter for closed fracture with routine healing (6) Hypertension: Status: Acute Code(s): I10 - Essential (primary) hypertension Qualifiers: Hypertension type: unspecified Qualified Code(s): I10 - Essential (primary) hypertension (7) COPD (chronic obstructive pulmonary disease): Status: Chronic Code(s): J44.9 - Chronic obstructive pulmonary disease, unspecified Qualifiers: COPD type: unspecified COPD Qualified Code(s): J44.9 - Chronic obstructive pulmonary disease, unspecified (8) CAD (coronary artery disease): Status: Chronic Code(s): I25.10 - Atherosclerotic heart disease of [place] coronary artery without angina pectoris Qualifiers: Associated angina: with other forms of angina Coronary Disease-Associated Artery/Lesion type: [place] artery [place] vs. transplanted heart: [place] heart Qualified Code(s): I25.118 - Atherosclerotic heart disease of [place] coronary artery with other forms of angina pectoris Meds Home Medications and Allergies Home Medications Medication Instructions Recorded Confirmed Type aspirin 81 mg tablet,delayed 81 mg PO DAILY 07/01/22 08/22/23 History release levothyroxine 88 mcg tablet 88 mcg PO DAILY Thyroid 30 days 07/09/23 08/21/23 Rx #90 tabs metoprolol succinate 50 mg 50 mg PO DAILY #30 tabs 07/09/23 08/21/23 Rx tablet,extended release 24 hr (Toprol XL) sertraline 50 mg tablet 50 mg PO DAILY Mood 30 days #90 07/09/23 08/21/23 Rx tabs naproxen 500 mg tablet 500 mg PO BID PRN pain #60 tabs 08/05/23 08/21/23 Rx budesonide 0.5 mg/2 mL suspension 2 mg inhalation BID 08/14/23 08/22/23 History for nebulization formoterol fumarate 20 mcg/2 mL 2 ml inhalation QID 08/14/23 08/22/23 History solution for nebulization ipratropium 0.5 mg-albuterol 3 mg 3 ml inhalation Q6HP PRN Shortness 08/14/23 08/22/23 History (2.5 mg base)/3 mL nebulization Of Breath soln melatonin 3 mg tablet 3 mg PO HS 08/21/23 08/21/23 History cholecalciferol (vitamin D3) 1,250 1,250 mcg PO WEEKLY 08/22/23 08/22/23 History mcg (50,000 unit) capsule isosorbide mononitrate 30 mg 30 mg PO DAILY 08/22/23 08/22/23 History tablet,extended release 24 hr omeprazole 20 mg capsule,delayed 20 mg PO DAILY 08/22/23 08/22/23 History release risperidone 3 mg tablet 3 mg PO HS 08/22/23 08/22/23 History potassium chloride 40 mEq/15 mL 40 meq (15 mL) PO BID #473 mL 08/24/23 Rx oral liquid New Prescriptions to Start Prescriptions: Edmond Valdivia Allergies Allergy/AdvReac Type Severity Reaction Status Date / Time cefuroxime [CEFUROXIME] Allergy Mild NA Verified 08/21/23 10:12 Cephalosporins Allergy Mild Unknown Verified 08/21/23 10:12 allergy reaction levofloxacin [From LEVAQUIN] Allergy Mild I-RASH Verified 08/21/23 10:12 penicillin G [PENICILLIN G] Allergy Mild NA Verified 08/21/23 10:12 Quinolones [QUINOLONES] Allergy Mild NA Verified 08/21/23 10:12 cephalexin [From KEFLEX] AdvReac Mild NA-NAUSEA Verified 08/21/23 10:12 ciprofloxacin [From CIPRO] AdvReac Mild NA-NAUSEA Verified 08/21/23 10:12 morphine [MORPHINE] AdvReac Mild NA-NAUSEA Verified 08/21/23 10:12 Discharge Plan Disposition Patient Disposition: Home Health Service Condition: Fair Discharge Order Discharge Orders: Discharge Order (Routine); Ordered 08/23/23 Ordered By: Edmond Hnog Follow up Plan Follow up with: Dash Alvarez APRN [Primary Care Provider] - 08/28/23 2:30 pm Prescriptions/Medication Reconciliation: New potassium chloride 40 mEq/15 mL liquid 40 meq PO BID Qty: 473 0RF Continued sertraline 50 mg tablet 50 mg PO DAILY 30 Days Qty: 90 2RF metoprolol succinate [Toprol XL] 50 mg tablet extended release 24 hr 50 mg PO DAILY Qty: 30 5RF levothyroxine 88 mcg tablet 88 mcg PO DAILY 30 Days Qty: 90 2RF melatonin 3 mg tablet 3 mg PO HS Patient Comments: TAKE 1 TABLET 1 TIME EACH DAY AT BEDTIME NEEDED FOR SLEEP naproxen 500 mg tablet 500 mg PO BID PRN (Reason: pain) Qty: 60 1RF aspirin 81 mg tablet,delayed release (DR/EC) 81 mg PO DAILY ipratropium-albuterol 0.5 mg-3 mg(2.5 mg base)/3 mL solution for nebulization 3 ml INHALATION Q6HP PRN (Reason: Shortness Of Breath) budesonide 0.5 mg/2 mL suspension for nebulization 2 mg inhalation BID formoterol fumarate 20 mcg/2 mL solution for nebulization 2 ml INHALATION QID isosorbide mononitrate 30 mg tablet extended release 24 hr 30 mg PO DAILY risperidone 3 mg tablet 3 mg PO HS cholecalciferol (vitamin D3) 1,250 mcg (50,000 unit) capsule 1,250 mcg PO WEEKLY Patient Comments: TAKE 1 CAPSULE 1 TIME EACH WEEK omeprazole 20 mg capsule,delayed release(DR/EC) 20 mg PO DAILY Rx Instructions: TAKE 1 CAPSULE BY MOUTH EVERY DAY Discontinued lovastatin 20 mg tablet 20 mg PO HS cholecalciferol (vitamin D3) [Vitamin D3] 50 mcg (2,000 unit) tablet 50 mcg PO DAILY Problem Reconciliation Problems Reviewed?: Yes Patient Discharge Instructions ACTIVITY: Continue current activity DIET: continue same diet Patient Instructions: DI for Urinary Tract Infection (UTI), DI for Hypokalemia, DI for Muscle Weakness Providers Primary Care Provider: Dash Alvarez Admit Provider: Edmond Hong Attending Provider: Edmond Hong
[2023-08-23] MEDS: ENOXAPARIN 40MG/0.4ML SYRINGE 40 MG SQ (08:31)
[2023-08-23] MEDS: POTASSIUM CHLORIDE 20MEQ/15ML UDC 20 MEQ PO ×2 (08:31→13:19)
[2023-08-23] MEDS: ISOSORBIDE MONO 30MG TAB.ER.24H 30 MG PO (08:31)
[2023-08-23] MEDS: KCl 10mEq/100ml 100 ML 100 MEQ IV ×3 (08:31→10:59)
[2023-08-23] MEDS: METOPROLOL SUCCINATE XL 50MG TABLET 50 MG PO (08:31)
[2023-08-23] MEDS: SERTRALINE 50MG TABLET 50 MG PO (08:31)
[2023-08-23] MEDS: NITROFURANTOIN 100MG CAPSULE 100 MG PO (08:32)
[2023-08-23] MEDS: PANTOPRAZOLE 40MG TABLET 40 MG PO (08:32)
[2023-08-23] MEDS: ASPIRIN EC 81MG TABLET 81 MG PO (08:32)
[2023-08-23] MEDS: risperiDONE 1MG TABLET 1.5 MG PO (08:32)
[2023-08-23] MEDS: CHOLECALCIFEROL 1,000 UNITS (25MCG) TABLET 50 MCG PO (08:32)
[2023-08-23 14:20] LABS: Chloride 106 mmol/L (98-107); Potassium 3.7 mmoL/L (3.5-5.1); Sodium 133 mmol/L (136-145)
[2023-08-23 14:23] LABS: Anion Gap 9.7 mEq/L (5-15); Blood Urea Nitrogen 6 mg/dl (7-17); Carbon Dioxide 21 mmol/L (22.0-30.0); Creatinine Clearance Estimated 45 mL/min (50-200); Estimated Glomerular Filt Rate 68 ml/min (>60); GFR (African American) 83 ML/MIN (>60); Glucose 89 mg/dl (74-100)
[2023-08-23] MEDS: ACETAMINOPHEN 325MG TAB 650 MG PO (14:36)
--- NOTE | 2023-08-26 15:24 | CARE MANAGER ---
Contacted patient's daughter related to hospital discharge. She states patient is doing well. She has her new medication and is aware of her follow up appointment. She has not heard from home health yet. Provided her with [employer]'s phone number to follow up. CHELO Pandey
== END 2023-08-23 16:20 | disposition home health service (06) ==
LOC: ER 20:32 → 2ND 21:13
PROVIDERS: Nurse Practitioner Family; Physician Assistant; Admitting Provider Internal Medicine Adolescent Medicine; Emergency Provider Student in an Organized Health Care Education/Training Program; PCP Nurse Practitioner Family; Visit Provider Internal Medicine Adolescent Medicine
DX: E87.6 Hypokalemia (principal); R53.1 Weakness; N39.0 Urinary tract infection, site not specified; S72.112D Displaced fracture of greater trochanter of left femur, subsequent encounter for closed fracture with routine healing; I10 Essential (primary) hypertension; J44.9 Chronic obstructive pulmonary disease, unspecified; I25.118 Atherosclerotic heart disease of native coronary artery with other forms of angina pectoris; F03.B18 Unspecified dementia, moderate, with other behavioral disturbance; Z79.899 Other long term (current) drug therapy; Z87.891 Personal history of nicotine dependence; B96.20 Unspecified Escherichia coli [E. coli] as the cause of diseases classified elsewhere
CPT/HCPCS: 36415; 80048; 80053; 82728; 83540; 83550; 83735; 85025; 93005; 94640; 97162; 97166; 97530; 99285; G0378; J1650; J1756; J3475; J3480; J7620

== ENCOUNTER 2023-09-20 19:20 | Emergency (ER) | payer MEDICARE, MEDICAID, SELFPAY ==
[2023-09-20 19:37] VITALS: BP 190/84; PULSE 85; RESP 16; TEMP 36.8; O2SAT 95; BMI 31.3
--- NOTE | 2023-09-20 19:44 | ED_ITS ---
Discharge Plan Disposition Patient Disposition: Home, Self-Care Condition: Good Prescriptions Prescriptions: No Action sertraline 50 mg tablet 50 mg PO DAILY 30 Days Qty: 90 2RF metoprolol succinate [Toprol XL] 50 mg tablet extended release 24 hr 50 mg PO DAILY Qty: 30 5RF levothyroxine 88 mcg tablet 88 mcg PO DAILY 30 Days Qty: 90 2RF melatonin 3 mg tablet 3 mg PO HS Patient Comments: TAKE 1 TABLET 1 TIME EACH DAY AT BEDTIME NEEDED FOR SLEEP risperidone 3 mg tablet 3 mg PO HS Qty: 90 1RF naproxen 500 mg tablet 500 mg PO BID PRN (Reason: pain) Qty: 60 1RF mupirocin 2 % ointment 1 applic topical TID Qty: 22 2RF aspirin 81 mg tablet,delayed release (DR/EC) 81 mg PO DAILY ipratropium-albuterol 0.5 mg-3 mg(2.5 mg base)/3 mL solution for nebulization 3 ml INHALATION Q6HP PRN (Reason: Shortness Of Breath) budesonide 0.5 mg/2 mL suspension for nebulization 2 mg inhalation BID formoterol fumarate 20 mcg/2 mL solution for nebulization 2 ml INHALATION QID isosorbide mononitrate 30 mg tablet extended release 24 hr 30 mg PO DAILY cholecalciferol (vitamin D3) 1,250 mcg (50,000 unit) capsule 1,250 mcg PO WEEKLY Patient Comments: TAKE 1 CAPSULE 1 TIME EACH WEEK omeprazole 20 mg capsule,delayed release(DR/EC) 20 mg PO DAILY Rx Instructions: TAKE 1 CAPSULE BY MOUTH EVERY DAY potassium chloride 40 mEq/15 mL liquid 40 meq PO BID Qty: 473 0RF Referrals Follow up/Referrals: Dash Alvarez APRN [Primary Care Provider] - See instructions Activity Restrictions/Add. Instructions Additional Instructions/Restrictions: Leave wound area open to air and may apply topical neosporin if needed If you must place a bandage on arm to sleep DO NOT USE COBAN and make sure dressing is loose Follow up with your Family Doctor if swelling returns or continues Straight to ER if any life threatening symptoms Clinical Impressions Clinical Impression: Arm problems Instructions Patient Instructions: DI for Abrasion, Edema Discharge ED Provider: Crystal Thomason [facility] General Stated complaint: Right hand swollen,no injury Mode of Arrival: Wheelchair Source of Information: Patient and Relative Limitations: No Limitations Time Seen by Provider: 09/20/23 19:44 Description of Symptoms (Recalled from Triage Doc. by RN): Complaint of right arm swelling that has progressively gotten worse as the day has went on. Large wound noted to that arm. HEENT Symptoms (Recalled from RN notes): No Resp Symptoms (Recalled from RN notes): No Skin Symptoms (Recalled from RN notes): No MS Symptoms (Recalled from RN notes): Yes Functional Status (Recalled from RN notes): wnl History of Present Illness Provider Complaint: Family states that patient has had a wound on her right elbow that was bandaged by the home health nurse, states that today after they changed her bandage they noticed she was having swelling in her arm that has continued to get worse as the day went on so this evening they brought her in Related Data Home Medications Medication Instructions Recorded Confirmed aspirin 81 mg tablet,delayed 81 mg PO DAILY 07/01/22 08/22/23 release budesonide 0.5 mg/2 mL suspension 2 mg inhalation BID 08/14/23 08/22/23 for nebulization formoterol fumarate 20 mcg/2 mL 2 ml inhalation QID 08/14/23 08/22/23 solution for nebulization ipratropium 0.5 mg-albuterol 3 mg 3 ml inhalation Q6HP PRN Shortness 08/14/23 08/22/23 (2.5 mg base)/3 mL nebulization Of Breath soln melatonin 3 mg tablet 3 mg PO HS 08/21/23 08/21/23 cholecalciferol (vitamin D3) 1,250 1,250 mcg PO WEEKLY 08/22/23 08/22/23 mcg (50,000 unit) capsule isosorbide mononitrate 30 mg 30 mg PO DAILY 08/22/23 08/22/23 tablet,extended release 24 hr omeprazole 20 mg capsule,delayed 20 mg PO DAILY 08/22/23 08/22/23 release Previous Rx's Medication Instructions Recorded levothyroxine 88 mcg tablet 88 mcg PO DAILY Thyroid 30 days 07/09/23 #90 tabs metoprolol succinate 50 mg 50 mg PO DAILY #30 tabs 07/09/23 tablet,extended release 24 hr (Toprol XL) sertraline 50 mg tablet 50 mg PO DAILY Mood 30 days #90 07/09/23 tabs naproxen 500 mg tablet 500 mg PO BID PRN pain #60 tabs 08/05/23 potassium chloride 40 mEq/15 mL 40 meq (15 mL) PO BID #473 mL 08/24/23 oral liquid mupirocin 2 % topical ointment 1 applic topical TID wound #22 09/11/23 grams risperidone 3 mg tablet 3 mg PO HS #90 tabs 09/18/23 Allergies Allergy/AdvReac Type Severity Reaction Status Date / Time cefuroxime [CEFUROXIME] Allergy Mild NA Verified 08/21/23 10:12 Cephalosporins Allergy Mild Unknown Verified 08/21/23 10:12 allergy reaction levofloxacin [From LEVAQUIN] Allergy Mild I-RASH Verified 08/21/23 10:12 penicillin G [PENICILLIN G] Allergy Mild NA Verified 08/21/23 10:12 Quinolones [QUINOLONES] Allergy Mild NA Verified 08/21/23 10:12 cephalexin [From KEFLEX] AdvReac Mild NA-NAUSEA Verified 08/21/23 10:12 ciprofloxacin [From CIPRO] AdvReac Mild NA-NAUSEA Verified 08/21/23 10:12 morphine [MORPHINE] AdvReac Mild NA-NAUSEA Verified 08/21/23 10:12 Worker's Comp Is this a Worker's Comp case?: No [facility] Disclaimer: The information contained in this section may have been updated after the patient was seen, as this information can be updated by other users. Medical History Abnormal computerized axial tomography of chest Mild persistent asthma Apparently she is only on nebulizers at this point. She is not using any of her MDIs. They are following with pulmonary as I understand. Incontinence Multiple pulmonary nodules Asthma Dyspnea on exertion Carotid artery stenosis Chest pain Dizziness Fatigue Chronic knee pain Chronic back pain greater than 3 months duration SOB (shortness of breath) Hip pain, bilateral COPD (chronic obstructive pulmonary disease) See above, they are following with pulmonary as described. Mobility impaired Unsteady gait HLD (hyperlipidemia) HHD (hypertensive heart disease) CAD (coronary artery disease) Surgical History History of eye surgery History of breast biopsy History of surgery on upper extremity History of hysterectomy Family History Other Asthma Diabetes Social History (Updated 08/21/23 @ 22:39 by Fay Juárez RN) Smoking Status: Former smoker tobacco type: cigarettes alcohol intake: never substance use type: denies use current occupational status: disabled Travel in the last 8 weeks: None household members: family housing: house number of children: 8 caffeine: Yes ROS Obtained: Yes All systems reviewed & no additional complaints except as documented and Yes Systems reviewed as appropriate & no additional complaints except as documented Constitutional Constitutional: Reports system reviewed and no additional complaints, except as documented, Reports as per HPI, Denies body ache, Denies chills and Denies fever(s) ENT Ears, Nose, Mouth, and Throat: Reports system reviewed and no additional complaints, except as documented and Reports as per HPI Cardiovascular Cardiovascular: Reports system reviewed and no additional complaints, except as documented and Reports as per HPI Genitourinary Female Genitourinary: Reports system reviewed and no additional complaints, except as documented and Reports as per HPI Musculoskeletal Musculoskeletal: Reports system reviewed and no additional complaints, except as documented and Reports as per HPI Integumentary/Breasts Skin/Breast: Reports system reviewed and no additional complaints, except as documented, Reports as per HPI and Reports other (swelling in right arm) Physical Exam General General appearance: alert and in no apparent distress Respiratory Respiratory exam: Present normal lung sounds bilaterally; Absent respiratory distress or wheezes Cardiovascular Cardiovascular exam: Present regular rate, normal rhythm and normal heart sounds Expanded Upper Extremity Exam Right: Elbow exam: Present other (small healing wound on elbow) Forearm/Wrist exam: Present other (clear fluid noted under skin on wrist and top of hand/fingers, bandage that was placed earlier today appears tight see narrative) Hand exam: Present swelling (fluid noted under skin) Neurological Exam Neurological exam: Present alert, oriented X3 and normal gait Medical Decision Making Rafa Inquiry Pt receiving controlled substance: No Rafa was queried for this patient: No Vital Signs: 09/20/23 19:37 Temperature 98.2 F Temperature Source Oral Pulse Rate [Radial] 85 Respiratory Rate 16 Blood Pressure [Right Arm] 190/84 H Blood Pressure Mean [Right Arm] 119 Blood Pressure Source [Right Arm] Automatic Cuff Blood Pressure Position [Right Arm] Sitting 02 Sat by Pulse Oximetry 95 Oxygen Delivery Method Room Air Medical Decision Narrative: Patient had Kerlex and coban dressing on right elbow/forearm Swelling noted in skin below dressing with what appears to be clear fluid under the skin and swelling with fluid under skin on top of hand, Dressing appears tight therefore removed the dressing and will replace After dressing was removed and left off for short period of time swelling in top of hand and wrist area much improved and almost gone, family educated to not apply tight dressing this can and will compromise blood flow and will cause swelling below the site of the bandage recommended leaving area open to air however they was concerned with when she sleeps Educated them on applying loose bandage and do not use Coban and make sure they are able to place fingers easily between skin and bandage Also elevating arm on pillow may help with swelling do not hand arm/hand down Family Agreed much improvement in swelling since arrival and bandage removed Will dc home and patient/family given strict return precautions
[2023-09-20 20:03] VITALS: BP 190/84; PULSE 85; RESP 16; TEMP 36.8; O2SAT 95
== END 2023-09-20 20:04 | disposition home or self-care (01) ==
PROVIDERS: Emergency Provider Nurse Practitioner; PCP Nurse Practitioner Family
DX: R22.31 Localized swelling, mass and lump, right upper limb (principal)
CPT/HCPCS: 99212; 99213; G0463

== ENCOUNTER 2023-12-19 23:00 | Emergency (ER) | payer MEDICARE, MEDICAID, SELFPAY ==
[2023-12-19 22:55] VITALS: BP 160/81; PULSE 81; RESP 20; TEMP 36.4; O2SAT 95; BMI 37.8
--- NOTE | 2023-12-19 23:05 | ED_ITS ---
Discharge Plan Disposition Patient Disposition: Home, Self-Care Prescriptions Prescriptions: New doxycycline hyclate 100 mg tablet 100 mg PO Q12H 7 Days Qty: 14 0RF No Action sertraline 50 mg tablet 50 mg PO DAILY 30 Days Qty: 90 2RF metoprolol succinate [Toprol XL] 50 mg tablet extended release 24 hr 50 mg PO DAILY Qty: 30 5RF levothyroxine 88 mcg tablet 88 mcg PO DAILY 30 Days Qty: 90 2RF melatonin 3 mg tablet 3 mg PO HS Patient Comments: TAKE 1 TABLET 1 TIME EACH DAY AT BEDTIME NEEDED FOR SLEEP risperidone 3 mg tablet 3 mg PO HS Qty: 90 1RF mupirocin 2 % ointment 1 applic topical TID Qty: 22 2RF ipratropium-albuterol 0.5 mg-3 mg(2.5 mg base)/3 mL solution for nebulization 3 ml INHALATION Q6HP PRN (Reason: Shortness Of Breath) Qty: 180 2RF naproxen 500 mg tablet See Rx Instructions .ROUTE .COMPLEX Qty: 60 1RF Dose Instruction: TAKE 1 TABLET 2 TIMES EACH DAY NEEDED FOR PAIN Rx Instructions: TAKE 1 TABLET 2 TIMES EACH DAY NEEDED FOR PAIN aspirin 81 mg tablet,delayed release (DR/EC) 81 mg PO DAILY budesonide 0.5 mg/2 mL suspension for nebulization 2 mg inhalation BID formoterol fumarate 20 mcg/2 mL solution for nebulization 2 ml INHALATION QID isosorbide mononitrate 30 mg tablet extended release 24 hr 30 mg PO DAILY cholecalciferol (vitamin D3) 1,250 mcg (50,000 unit) capsule 1,250 mcg PO WEEKLY Patient Comments: TAKE 1 CAPSULE 1 TIME EACH WEEK omeprazole 20 mg capsule,delayed release(DR/EC) 20 mg PO DAILY Rx Instructions: TAKE 1 CAPSULE BY MOUTH EVERY DAY potassium chloride 40 mEq/15 mL liquid 40 meq PO BID Qty: 473 0RF Referrals Follow up/Referrals: Dash Alvarez APRN [Primary Care Provider] - See instructions Activity Restrictions/Add. Instructions Additional Instructions/Restrictions: Please follow wound care instructions as discussed, recommend repeat wound clean and covered for the first few days, changing dressings twice a day. Sutures will need to be removed in 1 to 2 weeks depending on healing. Please take antibiotics as prescribed for prophylaxis of infection. Clinical Impressions Clinical Impression: Cat scratch of left lower leg Qualifiers: Encounter type: initial encounter Qualified Code(s): S80.812A - Abrasion, left lower leg, initial encounter Laceration of left leg Qualifiers: Encounter type: initial encounter Qualified Code(s): S81.812A - Laceration without foreign body, left lower leg, initial encounter Instructions Patient Instructions: DI for Laceration Repair Print Language Print Language: Ethiopian Discharge ED Provider: Himanshu Amos General Adult HPI General Chief complaint: Wound/Laceration Stated complaint: lac to L leg Time Seen by Provider: 12/19/23 23:05 History of Present Illness HPI narrative: 83-year-old female with a variety of comorbidities presents for laceration to the left leg. She was sitting in her chair when the family cat scratched her left ankle. The family cat is quite large. It produced and approximately 4 inch laceration to the left lateral lower leg. Wound was hemostatic upon arrival. They washed it out with clean water prior to coming. There is exposed fat but no violation of the fascia. Related Data Home Medications ?Medication ?Instructions ?Recorded ?Confirmed aspirin 81 mg tablet,delayed 81 mg PO DAILY 07/01/22 10/01/23 release budesonide 0.5 mg/2 mL suspension 2 mg inhalation BID 08/14/23 10/01/23 for nebulization formoterol fumarate 20 mcg/2 mL 2 ml inhalation QID 08/14/23 10/01/23 solution for nebulization melatonin 3 mg tablet 3 mg PO HS 08/21/23 10/01/23 cholecalciferol (vitamin D3) 1,250 1,250 mcg PO WEEKLY 08/22/23 10/01/23 mcg (50,000 unit) capsule isosorbide mononitrate 30 mg 30 mg PO DAILY 08/22/23 10/01/23 tablet,extended release 24 hr omeprazole 20 mg capsule,delayed 20 mg PO DAILY 08/22/23 10/01/23 release Previous Rx's ?Medication ?Instructions ?Recorded levothyroxine 88 mcg tablet 88 mcg PO DAILY Thyroid 30 days 07/09/23 #90 tabs metoprolol succinate 50 mg 50 mg PO DAILY #30 tabs 07/09/23 tablet,extended release 24 hr (Toprol XL) sertraline 50 mg tablet 50 mg PO DAILY Mood 30 days #90 07/09/23 tabs potassium chloride 40 mEq/15 mL 40 meq (15 mL) PO BID #473 mL 08/24/23 oral liquid mupirocin 2 % topical ointment 1 applic topical TID wound #22 09/11/23 grams risperidone 3 mg tablet 3 mg PO HS #90 tabs 09/18/23 ipratropium 0.5 mg-albuterol 3 mg 3 ml inhalation Q6HP PRN Shortness 10/03/23 (2.5 mg base)/3 mL nebulization Of Breath #180 mL soln naproxen 500 mg tablet See Rx Instructions .Route 11/15/23 .COMPLEX #60 tabs doxycycline hyclate 100 mg tablet 100 mg PO Q12H 7 days #14 tabs 12/19/23 Allergies Allergy/AdvReac Type Severity Reaction Status Date / Time cefuroxime [CEFUROXIME] Allergy Mild NA Verified 08/21/23 10:12 Cephalosporins Allergy Mild Unknown Verified 08/21/23 10:12 allergy reaction levofloxacin [From LEVAQUIN] Allergy Mild I-RASH Verified 08/21/23 10:12 penicillin G [PENICILLIN G] Allergy Mild NA Verified 08/21/23 10:12 Quinolones [QUINOLONES] Allergy Mild NA Verified 08/21/23 10:12 cephalexin [From KEFLEX] AdvReac Mild NA-NAUSEA Verified 08/21/23 10:12 ciprofloxacin [From CIPRO] AdvReac Mild NA-NAUSEA Verified 08/21/23 10:12 morphine [MORPHINE] AdvReac Mild NA-NAUSEA Verified 08/21/23 10:12 PFSH PFS Disclaimer: The information contained in this section may have been updated after the nolvia ent was seen, as this information can be updated by other users. Medical History Abnormal computerized axial tomography of chest Mild persistent asthma Apparently she is only on nebulizers at this point. She is not using any of her MDIs. They are following with pulmonary as I understand. Incontinence Multiple pulmonary nodules Asthma Dyspnea on exertion Carotid artery stenosis Chest pain Dizziness Fatigue Chronic knee pain Chronic back pain greater than 3 months duration SOB (shortness of breath) Hip pain, bilateral COPD (chronic obstructive pulmonary disease) See above, they are following with pulmonary as described. Mobility impaired Unsteady gait HLD (hyperlipidemia) HHD (hypertensive heart disease) CAD (coronary artery disease) Surgical History History of eye surgery History of breast biopsy History of surgery on upper extremity History of hysterectomy Family History Other Asthma Diabetes Social History (Updated 08/21/23 @ 22:39 by Fay Juárez RN) Smoking Status: Unknown if ever smoked alcohol intake: never substance use type: denies use current occupational status: disabled Travel in the last 8 weeks: None household members: family housing: house number of children: 8 caffeine: Yes Other Medical History Have you received the Flu Vaccine for this season: No Have you received the Pneumonia Vaccine: No ROS Obtained: Yes All systems reviewed & no additional complaints except as documented Physical Exam General General appearance: alert and in no apparent distress Head Head exam: atraumatic and normocephalic Eye Eye exam: Present normal appearance, PERRL and EOMI ENT ENT exam: Present normal oropharynx and normal external ear exam Neck Neck exam: Present normal inspection and full ROM Chest Chest inspection: Present normal inspection and symmetric chest wall rise; Absent tenderness Respiratory Respiratory exam: Present normal lung sounds bilaterally; Absent respiratory distress Cardiovascular Cardiovascular exam: Present regular rate and normal rhythm Abdominal Exam Abdominal exam: Present soft; Absent distention, tenderness or guarding Extremities Exam Extremities exam: Present edema and other; Absent joint swelling Back Exam Back exam: Present normal inspection; Absent tenderness Neurological Exam Neurological exam: Present alert and oriented X3; Absent motor sensory deficit Psychiatric Psychiatric exam: Present normal affect and normal mood Skin Skin exam: Present warm, dry and normal color Lymphatic Lymphatic Findings: no adenopathy Medical Decision Making Medical Records Medical records reviewed: Yes I reviewed the patient's medical records. Screening: Per USPSTF and CDC recommendations, given the prevalence of disease in our region, it is our hospital?s policy to screen for HIV and viral Hepatitis for all patients aged 18 and over and those with ongoing risk factors. Rafa Inquiry Pt receiving controlled substance: No Rafa was queried for this patient: No Vital Signs: 12/19/23 22:55 12/19/23 23:50 Temperature 97.5 F L 98.5 F Temperature Source Tympanic Pulse Rate 86 Pulse Rate [Left Radial] 81 Respiratory Rate 20 20 Blood Pressure 152/82 H Blood Pressure [Right Arm] 160/81 H Blood Pressure Mean [Right Arm] 107 Blood Pressure Source [Right Arm] Automatic Cuff Blood Pressure Position [Right Arm] Sitting 02 Sat by Pulse Oximetry 95 Oxygen Delivery Method Room Air Room Air Lab Data Lab results reviewed: Yes I reviewed the patient's lab results. Orders (Tests/Meds): ED MEDICATIONS Discontinued Medications Generic Name Dose Route Start Last Admin Trade Name Solange PRN Reason Stop Dose Admin Doxycycline Hyclate 100 mg 12/19/23 23:22 12/19/23 23:34 Doxycycline Hycl 100 Mg Tablet PO 12/19/23 23:23 100 mg ONCE ONE Administration Tetanus/Reduced Diphtheria/Acell Pertussis 0.5 ml 12/19/23 23:20 12/19/23 23:34 Tet/Diphth/Pert-Adult 0.5ml Syringe IM 12/19/23 23:21 0.5 ml .ONCE ONE Administration Medical Decision Narrative: 83-year-old female with a variety of past medical history presents for cat scratch to the left lower leg with resulting laceration.. History was obtained via interactive discussion with patient, family, EMS. On arrival, patient is [afebrile, hemodynamically stable, satting appropriately, alert, oriented x4, GCS 15], moving all extremities spontaneously. Full physical exam performed and significant for clean linear 4 inch laceration to the left lateral lower leg. Differential includes but is not limited to laceration, trauma, animal exposure. Patient was given Tdap and doxycycline (she has multiple allergies listed) for symptomatic management and correction of underlying abnormalities. The laceration was extensively cleaned and was stapled at bedside. Patient was discharged in stable condition with instructions regarding wound care. Procedures Risk/Benefits of Procedure(s) Were Explained: Yes Laceration Laceration 1: Site: lower extremity (Lateral lower leg) Side (If applicable): left Size (cm): 10 Description: linear Depth: involves subcutaneous layer Local Anesthetic: lidocaine 1% Amount of anesthesia used (mL): 7 Pre-repair: wound explored, irrigated extensively and wound margins revised Size (cm): other (7 alicia) Critical Care Critical Care Time Critical Care Time: No
[2023-12-19] MEDS: TET/DIPHTH/PERT-ADULT 0.5ML SYRINGE 0.5 ML IM (23:34)
[2023-12-19] MEDS: DOXYCYCLINE HYCL 100 MG TABLET PO (23:34)
[2023-12-19 23:50] VITALS: BP 152/82; PULSE 86; RESP 20; TEMP 36.9; O2SAT 96
== END 2023-12-19 23:54 | disposition home or self-care (01) ==
PROVIDERS: Emergency Provider Emergency Medicine; PCP Nurse Practitioner Family
DX: S81.812A Laceration without foreign body, left lower leg, initial encounter (principal); M79.662 Pain in left lower leg; Z23 Encounter for immunization; W55.03XA Scratched by cat, initial encounter; Y93.9 Activity, unspecified; Y92.009 Unspecified place in unspecified non-institutional (private) residence as the place of occurrence of the external cause
CPT/HCPCS: 90471; 90715; 99283